=== PATIENT | male | born 1965 | race Caucasian/White ===

== ENCOUNTER 2018-03-14 05:28 | Observation (INO) ==
--- NOTE | 2018-03-14 05:47 | Emergency Department Note ---
Disposition Clinical Impression: Pre-syncope Dyspnea Qualifiers: Dyspnea type: unspecified Qualified Code(s): R06.00 - Dyspnea, unspecified Disposition: Admitted As Inpatient Referrals: NONE,PCP [Primary Care Provider] - Forms: ED Satisfaction Letter Time of Disposition: 06:08 SOB HPI - General Chief Complaint: ED Shortness of Breath/Dyspnea Stated Complaint: Breathing problem Time Seen by Provider: 03/14/18 05:42 Source: patient, EMS Limitations: no limitations Nursing Notes Reviewed: Yes Vital Signs Reviewed: Yes - History of Present Illness Pt Subjective Complaint: shortness of breath Onset (ago): week(s) Context: occurred during exertion Consistency/Duration: gradually worsening Improves with: rest Worsens with: movement Known history of: IVDU Associated symptoms: Reports: palpitations, syncope, other (weight loss). Denies: fever, cough, wheezing, sputum production, hemoptysis, diaphoresis, nausea/vomiting Treatment prior to arrival: other (IV fluids via squad) Cough present: No - Related Data Previous Rx's Medication Instructions Recorded HydrOXYzine 50 mg PO TID PRN #30 tablet 09/29/15 Cyclobenzaprine [Flexeril] 10 mg PO BID #20 tablet 01/08/16 Ibuprofen [Caldolor] 800 mg IV TID PRN #30 mls 01/08/16 Cyclobenzaprine [Flexeril] 10 mg PO BID PRN #10 tablet 08/08/16 HYDROcodone/Acet 5/325 mg [[place] 1 tab PO Q6HR PRN #15 tablet 08/08/16 5-325 mg] Ibuprofen [Motrin] 600 mg PO Q6HR PRN #16 tab 01/28/17 Phenytoin ER [Dilantin ER] 100 mg PO TID #24 capsule 01/28/17 HYDROcodone/Acet 5/325 mg [[place] 1 tab PO Q6H PRN #10 tab 04/23/17 5-325 mg] Indomethacin [Indocin] 50 mg RC TID 3 Days supp.rect 04/23/17 Lisinopril [Zestril] 20 mg PO DAILY #10 tablet 07/07/17 Ondansetron ODT [Zofran ODT] 4 mg SL Q6HR PRN #12 tab.rapdis 09/13/17 Dicyclomine [Bentyl] 10 mg PO QID PRN #20 capsule 12/14/17 Omeprazole 20 mg PO DAILY #20 tablet. 12/14/17 Ondansetron ODT [Zofran ODT] 4 mg SL Q6HR PRN #20 tab.rapdis 12/14/17 Allergies Allergy/AdvReac Type Severity Reaction Status Date / Time Penicillins Allergy Anaphylaxis Verified 07/07/17 08:33 codeine AdvReac Hives Verified 07/07/17 08:33 All systems ED: reviewed and negative except as stated. Review of Systems: As Per HPI Constitutional: Reports: weight change (loss). Denies: fever, chills Eyes: Reports: vision change ENT ED: Denies: throat pain Cardiovascular: Reports: as per HPI Respiratory: Reports: as per HPI Gastrointestinal: Denies: abdominal pain, nausea, vomiting Genitourinary: Denies: dysuria Musculoskeletal: Denies: back pain, neck pain Integumentary: Denies: rash Neurological: Denies: headache, weakness Psychiatric: Reports: anxiety Endocrine: Denies: fatigue Hematological/Lymphatic: Denies: easy bleeding Allergic/Immunologic: Denies: facial swelling Past Medical History - Past Medical History Medical history: Reports: hypertension, seizures Surgical history: Reports: no surgical history Psychiatric history: Reports: depression - Social History Smoking Status: Former smoker Smokeless Tobacco Status: Yes (vapor) Alcohol use: Reports: occasionally Drug use: Reports: marijuana Physical Exam - General Limitations: no limitations General appearance: alert, in no apparent distress - Head Head exam: atraumatic, normocephalic - Eye Eye exam: Present: EOMI. Absent: conjunctival injection - ENT ENT exam: normal oropharynx, mucous membranes moist, TM's normal bilaterally, normal external ear exam - Neck Neck exam: Present: full ROM. Absent: lymphadenopathy - Chest Chest inspection: Present: normal inspection, symmetric chest wall rise. Absent : tenderness - Cardiovascular Cardiovascular exam: Present: regular rate, normal rhythm - Abdominal Exam Abdominal exam: Present: soft, Non-Tender Course Course Narrative: Patient is a 53-year-old male smoker that arrives via squad from his home with shortness of breath and palpitations. He states his symptoms started when he was at home at rest this prior to his arrival. He said his symptoms were severe enough that he wanted to call the squad, however to use his phone, he needs to go outside to get a good signal, and he describes having to walk up an area outside his home to get the single. Was walking he noticed that his symptoms had worsened. He felt that he needed to pass out. He has mentioned that he has had some difficulty breathing, and his friends and family have told him that there may be something wrong with his heart. He mentions that he gets difficulty breathing whenever he squats or stands, and its worse at night. He mentions he has not seen a primary care provider in 2 years, but has plans to follow up with the [facility] next week. He does mention some cardiac workup approximately 10 years ago. More lately, he mentions he has had some fever, dark tarry stools, near syncopal symptoms, and weight loss. He describes losing 50 pounds in the past year and a half. He mentions that he passed out 2 days ago while walking. He denies any injury from the fall, nausea, vomiting, chest pain, hemoptysis, fever, chills, abdominal pain, confusion, vertigo. He mentions a past medical history of COPD, hypertension,seizures. He does mention a history of epilepsy, for which she takes Neurontin and Dilantin, he reports that his last primary care provider gave him enough supply of these medications and he still has a supply. He denies any recent seizure and says it 's been years since he had one. He does not require home O2, and has not taken BP medications for 2 years. 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 He is seen at [facility] for Suboxone treatments. He does mention he is a chronic marijuana user. He denies any other current illicit drug use. Patient seen and examined. he is alert and oriented. He is in no acute distress. Blood pressure is 184/124. Otherwise His vitals are within normal limits. Lungs clear to auscultation. Normal distal pulses. No concerning rashes or lesions or signs of skin infection. No abdominal pain. Heart regular rate and rhythm. Workup initiated. - Reevaluation(s) Reevaluation #1: At this time it is at the end of my shift, care of this patient will be transferred over to day shift provider, Adam Bermudez CNP. Please see his further documentation for details and final disposition. Discussed patient with Adam. At this time his lab work, chest x-ray are still pending. Patient's vitals are stable. He is alert. He is walking and his exam room, and using her phone in no acute distress. Due to patient's shortness of breath which is worth on exertion, no recent cardiac eval, his h/o weight loss, syncope, I feel the patient may need to be admitted for further evaluation, however please see Adam' s documentation for final evaluation, and disposition. Time: 06:07 Vital Signs Temperature 98.6 F 03/14/18 05:35 Pulse Rate 71 03/14/18 05:35 Respiratory Rate 20 03/14/18 05:35 Blood Pressure 184/124 03/14/18 05:35 O2 Sat by Pulse Oximetry 95 03/14/18 05:35 Temperature 98.6 F 03/14/18 05:35 Pulse Rate 71 03/14/18 05:35 Respiratory Rate 20 03/14/18 05:35 Blood Pressure 184/124 03/14/18 05:35 O2 Sat by Pulse Oximetry 95 03/14/18 05:35 Oxygen Delivery Oxygen Delivery Room Air Shortness of Breath/Dyspnea - EKG Data EKG attestation: Yes I reviewed and interpreted this EKG. EKG shows normal: Reports: sinus rhythm Rate: Reports: normal Rhythm: Reports: NSR When compared to previous EKG there are: no significant changes (08/2017) Interpretation: Reports: no acute changes S.B.A.R. - S.B.A.R. Situation: Demographics, MOA Background: Presenting Complaint Assessment: Vital Signs, Outstanding Labs Recommendation: Recommendation based on pending studies, treatments, or consults S.B.A.R. Report Given to: Adam Bermudez CNP S.B.A.RWilson Repor Time: 06:05
[2018-03-14] MEDS ORDERED: Aspirin 81 MG TAB.CHEW PO ONE (05:49)
--- NOTE | 2018-03-14 06:19 | Emergency Department Note ---
Disposition Clinical Impression: Pre-syncope, Chest pain, rule out acute myocardial infarction Dyspnea Qualifiers: Dyspnea type: unspecified Qualified Code(s): R06.00 - Dyspnea, unspecified COPD (chronic obstructive pulmonary disease) Qualifiers: COPD type: unspecified COPD Qualified Code(s): J44.9 - Chronic obstructive pulmonary disease, unspecified Disposition: Admitted As Inpatient Condition: Fair Referrals: NONE,PCP [Primary Care Provider] - Forms: ED Satisfaction Letter Time of Disposition: 09:11 SOB HPI - General Chief Complaint: ED Shortness of Breath/Dyspnea Stated Complaint: Breathing problem Time Seen by Provider: 03/14/18 05:42 Source: patient, EMS Limitations: no limitations - History of Present Illness Improves with: rest Worsens with: movement Associated symptoms: Reports: palpitations, syncope, other (weight loss). Denies: fever, cough, wheezing, sputum production, hemoptysis, diaphoresis, nausea/vomiting Treatment prior to arrival: other (IV fluids via squad) - Related Data Allergies Allergy/AdvReac Type Severity Reaction Status Date / Time Penicillins Allergy Anaphylaxis Verified 07/07/17 08:33 codeine AdvReac Hives Verified 07/07/17 08:33 Constitutional: Reports: weight change (loss). Denies: fever, chills Eyes: Reports: vision change ENT ED: Denies: throat pain Cardiovascular: Reports: as per HPI Respiratory: Reports: as per HPI Gastrointestinal: Denies: abdominal pain, nausea, vomiting Genitourinary: Denies: dysuria Musculoskeletal: Denies: back pain, neck pain Integumentary: Denies: rash Neurological: Denies: headache, weakness Psychiatric: Reports: anxiety Endocrine: Denies: fatigue Hematological/Lymphatic: Denies: easy bleeding Allergic/Immunologic: Denies: facial swelling Past Medical History - Past Medical History Medical history: Reports: hypertension, seizures Surgical history: Reports: no surgical history Psychiatric history: Reports: depression - Social History Smoking Status: Former smoker Smokeless Tobacco Status: Yes (vapor) Alcohol use: Reports: occasionally Drug use: Reports: marijuana Physical Exam - General Limitations: no limitations General appearance: alert, in no apparent distress Course Course Narrative: 0600: I have assumed care of this patient from MEHNAZ Thurman due to mid-level shift change. Please see Olman's documentation for care performed prior to my arrival. Briefly, this is an alert and oriented nontoxic-appearing 53-year- old male that arrived by EMS for complaints of shortness of breath, palpitations , left-sided chest heaviness, near syncope, and weight loss. His shortness of breath and sensation of palpitations appear to be worse with exertion. He does state the symptoms have been present for "quite some time" however have worsened over the past several days. He is a smoker and does have a history of COPD. He states that his shortness of breath is made worsened at night. He has not seen his primary care provider over 2 years but does have an appointment scheduled with the residency clinic for early next. He states a 50 pound weight loss over the past year and a half. Aside from an elevated blood pressure of 184/124, vitals are stable and within normal limits. Laboratory and chest x-ray workup are pending. EKG is reviewed and shows a sinus rhythm at a rate of 71 bpm without ectopy or ST elevation/depression. 0909: I spoke with Dr. Shaikh of the hospitalist service who has accepted the patient for admission for further evaluation and treatment. I have discussed this plan with Dr. Velasco, ED attending. He is in agreement with this plan. Vital Signs Temperature 98.6 F 03/14/18 05:35 Pulse Rate 71 03/14/18 05:35 Respiratory Rate 20 03/14/18 05:35 Blood Pressure 184/124 03/14/18 05:35 O2 Sat by Pulse Oximetry 95 03/14/18 05:35 Temperature 98.6 F 03/14/18 05:35 Pulse Rate 72 03/14/18 07:16 Respiratory Rate 18 03/14/18 07:16 Blood Pressure 187/118 03/14/18 07:16 O2 Sat by Pulse Oximetry 94 03/14/18 07:16 Oxygen Delivery Oxygen Delivery Room Air Shortness of Breath/Dyspnea - Medical Records Medical records reviewed: Yes I reviewed the patient's medical records. - Lab Data Lab results reviewed: Yes I reviewed the patient's lab results. Result diagrams: 03/14/18 06:40 03/14/18 06:40 Lab Results 03/14/18 03/14/18 03/14/18 Range/Units 06:40 06:40 06:40 WBC 4.5 (4.3-11.1) K/mcL RBC 4.66 (4.19-5.50) M/mcL Hgb 14.4 (12.9-16.9) g/dL Hct 43.6 (37.5-50.1) % MCV 93.6 (83.0-100.0) fL MCH 30.9 (28.0-33.3) pg MCHC 33.0 (31.6-35.5) g/dL RDW 13.7 (11.5-14.5) % Plt Count 281 (140-400) K/mcL MPV 9.4 (9.4-12.4) fL Immature Gran % 0.0 (0-4) % Seg Neutrophils % 47.2 % Lymphocytes % 31.8 % Monocytes % 15.9 % Eosinophils % 3.1 % Basophils % 2.0 % Neutrophils # 2.1 (1.6-8.9) K/mcL Lymphocytes # 1.4 (0.6-4.6) K/mcL Monocytes # 0.7 (0.0-1.3) K/mcL Eosinophils # 0.1 (0.0-0.6) K/mcL Basophils # 0.1 (0.0-0.2) K/mcL D-Dimer 316 (0-500) ng/mLFEU Sodium 140 (136-145) mEq/L Potassium 3.9 (3.5-5.1) mEq/L Chloride 103 (98-107) mEq/L Carbon Dioxide 26 (23-29) mEq/L BUN 5 L (6-20) mg/dL Creatinine 0.65 L (0.70-1.30) mg/dL Est GFR ( Amer) > 60 (> 60) Est GFR (Non-Af Amer) > 60 (> 60) BUN/Creatinine Ratio 8 (6-26) Glucose 95 (70-105) mg/dL Calculated Osmolality 287 (280-300) Calcium 8.9 (8.6-10.3) mg/dL Total Bilirubin 0.6 (0.3-1.0) mg/dL Direct Bilirubin 0.1 (0.0-0.2) mg/dL Indirect Bilirubin 0.5 (0.0-1.2) mg/dL AST 42 H (13-39) Units/L ALT 22 (7-52) Units/L Alkaline Phosphatase 44 (34-104) Units/L Troponin I < 0.03 (< 0.04) ng/mL Serum Total Protein 7.3 (6.4-8.9) g/dL Albumin 4.4 (3.5-5.7) g/dL Globulin 2.9 (2.4-3.5) g/dL Albumin/Globulin Ratio 1.5 (1.1-2.2) Phenytoin < 0.5 L (10.0-20.0) mcg/mL - Radiology Data Radiology results reviewed: Yes I reviewed the patient's radiology results. - EKG Data EKG attestation: Yes I reviewed and interpreted this EKG.
--- NOTE | 2018-03-14 06:43 | Emergency Department Note ---
Disposition Clinical Impression: Pre-syncope Dyspnea Qualifiers: Dyspnea type: unspecified Qualified Code(s): R06.00 - Dyspnea, unspecified Disposition: Admitted As Inpatient Referrals: NONE,PCP [Primary Care Provider] - Forms: ED Satisfaction Letter General Adult HPI - General Chief complaint: ED Shortness of Breath/Dyspnea Stated complaint: Breathing problem Time Seen by Provider: 03/14/18 05:42 Source: patient, EMS Limitations: no limitations - History of Present Illness Pain Scale: 0 - Related Data Previous Rx's Medication Instructions Recorded HydrOXYzine 50 mg PO TID PRN #30 tablet 09/29/15 Cyclobenzaprine [Flexeril] 10 mg PO BID #20 tablet 01/08/16 Ibuprofen [Caldolor] 800 mg IV TID PRN #30 mls 01/08/16 Cyclobenzaprine [Flexeril] 10 mg PO BID PRN #10 tablet 08/08/16 HYDROcodone/Acet 5/325 mg [[place] 1 tab PO Q6HR PRN #15 tablet 08/08/16 5-325 mg] Ibuprofen [Motrin] 600 mg PO Q6HR PRN #16 tab 01/28/17 Phenytoin ER [Dilantin ER] 100 mg PO TID #24 capsule 01/28/17 HYDROcodone/Acet 5/325 mg [[place] 1 tab PO Q6H PRN #10 tab 04/23/17 5-325 mg] Indomethacin [Indocin] 50 mg RC TID 3 Days supp.rect 04/23/17 Lisinopril [Zestril] 20 mg PO DAILY #10 tablet 07/07/17 Ondansetron ODT [Zofran ODT] 4 mg SL Q6HR PRN #12 tab.rapdis 09/13/17 Dicyclomine [Bentyl] 10 mg PO QID PRN #20 capsule 12/14/17 Omeprazole 20 mg PO DAILY #20 tablet.dr 12/14/17 Ondansetron ODT [Zofran ODT] 4 mg SL Q6HR PRN #20 tab.rapdis 12/14/17 Allergies Allergy/AdvReac Type Severity Reaction Status Date / Time Penicillins Allergy Anaphylaxis Verified 07/07/17 08:33 codeine AdvReac Hives Verified 07/07/17 08:33 Constitutional: Reports: weight change (loss). Denies: fever, chills Eyes: Reports: vision change ENT ED: Denies: throat pain Cardiovascular: Reports: as per HPI Respiratory: Reports: as per HPI Gastrointestinal: Denies: abdominal pain, nausea, vomiting Genitourinary: Denies: dysuria Musculoskeletal: Denies: back pain, neck pain Integumentary: Denies: rash Neurological: Denies: headache, weakness Psychiatric: Reports: anxiety Endocrine: Denies: fatigue Hematological/Lymphatic: Denies: easy bleeding Allergic/Immunologic: Denies: facial swelling Past Medical History - Past Medical History Medical history: Reports: hypertension, seizures Surgical history: Reports: no surgical history Psychiatric history: Reports: depression - Social History Smoking Status: Former smoker Smokeless Tobacco Status: Yes (vapor) Alcohol use: Reports: occasionally Drug use: Reports: marijuana Physical Exam - General Limitations: no limitations General appearance: alert, in no apparent distress Course - Reevaluation(s) Reevaluation #1: Attestation note I examined this patient and my medical decision-making was reviewed with the emergency medicine resident. I agree with the documented findings, disposition and treatment plan as described except to the extent set forth below. Patient seen with nurse practitioner CHRISTINA Bermudez, Please see a copy of his note for details of the H&P, ED evaluation, management and disposition. I have independently evaluated the patient and confirmed appropriate portions of the history and physical exam. Briefly: 53-year-old male by EMS shortness of breath weight loss dark stools 30- pack-year tobacco history 50 pound weight loss over the past year and that was unwanted. Patient getting labs including d-dimer to exclude the possibility of PE. Patient is hypertensive but not Tachycardic or hypoxic. Disposition pending. Time: 06:42 Vital Signs Temperature 98.6 F 03/14/18 05:35 Pulse Rate 71 03/14/18 05:35 Respiratory Rate 20 03/14/18 05:35 Blood Pressure 184/124 03/14/18 05:35 O2 Sat by Pulse Oximetry 95 03/14/18 05:35 Temperature 98.6 F 03/14/18 05:35 Pulse Rate 71 03/14/18 05:35 Respiratory Rate 20 03/14/18 05:35 Blood Pressure 184/124 03/14/18 05:35 O2 Sat by Pulse Oximetry 95 03/14/18 05:35 Oxygen Delivery Oxygen Delivery Room Air
[2018-03-14 06:57] LABS: Basophils # 0.1 K/mcL (0.0-0.2); Eosinophils # 0.1 K/mcL (0.0-0.6); Eosinophils % 3.1 %; Hematocrit 43.6 % (37.5-50.1); Hemoglobin 14.4 g/dL (12.9-16.9); Lymphocytes # 1.4 K/mcL (0.6-4.6); Lymphocytes % 31.8 %; Mean Corpuscular Hemoglobin 30.9 pg (28.0-33.3); Mean Corpuscular Volume 93.6 fL (83.0-100.0); Mean Platelet Volume 9.4 fL (9.4-12.4); Monocytes # 0.7 K/mcL (0.0-1.3); Monocytes % 15.9 %; Neutrophils # 2.1 K/mcL (1.6-8.9); Platelet Count 281 K/mcL (140-400); Red Blood Count 4.66 M/mcL (4.19-5.50); Red Cell Distribution Width 13.7 % (11.5-14.5); Segmented Neutrophils % 47.2 %
[2018-03-14 07:16] LABS: Alanine Aminotransferase 22 Units/L (7-52); Albumin 4.4 g/dL (3.5-5.7); Albumin/Globulin Ratio 1.5 (1.1-2.2); Alkaline Phosphatase 44 Units/L (34-104); Aspartate Amino Transferase 42 Units/L (13-39); BUN/Creatinine Ratio 8 (6-26); Bilirubin,Direct 0.1 mg/dL (0.0-0.2); Bilirubin,Indirect 0.5 mg/dL (0.0-1.2); Bilirubin,Total 0.6 mg/dL (0.3-1.0); Blood Urea Nitrogen 5 mg/dL (6-20); Calcium 8.9 mg/dL (8.6-10.3); Carbon Dioxide 26 mEq/L (23-29); Chloride 103 mEq/L (98-107); Globulin 2.9 g/dL (2.4-3.5); Glucose 95 mg/dL (70-105); Osmolality,Calculated 287 (280-300); Phenytoin (Dilantin) < 0.5 mcg/mL (10.0-20.0); Potassium 3.9 mEq/L (3.5-5.1); Sodium 140 mEq/L (136-145); Total Protein 7.3 g/dL (6.4-8.9); Troponin I < 0.03 ng/mL (< 0.04); eGFR For African Americans > 60 (> 60); eGFR For Non-African Americans > 60 (> 60)
[2018-03-14] MEDS ORDERED: Isovue-370 500 ML INFUS..BTL IV ONE (08:00)
[2018-03-14] MEDS ORDERED: *HR* Buprenorphine HCl 8 MG TAB.SUBL SL STA (08:00)
[2018-03-14] MEDS ORDERED: *HR* Buprenorphine HCl 2 MG SUBLINGUAL TABLET SL STA (08:11)
[2018-03-14] MEDS ORDERED: Lisinopril 20 MG TABLET PO STA (09:03)
[2018-03-14] MEDS ORDERED: Albuterol 2.5 MG/3 ML NEBULIZER IH PRN (09:56)
[2018-03-14] MEDS ORDERED: Naloxone 0.4 MG/ML INJ IVP PRN (09:56)
[2018-03-14] MEDS ORDERED: Acetaminophen 325 MG TABLET PO PRN (09:56)
--- NOTE | 2018-03-14 10:37 | Internal Med History&Physical ---
Date of Encounter: 03/14/18 Time of Encounter: 09:35 Internal Medicine - H&P: HPI Chief complaint: chest pain , SOB, weight loss Admitted From: Emergency Dept Plans for Post Hospital Care: Home History of present illness: Mr. Galindo is a 53 year old male who presents with a several month long history of exertional chest pain, exertional dyspnea, and unintentional weight loss of over 50 pounds. His chest pain and shortness of breath were profound last night where he almost passed out. He therefore came to ER for evaluation this morning. Initial workup was negative. However, he did have a CT scan of his abdomen and pelvis which revealed dilatation of his common bile duct and pancreatic duct, concerning for obstructive process. He was therefore admitted to the hospitalist service. Upon my assessment of the patient in the ER, he is lying in bed comfortably. He reiterates the above history. He does have a history of COPD and over 30 year history of smoking. He quit smoking recently and is now vaping. He also has a long history of illicit drug abuse, mostly opiates. He has been clean for the last 7 weeks and is currently on Suboxone through a local Suboxone clinic. He has tested positive for hepatitis C in the past but not hepatitis B. According to last testing at the health department, he has been HIV negative. However, given his history of hepatitis C and recent opiate abuse, I recommend repeat HIV testing. Patient is agreeable. Regarding his weight loss and abdominal CT findings, patient states he has been having some epigastric abdominal pain, melena, and unintended weight loss. He states he was diagnosed with H. pylori gastritis a few years ago and treated with appropriate medication. However, since then, he has had abnormal stools, weight loss, and suboptimal appetite. He denies any fevers, but he says some chills and night sweats the last few weeks. He has had a chronic mucus producing cough which has not changed for many years. He denies any hemoptysis. He denies any TB exposure. Past Med Surg Social Fam HX - Past Medical History Attestation: Yes The following information was validated with the patient. Source: patient, old records reviewed Medical history: hepatitis (Hepatitis C), hypertension, seizures Psychiatric history: anxiety, depression - Past Surgical History Surgical History: no surgical history - Social History Smoking Status: Former smoker Smokeless Tobacco Status: Yes (vapor) Alcohol use: occasionally Drug use: opiates, marijuana Current living situation: Home - Independent Activity Level: Independent ambulation Recent Out of Country Travel Within the Last 8 Weeks: No - Family History Father Living Status: Cause of : COPD Hx Family Respiratory Disorders: Yes Mother Living Status: Still Living Internal Medicine - H&P: Meds Buprenorphin-Naloxon 8-2 mg Sl 03/14/18 [History] Gabapentin [Neurontin] 400 mg PO BID 03/14/18 [History] Phenytoin ER [Dilantin ER] 100 mg PO BID 03/14/18 [History] Phenytoin ER [Dilantin ER] 300 mg PO HS 03/14/18 [History] 3 Allergy/AdvReac Type Severity Reaction Status Date / Time Penicillins Allergy Anaphylaxis Verified 07/07/17 08:33 codeine AdvReac Hives Verified 07/07/17 08:33 - Constitutional Constitutional: chills, night sweats, weakness, weight loss, no fever(s) - EENT Eyes: no blurry vision, no change in vision Ears: no ear pain, no tinnitus Nose, mouth and throat: no nasal congestion, no sinus pressure, no sore throat - Cardiovascular Cardiovascular ROS IM: chest pain, dyspnea, dyspnea on exertion, other (+ near syncope), no orthopnea, no palpitations, no syncope - Respiratory Respiratory: cough, dyspnea, dyspnea on exertion, wheezing, excessive phlegm production, no hemoptysis, no pain on inspiration, no change in phlegm color, no pain with cough - Gastrointestinal Gastrointestinal: abdominal pain (epigastric), change in bowel habits, heartburn , melena, nausea, no cramping, no diarrhea, no hematemesis, no hematochezia, no vomiting - Genitourinary Genitourinary ROS male: no dysuria, no flank pain, no hematuria - Musculoskeletal Musculoskeletal ROS IM: muscle weakness, no arthralgias, no back pain, no muscle cramps - Integumentary Integumentary IM: no rash, no jaundice - Neurological Neurological ROS: no dizziness, no focal weakness, no frequent falls, no headache(s), no vertigo - Psychiatric Psychiatric: anxiety, no depression - Endocrine Endocrine IM: no cold intolerance, no heat intolerance, no polydipsia, no polyuria - Hematologic/Lymphatic Hematologic/Lymphatic: no easy bruising, no lymphadenopathy - Allergic/Immunologic Allergic/Immunologic: wheezing, GI upset with certain foods - Constitutional Vitals: Temp Pulse Resp BP Pulse Ox 98.0 F 57 16 156/95 97 03/14/18 10:01 03/14/18 10:01 03/14/18 10:01 03/14/18 10:01 03/14/18 10:01 General appearance: Present: cachectic, cooperative, mild distress, A&O X 3, pleasant, answers questions appropriately - Head Head exam: Present: atraumatic, normal inspection - Eye Eye exam: Present: EOMI, normal appearance, PERRL. Absent: scleral icterus Pupils: Present: normal accommodation - ENT ENT exam: Present: mucous membranes dry, normal exam, normal oropharynx - Neck Neck exam general surgery: Present: full ROM, supple. Absent: lymphadenopathy, tenderness, nuchal rigidity, thyromegaly - Respiratory Respiratory exam: Present: CTAB, prolonged expiratory phase, rhonchi, wheezes ( mild). Absent: chest wall tenderness, rales, respiratory distress - Cardiovascular Cardiovascular exam: Present: RRR, +S1, +S2. Absent: diastolic murmur, JVD, systolic murmur - GI/Abdominal GI/Abdominal exam: Present: normal bowel sounds, soft, tenderness (epigastric), no peritoneal signs. Absent: guarding, hepatomegaly, mass, rebound, splenomegaly - Extremities Exam Extremities exam: Present: full ROM, normal capillary refill, warm, radial pulses palpable and symmetrical. Absent: calf tenderness, joint swelling, pedal edema, tenderness Additional comments: atrophy/muscle wasting - Back Exam Back exam: Present: normal inspection. Absent: CVA tenderness (L), CVA tenderness (R) - Neurological Exam Neurological exam: Present: alert, CN II-XII intact, oriented X3, no focal deficits, strengths equal and symetr throughout - Psychiatric Psychiatric exam: Present: normal affect, normal mood - Skin Skin exam: Present: dry, warm. Absent: rash Internal Med - H&P Results - Labs CBC & Chem 7: 03/14/18 06:40 03/14/18 06:40 - EKG Data -: EKG Interpreted by Myself EKG shows normal: sinus rhythm - EKG Data Prior EKG available for review: yes When compared to previous EKG: there is no significant change EKG comments: 03/14/18 10:51 NSR; no acute ST-T changes - Diagnostic Studies Chest x-ray Status: image reviewed by me (negative; chronic COPD changes) - Assessment and plan (1) Chest pain, rule out acute myocardial infarction Current Visit: Yes Status: Acute Assessment and plan: 1. Will trend troponins, EKG's, and order ECHO. 2. At some point (inpatient or outpatient), he will need stress test and/or LHC. 3. Symptoms may be due to CAD and/or COPD. (2) Unintentional weight loss Current Visit: Yes Status: Acute Assessment and plan: 1. I reviewed his Abdominal CT findings and discussed with Dr. Francois. 2. I worry about CBD and/or pancreatic ductal obstruction from underlying malignancy. 3. Will order MRI abdomen and consult Dr. Francois. 4. Will place on Protonix for his GERD symptoms and reported melena. 5. Will order serial H/H and monitor for GI blood loss. 6. Will order HIV testing given unintentional weight loss and history of illicit drug use. (3) COPD (chronic obstructive pulmonary disease) Current Visit: Yes Status: Chronic Assessment and plan: 1. Will place on scheduled and PRN aerosols. 2. Oxygen as needed. 3. Monitor and adjust treatment accordingly. 4. Do not appreciate a need for antibiotics at this time as I do not suspect pneumonia. Qualifiers: COPD type: emphysema Emphysema type: panlobular Qualified Code(s): J43.1 - Panlobular emphysema (4) DVT prophylaxis Current Visit: Yes Status: Acute Assessment and plan: 1. EPCD's. - Time Spent With Patient Total time spent is greater than 50% in coordination of care (as documented) at patient's floor/unit and/or counseling patient:
[2018-03-14] MEDS: Ipratropium/Albuterol Neb 3 ML IH SCH ×3 (10:44→21:02)
--- NOTE | 2018-03-14 12:59 | Event Note ---
Date of Encounter: 03/14/18 Time of Encounter: 11:20 I received a VOCERA page from pharmacy indicting that his OAR[facility] report did not show any prescriptions of Subutex, Suboxone, and/or Neurontin despite the medication list reconciliation performed in ER stating he was on these medications. Given the discrepancy, I asked pharmacy to cancel my orders for these three medications. Patient did not receive these medications.
[2018-03-14 13:14] LABS: Hematocrit 42.5 % (37.5-50.1); Hemoglobin 14.1 g/dL (12.9-16.9)
[2018-03-14 13:20] LABS: INR 1.1; Prothrombin Time 11.9 Seconds (9.4-12.1)
[2018-03-14 13:22] LABS: Activated Partial Thrombo Time 28.6 Seconds (26.0-36.0)
--- NOTE | 2018-03-14 13:59 | Event Note ---
Date of Encounter: 03/14/18 Time of Encounter: 13:56 I received a phone call from Pharmacy (Harvinder Gu) who called and confirmed with [facility] that patient is on Subutex administered there at the clinic on a daily basis. Therefore, he does not receive a prescription. As such, I asked Harvinder to resume his medications as verified by him and the clinic.
--- NOTE | 2018-03-14 14:04 | Gastroenterology Consult Note ---
<Brinda Krishnan - Last Filed: 03/14/18 15:33> Date of Encounter: 03/14/18 Time of Encounter: 12:15 - Assessment and plan (1) Dilated cbd, acquired Current Visit: Yes Status: Acute Assessment and plan: 53 year old male who presents with chest pain, RUQ pain. CT showed dilated PD and CBD which is concerning for mass. MRI has been ordered for today, depending n results will likely need EUS with FNA tomorrow. - Time Spent With Patient Total time spent is greater than 50% in coordination of care (as documented) at patient's floor/unit and/or counseling patient: GI History of Present Illness - Data of Consult Patient: new to practice Consult date: 03/14/18 Requesting Physician: Madhu Shaikh MD - Consult Narrative Reason for consult: dilated CBD History of present illness: Mr. Galindo is a 53 year old male with a past medical history of Hep C, and IVDU. He presented with chest pain, RUQ pain and nausea. He denies any IVDU for the past 7 weeks, states he has been on suboxone. He reports he has had abdominal pain for 7-9 months on and off but has been worse the past week. He also reports black stools last approximately 3 weeks ago. He also reports losing 15 pounds in the past 1-2 weeks. he denies nsaids or blood thinners. He denies diarrhea or constipation. He denies fever or chils. He reports a history of H pylori. He had a CT abdomen that showed interval development of left and right hepatic biliary distention. The extrahepatic bile duct is distended to the level of the ampulla. The pancreatic duct is dilated diffusely. LFTs are noted to be normal. EGD Colon NSAIDS: took aleve in the past but stoped taking 7 weeks ago anticoagulants: denies Past Med Surg Social Fam HX - Past Medical History Medical history: hepatitis (Hepatitis C), hypertension, seizures Psychiatric history: anxiety, depression - Past Surgical History Surgical History: no surgical history - Social History Smoking Status: Former smoker Smokeless Tobacco Status: Yes (vapor) Alcohol use: occasionally Drug use: opiates, marijuana - Family History Mother Age: 76 Family Member Ethnicity: Non- Living Status: Still Living Hx Family Endocrine Disorder: Yes (DM) Father Living Status: Cause of : 69 Hx Family Respiratory Disorders: Yes (COPD) Review of Systems: GI: as per [facility] GENERAL: denies fever, has some chills EYES: denies yellow discoloration ENT: denies pain with swallowing or difficulty swallowing CARDIO: see hpi RESP: Shortness of breath with exertion : denies change in color of urine NEURO: weakness HEME: Denies any bruising MS: denies joint pain, joint swelling or back pain. DERM: denies rash or itching PSYCH: history of anxiety and depression - Constitutional Vitals: Temp Pulse Resp BP Pulse Ox 98.0 F 57 18 156/95 98 03/14/18 10:01 03/14/18 10:01 03/14/18 10:44 03/14/18 10:01 03/14/18 10:44 Exam: CONSTITUTIONAL:~alert, no acute distress.~HEAD:~normocephalic.~EYES:~no jaundice.~NECK:~no obvious swelling.~HEART:~regular rate and rhythm, no murmurs. ~LUNGS:~bilateral fair air entry.~ABDOMEN:~non distended, soft, tender epigastric and RUQ, concave, no masses palpable, no organomegaly.~RECTAL EXAM:~ Deferred.~EXTREMITIES:~no clubbing, cyanosis or edema.~SKIN:~no stigmata of chronic liver disease.~NEUROLOGIC:~no obvious focal defect.~~~~ Results - Labs CBC & Chem 7: 03/14/18 12:39 03/14/18 06:40 Labs: Last Result Calcium 8.9 mg/dL (8.6-10.3) 03/14/18 06:40 Troponin I < 0.03 ng/mL (< 0.04) 03/14/18 12:39 Entire Visit Hgb 14.1 g/dL (12.9-16.9) 03/14/18 12:39 Hct 42.5 % (37.5-50.1) 03/14/18 12:39 PT 11.9 Seconds (9.4-12.1) 03/14/18 12:39 Total Bilirubin 0.6 mg/dL (0.3-1.0) 03/14/18 06:40 AST 42 Units/L (13-39) H 03/14/18 06:40 ALT 22 Units/L (7-52) 03/14/18 06:40 - ABG ABG results: PT/INR, D-dimer PT 11.9 Seconds (9.4-12.1) 03/14/18 12:39 D-Dimer 316 ng/mLFEU (0-500) 03/14/18 06:40 Consult Discharge Plan - Plan Referrals: NONE,PCP [Primary Care Provider] - <Jane Francois - Last Filed: 03/14/18 17:08> Date of Encounter: 03/14/18 Time of Encounter: 13:00 - Time Spent With Patient Total time spent is greater than 50% in coordination of care (as documented) at patient's floor/unit and/or counseling patient: GI History of Present Illness - Data of Consult Requesting Physician: Madhu Shaikh MD - Consult Narrative History of present illness: Mr. Galindo is a 53 year old male - Constitutional Vitals: Temp Pulse Resp BP Pulse Ox 98.5 F 62 18 154/90 95 03/14/18 14:58 03/14/18 14:58 03/14/18 16:07 03/14/18 14:58 03/14/18 16:07 Results - Labs CBC & Chem 7: 03/14/18 12:39 03/14/18 06:40 Labs: Last Result Calcium 8.9 mg/dL (8.6-10.3) 03/14/18 06:40 Troponin I < 0.03 ng/mL (< 0.04) 03/14/18 12:39 Entire Visit Hgb 14.1 g/dL (12.9-16.9) 03/14/18 12:39 Hct 42.5 % (37.5-50.1) 03/14/18 12:39 PT 11.9 Seconds (9.4-12.1) 03/14/18 12:39 Total Bilirubin 0.6 mg/dL (0.3-1.0) 03/14/18 06:40 AST 42 Units/L (13-39) H 03/14/18 06:40 ALT 22 Units/L (7-52) 03/14/18 06:40 - ABG ABG results: PT/INR, D-dimer PT 11.9 Seconds (9.4-12.1) 03/14/18 12:39 D-Dimer 316 ng/mLFEU (0-500) 03/14/18 06:40 - Attending Attestation I have personally performed a face to face evaluation on this patient. I have reviewed and agree with the care plan. History and Exam by me shows: Pt seen,. Pt with epigastric poain, weight loss and double duct sign r/o panc/ ampullary mass. Rec: MRI of panc
[2018-03-14] MEDS: *HR* Buprenorphine HCl 2 MG SUBLINGUAL TABLET SL SCH (17:27)
[2018-03-14] MEDS: Pantoprazole 40 MG VIAL IVP SCH (17:27)
[2018-03-14] MEDS ORDERED: NON-FORMULARY MEDICATION 1 EACH EACH (Buprenorphine Hcl/Naloxone Hcl [Buprenorphin-Naloxon SL SCH (18:00)
[2018-03-14] MEDS ORDERED: Gabapentin 400 MG CAPSULE PO SCH (21:00)
[2018-03-15 01:39] LABS: Basophils # 0.1 K/mcL (0.0-0.2); Eosinophils # 0.1 K/mcL (0.0-0.6); Hematocrit 42.1 % (37.5-50.1); Hemoglobin 14.5 g/dL (12.9-16.9); Immature Granulocytes % 0.2 % (0-4); Lymphocytes # 1.3 K/mcL (0.6-4.6); Lymphocytes % 24.8 %; Mean Corpuscular HGB Conc 34.4 g/dL (31.6-35.5); Mean Corpuscular Volume 92.9 fL (83.0-100.0); Mean Platelet Volume 9.6 fL (9.4-12.4); Monocytes # 0.7 K/mcL (0.0-1.3); Monocytes % 13.8 %; Platelet Count 272 K/mcL (140-400); Red Blood Count 4.53 M/mcL (4.19-5.50); Red Cell Distribution Width 13.5 % (11.5-14.5); Segmented Neutrophils % 59.2 %
[2018-03-15 01:58] LABS: Alanine Aminotransferase 19 Units/L (7-52); Albumin/Globulin Ratio 1.6 (1.1-2.2); Alkaline Phosphatase 40 Units/L (34-104); Aspartate Amino Transferase 29 Units/L (13-39); BUN/Creatinine Ratio 10 (6-26); Bilirubin,Total 1.1 mg/dL (0.3-1.0); Blood Urea Nitrogen 6 mg/dL (6-20); Calcium 9.3 mg/dL (8.6-10.3); Carbon Dioxide 30 mEq/L (23-29); Chloride 100 mEq/L (98-107); Cholesterol 147 mg/dL (< 200); Globulin 2.5 g/dL (2.4-3.5); Glucose 104 mg/dL (70-105); HDL Cholesterol 72 mg/dL (40-59); LDL Cholesterol,Calculated 65 mg/dL (0-99); Magnesium 1.7 mg/dL (1.6-2.6); Osmolality,Calculated 284 (280-300); Potassium 3.3 mEq/L (3.5-5.1); Sodium 138 mEq/L (136-145); Total Protein 6.5 g/dL (6.4-8.9); Triglycerides 49 mg/dL (< 150); eGFR For African Americans > 60 (> 60); eGFR For Non-African Americans > 60 (> 60)
[2018-03-15] MEDS: Ipratropium/Albuterol Neb 3 ML IH SCH ×4 (03:56→22:07)
[2018-03-15] MEDS: Pantoprazole 40 MG VIAL IVP SCH ×2 (05:25→17:04)
[2018-03-15] MEDS ORDERED: *HR* Buprenorphine HCl 8 MG TAB.SUBL SL SCH ×2 (05:45→08:00)
[2018-03-15] MEDS: *HR* Buprenorphine HCl 8 MG TAB.SUBL SL SCH (05:47)
[2018-03-15] MEDS ORDERED: *HR* Buprenorphine HCl 2 MG SUBLINGUAL TABLET SL SCH (09:00)
[2018-03-15] MEDS ORDERED: *HR* LORazepam 2 MG/ML VIAL IVP ONE (09:59)
--- NOTE | 2018-03-15 10:55 | Gastroenterology Progress Note ---
<Brinda Krishnan - Last Filed: 03/15/18 10:52> Date of Encounter: 03/15/18 Time of Encounter: 09:50 - Assessment and plan (1) Dilated cbd, acquired Current Visit: Yes Status: Acute Assessment and plan: Pt was unable to complete MRCP today. Will proceed with EUS and possible biopsy today. Pt informed of risks and benefits and is in agreement. (2) Abdominal pain Current Visit: Yes Status: Acute Assessment and plan: Continue PPI, will proceed with EGD today to rule out PUD, pt has a history of H pylori. Qualifiers: Abdominal location: epigastric Qualified Code(s): R10.13 - Epigastric pain - Time Spent With Patient Total time spent is greater than 50% in coordination of care (as documented) at patient's floor/unit and/or counseling patient: - Subjective Interval history: Pt is awake and sitting on the side of the bed. He was unable to have the MRI this morning due to anxiety attack. He still complains of abdominal pain, and ruq pain. Labs reviewed and total bili 1.1. - Constitutional Vitals: Temp Pulse Resp BP Pulse Ox 98.0 F 74 16 130/86 93 03/15/18 08:26 03/15/18 08:26 03/15/18 10:39 03/15/18 08:26 03/15/18 10:39 Exam: CONSTITUTIONAL:~alert, no acute distress.~HEAD:~normocephalic.~EYES:~no jaundice.~NECK:~no obvious swelling.~HEART:~regular rate and rhythm, no murmurs. ~LUNGS:~bilateral fair air entry.~ABDOMEN:~non distended, soft, diffusely tender , no masses palpable, no organomegaly.~RECTAL EXAM:~Deferred.~EXTREMITIES:~no clubbing, cyanosis or edema, cachexia noted.~SKIN:~no stigmata of chronic liver disease.~NEUROLOGIC:~no obvious focal defect.~~~~ Results - Labs CBC & Chem 7: 03/15/18 01:15 03/15/18 01:15 Labs: Last Result Calcium 9.3 mg/dL (8.6-10.3) 03/15/18 01:15 Troponin I < 0.03 ng/mL (< 0.04) 03/14/18 18:40 Triglycerides 49 mg/dL (< 150) 03/15/18 01:15 Entire Visit Hgb 14.5 g/dL (12.9-16.9) 03/15/18 01:15 Hct 42.1 % (37.5-50.1) 03/15/18 01:15 PT 11.9 Seconds (9.4-12.1) 03/14/18 12:39 Total Bilirubin 1.1 mg/dL (0.3-1.0) H 03/15/18 01:15 AST 29 Units/L (13-39) 03/15/18 01:15 ALT 19 Units/L (7-52) 03/15/18 01:15 - ABG ABG results: PT/INR, D-dimer PT 11.9 Seconds (9.4-12.1) 03/14/18 12:39 D-Dimer 316 ng/mLFEU (0-500) 03/14/18 06:40 - Impressions Impressions Echocardiogram 03/14/18 09:56 Impressions: LVEF 60-65%. Normal LV chamber size, wall thickness and function. Normal left ventricular diastolic function. Normal right ventricular structure and function. Mild pulmonary hypertension. No significant valvular dysfunction. Left Ventricular Wall Motion: Rest Echo Findings All wall segments showed normal motion. Findings: Study Quality * Technically adequate exam. ECG Findings * Sinus bradycardia. Left Ventricle * LVEF 60-65%. * Normal LV chamber size, wall thickness and function. * Normal left ventricular diastolic function. Right Ventricle * Normal right ventricular structure and function. Left Atrium * Mildly dilated left atrium. Right Atrium * Mildly dilated right atrium. Aortic Valve * Aortic valve not well visualized. * No aortic regurgitation. * No aortic stenosis. Mitral Valve * Normal mitral valve structure and function. * No mitral regurgitation. * No mitral stenosis. Tricuspid Valve * Normal tricuspid valve structure and function. * Trace tricuspid regurgitation. * Mild pulmonary hypertension. Pulmonic Valve * Pulmonic valve not well visualized. * No pulmonic regurgitation. Aorta * Normally sized aortic root. Pericardium * The pericardium appears normal. IVC * Normal IVC dimensions and inspiratory collapse. Pulmonary Artery * Normal visualized portions of the main pulmonary artery. Abdomen MRI 03/15/18 10:10 IMPRESSION: 1. Partially limited examination due to early termination of the study at patient request because of claustrophobia. 2. Moderate intrahepatic and extrahepatic biliary dilation and mild pancreatic duct dilation, neither present prior to 03/14/2018. An obstructing pancreatic or ampullary lesion cannot be excluded, although no definite abnormality seen in this area. Consider ERCP or pancreas protocol CT. 3. Mild hepatomegaly and mild hepatic steatosis. D/ / Kamaljit Singh MD / Kamaljit Singh MD Interpreting Provider: Kamaljit Singh MD Consult Discharge Plan - Plan Referrals: NONE,PCP [Primary Care Provider] - <Jane Francois - Last Filed: 03/15/18 21:17> Date of Encounter: 03/15/18 Time of Encounter: 17:00 - Time Spent With Patient Total time spent is greater than 50% in coordination of care (as documented) at patient's floor/unit and/or counseling patient: - Constitutional Vitals: Temp Pulse Resp BP Pulse Ox 98.2 F 72 14 122/78 93 03/15/18 19:30 03/15/18 19:30 03/15/18 19:30 03/15/18 19:30 03/15/18 19:30 Results - Labs CBC & Chem 7: 03/15/18 12:18 03/15/18 01:15 Labs: Last Result Calcium 9.3 mg/dL (8.6-10.3) 03/15/18 01:15 Troponin I < 0.03 ng/mL (< 0.04) 03/14/18 18:40 Triglycerides 49 mg/dL (< 150) 03/15/18 01:15 Entire Visit Hgb 13.6 g/dL (12.9-16.9) 03/15/18 12:18 Hct 41.0 % (37.5-50.1) 03/15/18 12:18 PT 11.9 Seconds (9.4-12.1) 03/14/18 12:39 Total Bilirubin 1.1 mg/dL (0.3-1.0) H 03/15/18 01:15 AST 29 Units/L (13-39) 03/15/18 01:15 ALT 19 Units/L (7-52) 03/15/18 01:15 - ABG ABG results: PT/INR, D-dimer PT 11.9 Seconds (9.4-12.1) 03/14/18 12:39 D-Dimer 316 ng/mLFEU (0-500) 03/14/18 06:40 - Impressions Impressions Echocardiogram 03/14/18 09:56 Impressions: LVEF 60-65%. Normal LV chamber size, wall thickness and function. Normal left ventricular diastolic function. Normal right ventricular structure and function. Mild pulmonary hypertension. No significant valvular dysfunction. Left Ventricular Wall Motion: Rest Echo Findings All wall segments showed normal motion. Findings: Study Quality * Technically adequate exam. ECG Findings * Sinus bradycardia. Left Ventricle * LVEF 60-65%. * Normal LV chamber size, wall thickness and function. * Normal left ventricular diastolic function. Right Ventricle * Normal right ventricular structure and function. Left Atrium * Mildly dilated left atrium. Right Atrium * Mildly dilated right atrium. Aortic Valve * Aortic valve not well visualized. * No aortic regurgitation. * No aortic stenosis. Mitral Valve * Normal mitral valve structure and function. * No mitral regurgitation. * No mitral stenosis. Tricuspid Valve * Normal tricuspid valve structure and function. * Trace tricuspid regurgitation. * Mild pulmonary hypertension. Pulmonic Valve * Pulmonic valve not well visualized. * No pulmonic regurgitation. Aorta * Normally sized aortic root. Pericardium * The pericardium appears normal. IVC * Normal IVC dimensions and inspiratory collapse. Pulmonary Artery * Normal visualized portions of the main pulmonary artery. Abdomen MRI 03/15/18 10:10 IMPRESSION: 1. Partially limited examination due to early termination of the study at patient request because of claustrophobia. 2. Moderate intrahepatic and extrahepatic biliary dilation and mild pancreatic duct dilation, neither present prior to 03/14/2018. An obstructing pancreatic or ampullary lesion cannot be excluded, although no definite abnormality seen in this area. Consider ERCP or pancreas protocol CT. 3. Mild hepatomegaly and mild hepatic steatosis. D/ / Kamaljit Singh MD / Kamaljit Singh MD Interpreting Provider: Kamaljit Singh MD - Attending Attestation I have personally performed a face to face evaluation on this patient. I have reviewed and agree with the care plan. History and Exam by me shows: Pt seen. MRI incomplete but no obvious mass. Rec: EGD/EUS/ERCP tomorrow
[2018-03-15 12:35] LABS: Hemoglobin 13.6 g/dL (12.9-16.9)
[2018-03-15] MEDS: 0.9 % Sodium Chloride 1,000 ML IVC SCH (14:12)
--- NOTE | 2018-03-15 16:51 | Internal Med Progress Note ---
Date of Encounter: 03/15/18 Time of Encounter: 09:45 - Assessment and plan (1) Chest pain, rule out acute myocardial infarction Current Visit: Yes Status: Acute Assessment and plan: patient denies chest pain. Echocardiogram completed shows LVEF of 6065% with normal LV DD, no significant valvular dysfunction. Troponins negative. Lipid panel within normal limits. Pain is not reproducible with palpation, deep inspiration, or movement. Continue telemetry Pain control AFter abdominal pain is evaluated, consider stress test. (2) COPD (chronic obstructive pulmonary disease) Current Visit: Yes Status: Chronic Assessment and plan: Mild acute exacerbation. LUngs are clear and diminished. Continue telemetry 02 prn to maintain sats > 92% Bronchodilators Pt without fever, tachycardia, will hold abx at this time, do not suspect infectious process. Continue to monitor. Qualifiers: COPD type: emphysema Emphysema type: panlobular Qualified Code(s): J43.1 - Panlobular emphysema (3) Unintentional weight loss Current Visit: Yes Status: Acute Assessment and plan: Pt reports approximately 50lb weight loss over 4 years. Pt appears cachectic. Pt was unable to complete MRI due to anxiety, results incomplete and exam limites, however, there is moderate intrahepatic and extrahepatic biliary dilation and mild pancreatic duct dilation, obstructing pancreatic or ampullary lesion cannot be excluded. Pt is being followed by GI, will have EUS and possible biopsy today. (4) DVT prophylaxis Current Visit: Yes Status: Acute Assessment and plan: SCDs, pt has been ambulatory. - Time Spent With Patient Total time spent is greater than 50% in coordination of care (as documented) at patient's floor/unit and/or counseling patient: less than 15 minutes - Subjective Interval history: Pt was seen and assessed at bedside at 0940 a.m. Pt had just returned from MRI and was pacing in the room. He states that he was too anxious to consider finishing the MRI. He was seen by GI INDEPENDENT DISTRIBUTOR at the same time and he was to have MRCP today. Pt denies chest pain, SOB, n/v/d, does report abdominal pain and 50 lb weight loss over about 4 years. Pt in no distress. - Constitutional Vitals: Temp Pulse Resp BP Pulse Ox 98.5 F 75 16 153/91 92 03/15/18 11:48 03/15/18 11:48 03/15/18 16:09 03/15/18 11:48 03/15/18 16:09 General appearance: Present: cachectic, cooperative, mild distress, A&O X 3, pleasant, no acute distress, answers questions appropriately - Head Head exam: Present: atraumatic, normal inspection, normocephalic - Eye Eye exam: Present: normal appearance, conjuntiva pink, sclera anicteric - Neck Neck exam general surgery: Present: supple, trachea midline. Absent: lymphadenopathy - Respiratory Respiratory exam: Present: CTAB. Absent: accessory muscle use, rales, rhonchi, wheezes - Cardiovascular Cardiovascular exam: Present: RRR, +S1, +S2. Absent: diastolic murmur, gallop, rubs, systolic murmur - GI/Abdominal GI/Abdominal exam: Present: normal bowel sounds, soft. Absent: distended, tenderness - Extremities Exam Extremities exam: Present: normal capillary refill, normal inspection, warm, radial pulses palpable and symmetrical. Absent: calf tenderness, cyanotic, pedal edema, tenderness - Neurological Exam Neurological exam: Present: alert, oriented X3, no focal deficits, pronater drift. Absent: altered, facial droop, speech deficit - Skin Skin exam: Present: dry, intact, warm. Absent: rash Internal Medicine: Result - Labs CBC & Chem 7: 03/15/18 12:18 03/15/18 01:15 Labs: Short CBC 03/15/18 03/15/18 Range/Units 01:15 12:18 WBC 5.1 (4.3-11.1) K/mcL Hgb 14.5 13.6 (12.9-16.9) g/dL Hct 42.1 41.0 (37.5-50.1) % Plt Count 272 (140-400) K/mcL Neutrophils # 3.0 (1.6-8.9) K/mcL BMP 03/15/18 01:15 Sodium 138 Potassium 3.3 L Chloride 100 Carbon Dioxide 30 H BUN 6 Creatinine 0.63 L Glucose 104 Calcium 9.3 Cardiac Enzymes 03/14/18 Range/Units 18:40 Troponin I < 0.03 (< 0.04) ng/mL Liver Function 03/15/18 Range/Units 01:15 Total Bilirubin 1.1 H (0.3-1.0) mg/dL AST 29 (13-39) Units/L ALT 19 (7-52) Units/L Alkaline Phosphatase 40 (34-104) Units/L Albumin 4.0 (3.5-5.7) g/dL - ABG Interpretation ABG results: PT/INR, D-dimer PT 11.9 Seconds (9.4-12.1) 03/14/18 12:39 D-Dimer 316 ng/mLFEU (0-500) 03/14/18 06:40 - Impressions Impressions Echocardiogram 03/14/18 09:56 Impressions: LVEF 60-65%. Normal LV chamber size, wall thickness and function. Normal left ventricular diastolic function. Normal right ventricular structure and function. Mild pulmonary hypertension. No significant valvular dysfunction. Left Ventricular Wall Motion: Rest Echo Findings All wall segments showed normal motion. Findings: Study Quality * Technically adequate exam. ECG Findings * Sinus bradycardia. Left Ventricle * LVEF 60-65%. * Normal LV chamber size, wall thickness and function. * Normal left ventricular diastolic function. Right Ventricle * Normal right ventricular structure and function. Left Atrium * Mildly dilated left atrium. Right Atrium * Mildly dilated right atrium. Aortic Valve * Aortic valve not well visualized. * No aortic regurgitation. * No aortic stenosis. Mitral Valve * Normal mitral valve structure and function. * No mitral regurgitation. * No mitral stenosis. Tricuspid Valve * Normal tricuspid valve structure and function. * Trace tricuspid regurgitation. * Mild pulmonary hypertension. Pulmonic Valve * Pulmonic valve not well visualized. * No pulmonic regurgitation. Aorta * Normally sized aortic root. Pericardium * The pericardium appears normal. IVC * Normal IVC dimensions and inspiratory collapse. Pulmonary Artery * Normal visualized portions of the main pulmonary artery. Abdomen MRI 03/15/18 10:10 IMPRESSION: 1. Partially limited examination due to early termination of the study at patient request because of claustrophobia. 2. Moderate intrahepatic and extrahepatic biliary dilation and mild pancreatic duct dilation, neither present prior to 03/14/2018. An obstructing pancreatic or ampullary lesion cannot be excluded, although no definite abnormality seen in this area. Consider ERCP or pancreas protocol CT. 3. Mild hepatomegaly and mild hepatic steatosis. D/ / Kamaljit Singh MD / Kamaljit Singh MD Interpreting Provider: Kamaljit Singh MD Consult Discharge Plan - Plan Referrals: NONE,PCP [Primary Care Provider] -
[2018-03-15] MEDS: *HR* Buprenorphine HCl 2 MG SUBLINGUAL TABLET SL SCH (17:40)
[2018-03-16 01:08] LABS: Basophils % 0.7 %; Eosinophils # 0.1 K/mcL (0.0-0.6); Eosinophils % 1.2 %; Hematocrit 38.9 % (37.5-50.1); Hematocrit 40.3 % (37.5-50.1); Hemoglobin 12.9 g/dL (12.9-16.9); Hemoglobin 13.3 g/dL (12.9-16.9); Immature Granulocytes % 0.2 % (0-4); Lymphocytes # 1.4 K/mcL (0.6-4.6); Lymphocytes % 24.7 %; Mean Corpuscular HGB Conc 33.2 g/dL (31.6-35.5); Mean Corpuscular Hemoglobin 30.7 pg (28.0-33.3); Mean Corpuscular Volume 92.6 fL (83.0-100.0); Mean Platelet Volume 9.6 fL (9.4-12.4); Monocytes # 0.8 K/mcL (0.0-1.3); Neutrophils # 3.4 K/mcL (1.6-8.9); Platelet Count 234 K/mcL (140-400); Red Cell Distribution Width 13.7 % (11.5-14.5); Segmented Neutrophils % 59.2 %
[2018-03-16 01:26] LABS: BUN/Creatinine Ratio 9 (6-26); Blood Urea Nitrogen 7 mg/dL (6-20); Carbon Dioxide 31 mEq/L (23-29); Chloride 102 mEq/L (98-107); Glucose 105 mg/dL (70-105); Osmolality,Calculated 282 (280-300); Potassium 3.5 mEq/L (3.5-5.1); Sodium 137 mEq/L (136-145); eGFR For African Americans > 60 (> 60); eGFR For Non-African Americans > 60 (> 60)
[2018-03-16] MEDS: 0.9 % Sodium Chloride 1,000 ML IVC SCH (03:44)
[2018-03-16] MEDS: Ipratropium/Albuterol Neb 3 ML IH SCH ×3 (04:02→16:03)
[2018-03-16] MEDS: Pantoprazole 40 MG VIAL IVP SCH (05:08)
[2018-03-16] MEDS: *HR* Buprenorphine HCl 8 MG TAB.SUBL SL SCH (05:17)
[2018-03-16] MEDS ORDERED: *HR* LORazepam 2 MG/ML VIAL IVP ONE ×2 (09:03→11:12)
[2018-03-16] MEDS ORDERED: *HR* Propofol 200 MG/20 ML VIAL IVP ONE (13:24)
[2018-03-16] MEDS ORDERED: Dexamethasone 4 MG/ML VIAL ONE (13:24)
[2018-03-16] MEDS ORDERED: Ondansetron 4 MG/2 ML VIAL ONE (13:24)
[2018-03-16] MEDS ORDERED: *HR* Succinylcholine 200 MG/10 ML VIAL IVP ONE (13:24)
[2018-03-16] MEDS ORDERED: Lidocaine -MPF 2% 2 ML VIAL ONE (13:24)
[2018-03-16] MEDS ORDERED: Lidocaine -MPF 4% 5 ML AMPUL ONE (13:26)
[2018-03-16] MEDS ORDERED: *HR* Midazolam HCl 2 MG/2 ML VIAL ONE (13:27)
--- NOTE | 2018-03-16 13:30 | Anesthesia Evaluation PreOp ---
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: Seizures (maintained on Dilantin) Other Medical History: Hepatic (Hep C+), GERD (Hx of Bleeding ulcers) Anesthesia History: Past Anesthesia (NO prior GA) Alcohol Use: occasionally Drug use: opiates, marijuana, other ("Clean x 7 weeks" & Suboxone clinic - per Pt) Medications and Allergies Phenytoin ER [Dilantin ER] 100 mg PO BID 03/14/18 [History] Phenytoin ER [Dilantin ER] 300 mg PO HS 03/14/18 [History] 3 Allergy/AdvReac Type Severity Reaction Status Date / Time Penicillins Allergy Anaphylaxis Verified 07/07/17 08:33 codeine AdvReac Hives Verified 07/07/17 08:33 - Meds/Allergy Pre-op Review Medications Reviewed: Yes Allergies Reviewed: Yes Beta Blockers on Current Med List: No Anesthesia Results - Labs 03/16/18 00:28 03/16/18 00:28 Laboratory Results Laboratory Tests 03/14/18 03/14/18 03/14/18 06:40 06:40 12:39 PT INR APTT D-Dimer 316 Est GFR (Non-Af Amer) Phenytoin < 0.5 L HIV Ag/Ab Combo Qual Nonreactive 03/14/18 03/16/18 12:39 00:28 PT 11.9 INR 1.1 APTT 28.6 D-Dimer Est GFR (Non-Af Amer) > 60 Phenytoin HIV Ag/Ab Combo Qual Impressions Chest X-Ray 03/14/18 05:49 IMPRESSION: No acute findings. Emphysema with COPD. D/ / Rui Kat / Rui Kat Interpreting Provider: Rui Kat Abdomen/Pelvis CT 03/14/18 08:00 IMPRESSION: 1. Intrahepatic, extrahepatic and pancreatic ductal dilatation. Cannot exclude ampullary mass or distal common bile duct stricture. Recommend MRCP or ERCP. D/ /14/2018 09:37:52 Avel Hammond MD / marnie Interpreting Provider: Avel Hammond MD Chest CTA 03/14/18 08:00 IMPRESSION: No evidence of pulmonary embolism or acute pulmonary abnormality. Emphysema. D/ / 03/14/2018 08:52:55 Thang Cohen MD / marnie Interpreting Provider: Thang Cohen MD Echocardiogram 03/14/18 09:56 Impressions: LVEF 60-65%. Normal LV chamber size, wall thickness and function. Normal left ventricular diastolic function. Normal right ventricular structure and function. Mild pulmonary hypertension. No significant valvular dysfunction. Left Ventricular Wall Motion: Rest Echo Findings All wall segments showed normal motion. Findings: Study Quality * Technically adequate exam. ECG Findings * Sinus bradycardia. Left Ventricle * LVEF 60-65%. * Normal LV chamber size, wall thickness and function. * Normal left ventricular diastolic function. Right Ventricle * Normal right ventricular structure and function. Left Atrium * Mildly dilated left atrium. Right Atrium * Mildly dilated right atrium. Aortic Valve * Aortic valve not well visualized. * No aortic regurgitation. * No aortic stenosis. Mitral Valve * Normal mitral valve structure and function. * No mitral regurgitation. * No mitral stenosis. Tricuspid Valve * Normal tricuspid valve structure and function. * Trace tricuspid regurgitation. * Mild pulmonary hypertension. Pulmonic Valve * Pulmonic valve not well visualized. * No pulmonic regurgitation. Aorta * Normally sized aortic root. Pericardium * The pericardium appears normal. IVC * Normal IVC dimensions and inspiratory collapse. Pulmonary Artery * Normal visualized portions of the main pulmonary artery. Abdomen MRI 03/15/18 10:10 IMPRESSION: 1. Partially limited examination due to early termination of the study at patient request because of claustrophobia. 2. Moderate intrahepatic and extrahepatic biliary dilation and mild pancreatic duct dilation, neither present prior to 03/14/2018. An obstructing pancreatic or ampullary lesion cannot be excluded, although no definite abnormality seen in this area. Consider ERCP or pancreas protocol CT. 3. Mild hepatomegaly and mild hepatic steatosis. D/ / Kamaljit Singh MD / Kamaljit Singh MD Interpreting Provider: Kamaljit Singh MD - Imaging EKG: image reviewed (65bpm - SINUS RHYTHM POSSIBLE LEFT ATRIAL ENLARGEMENT [- 0.1mV P WAVE IN V1/V2] MINIMAL ST DEPRESSION [0.025+ mV ST DEPRESSION] Electronically Signed On 09-14-2017 17:31:33 EDT by Ever Bhandari DO) Anesthesia Exam Vital Signs Temp Pulse Resp BP Pulse Ox 03/16/18 13:17 98.5 F 71 16 178/104 95 03/16/18 07:16 98.5 F 66 15 151/83 91 03/16/18 04:02 16 93 03/16/18 03:49 98.5 F 69 16 151/88 96 03/15/18 22:44 98.2 F 73 14 138/49 93 03/15/18 22:07 16 96 03/15/18 19:30 98.2 F 72 14 122/78 93 03/15/18 16:09 16 92 Intake and Output 03/15/18 03/16/18 03/16/18 23:59 07:59 15:59 Intake Total 1000 / 1000 Balance 1000 / 1000 Intake: IV Fluids 1000 / 1000 0.9 % Sodium Chloride 1,000 ML 1000 / 1000 @ 75 mls/hr IVC .[id number] Rx #:[id number] Other: Meal NPO Weight 63.5 kg Patient Weight 03/16/18 23:59 Weight 63.5 kg Height: 6' Weight: 139# BMI = 19 NPO (# of Hours): MNOc Pain Scale Used: Numeric (1 - 10) - HEENT Pupil (Motor): Pupils equal, EOMI Mallampati: II Teeth: Missing, Poor dentition (Multiple long, teeth in very poor condition) Oral Opening: Greater than 3 - [employer]PER[employer]OR LOC: Oriented [employer] Motor: Normal RUE, Normal LUE, Normal RLE, Normal LLE, Normal Face [employer] Sensory: Normal: RUE, LUE, RLE, LLE, Face - Cardiac Rhythm: Regular Murmur: None - Pulmonary Breath Sounds: bilateral Rhonchi Respiratory Effort: Symmetrical Anesthesia Assess/Plan ASA Score: 3 (Smoker, COPD, Smoker, Opiate abuser currently on Suboxone, HTN, Hep C +) Modified Vilma Scale for Level of Consciousness: Cooperative, oriented, and tranquil Anesthetic Plan: General Monitoring Plan: Standard Monitors Recovery Plan: PACU Anes Supervising Prov Stmt: Pt seen/evaluated, R&B Discussed, questions answered and consent obtained. Sandra Leung MD
[2018-03-16] MEDS ORDERED: Albuterol 2.5 MG/3 ML NEBULIZER ONE (13:40)
[2018-03-16] MEDS ORDERED: cloNIDine HCl 0.1 MG TABLET ONE (15:51)
[2018-03-16] MEDS ORDERED: *HR* Labetalol 100 MG/20 ML MDV ONE (16:18)
--- NOTE | 2018-03-16 16:31 | Anesthesia Evaluation Post Op ---
Date of Encounter: 03/16/18 Time of Encounter: 16:22 - Vital Signs Vital Signs: vss, patient stating he going to have anxiety attack if he does not leave the pacu, offered meds and RN offering verbal therapy, - Lungs Lungs: Clear Ascult./Percussion - Airway Airway: Non-obstructed - Cardiovascular Baseline Rhythm - Mental Status Mental Status: Alert & Oriented, Answers Appropriately - Pain Pain Scale used: Yanez-Leblanc (Faces) - Nausea Vomiting Nausea Vomiting: Not Present - Hydration Hydration: Ice chips - Discharge PostOp Status: Transfer Patient to floor
[2018-03-16 16:59] VITALS: BP 166/101
--- NOTE | 2018-03-16 18:28 | Discharge Summary ---
- NOTES TO OUTPATIENT PROVIDER Notes to Outpatient Provider: Pt left AMA almost immediately after returning from EGD. I did not get to review results, he did not get rx that was recommended by GI. Orders not resulted at time of discharge: Pending orders 03/15/18 06:00 ECG 12 lead ECG [ECG] AM 0600 03/16/18 12:40 Hemoglobin and Hematocrit [HEME] Q12H 03/16/18 15:16 Surgical Pathology [PTH] Routine Date of Encounter: 03/16/18 Time of Encounter: 10:00 - Discharge Diagnosis (1) Chest pain, rule out acute myocardial infarction Priority: Secondary Status: Acute Assessment and Plan: Patient denies chest pain again today. Echocardiogram completed shows LVEF of 60-65% with normal LV DD, no significant valvular dysfunction. Troponins negative. Lipid panel within normal limits. Pain is not reproducible with palpation, deep inspiration, or movement. Pt left AMA, did not get to discuss stress test. (2) COPD (chronic obstructive pulmonary disease) Priority: Secondary Status: Chronic Assessment and Plan: Mild acute exacerbation. LUngs are clear and diminished. Pt will continue home medications Qualifiers: COPD type: emphysema Emphysema type: panlobular Qualified Code(s): J43.1 - Panlobular emphysema (3) Unintentional weight loss Priority: Secondary Status: Acute Assessment and Plan: Pt reports approximately 50lb weight loss over 4 years. Pt appears cachectic. EGD today, pt with possible rafael in esophagus, rx not given, pt left AmA before I could review results and give rx. (4) DVT prophylaxis Priority: Secondary Status: Acute Assessment and Plan: SCDs, pt has been ambulatory. (5) Left against medical advice Priority: Secondary Status: Acute Assessment and Plan: I was called to the unit by primary RN because pt was being verbally aggressive with her, as he had been with her the entire day. Pt had been calm and pleasant with me during my time with him, however, RN reported that he had been cursing at her and being demanding all day. When I entered the room, pt was standing and trying to remove his IV. He demanded that the IV be removed and that he was leaving. He stated, " You can't make me stay another night, I don't care what you say." I tried to explain to him that there was no guarantee that he would have to stay another night and that I had not reviewed his results since he had literally just gotten back. He again demanded to go home and told me "you wait until my doctor gets a hold of you." He was not willing to listen calmly or discuss the situation at all. Pt left the unit with his belongings after making several trips back and forth to his room from the hallway. Hospital course: Mr. Galindo is a 53 year old male with PMH of COPD, Dilated CBD. Pt presented to the ED with c/o unintentional weight loss, chest pain, and mild COPD exacerbation. Pt also takes Subutex for admitted prior addiction to "pain pills ". Pt was anxious and agitated this a.m., stating that he was tired of being hungry and waiting on GI every day and nothing getting done. He was given ativan for anxiety and was calm and polite when I was in the room this a.m. Pt did have EGD today, prior to me being able to reivew the results, I was called to the unit and pt left AMA. He did not get any rx on discharge despite one being recommended by GI. I did e-prescribe it to [facility], notified pt by phone. Pt will need to follow up with his PCP and with GI for continued treatment. He also reported chest pain on admission, he continued to deny it throughout the visit, but he could benefit from ischemic workup. Pt had a fever prior to discharge, 100.5, as well as hypertension that had been treated by PACU after his EGD. Pt left AMA, ambulated from the department on his own. Discharge discussed with: patient - Time Spent with Patient Total time spent providing and/or coordinating discharge services: Less than 30 minutes - Discharge Medications Home Medications: Phenytoin ER [Dilantin ER] 100 mg PO BID 03/14/18 [History] Phenytoin ER [Dilantin ER] 300 mg PO HS 03/14/18 [History] Fluconazole [Diflucan] 100 mg PO DAILY #7 tablet 03/16/18 [Rx] Allergies/Adverse Reactions: 3 Allergy/AdvReac Type Severity Reaction Status Date / Time Penicillins Allergy Anaphylaxis Verified 07/07/17 08:33 codeine AdvReac Hives Verified 07/07/17 08:33 Date of admission: 03/14/18 09:17 Primary care physician: PCP NONE Consults: 03/14/18 09:59 Consult to Physician [CONS] Routine Consulting Provider: Jane Francois Reason for Consult: weight loss; CBD and pancreatic duct dilatation Time Notified: 09:59 Call Completed: Yes Discharging clinician: Angie Bloom Anticipated date of discharge: 03/16/18 - Constitutional Vitals: Temp Pulse Resp BP Pulse Ox 98.6 F 93 16 166/101 93 03/16/18 16:57 03/16/18 16:57 03/16/18 16:57 03/16/18 16:57 03/16/18 16:57 General appearance: Present: cachectic, cooperative, mild distress, A&O X 3, pleasant, no acute distress, answers questions appropriately - Head Head exam: Present: atraumatic, normal inspection, normocephalic - Eye Eye exam: Present: normal appearance, conjuntiva pink, sclera anicteric - Neck Neck exam general surgery: Present: supple, trachea midline. Absent: lymphadenopathy - Respiratory Respiratory exam: Present: CTAB. Absent: accessory muscle use, rales, rhonchi, wheezes - Cardiovascular Cardiovascular exam: Present: RRR, +S1, +S2. Absent: diastolic murmur, gallop, rubs, systolic murmur - GI/Abdominal GI/Abdominal exam: Present: normal bowel sounds, soft, no peritoneal signs. Absent: distended, hepatomegaly, tenderness - Extremities Exam Extremities exam: Present: warm, radial pulses palpable and symmetrical. Absent : calf tenderness, cyanotic, pedal edema, tenderness - Neurological Exam Neurological exam: Present: alert, oriented X3, no focal deficits. Absent: facial droop, speech deficit - Psychiatric Psychiatric exam: Present: agitated, anxious - Skin Skin exam: Present: dry, intact, normal color, warm. Absent: rash - Patient Status Disposition: Left Against Medical Advice Condition: Fair - Discharge Instructions Follow Up With: NONE,PCP [Primary Care Provider] - - VTE Documentation of Mechanical Device: Intermittent pneumatic compression device
--- NOTE | 2018-03-17 16:43 | Electrocardiograph Report ---
[place] [id number] Test Date: 2018-03-14 Pat Name: Kiran Galindo Department: 102 Room: 3B Gender: M Psychiatric Np: [place] : 1965 Requested By: Madhu Shaikh MD Order Number: [id number] Reading MD: Jono Beckman Measurements Intervals [place] Rate: 71 P: 78 [place]: 161 QRS: 49 QRSD: 96 T: 66 QT: 393 QTc: 415 Interpretive Statements SINUS RHYTHM INDETERMINATE AXIS Electronically Signed On 03-17-2018 16:41:34 EDT by Jono Beckman
== END 2018-03-16 17:16 | disposition left against medical advice (07) ==
LOC: EMEROO 05:28 → 3BNU 05:28
PROVIDERS: ADMIT Pediatrics; ATTEND Pediatrics
PROC: ENDOEUS (2018-03-16 13:00)
PROC: ENDOEBX (2018-03-16 13:00)

== ENCOUNTER 2018-07-09 00:21 | Inpatient (IN) ==
[2018-07-09] MEDS ORDERED: Ipratropium/Albuterol Neb 3 ML IH ONE (01:29)
[2018-07-09] MEDS ORDERED: methylPREDNISolone 125 MG/2 ML VIAL IVP ONE (01:29)
--- NOTE | 2018-07-09 02:01 | Emergency Department Note ---
Disposition Clinical Impression: Acute bronchitis with COPD Disposition: Admitted As Inpatient Condition: Fair Referrals: Rick Hatch DO [Primary Care Provider] - Forms: ED Satisfaction Letter Time of Disposition: 03:46 SOB HPI - General Chief Complaint: ED Chest Pain Stated Complaint: CP/SOB Time Seen by Provider: 07/09/18 00:25 Source: patient Limitations: no limitations Nursing Notes Reviewed: Yes Vital Signs Reviewed: Yes - History of Present Illness 53 old male presents from home for evaluation of shortness of breath. Onset 3 months ago and gradually progressive. It is now to the point where he has profound dyspnea with exertion, mild dyspnea at rest. Productive cough. Subjective fever. Has associated generalized weakness. He does have a remote history pneumonia and notes the symptoms are similar. Habits: Currently vapes. Quit smoking 3 years ago; [id number] history of smoking. Patient of the methadone clinic. 75mg liquid daily. ROS: Positive: As above next line negative: Chest pain, palpitations, diaphoresis, unusual back pain, trauma, abdominal pain - Related Data Home Medications Medication Instructions Recorded Confirmed Phenytoin ER [Dilantin ER] 100 mg PO BID 03/14/18 03/14/18 Phenytoin ER [Dilantin ER] 300 mg PO HS 03/14/18 03/14/18 Previous Rx's Medication Instructions Recorded Fluconazole [Diflucan] 100 mg PO DAILY #7 tablet 03/16/18 hydrOXYzine pamoate [HydrOXYzine 25 mg PO TID #15 capsule 05/17/18 Pamoate] HydrOXYzine Pamoate [Vistaril] 50 mg PO BID PRN #14 capsule 06/30/18 Omeprazole 20 mg PO DAILY #30 tablet. 06/30/18 Ondansetron ODT [Zofran ODT] 4 mg SL Q6HR PRN #12 tab.rapdis 06/30/18 Allergies Allergy/AdvReac Type Severity Reaction Status Date / Time Penicillins Allergy Anaphylaxis Verified 06/30/18 02:45 codeine AdvReac Hives Verified 06/30/18 02:45 All systems ED: reviewed and negative except as stated. Review of Systems: As Per HPI Past Medical History - Past Medical History Medical history: Reports: COPD, hepatitis, hypertension, seizures Surgical history: Reports: no surgical history Psychiatric history: Reports: anxiety, depression - Social History Smoking Status: Former smoker Smokeless Tobacco Status: Yes Alcohol use: Reports: none, rarely Drug use: Reports: marijuana Physical Exam Vital Signs Reviewed General: Patient is alert, oriented, and in mild respiratory distress Head: atraumatic, normocephalic Eye: normal appearance, no scleral icterus, no conjunctival injection ENT: mucous membranes moist, normal external ear exam Neck: normal inspection, trachea midline, full ROM Chest: normal inspection, symmetric chest rise Respiratory: Good respiratory effort. Prolonged expiratory phase. Bilateral breath sounds are diminished with diffuse wheeze. No crackles or rhonchi. Cardiovascular: Regular rate and rhythm. No clicks, rubs, gallops, or murmors. Normal heart sounds. Abdomen: Scaphoid. Bowel sounds present normoactive x-4 quadrants. Abdomen is soft, nondistended, and nontender. No guarding or rebound. No organomegaly noted. Musculoskeletal: Spontaneously moving all extremities. Skin: warm, dry, intact. Neuro: Alert and oriented x4. Sensation light touch intact. Psych: Patient's affect is appropriate for situation. - General Limitations: no limitations General appearance: alert, in no apparent distress Course Course Narrative: Clinical concern is for acute exacerbation of COPD. Patient is quite submental oxygen; no oxygen required at home. We will provide DuoNeb's, chest x-ray, steroids, basic lab workup. Chest x-ray not concerning for pneumonia. This correlates with my pulmonary auscultation deny crackles. Clinically, patient does appear congested with upper airway sounds. Suspect acute exacerbation of COPD potentially worsened by a viral upper respiratory infection. I provided DuoNeb 3, Cymetra 125 mg. Patient is requiring 3 L nasal cannula to maintain saturations at 92-93%. Patient is agreeable to admission for continued evaluation of his acute exacerbation of COPD. Discussed the patient with the admitting hospitalist, Dr. Siddiqui, who agrees to accept the patient for continued evaluation and management for acute exacerbation of COPD. Vital Signs Temperature 98.4 F 07/09/18 00:24 Pulse Rate 73 07/09/18 00:24 Respiratory Rate 16 07/09/18 00:24 Blood Pressure 156/95 07/09/18 00:24 O2 Sat by Pulse Oximetry 87 07/09/18 00:24 Temperature 98.4 F 07/09/18 00:24 Pulse Rate 70 07/09/18 03:35 Respiratory Rate 16 07/09/18 03:00 Blood Pressure 118/86 07/09/18 03:35 O2 Sat by Pulse Oximetry 98 07/09/18 03:35 Oxygen Delivery Oxygen Delivery Nasal Cannula Shortness of Breath/Dyspnea - Lab Data Result diagrams: 07/09/18 01:58 07/09/18 01:58 Lab Results 07/09/18 07/09/18 Range/Units 01:58 01:58 WBC 8.5 (4.3-11.1) K/mcL RBC 3.85 L (4.19-5.50) M/mcL Hgb 11.8 L (12.9-16.9) g/dL Hct 35.1 L (37.5-50.1) % MCV 91.2 (83.0-100.0) fL MCH 30.6 (28.0-33.3) pg MCHC 33.6 (31.6-35.5) g/dL RDW 13.6 (11.5-14.5) % Plt Count 314 (140-400) K/mcL MPV 8.7 L (9.4-12.4) fL Immature Gran % 0.4 (0-4) % Seg Neutrophils % 65.9 % Lymphocytes % 20.3 % Monocytes % 11.0 % Eosinophils % 1.7 % Basophils % 0.7 % Neutrophils # 5.6 (1.6-8.9) K/mcL Lymphocytes # 1.7 (0.6-4.6) K/mcL Monocytes # 0.9 (0.0-1.3) K/mcL Eosinophils # 0.1 (0.0-0.6) K/mcL Basophils # 0.1 (0.0-0.2) K/mcL Sodium 136 (136-145) mEq/L Potassium 3.9 (3.5-5.1) mEq/L Chloride 100 (98-107) mEq/L Carbon Dioxide 30 H (23-29) mEq/L BUN 8 (6-20) mg/dL Creatinine 0.69 L (0.70-1.30) mg/dL Est GFR ( Amer) > 60 (> 60) Est GFR (Non-Af Amer) > 60 (> 60) BUN/Creatinine Ratio 12 (6-26) Glucose 93 (70-105) mg/dL Calculated Osmolality 280 (280-300) Calcium 9.1 (8.6-10.3) mg/dL Troponin I < 0.03 (< 0.04) ng/mL
[2018-07-09 02:10] LABS: Basophils # 0.1 K/mcL (0.0-0.2); Basophils % 0.7 %; Eosinophils # 0.1 K/mcL (0.0-0.6); Eosinophils % 1.7 %; Hematocrit 35.1 % (37.5-50.1); Hemoglobin 11.8 g/dL (12.9-16.9); Immature Granulocytes % 0.4 % (0-4); Lymphocytes # 1.7 K/mcL (0.6-4.6); Lymphocytes % 20.3 %; Mean Corpuscular HGB Conc 33.6 g/dL (31.6-35.5); Mean Corpuscular Hemoglobin 30.6 pg (28.0-33.3); Mean Corpuscular Volume 91.2 fL (83.0-100.0); Mean Platelet Volume 8.7 fL (9.4-12.4); Monocytes # 0.9 K/mcL (0.0-1.3); Neutrophils # 5.6 K/mcL (1.6-8.9); Platelet Count 314 K/mcL (140-400); Red Blood Count 3.85 M/mcL (4.19-5.50); Red Cell Distribution Width 13.6 % (11.5-14.5); Segmented Neutrophils % 65.9 %
[2018-07-09 02:32] LABS: BUN/Creatinine Ratio 12 (6-26); Blood Urea Nitrogen 8 mg/dL (6-20); Calcium 9.1 mg/dL (8.6-10.3); Carbon Dioxide 30 mEq/L (23-29); Chloride 100 mEq/L (98-107); Glucose 93 mg/dL (70-105); Osmolality,Calculated 280 (280-300); Potassium 3.9 mEq/L (3.5-5.1); Sodium 136 mEq/L (136-145); Troponin I < 0.03 ng/mL (< 0.04); eGFR For Non-African Americans > 60 (> 60)
--- NOTE | 2018-07-09 03:06 | Emergency Department Note ---
Disposition Clinical Impression: Acute bronchitis with COPD Disposition: Admitted As Inpatient Condition: Fair General Adult HPI - General Chief complaint: ED Chest Pain Stated complaint: CP/SOB Time Seen by Provider: 07/09/18 00:25 Source: patient Limitations: no limitations Nursing Notes Reviewed: Yes Vital Signs Reviewed: Yes - History of Present Illness Pain Scale: 7 - Related Data Home Medications Medication Instructions Recorded Confirmed Phenytoin ER [Dilantin ER] 100 mg PO BID 03/14/18 03/14/18 Phenytoin ER [Dilantin ER] 300 mg PO HS 03/14/18 03/14/18 Previous Rx's Medication Instructions Recorded Fluconazole [Diflucan] 100 mg PO DAILY #7 tablet 03/16/18 hydrOXYzine pamoate [HydrOXYzine 25 mg PO TID #15 capsule 05/17/18 Pamoate] HydrOXYzine Pamoate [Vistaril] 50 mg PO BID PRN #14 capsule 06/30/18 Omeprazole 20 mg PO DAILY #30 tablet. 06/30/18 Ondansetron ODT [Zofran ODT] 4 mg SL Q6HR PRN #12 tab.rapdis 06/30/18 Allergies Allergy/AdvReac Type Severity Reaction Status Date / Time Penicillins Allergy Anaphylaxis Verified 06/30/18 02:45 codeine AdvReac Hives Verified 06/30/18 02:45 Past Medical History - Past Medical History Medical history: Reports: COPD, hepatitis, hypertension, seizures Surgical history: Reports: no surgical history Psychiatric history: Reports: anxiety, depression - Social History Smoking Status: Former smoker Smokeless Tobacco Status: Yes Alcohol use: Reports: none, rarely Drug use: Reports: marijuana Physical Exam - General Limitations: no limitations General appearance: alert, in no apparent distress Course Vital Signs Temperature 98.4 F 07/09/18 00:24 Pulse Rate 73 07/09/18 00:24 Respiratory Rate 16 07/09/18 00:24 Blood Pressure 156/95 07/09/18 00:24 O2 Sat by Pulse Oximetry 87 07/09/18 00:24 Temperature 98.4 F 07/09/18 00:24 Pulse Rate 70 07/09/18 03:35 Respiratory Rate 16 07/09/18 03:00 Blood Pressure 118/86 07/09/18 03:35 O2 Sat by Pulse Oximetry 98 07/09/18 03:35 Oxygen Delivery Oxygen Delivery Nasal Cannula Medical Decision Making - Medical Records Medical records reviewed: Yes I reviewed the patient's medical records. - Lab Data Lab results reviewed: Yes I reviewed the patient's lab results. Result diagrams: 07/09/18 01:58 07/09/18 01:58 Lab Results 07/09/18 07/09/18 Range/Units 01:58 01:58 WBC 8.5 (4.3-11.1) K/mcL RBC 3.85 L (4.19-5.50) M/mcL Hgb 11.8 L (12.9-16.9) g/dL Hct 35.1 L (37.5-50.1) % MCV 91.2 (83.0-100.0) fL MCH 30.6 (28.0-33.3) pg MCHC 33.6 (31.6-35.5) g/dL RDW 13.6 (11.5-14.5) % Plt Count 314 (140-400) K/mcL MPV 8.7 L (9.4-12.4) fL Immature Gran % 0.4 (0-4) % Seg Neutrophils % 65.9 % Lymphocytes % 20.3 % Monocytes % 11.0 % Eosinophils % 1.7 % Basophils % 0.7 % Neutrophils # 5.6 (1.6-8.9) K/mcL Lymphocytes # 1.7 (0.6-4.6) K/mcL Monocytes # 0.9 (0.0-1.3) K/mcL Eosinophils # 0.1 (0.0-0.6) K/mcL Basophils # 0.1 (0.0-0.2) K/mcL Sodium 136 (136-145) mEq/L Potassium 3.9 (3.5-5.1) mEq/L Chloride 100 (98-107) mEq/L Carbon Dioxide 30 H (23-29) mEq/L BUN 8 (6-20) mg/dL Creatinine 0.69 L (0.70-1.30) mg/dL Est GFR ( Amer) > 60 (> 60) Est GFR (Non-Af Amer) > 60 (> 60) BUN/Creatinine Ratio 12 (6-26) Glucose 93 (70-105) mg/dL Calculated Osmolality 280 (280-300) Calcium 9.1 (8.6-10.3) mg/dL Troponin I < 0.03 (< 0.04) ng/mL - Radiology Data Radiology results reviewed: Yes I reviewed the patient's radiology results. Chest X-Ray 07/09/18 01:29 IMPRESSION: No acute disease. D/ / Senthil Ireland MD / Senthil Ireland MD Interpreting Provider: Senthil Ireland MD - EKG Data EKG #1 EKG attestation: Yes I reviewed and interpreted this EKG. EKG results narrative: EKG shows a normal sinus rhythm with ventricular rate of 83. Prolonged QT interval with QTC 427 and QTc 502. No acute ST segment elevation or depression. No ectopy. Attestation Statement - Attestation Attestation: I, Edd Flores MD, personally evaluated this patient and discussed their management with the resident physician. I reviewed the resident's note and agree with the documented findings, medical decision making, and plan of care. 53-year-old male with history of COPD presents to the emergency department with a complaint of increasing shortness of breath over the past 2 months. Symptoms much worse this evening. He does not have home oxygen or nebulizers at home. He does use inhalers. He complains of increased cough over the past several days with some brownish to greenish colored sputum. Subjective intermittent low -grade fever. On examination patient is a well-developed well-nourished male in no acute distress. He is alert and oriented 3. There is no cyanosis or diaphoresis. Chest is nontender to palpation. Breath sounds are decreased bilaterally with a few scattered inspiratory and expiratory wheezes bilaterally, worse on the right. No rales. Heart regular rate and rhythm. Abdomen soft and nontender with normal bowel sounds. Chest x-ray negative. Labs reviewed. No acute changes on EKG. Patient received triple DuoNeb treatment and IV Solu-Medrol. He was also placed on oxygen by nasal cannula. He did have some improvement in his symptoms with this treatment but continues to have a few scattered wheezes. The hospitalist, Dr. Siddqiui, was consulted and accepted admission of the patient for acute exacerbation of COPD.
--- NOTE | 2018-07-09 04:58 | Internal Med History&Physical ---
Date of Encounter: 07/09/18 Time of Encounter: 04:52 Internal Medicine - H&P: HPI Chief complaint: SOB Admitted From: Home Plans for Post Hospital Care: Home History of present illness: Mr. Galindo is a 53 year old man with a 30 pack year smoking history who reportedly quit 3 years ago and has been vaping since then, substance use disorder now on methadone program, seizure disorder on phenytoin and COPD who only uses albuterol prn as he has not been plugged in with healthcare services. He presents complaining of shortness of breath that has been progressive over the past months with intermittent exacerbations but now feels it is overly debilitating. He feels accompanying diffuse thoracic restriction when he takes his breaths now but denies chest pain per se. In the ER he was notably hypoxic and promptly required supplemental oxygen. He was given intravenous steroids and nebulizer therapy. His chest x-ray was not depicted of any focal consolidations and he is admitted for ongoing management. On my assessment he was standing up without his nasal cannula and he was desaturated into the 80s. Although he was not in acute distress, he had notable difficulty breathing. He states that he has had long-standing cough that is productive of yellowish to greenish sputum however he denies fever and chills. Past Med Surg Social Fam HX - Past Medical History Medical history: COPD, hepatitis, hypertension, seizures Additional medical history: hep C Psychiatric history: anxiety, depression - Past Surgical History Surgical History: no surgical history - Social History Smoking Status: Former smoker Smokeless Tobacco Status: Yes Alcohol use: none, rarely Drug use: marijuana - Family History Mother Family Member Ethnicity: Non- Living Status: Still Living Hx Family Endocrine Disorder: Yes (DM) Father Living Status: Hx Family Respiratory Disorders: Yes (COPD) Internal Medicine - H&P: Meds Phenytoin ER [Dilantin ER] 100 mg PO TID 03/14/18 [History] Gabapentin [Neurontin] 400 mg PO TID 07/09/18 [History] HydrOXYzine Pamoate [Vistaril] 50 mg PO TID 07/09/18 [History] Omeprazole 20 mg PO BID 07/09/18 [History] 3 Allergy/AdvReac Type Severity Reaction Status Date / Time Penicillins Allergy Anaphylaxis Verified 06/30/18 02:45 codeine AdvReac Hives Verified 06/30/18 02:45 All Systems PM: A 10-system review of systems was performed and is negative for pertinent findings except as documented above in the HPI. - Constitutional Vitals: Temp Pulse Resp BP Pulse Ox 98.4 F 70 18 126/84 98 07/09/18 00:24 07/09/18 03:35 07/09/18 04:15 07/09/18 04:15 07/09/18 03:35 Exam: Vitals: Reviewed General: Thin male sitting in bed in no acute distress Skin: No lesions or ulcers HEENT: Moist mucous membranes. No conjunctivae pallor. Neck: No lymphadenopathy. No JVD. Chest: Pectus carinatum. Diminished thoracic expansion with reduced air entry bilaterally; scattered wheezes. Heart: Normal S1 & S2; rhythmic. No rubs or murmurs. Abdomen: Non-distended, soft and non-tender to palpation. No peritoneal reaction. Extremities: (+) Fingernail clubbing but no cyanosis or edema. Normal distal pulses. Neurological: Awake, alert and oriented to person, place and time. No focal deficits. Psych: Affect appropriate. Internal Med - H&P Results - Labs CBC & Chem 7: 07/09/18 01:58 07/09/18 01:58 - Assessment and plan (1) Acute respiratory failure with hypoxia Current Visit: Yes Status: Acute Assessment and plan: Secondary to a moderate to severe COPD exacerbation. We will place on supplemental oxygen and treat his underlying condition. He should be evaluated for home oxygen if necessary before his discharge. Outpatient follow-up with pulmonology will be in his best interest. Advised stop smoking of any sorts even though it is not nicotine. (2) COPD (chronic obstructive pulmonary disease) Current Visit: Yes Status: Acute Assessment and plan: Significantly reduced air entry is noted on his physical exam with structural thoracic changes noted already and finger no clubbing. He will benefit from spirometry as an outpatient. We will place him on standing albuterol and ipratropium nebulizer therapy every 4 hours and prednisone 60 mg daily. Azithromycin 500 mg daily 3 days as ordered given his productive cough and also to obtain anti-inflammatory benefits. Qualifiers: COPD type: emphysema Emphysema type: panlobular Qualified Code(s): J43.1 - Panlobular emphysema (3) Hypertension Current Visit: Yes Status: Chronic Assessment and plan: Appears well-controlled for now. We will monitor his vitals and add an antihypertensive if needed. Qualifiers: Hypertension type: essential hypertension Qualified Code(s): I10 - Essential (primary) hypertension (4) Seizure disorder Current Visit: Yes Status: Chronic Assessment and plan: We will obtain a phenytoin level and resume his home dose. Seizure precautions ordered. (5) Substance use disorder Current Visit: Yes Status: Chronic Assessment and plan: Methadone 75 mg daily ordered however this will be pending verification by his program. (6) DVT prophylaxis Current Visit: Yes Status: Acute Assessment and plan: Subcutaneous heparin ordered. - Time Spent With Patient Total time spent is greater than 50% in coordination of care (as documented) at patient's floor/unit and/or counseling patient: Greater than 35 minutes
[2018-07-09] MEDS: Ringers Solution, Lactated 1,000 ML IVC SCH ×2 (05:38→17:22)
[2018-07-09] MEDS: *HR* Heparin 5,000 UNIT/ML VIAL SQ SCH ×3 (05:39→20:48)
[2018-07-09 05:42] LABS: Phenytoin (Dilantin) < 0.5 mcg/mL (10.0-20.0)
[2018-07-09] MEDS: Ipratropium/Albuterol Neb 3 ML IH SCH ×5 (07:39→23:38)
[2018-07-09] MEDS ORDERED: *HR* Methadone 10 MG TABLET PO SCH (09:00)
[2018-07-09] MEDS: predniSONE 20 MG TABLET PO SCH (09:03)
[2018-07-09] MEDS: Gabapentin 400 MG CAPSULE PO SCH ×3 (09:04→20:47)
[2018-07-09] MEDS: Azithromycin 500 MG in D5% in Water 250 ML IVPB SCH (09:19)
[2018-07-09 10:24] LABS: Amphetamine Screen,Urine Negative ng/mL (Cutoff=1000); Barbiturate Screen,Urine Negative ng/mL (Cutoff=200); Benzodiazepines Screen,Urine Negative ng/mL (Cutoff=200); Cannabinoid Screen,Urine Positive ng/mL (Cutoff = 50); Cocaine Screen,Urine Negative ng/mL (Cutoff= 300); Opiate Screen,Urine Negative ng/mL (Cutoff=300); Phencyclidine Screen,Urine Negative ng/mL (Cutoff=25)
[2018-07-09] MEDS: hydrOXYzine pamoate 25 MG CAPSULE PO SCH ×3 (11:22→17:25)
[2018-07-09] MEDS ORDERED: hydrOXYzine pamoate 25 MG CAPSULE PO PRN (15:00)
--- NOTE | 2018-07-09 15:58 | Internal Med Progress Note ---
Hospitalist Progress Note - Encounter Date of Encounter: 07/09/18 Time of Encounter: 12:36 - Subjective Interval History: No acute events. Patient feels better. - Exam Vitals: Temp Pulse Resp BP Pulse Ox 98.1 F 81 16 135/87 94 07/09/18 15:03 07/09/18 15:03 07/09/18 15:48 07/09/18 15:03 07/09/18 15:48 Exam: Vitals: Reviewed General: Thin male sitting in bed in no acute distress Skin: No lesions or ulcers HEENT: Moist mucous membranes. No conjunctivae pallor. Neck: No lymphadenopathy. No JVD. Chest: Pectus carinatum. Diminished thoracic expansion with reduced air entry bilaterally; scattered wheezes. Heart: RRR, no mrg Abdomen: Non-distended, soft and non-tender to palpation. No peritoneal reaction. Extremities: + clubbing, no cyanosis, no edema Neurological: Awake, alert and oriented to person, place and time. No focal deficits. - Assessment and Plan (1) Acute respiratory failure with hypoxia Current Visit: Yes Status: Acute Assessment and Plan: Secondary to a moderate to severe COPD exacerbation. We will place on supplemental oxygen and treat his underlying condition. He should be evaluated for home oxygen if necessary before his discharge. Advised stop smoking of any sorts even though it is not nicotine. Prednisone, Duo Nebs, wean O2 as tolerated. (2) COPD (chronic obstructive pulmonary disease) Current Visit: Yes Status: Acute Assessment and Plan: Continue Duo Nebs scheduled and prn. Prednisone 60 mg daily for 5 days burst Wean supplemental O2 as tolerated. Azithromycin 500 mg daily 3 days (3) Hypertension Current Visit: Yes Status: Chronic Assessment and Plan: Appears well-controlled for now. We will monitor his vitals and add an antihypertensive if needed. (4) Seizure disorder Current Visit: Yes Status: Chronic Assessment and Plan: Negative phenytoin level though this is listed at home. Resume Phenytoin (5) Substance use disorder Current Visit: Yes Status: Chronic Assessment and Plan: Methadone 75 mg daily, pending verification (6) DVT prophylaxis Current Visit: Yes Status: Acute Assessment and Plan: Subcutaneous heparin - Time Spent with Patient Total time spent is greater than 50% in coordination of care (as documented) at patient's floor/unit and/or counseling patient: Internal Medicine: Result - Labs CBC & Chem 7: 07/09/18 01:58 07/09/18 01:58 Consult Discharge Plan - Plan Referrals: Rick Hatch DO [Primary Care Provider] - (2) COPD (chronic obstructive pulmonary disease) Qualifiers: COPD type: emphysema Emphysema type: panlobular Qualified Code(s): J43.1 - Panlobular emphysema (3) Hypertension Qualifiers: Hypertension type: essential hypertension Qualified Code(s): I10 - Essential (primary) hypertension
[2018-07-09] MEDS ORDERED: *HR* LORazepam 2 MG/ML VIAL IVP ONE (19:55)
[2018-07-09] MEDS: Ondansetron 4 MG/2 ML VIAL IVP PRN (20:07)
[2018-07-09] MEDS: Mirtazapine 15 MG TABLET PO SCH (20:47)
[2018-07-09] MEDS ORDERED: Gabapentin 400 MG CAPSULE PO ONE (22:00)
[2018-07-10] MEDS: Ipratropium/Albuterol Neb 3 ML IH SCH ×6 (04:11→23:27)
[2018-07-10] MEDS: *HR* Heparin 5,000 UNIT/ML VIAL SQ SCH ×3 (05:12→20:51)
[2018-07-10 07:14] LABS: BUN/Creatinine Ratio 13 (6-26); Blood Urea Nitrogen 9 mg/dL (6-20); Calcium 9.1 mg/dL (8.6-10.3); Carbon Dioxide 31 mEq/L (23-29); Chloride 97 mEq/L (98-107); Glucose 129 mg/dL (70-105); Osmolality,Calculated 276 (280-300); Potassium 4.2 mEq/L (3.5-5.1); Sodium 133 mEq/L (136-145); eGFR For Non-African Americans > 60 (> 60)
[2018-07-10] MEDS ORDERED: Methadone Oral Concentrate 50 MG/5 ML UDC PO SCH (09:00)
[2018-07-10] MEDS: Gabapentin 400 MG CAPSULE PO SCH ×3 (10:26→20:50)
[2018-07-10] MEDS: hydrOXYzine pamoate 25 MG CAPSULE PO SCH (10:26)
[2018-07-10] MEDS: predniSONE 20 MG TABLET PO SCH (10:27)
[2018-07-10] MEDS: Ondansetron 4 MG/2 ML VIAL IVP PRN (10:27)
[2018-07-10] MEDS: Azithromycin 500 MG in D5% in Water 250 ML IVPB SCH (10:27)
--- NOTE | 2018-07-10 11:17 | Internal Med Progress Note ---
Hospitalist Progress Note - Encounter Date of Encounter: 07/10/18 Time of Encounter: 11:14 - Subjective Interval History: No acute events. Patient feels anxiety and agitation. He has been rude to nurse today and requests Ativan that he does not take at home. He does take hydroxyzine at home. He states breathing is about the same. Nursing reports he rips off his oxygen and then he desaturates. - Exam Vitals: Temp Pulse Resp BP Pulse Ox 97.6 F 97 21 132/90 92 07/10/18 10:23 07/10/18 10:23 07/10/18 10:23 07/10/18 10:23 07/10/18 10:23 Exam: General: Thin male sitting in bed in no acute distress, sitting up in bed Skin: No lesions or ulcers HEENT: Moist mucous membranes. No conjunctivae pallor. Neck: No lymphadenopathy. No JVD. Lungs: CTAB - yesterday had wheezing and no longer present today Heart: RRR, no mrg Extremities: + clubbing, no cyanosis, no edema Neurological: Awake, alert and oriented to person, place and time. No focal deficits. - Assessment and Plan (1) Acute respiratory failure with hypoxia Current Visit: Yes Status: Acute Assessment and Plan: Secondary to a moderate to severe COPD exacerbation. We will place on supplemental oxygen and treat his underlying condition. He should be evaluated for home oxygen if necessary before his discharge. Advised stop smoking of any sorts even though it is not nicotine. Prednison 5 day burst, Duo Nebs, wean O2 as tolerated. Patient threatened to leave AMA today because he wants IV Ativan. This is not appropriate treatment at this point. On an outpatient basis he takes hydroxyzine and we will resume that at an increased dose if needed. Continue to wean O2 as tolerated. (2) COPD (chronic obstructive pulmonary disease) Current Visit: Yes Status: Acute Assessment and Plan: Continue Duo Nebs scheduled and prn. Prednisone 60 mg daily for 5 days burst Wean supplemental O2 as tolerated. Azithromycin 500 mg daily 3 days (3) Hypertension Current Visit: Yes Status: Chronic Assessment and Plan: Appears well-controlled for now. We will monitor his vitals and add an antihypertensive if needed. (4) Seizure disorder Current Visit: Yes Status: Chronic Assessment and Plan: Negative phenytoin level though this is listed at home. Resume Phenytoin (5) Substance use disorder Current Visit: Yes Status: Chronic Assessment and Plan: Methadone 75 mg daily, pending verification (6) DVT prophylaxis Current Visit: Yes Status: Acute Assessment and Plan: Subcutaneous heparin - Time Spent with Patient Total time spent is greater than 50% in coordination of care (as documented) at patient's floor/unit and/or counseling patient: Internal Medicine: Result - Labs CBC & Chem 7: 07/09/18 01:58 07/10/18 06:19 Labs: BMP 07/10/18 06:19 Sodium 133 L Potassium 4.2 Chloride 97 L Carbon Dioxide 31 H BUN 9 Creatinine 0.69 L Glucose 129 H Calcium 9.1 Cardiac Enzymes 07/09/18 Range/Units 20:03 Troponin I < 0.03 (< 0.04) ng/mL Consult Discharge Plan - Plan Referrals: Rick Hatch DO [Primary Care Provider] - (2) COPD (chronic obstructive pulmonary disease) Qualifiers: COPD type: emphysema Emphysema type: panlobular Qualified Code(s): J43.1 - Panlobular emphysema (3) Hypertension Qualifiers: Hypertension type: essential hypertension Qualified Code(s): I10 - Essential (primary) hypertension
[2018-07-10] MEDS: hydrOXYzine pamoate 25 MG CAPSULE PO PRN ×2 (11:28→14:08)
[2018-07-10] MEDS: Azithromycin 250 MG TABLET PO SCH (11:29)
[2018-07-10] MEDS: Acetaminophen 325 MG TABLET PO PRN (11:29)
[2018-07-10] MEDS: Mirtazapine 15 MG TABLET PO SCH (20:51)
--- NOTE | 2018-07-10 21:39 | Event Note ---
Date of Encounter: 07/10/18 Time of Encounter: 21:13 Alerted by patient's nurse NEFTALY Velasquez that patient was belligerent and continue to turn off his bed alarm and refused to wear his oxymask. Nurse stated that she educated patient regarding safety issues including bed alarm on as well as importance for continuous oxygen given his shortness of breath and dyspnea. Nurse reported this discussion included charge nurse and the patient began cussing them out. Went to see pt. who was laying in bed and began yelling at me that he was not going to keep bed alarm on or wear his oxymask. I explained that the pt. was tearful last night regarding his Gabapentin and his seizure threshold and how he needed 800 mg of Gabapentin nightly to avoid seizures. I explained that his seizure hx and discussion last night is why he is falls precautions. Reminded pt. that he was complaining of SOB/dyspnea last night which was why nasal cannula was changed to oxymask. Pt. stated that he hasn't actually had seizures in years. Pt. continued to cuss at me and state that no one was going to hold his privates while he peed. I explained that no one was instructed to do this and the nurses' job was to assist him to and from the bed. Pt. continued to be belligerent. Instructed pts. nurse to keep bed alarm on, falls precautions remain d/t seizure hx, and to call security if pt. became aggressive or disruptive.
[2018-07-11] MEDS: Ipratropium/Albuterol Neb 3 ML IH SCH ×4 (04:00→16:04)
[2018-07-11 04:35] LABS: BUN/Creatinine Ratio 21 (6-26); Blood Urea Nitrogen 13 mg/dL (6-20); Calcium 9.1 mg/dL (8.6-10.3); Carbon Dioxide 33 mEq/L (23-29); Chloride 97 mEq/L (98-107); Glucose 117 mg/dL (70-105); Osmolality,Calculated 279 (280-300); Sodium 134 mEq/L (136-145); eGFR For Non-African Americans > 60 (> 60)
[2018-07-11] MEDS: *HR* Heparin 5,000 UNIT/ML VIAL SQ SCH ×3 (06:18→21:12)
[2018-07-11] MEDS: Methadone Oral Concentrate 50 MG/5 ML UDC PO SCH ×2 (07:09→07:53)
[2018-07-11] MEDS: Gabapentin 400 MG CAPSULE PO SCH ×3 (07:52→21:11)
[2018-07-11] MEDS: Azithromycin 250 MG TABLET PO SCH (07:52)
[2018-07-11] MEDS: hydrOXYzine pamoate 25 MG CAPSULE PO PRN ×3 (07:52→21:18)
[2018-07-11] MEDS: predniSONE 20 MG TABLET PO SCH (07:53)
[2018-07-11] MEDS: Acetaminophen 325 MG TABLET PO PRN (08:18)
[2018-07-11] MEDS ORDERED: hydrOXYzine pamoate 25 MG CAPSULE PO PRN (08:45)
--- NOTE | 2018-07-11 09:25 | Internal Med Progress Note ---
<Roxy Traylor - Last Filed: 07/11/18 13:00> Hospitalist Progress Note - Encounter Date of Encounter: 07/11/18 Time of Encounter: 09:19 - Subjective Interval History: 53 y/o male with history of COPD, seizure disorder anxiety and substance abuse currently treated at methadone clinic - presented with shortness of breath and hypoxia. He continues to threaten to leave AMA because his hydroxyzine is not being prescribed as he takes it at home - he is now on maximum dose. He is requesting ativan again. He continues to have anxiety attacks with shortness of breath, impending doom, palpations and chest pain. He agreed to wear oxygen was he continues to destat when off - he is open to having oxygen at home. He reports increased mucus production but is better able to clear it with cough. He is noncompliant with controller inhalers at home due to side affect of increased anxiety. He denies fever, chills, diarrhea or constipation. - Exam Vitals: Temp Pulse Resp BP Pulse Ox 98.7 F 84 17 122/87 88 07/11/18 07:19 07/11/18 07:19 07/11/18 07:28 07/11/18 07:19 07/11/18 07:28 Exam: General : agitated, in mild acute distress, A&Ox3 Cardiac: RRR no murmurs or gallop Respiratory: diffuse wheezes Abdomen: Soft, not distended, no masses or organomegaly - diffuse abdominal tenderness described as chronic Extremities: pulses intact, no pedal edema Psych: anxious mood, circular thought pattern revolve around medications, fast speech of normal volume, normal affect, good eye contact - states that he would rather than deal with shortness of breath but clarified that he does not currently have suicidal thoughts or plans - Assessment and Plan (1) Acute respiratory failure with hypoxia Current Visit: Yes Status: Acute Assessment and Plan: likely due to COPD exacerbation: becomes hypoxic when removes oxygen mask - 6 minutes walk to evaluate for home oxygen - Spoke with PCP and he believes patient may be compliant with home oxygen due to his fear of dying from COPD As patient is threatening to leave AMA he may leave before home oxygen can be arranged (2) COPD (chronic obstructive pulmonary disease) Current Visit: Yes Status: Acute Assessment and Plan: Currentlly COPD exacerbations - patient was educated on need for controller medications and refused - wean NC O2 as tolerated - Prednisone burst 60 mg day 3 of 5 - Azithromycin 500mg day 2 of 3 -continue due-nebs scheduled and PRN (3) Hypertension Current Visit: Yes Status: Chronic Assessment and Plan: continue to monitor vitals (4) Seizure disorder Current Visit: Yes Status: Chronic Assessment and Plan: continue home dose phenytoin (5) Anxiety Current Visit: Yes Status: Acute Assessment and Plan: Chronic but triggered by shortness of breath - increase Vistaril to 100mg q6 hrs, max dose DVT Prophylaxis: Heparin - Summary of Assessment and Plan Summary of Assessment and Plan: Possible discharge tomorrow after evaluated for home oxygen - Time Spent with Patient Total time spent is greater than 50% in coordination of care (as documented) at patient's floor/unit and/or counseling patient: Greater than 35 minutes Plan of Care Discussed with: patient Internal Medicine: Result - Labs CBC & Chem 7: 07/09/18 01:58 07/11/18 03:29 Labs: BMP 07/11/18 03:29 Sodium 134 L Potassium 4.0 Chloride 97 L Carbon Dioxide 33 H BUN 13 Creatinine 0.62 L Glucose 117 H Calcium 9.1 Consult Discharge Plan - Plan Referrals: Rick Hatch DO [Primary Care Provider] - <Jamie Navarro - Last Filed: 07/11/18 15:29> Hospitalist Progress Note - Encounter Date of Encounter: 07/11/18 - Exam Vitals: Temp Pulse Resp BP Pulse Ox 98.2 F 85 18 137/88 89 07/11/18 15:24 07/11/18 15:24 07/11/18 15:24 07/11/18 15:24 07/11/18 15:24 - Assessment and Plan (1) Acute respiratory failure with hypoxia Current Visit: Yes Status: Acute (2) COPD (chronic obstructive pulmonary disease) Current Visit: Yes Status: Acute (3) Hypertension Current Visit: Yes Status: Chronic (4) Seizure disorder Current Visit: Yes Status: Chronic (5) Substance use disorder Current Visit: Yes Status: Chronic (6) DVT prophylaxis Current Visit: Yes Status: Acute - Time Spent with Patient Total time spent is greater than 50% in coordination of care (as documented) at patient's floor/unit and/or counseling patient: Internal Medicine: Result - Labs CBC & Chem 7: 07/09/18 01:58 07/11/18 03:29 Labs: BMP 07/11/18 03:29 Sodium 134 L Potassium 4.0 Chloride 97 L Carbon Dioxide 33 H BUN 13 Creatinine 0.62 L Glucose 117 H Calcium 9.1 - Attending Attestation I examined this patient and my medical decision-making was reviewed with the Resident Physician Dr. Traylor. I agree with the documented findings, disposition and treatment plan as described except to the extent set forth below. <Roxy Traylor - Last Filed: 07/11/18 13:00> (2) COPD (chronic obstructive pulmonary disease) Qualifiers: COPD type: emphysema Emphysema type: panlobular Qualified Code(s): J43.1 - Panlobular emphysema (3) Hypertension Qualifiers: Hypertension type: essential hypertension Qualified Code(s): I10 - Essential (primary) hypertension <Jamie Navarro - Last Filed: 07/11/18 15:29> (2) COPD (chronic obstructive pulmonary disease) Qualifiers: COPD type: emphysema Emphysema type: panlobular Qualified Code(s): J43.1 - Panlobular emphysema (3) Hypertension Qualifiers: Hypertension type: essential hypertension Qualified Code(s): I10 - Essential (primary) hypertension
--- NOTE | 2018-07-11 13:36 | Electrocardiograph Report ---
[place] [address] Test Date: 2018-07-09 Pat Name: Kiran Galindo Department: Room: 2NE25 Gender: M Dental Chairside Assistant: : 1965 Requested By: Arash Berkowitz Order Number: [id number] Reading MD: Caleb Menchaca Measurements Intervals [place] Rate: 83 P: 4 ID: [id number] QRS: 94 QRSD: 98 T: 74 QT: 427 QTc: 502 Interpretive Statements Sinus rhythm Borderline right axis deviation Anteroseptal infarct, age indeterminate Electronically Signed On 07-11-2018 13:34:48 EDT by Caleb Menchaca
--- NOTE | 2018-07-11 15:24 | Electrocardiograph Report ---
[address] [address] Test Date: 2018-07-10 Pat Name: Kiran Galindo Department: 111 Room: [facility] Gender: M [employer] Professor: [id number] : 1965 Requested By: [id number] Order Number: [id number] Reading MD: Caleb Menchaca Measurements Intervals [place] Rate: 103 P: 37 VT: 143 QRS: 52 QRSD: 95 T: 45 QT: 341 QTc: 401 Interpretive Statements SINUS TACHYCARDIA ABNORMAL RHYTHM ECG Electronically Signed On 07-11-2018 15:22:57 EDT by Caleb Menchaca
[2018-07-11] MEDS ORDERED: Ipratropium/Albuterol Neb 3 ML IH PRN (16:37)
[2018-07-11] MEDS: Mirtazapine 15 MG TABLET PO SCH (21:12)
[2018-07-12] MEDS ORDERED: Acetaminophen 325 MG TABLET PO ONE (00:31)
[2018-07-12 04:26] LABS: Basophils % 0.1 %; Hematocrit 36.9 % (37.5-50.1); Hemoglobin 12.7 g/dL (12.9-16.9); Immature Granulocytes % 0.6 % (0-4); Lymphocytes # 1.8 K/mcL (0.6-4.6); Lymphocytes % 8.5 %; Mean Corpuscular HGB Conc 34.4 g/dL (31.6-35.5); Mean Corpuscular Hemoglobin 31.1 pg (28.0-33.3); Mean Corpuscular Volume 90.2 fL (83.0-100.0); Mean Platelet Volume 9.1 fL (9.4-12.4); Monocytes # 1.6 K/mcL (0.0-1.3); Monocytes % 7.7 %; Neutrophils # 17.2 K/mcL (1.6-8.9); Platelet Count 402 K/mcL (140-400); Red Blood Count 4.09 M/mcL (4.19-5.50); Red Cell Distribution Width 13.9 % (11.5-14.5); Segmented Neutrophils % 83.1 %
[2018-07-12] MEDS ORDERED: *HR* LORazepam 2 MG/ML VIAL IVP ONE (04:28)
[2018-07-12 04:43] LABS: BUN/Creatinine Ratio 17 (6-26); Blood Urea Nitrogen 11 mg/dL (6-20); Calcium 9.3 mg/dL (8.6-10.3); Carbon Dioxide 28 mEq/L (23-29); Chloride 99 mEq/L (98-107); Glucose 99 mg/dL (70-105); Osmolality,Calculated 277 (280-300); Potassium 3.8 mEq/L (3.5-5.1); Sodium 134 mEq/L (136-145); eGFR For Non-African Americans > 60 (> 60)
[2018-07-12] MEDS: *HR* Heparin 5,000 UNIT/ML VIAL SQ SCH ×2 (04:55→13:16)
[2018-07-12] MEDS: Methadone Oral Concentrate 50 MG/5 ML UDC PO SCH (08:00)
[2018-07-12] MEDS: Gabapentin 400 MG CAPSULE PO SCH (08:01)
[2018-07-12] MEDS: Azithromycin 250 MG TABLET PO SCH (08:01)
[2018-07-12] MEDS: predniSONE 20 MG TABLET PO SCH (08:02)
[2018-07-12] MEDS: Acetaminophen 325 MG TABLET PO PRN (08:08)
--- NOTE | 2018-07-12 09:39 | Internal Med Progress Note ---
Hospitalist Progress Note - Encounter Date of Encounter: 07/12/18 Time of Encounter: 09:00 - Subjective Interval History: 53 y/o male with history of COPD, seizure disorder anxiety and substance abuse currently treated at methadone clinic - presented with shortness of breath and hypoxia. He was drowsy and not answering questions when I first saw him today - he reported that he had just gotton his methadone. He admits to headache, feverish feeling, and worsening chest tightness. His cough and mucus production are same as yesterday. Overnight elevated temperature to 100F. Oxygen was changed from mask 6 L to nasal canula- when I returned 1 hour later he was alert, reported headache resolved and request higher dose of methadone. He is requesting increase in methadone dose citing that doctor from previous psych in patient admit at [facility] suggested it. - Exam Vitals: Temp Pulse Resp BP Pulse Ox 100 F H 110 18 155/103 95 07/12/18 04:08 07/12/18 08:05 07/12/18 08:05 07/12/18 08:05 07/12/18 08:05 Exam: General : agitated, in no acute distress, A&Ox3 Cardiac: RRR no murmurs or gallop Respiratory: cough, wheezes in lower right lobe Abdomen: Soft, not distended, no masses or organomegaly - abdominal tenderness in ULQ Extremities: pulses intact, no pedal edema Psych: on early visit her was drowsy and appeared to refuse to answer questions , second visit her was irritated like yesterday Skin: warm and diaphoresis - Assessment and Plan (1) Acute respiratory failure with hypoxia Status: Acute Assessment and Plan: likely due to COPD exacerbation: becomes hypoxic when removes oxygen mask - Spoke with PCP yesterday; he believes patient may be compliant with home oxygen due to his fear of dying from COPD - order chest X-ray - considered blood cultures (2) COPD (chronic obstructive pulmonary disease) Status: Acute Assessment and Plan: Currentlly COPD exacerbations - patient was educated on need for controller medications and refused - wean NC O2 as tolerated - Prednisone burst 60 mg day 4 of 5 - Azithromycin 500mg day 3 of 3 -continue due-nebs scheduled and PRN (3) Hypertension Status: Chronic Assessment and Plan: continue to monitor (4) Seizure disorder Status: Chronic Assessment and Plan: continue home dose phenytoin (5) Anxiety Status: Acute Assessment and Plan: - continue Vistaril 100mg q6 hr DVT Prophylaxis: Heparin - Time Spent with Patient Total time spent is greater than 50% in coordination of care (as documented) at patient's floor/unit and/or counseling patient: Greater than 35 minutes Plan of Care Discussed with: patient Internal Medicine: Result - Labs CBC & Chem 7: 07/12/18 03:49 07/12/18 03:49 Labs: Short CBC 07/12/18 Range/Units 03:49 WBC 20.7 H D (4.3-11.1) K/mcL Hgb 12.7 L (12.9-16.9) g/dL Hct 36.9 L (37.5-50.1) % Plt Count 402 H (140-400) K/mcL Neutrophils # 17.2 H (1.6-8.9) K/mcL BMP 07/12/18 03:49 Sodium 134 L Potassium 3.8 Chloride 99 Carbon Dioxide 28 BUN 11 Creatinine 0.64 L Glucose 99 Calcium 9.3 Consult Discharge Plan - Plan Instructions: Chest Pain (DC), Chronic Obstructive Pulmonary Disease (DC) Referrals: Rick Hatch DO [Primary Care Provider] - Prescriptions: Doxycycline Hyclate 100 mg PO BID #8 tablet. predniSONE [PredniSONE] 40 mg PO DAILY 2 Days tablet (2) COPD (chronic obstructive pulmonary disease) Qualifiers: COPD type: emphysema Emphysema type: panlobular Qualified Code(s): J43.1 - Panlobular emphysema (3) Hypertension Qualifiers: Hypertension type: essential hypertension Qualified Code(s): I10 - Essential (primary) hypertension
[2018-07-12 10:47] VITALS: BP 115/89
--- NOTE | 2018-07-12 13:37 | Discharge Summary ---
<Roxy Traylor - Last Filed: 07/12/18 14:10> - NOTES TO OUTPATIENT PROVIDER Notes to Outpatient Provider: He should complete treatment for PNA with doxycycline and follow up CBC. He was discharged after threatening to leave AMA. Orders not resulted at time of discharge: Pending orders 07/12/18 13:08 Culture,Blood [BC] Routine 07/13/18 04:00 Basic Metabolic Panel AM 0400 07/14/18 04:00 Basic Metabolic Panel AM 0400 Date of Encounter: 07/12/18 Time of Encounter: 13:37 - Discharge Diagnosis (1) Acute respiratory failure with hypoxia Priority: Primary Status: Acute (2) COPD (chronic obstructive pulmonary disease) Priority: Secondary Status: Acute Qualifiers: COPD type: emphysema Emphysema type: panlobular Qualified Code(s): J43.1 - Panlobular emphysema (3) Hypertension Priority: Secondary Status: Chronic Qualifiers: Hypertension type: essential hypertension Qualified Code(s): I10 - Essential (primary) hypertension (4) Seizure disorder Priority: Secondary Status: Chronic (5) Anxiety Priority: Secondary Status: Acute (6) CAP (community acquired pneumonia) Priority: Secondary Status: Acute Qualifiers: Laterality: right Lung location: lower lobe of lung Qualified Code(s): J18.1 - Lobar pneumonia, unspecified organism Hospital course: Mr. Galindo is a 53 year old male with history of COPD, anxiety, seizure disorder, former smoker, and substance abuse being treated with methadone. He presented with shortness of breath and chest tightness - he was hypoxic in ER requiring oxygen up to 6 L. He only uses albuterol and noted increased sputum production and cough. His X-ray showed signs of COPD but no consolidations - also normal his WBC 8.5 and troponin negative x2 . He was diagnosed with COPD exacerbation and treated with IV steroids and duo-nebs. After admission, his periodic anxiety triggered more episode of hypoxia down to 89% saturation. His Visteral was increased to maximum dose but he was agitated that it was not being given as he took it at and he requested ativan- when refused he started to threaten to leave AMA. The continues to be non-complaint with oxygen and to threaten to leave AMA on every day of his day. On the final night of his admit he has given 2 mg ativan for his anxiety. He had elevated temperature of 100 F, increased WBC to 20.7 and x-ray with right lower lobe pneumonia. Patient was made aware of diagnosis of pneumonia. He threatened to leave AMA after we declined to increase his methadone dose. On day of discharge he was evaluated for home oxygen use and was not eligible. He was discharged after repeated threats to leave AMA with doxycycline 4 days and short prednisone taper. Discharge discussed with: patient - Time Spent with Patient Total time spent providing and/or coordinating discharge services: Greater than 30 minutes - Discharge Medications Prescriptions: Doxycycline Hyclate 100 mg PO BID #8 tablet. predniSONE [PredniSONE] 40 mg PO DAILY 2 Days tablet Home Medications: Albuterol Sulfate [Ventolin Hfa] 2 puff IH Q4H PRN 07/09/18 [History] Gabapentin [Neurontin] 400 mg PO QID 07/09/18 [History] Methadone 75 mg PO DAILY 07/09/18 [History] Mirtazapine [Remeron] 30 mg PO HS 07/09/18 [History] Omeprazole [PriLOSEC] 40 mg PO BID 07/09/18 [History] Phenytoin ER [Dilantin ER] 100 mg PO TID 07/09/18 [History] Thiamine HCl [Vitamin B-1] 100 mg PO DAILY 07/09/18 [History] hydrOXYzine HCl [Hydroxyzine HCl] 50 mg PO TID PRN 07/09/18 [History] Doxycycline Hyclate 100 mg PO BID #8 tablet. 07/12/18 [Rx] predniSONE [PredniSONE] 40 mg PO DAILY 2 Days tablet 07/12/18 [Rx] Allergies/Adverse Reactions: 3 Allergy/AdvReac Type Severity Reaction Status Date / Time Penicillins Allergy Anaphylaxis Verified 07/09/18 10:03 codeine AdvReac Hives Verified 07/09/18 10:03 Date of admission: 07/09/18 05:27 Primary care physician: Rick Hatch DO Consults: 07/11/18 10:04 Consult to Publication Manager [CONS] Routine Reason for SW Consult: may need oxygen at home Discharging clinician: Roxy Traylor Anticipated date of discharge: 07/12/18 - Constitutional Vitals: Temp Pulse Resp BP Pulse Ox 99.3 F 95 18 115/89 90 07/12/18 10:46 07/12/18 10:46 07/12/18 08:05 07/12/18 10:46 07/12/18 10:46 General appearance: Present: mild distress, A&O X 3, answers questions appropriately Exam: He remains agitated - Head Head exam: Present: atraumatic, normocephalic - Respiratory Respiratory exam: Present: wheezes. Absent: accessory muscle use, respiratory distress, stridor Additional comments: wheeze in lower right lobe - Cardiovascular Cardiovascular exam: Present: RRR. Absent: gallop, rubs - GI/Abdominal GI/Abdominal exam: Present: normal bowel sounds, tenderness. Absent: mass Additional comments: tenderness with light touch in upper left quadrant - Extremities Exam Extremities exam: Present: normal inspection, pedal edema, warm, radial pulses palpable and symmetrical - Patient Status Disposition: Home, Self-Care Condition: Fair Functional capacity at discharge: independent ambulation Overall status at discharge: patient is not back to baseline - Discharge Instructions Instructions: Chest Pain (DC), Chronic Obstructive Pulmonary Disease (DC) Follow Up With: Rick Hatch DO [Primary Care Provider] - - Diet and Activity Activity: increase activity as tolerated Diet: advance to your usual diet, regular diet <Mey Colmenares - Last Filed: 07/12/18 17:05> Date of Encounter: 07/12/18 - Discharge Diagnosis (1) COPD (chronic obstructive pulmonary disease) Status: Acute Qualifiers: COPD type: emphysema Emphysema type: panlobular Qualified Code(s): J43.1 - Panlobular emphysema (2) DVT prophylaxis Status: Acute (3) Acute respiratory failure with hypoxia Status: Acute (4) Hypertension Status: Chronic Qualifiers: Hypertension type: essential hypertension Qualified Code(s): I10 - Essential (primary) hypertension (5) Seizure disorder Status: Chronic (6) Substance use disorder Status: Chronic Hospital course: Mr. Galindo is a 53 year old male - Time Spent with Patient Total time spent providing and/or coordinating discharge services: Date of admission: 07/09/18 05:27 Primary care physician: Rick Hatch DO Consults: 07/11/18 10:04 Consult to Publication Manager [CONS] Routine Reason for SW Consult: may need oxygen at home - Constitutional Vitals: Temp Pulse Resp BP Pulse Ox 99.3 F 95 18 115/89 90 07/12/18 10:46 07/12/18 10:46 07/12/18 08:05 07/12/18 10:46 07/12/18 10:46 - Attending Attestation I examined this patient and my medical decision-making was reviewed with the Resident Physician Dr. Traylor. I agree with the documented findings, disposition and treatment plan as described except to the extent set forth below. Mr. Galindo is a 53 year old male with history of COPD, anxiety, seizure disorder, former smoker, and substance abuse being treated with methadone. He presented with shortness of breath and chest tightness - he was hypoxic in ER requiring oxygen up to 6 L. Pt was admitted here and started on empirical abx and IV steroids. His symptoms started improving, he is off the O2 today, breathing comfortably on RA. however his WBC went up today, mostly due to high dose steroids. I recommended the pt to stay in the hospital one more day for close monitoring, however he decided to leave AMA even after I explained to him the importance of the care he needs. Since he decided to leave AMA, will d/c him home with PO abx, PO steroids and f/u CBC in 2 days. Chest: Diminished BS, mild wheezing no crackles Heart: S1S2+
[2018-07-13] MEDS ORDERED: predniSONE 20 MG TABLET PO SCH (09:00)
== END 2018-07-12 13:38 | disposition home or self-care (01) | DRG 140 ==
LOC: 2NENU 00:21 → EMEROOARM 00:21 → 2NENU 04:32
PROVIDERS: ADMIT Internal Medicine; ATTEND Internal Medicine

== ENCOUNTER 2018-07-13 07:35 | Inpatient (IN) ==
[2018-07-13] MEDS ORDERED: Ipratropium/Albuterol Neb 3 ML IH ONE (07:42)
[2018-07-13] MEDS ORDERED: methylPREDNISolone 125 MG/2 ML VIAL IVP ONE (07:42)
--- NOTE | 2018-07-13 07:42 | Emergency Department Note ---
Disposition Clinical Impression: Hypoxia, COPD exacerbation, Methadone dependence Leukocytosis Qualifiers: Leukocytosis type: unspecified Qualified Code(s): D72.829 - Elevated white blood cell count, unspecified Pneumonia Qualifiers: Pneumonia type: due to unspecified organism Disposition: Admitted As Inpatient Condition: Fair Referrals: Rick Hatch DO [Primary Care Provider] - Forms: ED Satisfaction Letter General Adult HPI - General Chief complaint: ED Shortness of Breath/Dyspnea Stated complaint: COPD Time Seen by Provider: 07/13/18 07:41 Source: patient Limitations: no limitations - History of Present Illness Pain Scale: 4 - Related Data Home Medications Medication Instructions Recorded Confirmed Albuterol Sulfate [Ventolin Hfa] 2 puff IH Q4H PRN 07/09/18 07/13/18 Gabapentin [Neurontin] 400 mg PO QID 07/09/18 07/13/18 Methadone 75 mg PO DAILY 07/09/18 07/13/18 Mirtazapine [Remeron] 30 mg PO HS 07/09/18 07/13/18 Omeprazole [PriLOSEC] 40 mg PO BID 07/09/18 07/13/18 Phenytoin ER [Dilantin ER] 100 mg PO TID 07/09/18 07/13/18 Thiamine HCl [Vitamin B-1] 100 mg PO DAILY 07/09/18 07/13/18 hydrOXYzine HCl [Hydroxyzine HCl] 50 mg PO TID PRN 07/09/18 07/13/18 Previous Rx's Medication Instructions Recorded Doxycycline Hyclate 100 mg PO BID #8 tablet. 07/12/18 predniSONE [PredniSONE] 40 mg PO DAILY 2 Days tablet 07/12/18 Allergies Allergy/AdvReac Type Severity Reaction Status Date / Time Penicillins Allergy Anaphylaxis Verified 07/09/18 10:03 codeine AdvReac Hives Verified 07/09/18 10:03 Past Medical History - Past Medical History Medical history: Reports: COPD, hepatitis, hypertension, seizures Surgical history: Reports: no surgical history Psychiatric history: Reports: anxiety, depression - Social History Smoking Status: Former smoker Smokeless Tobacco Status: Yes Alcohol use: Reports: none, rarely Drug use: Reports: marijuana Physical Exam - General Limitations: no limitations General appearance: alert, in no apparent distress Course Vital Signs Temperature 98.2 F 07/13/18 07:37 Pulse Rate 71 07/13/18 07:37 Respiratory Rate 20 07/13/18 07:37 Blood Pressure 174/100 07/13/18 07:37 O2 Sat by Pulse Oximetry 89 07/13/18 07:37 Temperature 98.2 F 07/13/18 07:37 Pulse Rate 71 07/13/18 07:37 Respiratory Rate 22 07/13/18 07:57 Blood Pressure 174/100 07/13/18 07:37 O2 Sat by Pulse Oximetry 90 07/13/18 07:57 Oxygen Delivery Oxygen Delivery Nasal Cannula Medical Decision Making - Lab Data Result diagrams: 07/13/18 07:54 07/13/18 07:54 Lab Results 07/13/18 07/13/18 07/13/18 Range/Units 07:54 07:54 07:54 WBC 20.3 H (4.3-11.1) K/mcL RBC 4.33 (4.19-5.50) M/mcL Hgb 13.4 (12.9-16.9) g/dL Hct 39.2 (37.5-50.1) % MCV 90.5 (83.0-100.0) fL MCH 30.9 (28.0-33.3) pg MCHC 34.2 (31.6-35.5) g/dL RDW 13.7 (11.5-14.5) % Plt Count 453 H (140-400) K/mcL MPV 8.7 L (9.4-12.4) fL Immature Gran % 0.5 (0-4) % Seg Neutrophils % 85.2 % Lymphocytes % 5.1 % Monocytes % 9.1 % Eosinophils % 0.0 % Basophils % 0.1 % Neutrophils # 17.3 H (1.6-8.9) K/mcL Lymphocytes # 1.0 (0.6-4.6) K/mcL Monocytes # 1.8 H (0.0-1.3) K/mcL Eosinophils # 0.0 (0.0-0.6) K/mcL Basophils # 0.0 (0.0-0.2) K/mcL Sodium 135 L (136-145) mEq/L Potassium 3.6 (3.5-5.1) mEq/L Chloride 95 L (98-107) mEq/L Carbon Dioxide 23 (23-29) mEq/L BUN 17 (6-20) mg/dL Creatinine 0.68 L (0.70-1.30) mg/dL Est GFR ( Amer) > 60 (> 60) Est GFR (Non-Af Amer) > 60 (> 60) BUN/Creatinine Ratio 25 (6-26) Glucose 120 H (70-105) mg/dL Calculated Osmolality 283 (280-300) Lactic Acid 1.0 (0.5-2.2) mmol/L Calcium 9.4 (8.6-10.3) mg/dL Magnesium 2.0 (1.6-2.6) mg/dL Total Bilirubin 0.8 (0.3-1.0) mg/dL Direct Bilirubin 0.1 (0.0-0.2) mg/dL Indirect Bilirubin 0.7 (0.0-1.2) mg/dL AST 11 L (13-39) Units/L ALT 14 (7-52) Units/L Alkaline Phosphatase 53 (34-104) Units/L Troponin I < 0.03 (< 0.04) ng/mL B-Natriuretic Peptide (Less than 100) pg/mL Serum Total Protein 7.8 (6.4-8.9) g/dL Albumin 3.9 (3.5-5.7) g/dL Globulin 3.9 H (2.4-3.5) g/dL Albumin/Globulin Ratio 1.0 L (1.1-2.2) 07/13/18 Range/Units 07:54 WBC (4.3-11.1) K/mcL RBC (4.19-5.50) M/mcL Hgb (12.9-16.9) g/dL Hct (37.5-50.1) % MCV (83.0-100.0) fL MCH (28.0-33.3) pg MCHC (31.6-35.5) g/dL RDW (11.5-14.5) % Plt Count (140-400) K/mcL MPV (9.4-12.4) fL Immature Gran % (0-4) % Seg Neutrophils % % Lymphocytes % % Monocytes % % Eosinophils % % Basophils % % Neutrophils # (1.6-8.9) K/mcL Lymphocytes # (0.6-4.6) K/mcL Monocytes # (0.0-1.3) K/mcL Eosinophils # (0.0-0.6) K/mcL Basophils # (0.0-0.2) K/mcL Sodium (136-145) mEq/L Potassium (3.5-5.1) mEq/L Chloride (98-107) mEq/L Carbon Dioxide (23-29) mEq/L BUN (6-20) mg/dL Creatinine (0.70-1.30) mg/dL Est GFR ( Amer) (> 60) Est GFR (Non-Af Amer) (> 60) BUN/Creatinine Ratio (6-26) Glucose (70-105) mg/dL Calculated Osmolality (280-300) Lactic Acid (0.5-2.2) mmol/L Calcium (8.6-10.3) mg/dL Magnesium (1.6-2.6) mg/dL Total Bilirubin (0.3-1.0) mg/dL Direct Bilirubin (0.0-0.2) mg/dL Indirect Bilirubin (0.0-1.2) mg/dL AST (13-39) Units/L ALT (7-52) Units/L Alkaline Phosphatase (34-104) Units/L Troponin I (< 0.04) ng/mL B-Natriuretic Peptide 78 (Less than 100) pg/mL Serum Total Protein (6.4-8.9) g/dL Albumin (3.5-5.7) g/dL Globulin (2.4-3.5) g/dL Albumin/Globulin Ratio (1.1-2.2) Attestation Statement - Attestation Attestation: I examined this patient and my medical decision-making was reviewed with the Resident Physician. I agree with the documented findings, disposition and treatment plan as described except to the extent set forth below. Patient presents to the ED with shortness of breath, hypoxia, cough and fever. Patient was sent from the methadone clinic. He was found to be hypoxic in the low 80s there today. Patient resuscitated and admitted here for a COPD exacerbation. He is in no acute distress on our evaluation. He satting 89% on 2 L. Lung sounds diminished. Plan. Nebs steroids chest x-ray cardiac workup and reevaluate. Likely readmission. Patient with a white blood cell count of 20. Suspect sepsis at 816. Blood cultures ordered. Lactate pending. Will start IV antibiotic. Patient admitted to medicine.
--- NOTE | 2018-07-13 07:46 | Emergency Department Note ---
Disposition Clinical Impression: Hypoxia, COPD exacerbation, Methadone dependence Leukocytosis Qualifiers: Leukocytosis type: unspecified Qualified Code(s): D72.829 - Elevated white blood cell count, unspecified Pneumonia Qualifiers: Pneumonia type: due to unspecified organism Disposition: Admitted As Inpatient Condition: Fair Referrals: Rick Hatch DO [Primary Care Provider] - Forms: ED Satisfaction Letter Time of Disposition: 08:56 SOB HPI - General Chief Complaint: ED Shortness of Breath/Dyspnea Stated Complaint: COPD Time Seen by Provider: 07/13/18 07:41 Source: patient, EMS Mode of arrival: EMS Limitations: no limitations Nursing Notes Reviewed: Yes Vital Signs Reviewed: Yes - History of Present Illness Patient is a 53-year-old male with past medical history of COPD, methadone treatment for prior drug abuse. He presents today via EMS due to shortness of breath, hypoxia. Patient states that he was discharged yesterday from the hospital due to COPD exacerbation. He has been having shortness of breath for the past month, was admitted and had a hospital stay for approximately 4 days. He states that he received antibiotics and steroids and was sent home, unsure of names or doses of these medications. He does not use any oxygen at home; does use daily steroid inhaler but unsure of name of medication. EMS states that they picked him up at methadone clinic and he was in the low 80s on room air. They placed on 4 L nasal cannula and were able to get him up to 92%. The patient complains of shortness of breath, productive cough, mild chest tightness that he describes as anxiety and shortness of breath related. Denies any fevers. He does admit to posttussive emesis. Otherwise denies any abdominal discomfort. Admits to a few loose stools. Denies any dysuria or hematuria. - Related Data Home Medications Medication Instructions Recorded Confirmed Albuterol Sulfate [Ventolin Hfa] 2 puff IH Q4H PRN 07/09/18 07/13/18 Gabapentin [Neurontin] 400 mg PO QID 07/09/18 07/13/18 Methadone 75 mg PO DAILY 07/09/18 07/13/18 Mirtazapine [Remeron] 30 mg PO HS 07/09/18 07/13/18 Omeprazole [PriLOSEC] 40 mg PO BID 07/09/18 07/13/18 Phenytoin ER [Dilantin ER] 100 mg PO TID 07/09/18 07/13/18 Thiamine HCl [Vitamin B-1] 100 mg PO DAILY 07/09/18 07/13/18 hydrOXYzine HCl [Hydroxyzine HCl] 50 mg PO TID PRN 07/09/18 07/13/18 Previous Rx's Medication Instructions Recorded Doxycycline Hyclate 100 mg PO BID #8 tablet. 07/12/18 predniSONE [PredniSONE] 40 mg PO DAILY 2 Days tablet 07/12/18 Allergies Allergy/AdvReac Type Severity Reaction Status Date / Time Penicillins Allergy Anaphylaxis Verified 07/09/18 10:03 codeine AdvReac Hives Verified 07/09/18 10:03 All systems ED: reviewed and negative except as stated. Constitutional: Denies: fever Cardiovascular: Reports: chest pain Respiratory: Reports: cough, dyspnea, sputum production. Denies: wheezes Gastrointestinal: Reports: nausea, vomiting (Posttussive), diarrhea. Denies: abdominal pain, constipation, hematemesis, melena Genitourinary: Denies: urgency, dysuria Integumentary: Denies: rash Neurological: Denies: headache, weakness, numbness, paresthesias Past Medical History - Past Medical History Attestation: Yes The following information was validated with the patient. Source: patient Medical history: Reports: COPD, hepatitis, hypertension, seizures Surgical history: Reports: no surgical history Psychiatric history: Reports: anxiety, depression - Social History Smoking Status: Former smoker Smokeless Tobacco Status: Yes Alcohol use: Reports: none, rarely Drug use: Reports: marijuana Physical Exam - General Limitations: no limitations General appearance: alert, in no apparent distress - Head Head exam: atraumatic, normocephalic, normal inspection - Eye Eye exam: Present: normal appearance, PERRL, EOMI - ENT ENT exam: normal exam, normal oropharynx, mucous membranes moist - Neck Neck exam: Present: normal inspection, full ROM, trachea midline - Chest Chest inspection: Present: normal inspection, symmetric chest wall rise - Respiratory Respiratory exam: Present: respiratory distress (Mild increased work of breathing), other (Decreased aeration throughout). Absent: wheezes, stridor, accessory muscle use - Cardiovascular Cardiovascular exam: Present: regular rate, normal rhythm, normal heart sounds - Abdominal Exam Abdominal exam: Present: soft, Non-Tender. Absent: tenderness, distention, guarding, rebound, rigidity - Extremities Exam Extremities exam: Present: normal inspection, full ROM. Absent: tenderness, pedal edema - Neurological Exam Neurological exam: Present: alert, oriented X3 - Psychiatric Psychiatric exam: Present: normal affect, normal mood - Skin Skin exam: Present: warm, dry, intact, normal color Course Course Narrative: Patient was 89% on 2 L nasal cannula oxygen. Increased to 4 L nasal cannula and satting 92%. Decreased aeration throughout. No overt wheezes or rhonchi. We will give the patient DuoNeb 3, Solu-Medrol, perform EKG, chest x-ray, basic blood work, troponin. We will admit to hypoxia, no home oxygen, COPD exacerbation. Of note, hospital charting reviewed. Patient was sent home with 2 days of prednisone, 4 days of doxycycline to complete course for right lower lobe pneumonia, COPD exacerbation. I talked with pharmacy and confirmed dosing of 75 mg of methadone, methadone clinic called and reported the patient did not receive his methadone today. This was given to the patient here in the ED. 20:34 elevated white blood cell count of 20 which may be elevated due to steroids. Chest x-ray shows worsening bilateral lower lobe disease. Patient given think lisinopril, Levaquin, cefepime. Still requiring 4 L nasal cannula to maintain saturation of 92%. We will admit for pneumonia, COPD exacerbation, hypoxia. Sepsis labs ordered. 20:54 lactic acid within normal limits. I talked with hospitalist for admission, accepted by Dr. Alarcon. Vital Signs Temperature 98.2 F 07/13/18 07:37 Pulse Rate 71 07/13/18 07:37 Respiratory Rate 20 07/13/18 07:37 Blood Pressure 174/100 07/13/18 07:37 O2 Sat by Pulse Oximetry 89 07/13/18 07:37 Temperature 98.2 F 07/13/18 07:37 Pulse Rate 71 07/13/18 07:37 Respiratory Rate 22 07/13/18 07:57 Blood Pressure 174/100 07/13/18 07:37 O2 Sat by Pulse Oximetry 90 07/13/18 07:57 Oxygen Delivery Oxygen Delivery Nasal Cannula Shortness of Breath/Dyspnea - [facility] Narrative Medical decision making narrative: Patient was 89% on 2 L nasal cannula oxygen. Increased to 4 L nasal cannula and satting 92%. Decreased aeration throughout. No overt wheezes or rhonchi. We will give the patient DuoNeb 3, Solu-Medrol, perform EKG, chest x-ray, basic blood work, troponin. We will admit to hypoxia, no home oxygen, COPD exacerbation. Of note, hospital charting reviewed. Patient was sent home with 2 days of prednisone, 4 days of doxycycline to complete course for right lower lobe pneumonia, COPD exacerbation. I talked with pharmacy and confirmed dosing of 75 mg of methadone, methadone clinic called and reported the patient did not receive his methadone today. This was given to the patient here in the ED. 20:34 elevated white blood cell count of 20 which may be elevated due to steroids. Chest x-ray shows worsening bilateral lower lobe disease. Patient given think lisinopril, Levaquin, cefepime. Still requiring 4 L nasal cannula to maintain saturation of 92%. We will admit for pneumonia, COPD exacerbation, hypoxia. Sepsis labs ordered. 20:54 lactic acid within normal limits. I talked with hospitalist for admission, accepted by Dr. Alarcon. - Medical Records Medical records reviewed: Yes I reviewed the patient's medical records. - Lab Data Lab results reviewed: Yes I reviewed the patient's lab results. Result diagrams: 07/13/18 07:54 07/13/18 07:54 Lab Results 07/13/18 07/13/18 07/13/18 Range/Units 07:54 07:54 07:54 WBC 20.3 H (4.3-11.1) K/mcL RBC 4.33 (4.19-5.50) M/mcL Hgb 13.4 (12.9-16.9) g/dL Hct 39.2 (37.5-50.1) % MCV 90.5 (83.0-100.0) fL MCH 30.9 (28.0-33.3) pg MCHC 34.2 (31.6-35.5) g/dL RDW 13.7 (11.5-14.5) % Plt Count 453 H (140-400) K/mcL MPV 8.7 L (9.4-12.4) fL Immature Gran % 0.5 (0-4) % Seg Neutrophils % 85.2 % Lymphocytes % 5.1 % Monocytes % 9.1 % Eosinophils % 0.0 % Basophils % 0.1 % Neutrophils # 17.3 H (1.6-8.9) K/mcL Lymphocytes # 1.0 (0.6-4.6) K/mcL Monocytes # 1.8 H (0.0-1.3) K/mcL Eosinophils # 0.0 (0.0-0.6) K/mcL Basophils # 0.0 (0.0-0.2) K/mcL Sodium 135 L (136-145) mEq/L Potassium 3.6 (3.5-5.1) mEq/L Chloride 95 L (98-107) mEq/L Carbon Dioxide 23 (23-29) mEq/L BUN 17 (6-20) mg/dL Creatinine 0.68 L (0.70-1.30) mg/dL Est GFR ( Amer) > 60 (> 60) Est GFR (Non-Af Amer) > 60 (> 60) BUN/Creatinine Ratio 25 (6-26) Glucose 120 H (70-105) mg/dL Calculated Osmolality 283 (280-300) Lactic Acid 1.0 (0.5-2.2) mmol/L Calcium 9.4 (8.6-10.3) mg/dL Magnesium 2.0 (1.6-2.6) mg/dL Total Bilirubin 0.8 (0.3-1.0) mg/dL Direct Bilirubin 0.1 (0.0-0.2) mg/dL Indirect Bilirubin 0.7 (0.0-1.2) mg/dL AST 11 L (13-39) Units/L ALT 14 (7-52) Units/L Alkaline Phosphatase 53 (34-104) Units/L Troponin I < 0.03 (< 0.04) ng/mL B-Natriuretic Peptide (Less than 100) pg/mL Serum Total Protein 7.8 (6.4-8.9) g/dL Albumin 3.9 (3.5-5.7) g/dL Globulin 3.9 H (2.4-3.5) g/dL Albumin/Globulin Ratio 1.0 L (1.1-2.2) 07/13/18 Range/Units 07:54 WBC (4.3-11.1) K/mcL RBC (4.19-5.50) M/mcL Hgb (12.9-16.9) g/dL Hct (37.5-50.1) % MCV (83.0-100.0) fL MCH (28.0-33.3) pg MCHC (31.6-35.5) g/dL RDW (11.5-14.5) % Plt Count (140-400) K/mcL MPV (9.4-12.4) fL Immature Gran % (0-4) % Seg Neutrophils % % Lymphocytes % % Monocytes % % Eosinophils % % Basophils % % Neutrophils # (1.6-8.9) K/mcL Lymphocytes # (0.6-4.6) K/mcL Monocytes # (0.0-1.3) K/mcL Eosinophils # (0.0-0.6) K/mcL Basophils # (0.0-0.2) K/mcL Sodium (136-145) mEq/L Potassium (3.5-5.1) mEq/L Chloride (98-107) mEq/L Carbon Dioxide (23-29) mEq/L BUN (6-20) mg/dL Creatinine (0.70-1.30) mg/dL Est GFR ( Amer) (> 60) Est GFR (Non-Af Amer) (> 60) BUN/Creatinine Ratio (6-26) Glucose (70-105) mg/dL Calculated Osmolality (280-300) Lactic Acid (0.5-2.2) mmol/L Calcium (8.6-10.3) mg/dL Magnesium (1.6-2.6) mg/dL Total Bilirubin (0.3-1.0) mg/dL Direct Bilirubin (0.0-0.2) mg/dL Indirect Bilirubin (0.0-1.2) mg/dL AST (13-39) Units/L ALT (7-52) Units/L Alkaline Phosphatase (34-104) Units/L Troponin I (< 0.04) ng/mL B-Natriuretic Peptide 78 (Less than 100) pg/mL Serum Total Protein (6.4-8.9) g/dL Albumin (3.5-5.7) g/dL Globulin (2.4-3.5) g/dL Albumin/Globulin Ratio (1.1-2.2) - Radiology Data Radiology results reviewed: Yes I reviewed the patient's radiology results. - EKG Data EKG attestation: Yes I reviewed and interpreted this EKG. EKG results narrative: 07/13/18 at 07:44. Normal sinus rhythm. Rate 76. [place] 142. QTC 467. QRS 94. Normal axis. No acute ST elevation or depression. No changes from previous S.B.A.R. - [email or web address] Situation: Demographics, MOA Background: Presenting Complaint, Relevant PMH, Meds, & Allergies Assessment: Vital Signs, Course and respsone to treatment, Exam Concerns, Patient/Family Expectation, Pertinant Lab Results Recommendation: Barrier(s) to disposition, Recommendation based on pending studies, treatments, or consults S.B.A.RWilson Report Given to: Dr. Dorian Urena Repor Time: 08:56
[2018-07-13] MEDS ORDERED: Methadone Oral Concentrate 10 MG/ML PO ONE (07:56)
[2018-07-13 08:04] LABS: Basophils % 0.1 %; Hematocrit 39.2 % (37.5-50.1); Hemoglobin 13.4 g/dL (12.9-16.9); Immature Granulocytes % 0.5 % (0-4); Lymphocytes % 5.1 %; Mean Corpuscular HGB Conc 34.2 g/dL (31.6-35.5); Mean Corpuscular Hemoglobin 30.9 pg (28.0-33.3); Mean Corpuscular Volume 90.5 fL (83.0-100.0); Mean Platelet Volume 8.7 fL (9.4-12.4); Monocytes # 1.8 K/mcL (0.0-1.3); Monocytes % 9.1 %; Neutrophils # 17.3 K/mcL (1.6-8.9); Platelet Count 453 K/mcL (140-400); Red Blood Count 4.33 M/mcL (4.19-5.50); Red Cell Distribution Width 13.7 % (11.5-14.5); Segmented Neutrophils % 85.2 %
[2018-07-13] MEDS ORDERED: Ondansetron 4 MG/2 ML VIAL IVP ONE (08:06)
[2018-07-13] MEDS ORDERED: 0.9 % Sodium Chloride 1,000 ML IVC ONE (08:14)
[2018-07-13] MEDS ORDERED: Cefepime HCl 2,000 MG in Water for inj. (sterile) 20 ML 20 ML IVP ONE (08:17)
[2018-07-13] MEDS ORDERED: Levofloxacin 750 MG/150 ML 750 MG/150 ML BAG IVPB ONE (08:17)
[2018-07-13 08:23] LABS: Troponin I < 0.03 ng/mL (< 0.04)
[2018-07-13 08:24] LABS: BUN/Creatinine Ratio 25 (6-26); Blood Urea Nitrogen 17 mg/dL (6-20); Calcium 9.4 mg/dL (8.6-10.3); Carbon Dioxide 23 mEq/L (23-29); Chloride 95 mEq/L (98-107); Glucose 120 mg/dL (70-105); Osmolality,Calculated 283 (280-300); Potassium 3.6 mEq/L (3.5-5.1); Sodium 135 mEq/L (136-145); eGFR For Non-African Americans > 60 (> 60)
[2018-07-13 08:51] LABS: Alanine Aminotransferase 14 Units/L (7-52); Albumin 3.9 g/dL (3.5-5.7); Alkaline Phosphatase 53 Units/L (34-104); Aspartate Amino Transferase 11 Units/L (13-39); Bilirubin,Direct 0.1 mg/dL (0.0-0.2); Bilirubin,Indirect 0.7 mg/dL (0.0-1.2); Bilirubin,Total 0.8 mg/dL (0.3-1.0); Globulin 3.9 g/dL (2.4-3.5); Total Protein 7.8 g/dL (6.4-8.9)
[2018-07-13 09:38] LABS: Bilirubin,Urine Small (Negative); Blood,Urine Negative (Negative); Clarity,Urine Clear (Clear); Color,Urine Yellow (Yellow); Glucose,Urine (UA) Normal (Normal); Ketones,Urine 40 mg/dL (Negative); Leukocyte Esterase,Urine Negative (Negative); Nitrite,Urine Negative (Negative); Protein,Urine Trace mg/dL (Neg-Trace); Specific Gravity,Urine > 1.030 (1.010-1.025); Urobilinogen,Urine Normal (Normal)
[2018-07-13 09:39] LABS: Bacteria,Urine None Seen per hpf (None-Few); Hyaline Casts,Urine None Seen per lpf (None-Few); Squamous Epithelial Cell,Urine Moderate per lpf (None-Few); WBC,Urine 0-3 per hpf (0-3)
--- NOTE | 2018-07-13 11:03 | Internal Med History&Physical ---
Date of Encounter: 07/13/18 Time of Encounter: 10:45 Internal Medicine - H&P: HPI Chief complaint: Shortness of breath, hypoxia, abdominal pain Admitted From: Emergency Dept Plans for Post Hospital Care: Home History of present illness: Mr. Galindo is a 53 year old male patient with history of COPD, hepatitis, hypertension and seizure disorder who was discharged from the hospital yesterday after threatening to leave AGAINST MEDICAL ADVICE multiple times for not increasing his methadone dose. He had been admitted here for COPD exacerbation. He was treated with steroids and bronchodilators. His x-ray done here then showed right lower lobe pneumonia. He was discharged on doxycycline and prednisone taper. He went to his regular methadone clinic today to mushroom picker his prescription for methadone and at that time was found to be hypoxic. As such she was refused methadone and transferred to the ER here. Presently he is complaining of abdominal pain and inability to sleep. He reports nausea and vomiting. Pain is in his epigastric region. He has had this pain intermittently for several days. He was hospitalized here in February and at that time he underwent upper GI endoscopy which showed esophagitis and gastritis with possible rafael infection. Pathology results showed chronic superficial gastritis. Patient had left the hospital AGAINST MEDICAL ADVICE at that time. He was prescribed fluconazole. Unclear if he completed the medication regimen. He denies any hematemesis or melena at this time. He has continued to have shortness of breath that improves when he gets breathing treatments but recurs soon after. Past Med Surg Social Fam HX - Past Medical History Attestation: Yes The following information was validated with the patient. Source: patient Medical history: COPD, hepatitis, hypertension, seizures, other (Gastritis, esophagitis) Additional medical history: hep C Psychiatric history: anxiety, depression - Past Surgical History Surgical History: no surgical history - Social History Smoking Status: Former smoker Smokeless Tobacco Status: Yes Alcohol use: none, rarely Drug use: marijuana - Family History Mother Family Member Ethnicity: Non- Living Status: Still Living Hx Family Endocrine Disorder: Yes (DM) Father Living Status: Hx Family Respiratory Disorders: Yes (COPD) Internal Medicine - H&P: Meds Albuterol Sulfate [Ventolin Hfa] 2 puff IH Q4H PRN 07/09/18 [History] Gabapentin [Neurontin] 400 mg PO QID 07/09/18 [History] Methadone 75 mg PO DAILY 07/09/18 [History] Mirtazapine [Remeron] 30 mg PO HS 07/09/18 [History] Omeprazole [PriLOSEC] 40 mg PO BID 07/09/18 [History] Phenytoin ER [Dilantin ER] 100 mg PO TID 07/09/18 [History] Thiamine HCl [Vitamin B-1] 100 mg PO DAILY 07/09/18 [History] hydrOXYzine HCl [Hydroxyzine HCl] 50 mg PO TID PRN 07/09/18 [History] Doxycycline Hyclate 100 mg PO BID #8 tablet. 07/12/18 [Rx] predniSONE [PredniSONE] 40 mg PO DAILY 2 Days tablet 07/12/18 [Rx] 3 Allergy/AdvReac Type Severity Reaction Status Date / Time Penicillins Allergy Anaphylaxis Verified 07/09/18 10:03 codeine AdvReac Hives Verified 07/09/18 10:03 All Systems PM: A 10-system review of systems was performed and is negative for pertinent findings except as documented above in the HPI. - Constitutional Constitutional: no chills, no fever(s), no night sweats - EENT Eyes: no change in vision, no discharge, no pain, no photophobia Ears: no ear discharge, no ear pain, no tinnitus Nose, mouth and throat: no dysphagia, no nasal discharge, no neck pain, no sore throat - Cardiovascular Cardiovascular ROS IM: no chest pain, no diaphoresis, no dyspnea, no lightheadedness, no palpitations, no syncope - Respiratory Respiratory: cough, dyspnea, wheezing, no excessive phlegm production - Gastrointestinal Gastrointestinal: abdominal pain, nausea, vomiting, no diarrhea, no hematemesis , no hematochezia, no melena - Musculoskeletal Musculoskeletal ROS IM: no numbness, no tingling - Integumentary Integumentary IM: no rash, no unusual bruising - Neurological Neurological ROS: no confusion, no convulsions, no focal weakness, no numbness, no tingling, no tremor(s) - Hematologic/Lymphatic Hematologic/Lymphatic: no easy bruising - Constitutional Vitals: Temp Pulse Resp BP Pulse Ox 98.2 F 87 20 189/90 93 07/13/18 07:37 07/13/18 09:56 07/13/18 09:56 07/13/18 09:56 07/13/18 09:56 General appearance: Present: cooperative, A&O X 3, underweight, answers questions appropriately Exam: Moderate distress - Neck Neck exam general surgery: Present: supple, trachea midline. Absent: lymphadenopathy - Respiratory Respiratory exam: Present: prolonged expiratory phase, wheezes. Absent: accessory muscle use, rales, rhonchi - Cardiovascular Cardiovascular exam: Present: RRR, +S1, +S2. Absent: diastolic murmur, gallop, rubs, systolic murmur - GI/Abdominal GI/Abdominal exam: Present: normal bowel sounds, soft, tenderness (Epigastric), no peritoneal signs. Absent: distended - Extremities Exam Extremities exam: Present: warm, radial pulses palpable and symmetrical. Absent : calf tenderness, cyanotic, pedal edema - Neurological Exam Neurological exam: Present: alert, CN II-XII intact, oriented X3, no focal deficits. Absent: facial droop, speech deficit Internal Med - H&P Results - Labs CBC & Chem 7: 07/13/18 07:54 07/13/18 07:54 - Assessment and plan (1) Acute respiratory failure with hypoxia Current Visit: Yes Status: Acute Assessment and plan: Patient has been hypoxic on room air in the ER. Has been placed on O2 supplementation. Will continue. Treat underlying COPD exacerbation and pneumonia. (2) COPD exacerbation Current Visit: Yes Status: Acute Assessment and plan: Place patient on IV steroids, bronchodilators and antibiotics. O2 supplementation (3) Methadone dependence Current Visit: Yes Status: Acute Assessment and plan: Continue methadone per regimen. Dosage confirmed by pharmacy. (4) Pneumonia Current Visit: Yes Status: Suspected Assessment and plan: Patient has bibasal infiltrates per x-ray done here today. We will continue to treat for possible community-acquired pneumonia. Continue doxycycline. Add ceftriaxone. Qualifiers: Pneumonia type: due to Pneumococcus Laterality: bilateral Lung location: lower lobe of lung Qualified Code(s): J13 - Pneumonia due to Streptococcus pneumoniae (5) Abdominal pain Current Visit: Yes Status: Acute Assessment and plan: History of gastritis and esophagitis. Consult to GI for possible reevaluation and EGD. IV PPI. Symptomatic treatment with Phenergan for nausea and vomiting. Pain control with sublingual morphine. Qualifiers: Abdominal location: epigastric Qualified Code(s): R10.13 - Epigastric pain (6) Anxiety Current Visit: Yes Status: Acute Assessment and plan: Continue hydroxyzine and Remeron. (7) Hypertension Current Visit: Yes Status: Chronic Assessment and plan: Blood pressure is elevated. Likely due to pain. Patient does not appear to be on any medications at home. We will start amlodipine. Qualifiers: Hypertension type: essential hypertension Qualified Code(s): I10 - Essential (primary) hypertension (8) DVT prophylaxis Current Visit: Yes Status: Acute Assessment and plan: With subcutaneous heparin - Time Spent With Patient Total time spent is greater than 50% in coordination of care (as documented) at patient's floor/unit and/or counseling patient:
[2018-07-13] MEDS ORDERED: Naloxone 0.4 MG/ML INJ IVP PRN (11:17)
[2018-07-13] MEDS ORDERED: Ringers Solution, Lactated 1,000 ML ONE (12:47)
[2018-07-13] MEDS: *HR* Promethazine 25 MG/ML VIAL IVP PRN (12:57)
[2018-07-13] MEDS: Gabapentin 400 MG CAPSULE PO SCH ×3 (12:58→21:48)
[2018-07-13] MEDS: hydrOXYzine pamoate 25 MG CAPSULE PO PRN (12:58)
[2018-07-13] MEDS: Ipratropium/Albuterol Neb 3 ML IH SCH ×3 (13:07→19:43)
[2018-07-13] MEDS: cloNIDine HCl 0.1 MG TABLET PO PRN (15:33)
[2018-07-13] MEDS: methylPREDNISolone 125 MG/2 ML VIAL IVP SCH (15:34)
[2018-07-13] MEDS: Ringers Solution, Lactated 1,000 ML IVC SCH (15:34)
[2018-07-13] MEDS: amLODIPine 5 MG TABLET PO SCH (15:48)
--- NOTE | 2018-07-13 17:27 | Electrocardiograph Report ---
[place] [employer] Test Date: 2018-07-13 Pat Name: Kiran Galindo Department: Room: 2NE19 Gender: M Cold Patcher: : 1965 Requested By: Nathan Zelaya Order Number: [id number] Reading MD: Romeo Subramanian Measurements Intervals [place] Rate: 76 P: 83 [place]: 142 QRS: 95 QRSD: 94 T: 71 QT: 415 QTc: 467 Interpretive Statements Sinus rhythm Right atrial enlargement Borderline right axis deviation Nonspecific T abnormalities, lateral leads Electronically Signed On 07-13-2018 17:25:34 EDT by Romeo Subramanian
[2018-07-13] MEDS: Doxycycline 100 MG in 0.9 % Sodium Chloride Mini Bag 100 ML IVPB SCH (17:49)
[2018-07-13] MEDS: Pantoprazole 40 MG VIAL IVP SCH (17:51)
[2018-07-13] MEDS: *HR* Heparin 5,000 UNIT/ML VIAL SQ SCH (17:52)
[2018-07-13] MEDS ORDERED: 0.9 % Sodium Chloride 500 ML IVC PRN (18:01)
[2018-07-13] MEDS ORDERED: 0.9 % Sodium Chloride 500 ML ONE (18:03)
[2018-07-13] MEDS: Mirtazapine 15 MG TABLET PO SCH (21:48)
--- NOTE | 2018-07-13 23:04 | Anesthesia Evaluation PreOp ---
Date of Encounter: 07/13/18 Time of Encounter: 23:03 - Past History Planned Operation: EGD Cardiac History: Denies any Significant Hx (PT HAS HISTORY OF LEAVING HOSPITAL AGAINST MEDICAL ADVICE & non-compliance with medical treatments), HTN Pulmonary History: Former smoker, Smoker (1ppd x 40yrs. 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 Pt was refused his supply of Methadone and transferred to [facility] on 07/13/2018.) CRAFT ARTIST History: Seizures (maintained on Dilantin), Other (Anxiety/Depression. Methadone Dependency) Other Medical History: Hepatic (+Hep C), GERD (Hx Gastritis/Esophagitis/ Bleeding Ulcers), Other (Unexplained weight loss & epigastric discomfort) Anesthesia History: No Prior Anesthetic Complications, Past Anesthesia (EGD/EUS 02/2018) Alcohol Use: none, rarely Drug use: opiates, marijuana, other (Pt reportedly "clean x 7 weeks" & Suboxone use when questioned 02/2018) Medications and Allergies Albuterol Sulfate [Ventolin Hfa] 2 puff IH Q4H PRN 07/09/18 [History] Gabapentin [Neurontin] 400 mg PO QID 07/09/18 [History] Methadone 75 mg PO DAILY 07/09/18 [History] Mirtazapine [Remeron] 30 mg PO HS 07/09/18 [History] Omeprazole [PriLOSEC] 40 mg PO BID 07/09/18 [History] Phenytoin ER [Dilantin ER] 100 mg PO TID 07/09/18 [History] Thiamine HCl [Vitamin B-1] 100 mg PO DAILY 07/09/18 [History] hydrOXYzine HCl [Hydroxyzine HCl] 50 mg PO TID PRN 07/09/18 [History] Doxycycline Hyclate 100 mg PO BID #8 tablet. 07/12/18 [Rx] predniSONE [PredniSONE] 40 mg PO DAILY 2 Days tablet 07/12/18 [Rx] 3 Allergy/AdvReac Type Severity Reaction Status Date / Time Penicillins Allergy Anaphylaxis Verified 07/09/18 10:03 codeine AdvReac Hives Verified 07/09/18 10:03 - Meds/Allergy Pre-op Review Medications Reviewed: Yes Allergies Reviewed: Yes Beta Blockers on Current Med List: No Anesthesia Results - Labs 07/13/18 07:54 07/13/18 07:54 Laboratory Results WBC 20.3 K/mcL (4.3-11.1) H 07/13/18 07:54 RBC 4.33 M/mcL (4.19-5.50) 07/13/18 07:54 Hgb 13.4 g/dL (12.9-16.9) 07/13/18 07:54 Hct 39.2 % (37.5-50.1) 07/13/18 07:54 MCV 90.5 fL (83.0-100.0) 07/13/18 07:54 MCH 30.9 pg (28.0-33.3) 07/13/18 07:54 MCHC 34.2 g/dL (31.6-35.5) 07/13/18 07:54 RDW 13.7 % (11.5-14.5) 07/13/18 07:54 Plt Count 453 K/mcL (140-400) H 07/13/18 07:54 MPV 8.7 fL (9.4-12.4) L 07/13/18 07:54 Immature Gran % 0.5 % (0-4) 07/13/18 07:54 Seg Neutrophils % 85.2 % 07/13/18 07:54 Lymphocytes % 5.1 % 07/13/18 07:54 Monocytes % 9.1 % 07/13/18 07:54 Eosinophils % 0.0 % 07/13/18 07:54 Basophils % 0.1 % 07/13/18 07:54 Neutrophils # 17.3 K/mcL (1.6-8.9) H 07/13/18 07:54 Lymphocytes # 1.0 K/mcL (0.6-4.6) 07/13/18 07:54 Monocytes # 1.8 K/mcL (0.0-1.3) H 07/13/18 07:54 Eosinophils # 0.0 K/mcL (0.0-0.6) 07/13/18 07:54 Basophils # 0.0 K/mcL (0.0-0.2) 07/13/18 07:54 Sodium 135 mEq/L (136-145) L 07/13/18 07:54 Potassium 3.6 mEq/L (3.5-5.1) 07/13/18 07:54 Chloride 95 mEq/L (98-107) L 07/13/18 07:54 Carbon Dioxide 23 mEq/L (23-29) 07/13/18 07:54 BUN 17 mg/dL (6-20) 07/13/18 07:54 Creatinine 0.68 mg/dL (0.70-1.30) L 07/13/18 07:54 Est GFR ( Amer) > 60 (> 60) 07/13/18 07:54 Est GFR (Non-Af Amer) > 60 (> 60) 07/13/18 07:54 BUN/Creatinine Ratio 25 (6-26) 07/13/18 07:54 Glucose 120 mg/dL (70-105) H 07/13/18 07:54 POC Glucose 122 mg/dL (70-99) H 07/13/18 12:53 Calculated Osmolality 283 (280-300) 07/13/18 07:54 Lactic Acid 1.0 mmol/L (0.5-2.2) 07/13/18 07:54 Calcium 9.4 mg/dL (8.6-10.3) 07/13/18 07:54 Magnesium 2.0 mg/dL (1.6-2.6) 07/13/18 07:54 Total Bilirubin 0.8 mg/dL (0.3-1.0) 07/13/18 07:54 Direct Bilirubin 0.1 mg/dL (0.0-0.2) 07/13/18 07:54 Indirect Bilirubin 0.7 mg/dL (0.0-1.2) 07/13/18 07:54 AST 11 Units/L (13-39) L 07/13/18 07:54 ALT 14 Units/L (7-52) 07/13/18 07:54 Alkaline Phosphatase 53 Units/L (34-104) 07/13/18 07:54 Troponin I < 0.03 ng/mL (< 0.04) 07/13/18 07:54 B-Natriuretic Peptide 78 pg/mL (Less than 100) 07/13/18 07:54 Serum Total Protein 7.8 g/dL (6.4-8.9) 07/13/18 07:54 Albumin 3.9 g/dL (3.5-5.7) 07/13/18 07:54 Globulin 3.9 g/dL (2.4-3.5) H 07/13/18 07:54 Albumin/Globulin Ratio 1.0 (1.1-2.2) L 07/13/18 07:54 Urine Color Yellow (Yellow) 07/13/18 09:32 Urine Clarity Clear (Clear) 07/13/18 09:32 Urine pH 6.0 pH Units (5.0-8.0) 07/13/18 09:32 Ur Specific [place] > 1.030 (1.010-1.025) H 07/13/18 09:32 Urine Protein Trace mg/dL (Neg-Trace) 07/13/18 09:32 Urine Glucose (UA) Normal mg/dL (Normal) 07/13/18 09:32 Urine Ketones 40 mg/dL (Negative) H 07/13/18 09:32 Urine Blood Negative (Negative) 07/13/18 09:32 Urine Nitrite Negative (Negative) 07/13/18 09:32 Urine Bilirubin Small (Negative) H 07/13/18 09:32 Urine Urobilinogen Normal mg/dL (Normal) 07/13/18 09:32 Ur Leukocyte Esterase Negative (Negative) 07/13/18 09:32 Urine Microscopic RBC 5-15 per hpf (0-3) H 07/13/18 09:32 Urine Microscopic WBC 0-3 per hpf (0-3) 07/13/18 09:32 Ur Squamous Epith Cells Moderate per lpf (None-Few) H 07/13/18 09:32 Urine Bacteria None Seen per hpf (None-Few) 07/13/18 09:32 Hyaline Casts None Seen per lpf (None-Few) 07/13/18 09:32 Ur Culture Indicated? NO (NO) 07/13/18 09:32 Impressions Chest X-Ray 07/13/18 07:41 IMPRESSION: Mild bibasilar airspace disease, likely due to pneumonia, slightly worse from yesterday's exam. COPD. D/ / Vamsi Polanco MD / Vamsi Polanco MD Interpreting Provider: Vamsi Polanco MD Abdomen Ultrasound 07/13/18 18:30 IMPRESSION: Dilated common bile duct measuring up to 1.1 cm. This is unchanged since 2014. D/ / Graciela Leonard MD / Graciela Leonard MD Interpreting Provider: Graciela Leonard MD - Imaging Additional studies: ECHO 03/14/2018 EV/EV echocardiogram Impressions: LVEF 60-65%. Normal LV chamber size, wall thickness and function. Normal left ventricular diastolic function. Normal right ventricular structure and function. Mild pulmonary hypertension. No significant valvular dysfunction. Left Ventricular Wall Motion: Rest Echo Findings All wall segments showed normal motion. Anesthesia Exam Vital Signs Temp Pulse Resp BP Pulse Ox 07/13/18 19:46 17 90 07/13/18 19:30 99.3 F 84 18 104/56 92 07/13/18 17:39 88 20 82/63 90 07/13/18 16:25 98.7 F 99 16 97/65 89 07/13/18 16:07 83 20 164/127 90 07/13/18 13:21 94 07/13/18 13:20 94 07/13/18 12:55 97.7 F 72 16 185/105 93 07/13/18 09:56 87 20 189/90 93 07/13/18 07:57 22 90 07/13/18 07:46 92 07/13/18 07:37 98.2 F 71 20 174/100 89 Intake and Output 07/13/18 07/13/18 07/13/18 07:59 15:59 23:59 Output Total 350 / 350 Balance -350 / -350 Output: Urine 350 / 350 Other: Weight 54.431 kg 54.5 kg Blood Glucose* 122 Patient Weight 07/13/18 23:59 Weight 54.5 kg Height: 6' Weight: 120# BMI = 16 - HEENT Pupil (Motor): Pupils equal, EOMI Mallampati: II Teeth: Poor dentition (Multiple long teeth in very poor condition) Oral Opening: Greater than 3 - CRAFT ARTIST LOC: Oriented CRAFT ARTIST Motor: Normal RUE, Normal LUE, Normal RLE, Normal LLE, Normal Face CRAFT ARTIST Sensory: Normal: RUE, LUE, RLE, LLE, Face - Cardiac Rhythm: Regular Murmur: None - Pulmonary Breath Sounds: bilateral Rhonchi Respiratory Effort: Symmetrical Anesthesia Assess/Plan ASA Score: 3 (Methadone dependence, COPD/Pneumonia, Seizure disorder, Anxiety/ Depression, HTN, Hep C+) Modified Vilma Scale for Level of Consciousness: Cooperative, oriented, and tranquil Anesthetic Plan: MAC Monitoring Plan: Standard Monitors Recovery Plan: Other
[2018-07-14] MEDS: methylPREDNISolone 125 MG/2 ML VIAL IVP SCH ×3 (00:39→16:10)
[2018-07-14] MEDS: Ipratropium/Albuterol Neb 3 ML IH SCH ×6 (03:42→23:10)
[2018-07-14] MEDS: cloNIDine HCl 0.1 MG TABLET PO PRN ×2 (04:45→18:04)
[2018-07-14] MEDS: Pantoprazole 40 MG VIAL IVP SCH ×2 (04:53→16:09)
[2018-07-14] MEDS: *HR* Promethazine 25 MG/ML VIAL IVP PRN ×2 (04:53→16:09)
[2018-07-14 05:30] LABS: Basophils % 0.2 %; Hematocrit 36.2 % (37.5-50.1); Hemoglobin 12.3 g/dL (12.9-16.9); Immature Granulocytes % 0.6 % (0-4); Lymphocytes # 0.7 K/mcL (0.6-4.6); Lymphocytes % 5.2 %; Mean Corpuscular Hemoglobin 30.1 pg (28.0-33.3); Mean Corpuscular Volume 88.7 fL (83.0-100.0); Mean Platelet Volume 8.8 fL (9.4-12.4); Monocytes # 0.7 K/mcL (0.0-1.3); Monocytes % 5.2 %; Neutrophils # 11.7 K/mcL (1.6-8.9); Platelet Count 472 K/mcL (140-400); Red Blood Count 4.08 M/mcL (4.19-5.50); Red Cell Distribution Width 13.8 % (11.5-14.5); Segmented Neutrophils % 88.8 %
[2018-07-14 05:44] LABS: BUN/Creatinine Ratio 30 (6-26); Blood Urea Nitrogen 16 mg/dL (6-20); Calcium 9.1 mg/dL (8.6-10.3); Carbon Dioxide 21 mEq/L (23-29); Chloride 102 mEq/L (98-107); Glucose 129 mg/dL (70-105); Osmolality,Calculated 281 (280-300); Potassium 3.7 mEq/L (3.5-5.1); Sodium 134 mEq/L (136-145); eGFR For Non-African Americans > 60 (> 60)
[2018-07-14] MEDS: Methadone Oral Concentrate 50 MG/5 ML UDC PO SCH (06:48)
[2018-07-14] MEDS: *HR* Heparin 5,000 UNIT/ML VIAL SQ SCH ×2 (06:50→20:04)
[2018-07-14] MEDS: Doxycycline 100 MG in 0.9 % Sodium Chloride Mini Bag 100 ML IVPB SCH ×2 (06:50→16:09)
[2018-07-14] MEDS: Thiamine (B-1) 100 MG TABLET PO SCH (08:28)
[2018-07-14] MEDS: amLODIPine 5 MG TABLET PO SCH (08:29)
[2018-07-14] MEDS: hydrOXYzine pamoate 25 MG CAPSULE PO PRN ×2 (08:29→16:04)
[2018-07-14] MEDS: Gabapentin 400 MG CAPSULE PO SCH ×4 (08:29→21:26)
[2018-07-14] MEDS ORDERED: cefTRIAXone 2,000 MG in Water for inj. (sterile) 20 ML 20 ML IVPB SCH (09:00)
--- NOTE | 2018-07-14 10:00 | Gastroenterology Consult Note ---
<Brinda Krishnan - Last Filed: 07/14/18 09:58> Date of Encounter: 07/14/18 Time of Encounter: 09:00 - Assessment and plan (1) Dilated cbd, acquired Status: Acute Assessment and plan: Unchanged since 2014, EUS 03/09 did not show mass or obstruction. If EGD normal and pain is persistent will need ERCP with spincterotomy. (2) Abdominal pain Status: Acute Assessment and plan: Will proceed with EGD today to rule out esophagitis, gastritis, or duodenitis, PUD. Has a history of candidiasis esophagitis. Qualifiers: Abdominal location: epigastric Qualified Code(s): R10.13 - Epigastric pain - Time Spent With Patient Total time spent is greater than 50% in coordination of care (as documented) at patient's floor/unit and/or counseling patient: GI History of Present Illness - Data of Consult Patient: known to practice within the last 3 years Consult date: 07/14/18 Requesting Physician: Spenser Parikh MD - Consult Narrative Reason for consult: epigastric pain History of present illness: Mr. Galindo is a 53 year old male patient with history of COPD, hepatitis, hypertension and seizure disorder. He was recently hospitalized for COPD and pneumonia and was discharged from the hospital after threatening to leave AGAINST MEDICAL ADVICE multiple times for not increasing his methadone dose. 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 As such she was refused methadone and transferred to the ER. He is complaining of epigastric pain and nausea with some bilous vomiting before. He states vomiting has resolved. He was hospitalized here in February and at that time he underwent upper GI endoscopy which showed esophagitis and gastritis with possible rafael infection. Pathology results showed chronic superficial gastritis. He has chronically dilated CBD 1.1 mm unchanged since 2014. He underwent EUS 03/09 which did not show mass or obstruction. Patient had left the hospital AGAINST MEDICAL ADVICE at that time. He was prescribed fluconazole. He denies any hematemesis or melena at this time. He has chronic dyspnea, worse on exertion, he is currently on 4l nc and O2 sat is 90% which he states is good for him. LFTs were normal. EG candidiasis esophagitis, EUS biliary dilation without mass or obstruction Colon NSAIDS: denies anticoagulants: denies Past Med Surg Social Fam HX - Past Medical History Medical history: COPD, hepatitis, hypertension, seizures, other Additional medical history: hep C Psychiatric history: anxiety, depression - Past Surgical History Surgical History: no surgical history - Social History Smoking Status: Former smoker Smokeless Tobacco Status: Yes Alcohol use: none, rarely Drug use: opiates, marijuana, other (Pt reportedly "clean x 7 weeks" & Suboxone use when questioned 02/2018) - Family History Mother Family Member Ethnicity: Non- Living Status: Still Living Hx Family Endocrine Disorder: Yes (DM) Father Living Status: Hx Family Respiratory Disorders: Yes (COPD) Review of Systems: GI: as per [place] [facility]: denies fever, or chills EYES: denies yellow discoloration ENT: denies pain with swallowing or difficulty swallowing CARDIO: denies chest pain, palpitations RESP: Shortness of breath with exertion : denies change in color of urine NEURO: increased weakness HEME: Denies any bruising MS: chronic back and joint pain DERM: denies rash or itching PSYCH: history of anxiety and depression - Constitutional Vitals: Temp Pulse Resp BP Pulse Ox 97.5 F L 89 18 129/95 90 07/14/18 06:44 07/14/18 06:44 07/14/18 07:30 07/14/18 06:44 07/14/18 07:30 Exam: CONSTITUTIONAL:~alert, no acute distress.~HEAD:~normocephalic.~EYES:~no jaundice.~NECK:~no obvious swelling.~HEART:~regular rate and rhythm, no murmurs. ~LUNGS:~bilateral fair air entry, coarse breath sounds.~ABDOMEN:~non distended, soft, non tender, no masses palpable, no organomegaly.~RECTAL EXAM:~Deferred.~ EXTREMITIES:~ cyanosis or edema, cachectic.~SKIN:~no stigmata of chronic liver disease.~NEUROLOGIC:~no obvious focal defect.~~~~ Results - Labs CBC & Chem 7: 07/14/18 04:45 07/14/18 04:45 Labs: Last Result Calcium 9.1 mg/dL (8.6-10.3) 07/14/18 04:45 Troponin I < 0.03 ng/mL (< 0.04) 07/13/18 07:54 Entire Visit Hgb 12.3 g/dL (12.9-16.9) L 07/14/18 04:45 Hct 36.2 % (37.5-50.1) L 07/14/18 04:45 Total Bilirubin 0.8 mg/dL (0.3-1.0) 07/13/18 07:54 AST 11 Units/L (13-39) L 07/13/18 07:54 ALT 14 Units/L (7-52) 07/13/18 07:54 - Impressions Impressions Abdomen Ultrasound 07/13/18 18:30 IMPRESSION: Dilated common bile duct measuring up to 1.1 cm. This is unchanged since 2014. D/ / Graciela Leonard MD / Graciela Leonard MD Interpreting Provider: Graciela Leonard MD Consult Discharge Plan - Plan Instructions: Doxycycline (By mouth), Prednisone (By mouth), Amlodipine (By mouth), Cefdinir (By mouth), How to Stop Smoking (DC), How to Stop Smoking (GEN) , Cigarette Smoking and Your Health (GEN), Chronic Obstructive Pulmonary Disease (DC), Chronic Obstructive Pulmonary Disease (GEN), Community-acquired Pneumonia (DC), Community-acquired Pneumonia (GEN), Cannabis Abuse (DC), Cannabis Abuse (GEN), Methamphetamine Abuse (DC), Methamphetamine Abuse (GEN), Anxiety (DC), Anxiety (GEN), Cigarette Smoking and Your Health, Scientific Programmer Analyst (GEN), Methamphetamine Abuse, Scientific Programmer Analyst (GEN), Community-Acquired Pneumonia, Scientific Programmer Analyst (GEN), Anxiety, Scientific Programmer Analyst (GEN), How to Stop Smoking, Scientific Programmer Analyst (GEN), COPD, Scientific Programmer Analyst (GEN), COPD Exacerbation, Scientific Programmer Analyst (GEN), Cannabis Abuse, Scientific Programmer Analyst (GEN) Referrals: Rick Hatch DO [Primary Care Provider] - 07/18/18 (please call on Wednesday to make an appointment at [phone]) Prescriptions: amLODIPine [Norvasc] 10 mg PO DAILY #30 tablet Cefdinir [Omnicef] 300 mg PO BID 3 Days #6 capsule Doxycycline 100 mg PO BID 2 Days #4 capsule predniSONE [PredniSONE] See Taper PO DAILY 9 Days #18 tablet <Constantin Gutierrez - Last Filed: 08/09/18 15:20> Date of Encounter: 07/14/18 - Time Spent With Patient Total time spent is greater than 50% in coordination of care (as documented) at patient's floor/unit and/or counseling patient: GI History of Present Illness - Data of Consult Requesting Physician: Spenser Parikh MD - Consult Narrative History of present illness: Mr. Galindo is a 53 year old male - Constitutional Vitals: Temp Pulse Resp BP Pulse Ox 100.1 F H 101 16 134/102 95 07/17/18 08:08 07/17/18 08:08 07/17/18 15:41 07/17/18 08:08 07/17/18 15:41 Results - Labs CBC & Chem 7: 07/17/18 05:16 07/17/18 05:16 Labs: Last Result Calcium 9.0 mg/dL (8.6-10.3) 07/17/18 05:16 Troponin I < 0.03 ng/mL (< 0.04) 07/13/18 07:54 Entire Visit Hgb 13.0 g/dL (12.9-16.9) 07/17/18 05:16 Hct 38.4 % (37.5-50.1) 07/17/18 05:16 Total Bilirubin 0.8 mg/dL (0.3-1.0) 07/13/18 07:54 AST 11 Units/L (13-39) L 07/13/18 07:54 ALT 14 Units/L (7-52) 07/13/18 07:54 - Attending Attestation Plan [facility] I have personally performed a face to face evaluation on this patient. I have reviewed and agree with the care plan. History and Exam by me shows:
--- NOTE | 2018-07-14 10:40 | Internal Med Progress Note ---
<Scooby Martinez W - Last Filed: 07/14/18 15:01> Hospitalist Progress Note - Encounter Date of Encounter: 07/14/18 Time of Encounter: 09:45 - Subjective Interval History: Patient was recently admitted for COPD exacerbation and left AMA and is now readmitted. Patient stated he does not remember leaving the went to go to his methadone clinic. X-ray shows right lower lobe pneumonia. Patient was discharged on doxycycline and prednisone taper. That had returned as he was hypoxic. Patient reports that his breathing is better today, he does still have a productive cough. Patient does state his significant epigastric pain. History of esophagitis and gastritis possible rafael infection. GI consulted, upper endoscopy today. Denies any hematemesis or emesis or melena at this time. - Exam Vitals: Temp Pulse Resp BP Pulse Ox 97.5 F L 89 18 129/95 90 07/14/18 06:44 07/14/18 06:44 07/14/18 07:30 07/14/18 06:44 07/14/18 07:30 Exam: Gen.: No apparent distress, alert and oriented, thin Head: Atraumatic normocephalic Eyes PERRLA, EOMI, anicteric Cardio: Regular rate and rhythm no murmurs rubs or gallops Pulmonary: Clear to auscultation bilateral, no wheezes rales or rhonchi Abdomen: Clear to auscultation bilateral, tenderness to palpation epigastric region, no hepatomegaly no splenomegaly. - Assessment and Plan (1) Pneumonia Current Visit: Yes Status: Suspected Assessment and Plan: CXR shows Bibasilar infiltrates likely due to pneumonia which is slightly worse from yesterday Most likely community acquired pneumonia Was on doxycycline at discharge ceftriaxone was added. Plan - Cotinue Doxycycline - Rocephen changed to 1 gram IVPB (2) COPD exacerbation Current Visit: Yes Status: Acute Assessment and Plan: Known history of COPD Diffuse wheezes throughout Was being treated for COPD exacerbation during previous hospitalization Underlying pneumonia Plan - IV Solu-Medrol 60 mg q12 - Duonebs - Doxycycline and Rocephen - O2 qualification ordered (3) Abdominal pain Current Visit: Yes Status: Acute Assessment and Plan: History of gastritis and esophagitis GI consulted appreciate recs EGD planned IV PPI Symptomatic treatment with Phenergan for nausea and vomiting Pain control with sublingual morphine (4) Acute respiratory failure with hypoxia Current Visit: Yes Status: Acute Assessment and Plan: Patient noted to be hypoxic on admission Known history of COPD Currently 91% on 4L nc (5) Hypertension Current Visit: Yes Status: Chronic Assessment and Plan: Blood pressure is elevated. Likely due to pain. Patient does not appear to be on any medications at home. We will start amlodipine. (6) Anxiety Current Visit: Yes Status: Acute Assessment and Plan: Continue hydroxyzine and Remeron. (7) DVT prophylaxis Current Visit: Yes Status: Acute Assessment and Plan: With subcutaneous heparin (8) Methadone dependence Current Visit: Yes Status: Acute Assessment and Plan: Continue methadone per regimen. Dosage confirmed by pharmacy. - Time Spent with Patient Total time spent is greater than 50% in coordination of care (as documented) at patient's floor/unit and/or counseling patient: Internal Medicine: Result - Labs CBC & Chem 7: 07/14/18 04:45 07/14/18 04:45 Labs: Short CBC 07/14/18 Range/Units 04:45 WBC 13.2 H (4.3-11.1) K/mcL Hgb 12.3 L (12.9-16.9) g/dL Hct 36.2 L (37.5-50.1) % Plt Count 472 H (140-400) K/mcL Neutrophils # 11.7 H (1.6-8.9) K/mcL BMP 07/14/18 04:45 Sodium 134 L Potassium 3.7 Chloride 102 Carbon Dioxide 21 L BUN 16 Creatinine 0.54 L Glucose 129 H Calcium 9.1 - Impressions Impressions Abdomen Ultrasound 07/13/18 18:30 IMPRESSION: Dilated common bile duct measuring up to 1.1 cm. This is unchanged since 2014. D/ / Graciela Leonard MD / Graciela Leonard MD Interpreting Provider: Graciela Leonard MD Consult Discharge Plan - Plan Referrals: Rick Hatch DO [Primary Care Provider] - <Spenser Parikh T - Last Filed: 07/14/18 15:50> Hospitalist Progress Note - Encounter Date of Encounter: 07/14/18 - Exam Vitals: Temp Pulse Resp BP Pulse Ox 97.9 F 82 22 136/91 87 07/14/18 15:36 07/14/18 15:36 07/14/18 15:36 07/14/18 15:36 07/14/18 15:36 - Assessment and Plan (1) DVT prophylaxis Current Visit: Yes Status: Acute (2) Abdominal pain Current Visit: Yes Status: Acute (3) Acute respiratory failure with hypoxia Current Visit: Yes Status: Acute (4) Hypertension Current Visit: Yes Status: Chronic (5) Anxiety Current Visit: Yes Status: Acute (6) COPD exacerbation Current Visit: Yes Status: Acute (7) Pneumonia Current Visit: Yes Status: Suspected (8) Methadone dependence Current Visit: Yes Status: Acute - Time Spent with Patient Total time spent is greater than 50% in coordination of care (as documented) at patient's floor/unit and/or counseling patient: Internal Medicine: Result - Labs CBC & Chem 7: 07/14/18 04:45 07/14/18 04:45 Labs: Short CBC 07/14/18 Range/Units 04:45 WBC 13.2 H (4.3-11.1) K/mcL Hgb 12.3 L (12.9-16.9) g/dL Hct 36.2 L (37.5-50.1) % Plt Count 472 H (140-400) K/mcL Neutrophils # 11.7 H (1.6-8.9) K/mcL BMP 07/14/18 04:45 Sodium 134 L Potassium 3.7 Chloride 102 Carbon Dioxide 21 L BUN 16 Creatinine 0.54 L Glucose 129 H Calcium 9.1 - Impressions Impressions Abdomen Ultrasound 07/13/18 18:30 IMPRESSION: Dilated common bile duct measuring up to 1.1 cm. This is unchanged since 2014. D/ / Graciela Leonard MD / Graciela Leonard MD Interpreting Provider: Graciela Leonard MD - Attending Attestation I have personally seen and examined this patient on 07/14/18 and reviewed her chart and labs, including medications, I have discussed plan of care with the resident physician, whose documentation reflect our plan of care. With the additions/exceptions set forth below. 53-year-old male with COPD, opiate dependence hypertension or just left the hospital AMA 07/13 and readmitted for pneumonia, acute hypoxic respiratory failure, COPD exacerbation and abdominal pain. The patient reports no new complaints, he continues to have productive cough. Chest examination significant for distant and diminished breath sounds. Abdomen is not acute. Labs and imaging reviewed. EGD report noted for portal hypertension gastropathy. The Z line was irregular There was no acute bleeding Plan is to continue current antibiotics, qualify for home O2. Rest of details as in the resident physicians documentation. <Scooby Martinez W - Last Filed: 07/14/18 15:01> (1) Pneumonia Qualifiers: Pneumonia type: due to Pneumococcus Laterality: bilateral Lung location: lower lobe of lung Qualified Code(s): J13 - Pneumonia due to Streptococcus pneumoniae (3) Abdominal pain Qualifiers: Abdominal location: epigastric Qualified Code(s): R10.13 - Epigastric pain (5) Hypertension Qualifiers: Hypertension type: essential hypertension Qualified Code(s): I10 - Essential (primary) hypertension <Spenser Parikh T - Last Filed: 07/14/18 15:50> (2) Abdominal pain Qualifiers: Abdominal location: epigastric Qualified Code(s): R10.13 - Epigastric pain (4) Hypertension Qualifiers: Hypertension type: essential hypertension Qualified Code(s): I10 - Essential (primary) hypertension (7) Pneumonia Qualifiers: Pneumonia type: due to Pneumococcus Laterality: bilateral Lung location: lower lobe of lung Qualified Code(s): J13 - Pneumonia due to Streptococcus pneumoniae
[2018-07-14] MEDS ORDERED: Propofol 500 MG/50 ML INFUS..BTL ONE (12:39)
[2018-07-14] MEDS ORDERED: Lidocaine -MPF 2% 2 ML VIAL ONE (12:39)
[2018-07-14] MEDS ORDERED: 0.9 % Sodium Chloride 500 ML IVC SCH (13:00)
[2018-07-14] MEDS: Ringers Solution, Lactated 1,000 ML IVC SCH (14:03)
[2018-07-14] MEDS: MORPHINE SUL Oral CONC 10 MG/0.5 ML ORAL.SYG SL PRN (18:44)
[2018-07-14] MEDS: Mirtazapine 15 MG TABLET PO SCH (21:24)
[2018-07-14] MEDS: traZODone 50 MG TABLET PO PRN (21:37)
[2018-07-14] MEDS ORDERED: *HR* LORazepam 2 MG/ML VIAL IVP ONE (22:32)
[2018-07-15] MEDS: Ipratropium/Albuterol Neb 3 ML IH SCH ×7 (03:44→23:36)
[2018-07-15] MEDS: cloNIDine HCl 0.1 MG TABLET PO PRN ×3 (04:09→20:55)
[2018-07-15] MEDS: Doxycycline 100 MG in 0.9 % Sodium Chloride Mini Bag 100 ML IVPB SCH ×2 (06:32→18:41)
[2018-07-15] MEDS: Methadone Oral Concentrate 50 MG/5 ML UDC PO SCH (06:33)
[2018-07-15] MEDS: *HR* Heparin 5,000 UNIT/ML VIAL SQ SCH ×2 (06:35→20:57)
[2018-07-15] MEDS: Pantoprazole 40 MG VIAL IVP SCH ×2 (06:35→18:26)
[2018-07-15] MEDS: methylPREDNISolone 125 MG/2 ML VIAL IVP SCH ×2 (06:35→18:26)
--- NOTE | 2018-07-15 09:05 | Internal Med Progress Note ---
<Scooby Martinez W - Last Filed: 07/15/18 11:24> Hospitalist Progress Note - Encounter Date of Encounter: 07/15/18 Time of Encounter: 09:02 - Subjective Interval History: Patient states he is doing well today. Patient states he is still short of breath is much improved. Still requiring 3 L of oxygen. Oxygen qualification to be performed today. His cough is becoming dry. Patient denies any abdominal pain at this time. Endoscopy from yesterday showing gastropathy. MRCP to be performed today. Patient required Ativan last night after complaining of insomnia. Patient was given ativan before MRCP. - Exam Vitals: Temp Pulse Resp BP Pulse Ox 98 F 79 17 131/82 91 07/15/18 07:44 07/15/18 07:44 07/15/18 07:44 07/15/18 07:44 07/15/18 07:44 Exam: Gen.: No apparent distress, alert and oriented, thin Head: Atraumatic normocephalic Eyes PERRLA, EOMI, anicteric Cardio: Regular rate and rhythm no murmurs rubs or gallops Pulmonary: Clear to auscultation bilateral, mild wheezes diffuse no rales or rhonchi Abdomen: Clear to auscultation bilateral, tenderness to palpation epigastric region, no hepatomegaly no splenomegaly. - Assessment and Plan (1) Pneumonia Current Visit: Yes Status: Suspected Assessment and Plan: CXR shows Bibasilar infiltrates likely due to pneumonia which is slightly worse from yesterday Most likely community acquired pneumonia Was on doxycycline at discharge ceftriaxone was added. total duration of antibiotics has been 7 days Plan - Cotinue Doxycycline day 4 - Rocephen changed to 1 gram IVPB day 3 (2) COPD exacerbation Current Visit: Yes Status: Acute Assessment and Plan: Known history of COPD Diffuse wheezes throughout Was being treated for COPD exacerbation during previous hospitalization Underlying pneumonia Plan - IV Solu-Medrol 60 mg q12 continue taper lower dose tomorrow - Duonebs - Doxycycline and Rocephen - O2 qualification ordered (3) Abdominal pain Current Visit: Yes Status: Acute Assessment and Plan: History of gastritis and esophagitis GI consulted appreciate recs EGD found Gastropathy and abnormal Z-line. MRCP scheduled today Symptomatic treatment with Phenergan for nausea and vomiting Pain control with sublingual morphine (4) Acute respiratory failure with hypoxia Current Visit: Yes Status: Acute Assessment and Plan: Patient noted to be hypoxic on admission Known history of COPD Currently 91% on 3L nc See above plan (5) Hypertension Current Visit: Yes Status: Chronic Assessment and Plan: Likely due to pain. Patient does not appear to be on any medications at home. Amlodpine 10 mg was added bBP better controlled (6) Anxiety Current Visit: Yes Status: Acute Assessment and Plan: Continue hydroxyzine and Remeron. Was given Ativan last night due to persistent insomnia complaints (7) Methadone dependence Current Visit: Yes Status: Acute Assessment and Plan: Continue methadone per regimen. Dosage confirmed by pharmacy. (8) DVT prophylaxis Current Visit: Yes Status: Acute Assessment and Plan: With subcutaneous heparin (9) Hypokalemia Current Visit: Yes Status: Acute Assessment and Plan: 3.2 today 40meq given - Time Spent with Patient Total time spent is greater than 50% in coordination of care (as documented) at patient's floor/unit and/or counseling patient: Internal Medicine: Result - Labs CBC & Chem 7: 07/15/18 08:42 07/15/18 08:42 Consult Discharge Plan - Plan Referrals: Rick Hatch DO [Primary Care Provider] - <Spenser Parikh - Last Filed: 07/15/18 13:53> Hospitalist Progress Note - Encounter Date of Encounter: 07/15/18 - Exam Vitals: Temp Pulse Resp BP Pulse Ox 97.6 F 79 17 115/75 91 07/15/18 11:22 07/15/18 07:44 07/15/18 11:22 07/15/18 11:22 07/15/18 13:03 - Assessment and Plan (1) DVT prophylaxis Current Visit: Yes Status: Acute (2) Abdominal pain Current Visit: Yes Status: Acute (3) Acute respiratory failure with hypoxia Current Visit: Yes Status: Acute (4) Hypertension Current Visit: Yes Status: Chronic (5) Anxiety Current Visit: Yes Status: Acute (6) COPD exacerbation Current Visit: Yes Status: Acute (7) Pneumonia Current Visit: Yes Status: Suspected (8) Methadone dependence Current Visit: Yes Status: Acute (9) Hypokalemia Current Visit: Yes Status: Acute - Time Spent with Patient Total time spent is greater than 50% in coordination of care (as documented) at patient's floor/unit and/or counseling patient: Internal Medicine: Result - Labs CBC & Chem 7: 07/15/18 08:42 07/15/18 08:42 Labs: Short CBC 07/15/18 Range/Units 08:42 WBC 18.9 H (4.3-11.1) K/mcL Hgb 13.1 (12.9-16.9) g/dL Hct 38.5 (37.5-50.1) % Plt Count 499 H (140-400) K/mcL Neutrophils # 16.7 H (1.6-8.9) K/mcL BMP 07/15/18 08:42 Sodium 133 L Potassium 3.2 L Chloride 102 Carbon Dioxide 22 L BUN 19 Creatinine 0.63 L Glucose 153 H Calcium 9.0 - Impressions Impressions Abdomen MRI 07/15/18 08:11 IMPRESSION: 1. No significant change in intra and extrahepatic biliary ductal dilatation without clear evidence for an obstructing lesion. No choledocholithiasis. 2. Limited evaluation for pancreatic mass or periampullary lesion in the absence of IV contrast. Within these limitations no lesions are demonstrated. 3. Stable mild hepatomegaly. No hepatic steatosis. D/ / Nile Navas MD / Nile Navas MD Interpreting Provider: Nile Navas MD - Attending Attestation I have personally seen and examined this patient on 07/15/18 and reviewed her chart and labs, including medications, I have discussed plan of care with the resident physician, whose documentation reflect our plan of care. With the additions/exceptions set forth below. 53-year-old male with COPD, opiate dependence, hypertension who had left the hospital AMA 07/13 and readmitted for pneumonia, acute hypoxic respiratory failure, COPD exacerbation and abdominal pain. The patient reports no new complaints, reports improvement in respiratory symptoms. Chest examination significant for distant and diminished breath sounds. Abdomen is not acute. Labs and imaging reviewed. EGD report noted for portal hypertension gastropathy. The Z line was irregular There was no acute bleeding. Abdomen MRI shows dilated common bile duct without any evidence of obstructing lesion, no visible pancreatic mass or south-ampullary lesion, stable hepatomegaly. Plan is to continue current antibiotics, qualify for home O2 today Patient continues to improve clinically, be discharged home with oxygen a.m. Rest of details as in the resident physicians documentation. <Scooby Martinez W - Last Filed: 07/15/18 11:24> (1) Pneumonia Qualifiers: Pneumonia type: due to Pneumococcus Laterality: bilateral Lung location: lower lobe of lung Qualified Code(s): J13 - Pneumonia due to Streptococcus pneumoniae (3) Abdominal pain Qualifiers: Abdominal location: epigastric Qualified Code(s): R10.13 - Epigastric pain (5) Hypertension Qualifiers: Hypertension type: essential hypertension Qualified Code(s): I10 - Essential (primary) hypertension <Spenser Parikh T - Last Filed: 07/15/18 13:53> (2) Abdominal pain Qualifiers: Abdominal location: epigastric Qualified Code(s): R10.13 - Epigastric pain (4) Hypertension Qualifiers: Hypertension type: essential hypertension Qualified Code(s): I10 - Essential (primary) hypertension (7) Pneumonia Qualifiers: Pneumonia type: due to Pneumococcus Laterality: bilateral Lung location: lower lobe of lung Qualified Code(s): J13 - Pneumonia due to Streptococcus pneumoniae
[2018-07-15 09:09] LABS: Basophils % 0.1 %; Eosinophils % 0.1 %; Hematocrit 38.5 % (37.5-50.1); Hemoglobin 13.1 g/dL (12.9-16.9); Immature Granulocytes % 0.6 % (0-4); Lymphocytes # 1.1 K/mcL (0.6-4.6); Mean Corpuscular Hemoglobin 31.3 pg (28.0-33.3); Mean Corpuscular Volume 92.1 fL (83.0-100.0); Mean Platelet Volume 8.9 fL (9.4-12.4); Monocytes % 5.3 %; Neutrophils # 16.7 K/mcL (1.6-8.9); Platelet Count 499 K/mcL (140-400); Red Blood Count 4.18 M/mcL (4.19-5.50); Red Cell Distribution Width 13.9 % (11.5-14.5); Segmented Neutrophils % 87.9 %
[2018-07-15 09:20] LABS: BUN/Creatinine Ratio 30 (6-26); Blood Urea Nitrogen 19 mg/dL (6-20); Carbon Dioxide 22 mEq/L (23-29); Chloride 102 mEq/L (98-107); Glucose 153 mg/dL (70-105); Osmolality,Calculated 281 (280-300); Potassium 3.2 mEq/L (3.5-5.1); Sodium 133 mEq/L (136-145); eGFR For Non-African Americans > 60 (> 60)
[2018-07-15] MEDS ORDERED: *HR* LORazepam 2 MG/ML VIAL IVP ONE ×2 (09:31→23:42)
[2018-07-15] MEDS: Gabapentin 400 MG CAPSULE PO SCH ×4 (09:51→20:54)
[2018-07-15] MEDS: amLODIPine 5 MG TABLET PO SCH (09:51)
[2018-07-15] MEDS: Thiamine (B-1) 100 MG TABLET PO SCH (09:52)
[2018-07-15] MEDS: cefTRIAXone 1,000 MG in 0.9 % Sodium Chloride Mini Bag 100 ML IVPB SCH (11:40)
[2018-07-15] MEDS: hydrOXYzine pamoate 25 MG CAPSULE PO PRN (16:02)
[2018-07-15] MEDS: traZODone 50 MG TABLET PO PRN (20:54)
[2018-07-15] MEDS: Mirtazapine 15 MG TABLET PO SCH (20:54)
[2018-07-16] MEDS: Ipratropium/Albuterol Neb 3 ML IH SCH ×5 (04:05→19:51)
[2018-07-16 05:03] LABS: Basophils % 0.2 %; Hematocrit 35.9 % (37.5-50.1); Hemoglobin 12.2 g/dL (12.9-16.9); Immature Granulocytes % 0.6 % (0-4); Lymphocytes % 19.1 %; Mean Corpuscular Volume 88.4 fL (83.0-100.0); Mean Platelet Volume 8.5 fL (9.4-12.4); Monocytes # 1.4 K/mcL (0.0-1.3); Monocytes % 13.5 %; Platelet Count 473 K/mcL (140-400); Red Blood Count 4.06 M/mcL (4.19-5.50); Red Cell Distribution Width 13.7 % (11.5-14.5); Segmented Neutrophils % 66.6 %
[2018-07-16 05:26] LABS: BUN/Creatinine Ratio 23 (6-26); Blood Urea Nitrogen 14 mg/dL (6-20); Calcium 8.9 mg/dL (8.6-10.3); Carbon Dioxide 23 mEq/L (23-29); Chloride 105 mEq/L (98-107); Glucose 112 mg/dL (70-105); Osmolality,Calculated 283 (280-300); Potassium 3.9 mEq/L (3.5-5.1); Sodium 136 mEq/L (136-145); eGFR For Non-African Americans > 60 (> 60)
[2018-07-16] MEDS: Methadone Oral Concentrate 50 MG/5 ML UDC PO SCH (06:21)
[2018-07-16] MEDS: Pantoprazole 40 MG VIAL IVP SCH ×2 (06:21→17:17)
[2018-07-16] MEDS: Doxycycline 100 MG in 0.9 % Sodium Chloride Mini Bag 100 ML IVPB SCH ×2 (06:22→17:17)
[2018-07-16] MEDS: *HR* Promethazine 25 MG/ML VIAL IVP PRN (06:22)
[2018-07-16] MEDS: *HR* Heparin 5,000 UNIT/ML VIAL SQ SCH ×2 (06:22→17:18)
[2018-07-16] MEDS: cloNIDine HCl 0.1 MG TABLET PO PRN ×3 (06:36→22:12)
[2018-07-16] MEDS: traZODone 50 MG TABLET PO PRN ×2 (06:36→22:12)
[2018-07-16] MEDS: amLODIPine 5 MG TABLET PO SCH (09:13)
[2018-07-16] MEDS: predniSONE 20 MG TABLET PO SCH (09:13)
[2018-07-16] MEDS: hydrOXYzine pamoate 25 MG CAPSULE PO PRN ×2 (09:14→15:49)
[2018-07-16] MEDS: MORPHINE SUL Oral CONC 10 MG/0.5 ML ORAL.SYG SL PRN ×2 (09:14→13:36)
[2018-07-16] MEDS: cefTRIAXone 1,000 MG in 0.9 % Sodium Chloride Mini Bag 100 ML IVPB SCH (09:14)
[2018-07-16] MEDS: Gabapentin 400 MG CAPSULE PO SCH ×4 (09:14→22:12)
[2018-07-16] MEDS: Thiamine (B-1) 100 MG TABLET PO SCH (09:14)
[2018-07-16] MEDS ORDERED: GI Cocktail 40 ML EACH PO ONE (09:30)
--- NOTE | 2018-07-16 09:51 | Internal Med Progress Note ---
<Scooby Martinez W - Last Filed: 07/16/18 13:16> Hospitalist Progress Note - Encounter Date of Encounter: 07/16/18 Time of Encounter: 09:49 - Subjective Interval History: Patient states he is not doing well today. States he does severe abdominal pain 10 out of 10 epigastric. Has vomited once this morning. Also states he had black or "coffee-ground" stool this a.m. States he really wants something to help with pain. Currently prescribed sublingual morphine 10 mg. In terms of his respirations states that he is breathing better, not coughing as much, the cough is dry. In general he feels better with his respirations. His main concern is his abdominal complaints. GI with biopsy was performed 2 days ago found portal hypertensive gastropathy no ulcers present. No Stones or increased biliary ducts size. - Exam Vitals: Temp Pulse Resp BP Pulse Ox 99.2 F 89 19 138/103 90 07/16/18 08:45 07/16/18 08:45 07/16/18 08:45 07/16/18 08:45 07/16/18 08:45 Exam: Gen.: No apparent distress, alert and oriented, thin Head: Atraumatic normocephalic Eyes PERRLA, EOMI, anicteric Cardio: Regular rate and rhythm no murmurs rubs or gallops Pulmonary: Clear to auscultation bilateral, mild wheezes diffuse no rales or rhonchi Abdomen: Clear to auscultation bilateral, soft, tenderness to palpation epigastric region, invuluntary guarding. no hepatomegaly no splenomegaly. - Assessment and Plan (1) Pneumonia Current Visit: Yes Status: Suspected Assessment and Plan: CXR shows Bibasilar infiltrates likely due to pneumonia which is slightly worse from yesterday Most likely community acquired pneumonia Was on doxycycline at discharge ceftriaxone was added. total duration of antibiotics has been 8 days began with azithromycin from previous admission Clinically improving Plan - Cotinue Doxycycline day 5 - Rocephen changed to 1 gram IVPB day 4 (2) COPD exacerbation Current Visit: Yes Status: Acute Assessment and Plan: Known history of COPD Diffuse wheezes throughout Was being treated for COPD exacerbation during previous hospitalization Underlying pneumonia Plan - Prednisone 40mg today 1 day total continue taper - Duonebs - Doxycycline and Rocephen - O2 qualification performed (3) Abdominal pain Current Visit: Yes Status: Acute Assessment and Plan: History of gastritis and esophagitis GI consulted appreciate recs EGD found Gastropathy and abnormal Z-line. MRCP scheduled today Worsening abdominal pain today epigastric region had one dark "coffee-ground" stool this a.m. One episode of vomiting clear/yellow Plan - Symptomatic treatment with Phenergan for nausea and vomiting - Pain control with sublingual morphine atttempt to wean off - Q12 H&H check if dropping H&H consider scope - GI cocktail given (4) Acute respiratory failure with hypoxia Current Visit: Yes Status: Acute Assessment and Plan: Patient noted to be hypoxic on admission Known history of COPD Currently 91% on 3L nc See above plan (5) Hypertension Current Visit: Yes Status: Chronic Assessment and Plan: Likely due to pain. Patient does not appear to be on any medications at home. Amlodpine 10 mg was added bBP better controlled (6) Anxiety Current Visit: Yes Status: Acute Assessment and Plan: Continue hydroxyzine and Remeron. Was given Ativan last night due to persistent insomnia complaints (7) Methadone dependence Current Visit: Yes Status: Acute Assessment and Plan: Continue methadone per regimen. Dosage confirmed by pharmacy. (8) DVT prophylaxis Current Visit: Yes Status: Acute Assessment and Plan: With subcutaneous heparin (9) Hypokalemia Current Visit: Yes Status: Acute Assessment and Plan: resolved - Time Spent with Patient Total time spent is greater than 50% in coordination of care (as documented) at patient's floor/unit and/or counseling patient: Internal Medicine: Result - Labs CBC & Chem 7: 07/16/18 04:20 07/16/18 04:20 Labs: Short CBC 07/16/18 Range/Units 04:20 WBC 10.5 (4.3-11.1) K/mcL Hgb 12.2 L (12.9-16.9) g/dL Hct 35.9 L (37.5-50.1) % Plt Count 473 H (140-400) K/mcL Neutrophils # 7.0 (1.6-8.9) K/mcL BMP 07/16/18 04:20 Sodium 136 Potassium 3.9 Chloride 105 Carbon Dioxide 23 BUN 14 Creatinine 0.62 L Glucose 112 H Calcium 8.9 - Impressions Impressions Abdomen MRI 07/15/18 08:11 IMPRESSION: 1. No significant change in intra and extrahepatic biliary ductal dilatation without clear evidence for an obstructing lesion. No choledocholithiasis. 2. Limited evaluation for pancreatic mass or periampullary lesion in the absence of IV contrast. Within these limitations no lesions are demonstrated. 3. Stable mild hepatomegaly. No hepatic steatosis. D/ / Nile Navas MD / Nile Navas MD Interpreting Provider: Nile Navas MD Consult Discharge Plan - Plan Referrals: Rick Hatch DO [Primary Care Provider] - <GeorgedickSpenser T - Last Filed: 07/16/18 14:34> Hospitalist Progress Note - Encounter Date of Encounter: 07/16/18 - Exam Vitals: Temp Pulse Resp BP Pulse Ox 98.1 F 95 19 107/86 91 07/16/18 11:30 07/16/18 11:30 07/16/18 11:51 07/16/18 11:30 07/16/18 11:51 - Assessment and Plan (1) DVT prophylaxis Current Visit: Yes Status: Acute (2) Abdominal pain Current Visit: Yes Status: Acute (3) Acute respiratory failure with hypoxia Current Visit: Yes Status: Acute (4) Hypertension Current Visit: Yes Status: Chronic (5) Anxiety Current Visit: Yes Status: Acute (6) COPD exacerbation Current Visit: Yes Status: Acute (7) Pneumonia Current Visit: Yes Status: Suspected (8) Methadone dependence Current Visit: Yes Status: Acute (9) Hypokalemia Current Visit: Yes Status: Acute - Time Spent with Patient Total time spent is greater than 50% in coordination of care (as documented) at patient's floor/unit and/or counseling patient: Internal Medicine: Result - Labs CBC & Chem 7: 07/16/18 04:20 07/16/18 04:20 Labs: Short CBC 07/16/18 Range/Units 04:20 WBC 10.5 (4.3-11.1) K/mcL Hgb 12.2 L (12.9-16.9) g/dL Hct 35.9 L (37.5-50.1) % Plt Count 473 H (140-400) K/mcL Neutrophils # 7.0 (1.6-8.9) K/mcL BMP 07/16/18 04:20 Sodium 136 Potassium 3.9 Chloride 105 Carbon Dioxide 23 BUN 14 Creatinine 0.62 L Glucose 112 H Calcium 8.9 - Attending Attestation I have personally seen and examined this patient on 07/16/18 and reviewed her chart and labs, including medications, I have discussed plan of care with the resident physician, whose documentation reflect our plan of care. With the additions/exceptions set forth below. <Scooby Martinez W - Last Filed: 07/16/18 13:16> (1) Pneumonia Qualifiers: Pneumonia type: due to Pneumococcus Laterality: bilateral Lung location: lower lobe of lung Qualified Code(s): J13 - Pneumonia due to Streptococcus pneumoniae (3) Abdominal pain Qualifiers: Abdominal location: epigastric Qualified Code(s): R10.13 - Epigastric pain (5) Hypertension Qualifiers: Hypertension type: essential hypertension Qualified Code(s): I10 - Essential (primary) hypertension <Spenser Parikh T - Last Filed: 07/16/18 14:34> (2) Abdominal pain Qualifiers: Abdominal location: epigastric Qualified Code(s): R10.13 - Epigastric pain (4) Hypertension Qualifiers: Hypertension type: essential hypertension Qualified Code(s): I10 - Essential (primary) hypertension (7) Pneumonia Qualifiers: Pneumonia type: due to Pneumococcus Laterality: bilateral Lung location: lower lobe of lung Qualified Code(s): J13 - Pneumonia due to Streptococcus pneumoniae
[2018-07-16 15:06] LABS: Hematocrit 38.1 % (37.5-50.1); Hemoglobin 12.8 g/dL (12.9-16.9)
[2018-07-16] MEDS: Mirtazapine 15 MG TABLET PO SCH (22:12)
[2018-07-17] MEDS: Ipratropium/Albuterol Neb 3 ML IH SCH ×5 (00:03→15:41)
[2018-07-17] MEDS: *HR* Heparin 5,000 UNIT/ML VIAL SQ SCH (05:11)
[2018-07-17] MEDS: MORPHINE SUL Oral CONC 10 MG/0.5 ML ORAL.SYG SL PRN (05:11)
[2018-07-17 05:46] LABS: Eosinophils % 0.5 %; Hematocrit 38.4 % (37.5-50.1); Immature Granulocytes % 0.5 % (0-4); Lymphocytes % 22.4 %; Mean Corpuscular HGB Conc 33.9 g/dL (31.6-35.5); Mean Corpuscular Hemoglobin 30.9 pg (28.0-33.3); Mean Corpuscular Volume 91.2 fL (83.0-100.0); Mean Platelet Volume 8.5 fL (9.4-12.4); Platelet Count 523 K/mcL (140-400); Red Blood Count 4.21 M/mcL (4.19-5.50); Red Cell Distribution Width 13.4 % (11.5-14.5); Segmented Neutrophils % 64.5 %
[2018-07-17 05:47] LABS: Basophils % 0.1 %; Eosinophils # 0.1 K/mcL (0.0-0.6); Lymphocytes # 2.6 K/mcL (0.6-4.6); Monocytes # 1.4 K/mcL (0.0-1.3)
[2018-07-17 05:50] LABS: Neutrophils # 7.6 K/mcL (1.6-8.9)
[2018-07-17 06:06] LABS: BUN/Creatinine Ratio 28 (6-26); Blood Urea Nitrogen 17 mg/dL (6-20); Carbon Dioxide 24 mEq/L (23-29); Chloride 105 mEq/L (98-107); Glucose 115 mg/dL (70-105); Osmolality,Calculated 286 (280-300); Potassium 3.3 mEq/L (3.5-5.1); Sodium 137 mEq/L (136-145); eGFR For Non-African Americans > 60 (> 60)
[2018-07-17 06:17] LABS: Platelet Estimate Increased (Normal)
[2018-07-17] MEDS: Methadone Oral Concentrate 50 MG/5 ML UDC PO SCH (07:04)
[2018-07-17 08:10] VITALS: BP 134/102
[2018-07-17] MEDS: cefTRIAXone 1,000 MG in 0.9 % Sodium Chloride Mini Bag 100 ML IVPB SCH (08:57)
[2018-07-17] MEDS ORDERED: Doxycycline 100 MG CAPSULE PO SCH (09:00)
[2018-07-17] MEDS: cloNIDine HCl 0.1 MG TABLET PO PRN ×2 (09:02→15:27)
[2018-07-17] MEDS: predniSONE 20 MG TABLET PO SCH (09:02)
[2018-07-17] MEDS: amLODIPine 5 MG TABLET PO SCH (09:02)
[2018-07-17] MEDS: Gabapentin 400 MG CAPSULE PO SCH ×2 (09:03→15:27)
[2018-07-17] MEDS: Thiamine (B-1) 100 MG TABLET PO SCH (09:03)
--- NOTE | 2018-07-17 09:27 | Internal Med Progress Note ---
Hospitalist Progress Note - Encounter Date of Encounter: 07/17/18 Time of Encounter: 09:25 - Subjective Interval History: Patient reports his breathing and abdominal pain have improved. Patient states he is no longer short of breath. He is still coughing and is somewhat productive however the cough is less. Patient no longer has any abdominal pain. Has not had any dark stools since yesterday. However patient still states he is very anxious. Believes it is something with his methadone. Clonodine was increased to 3 times a day when necessary. Trending hemoglobin has not dropped. - Exam Vitals: Temp Pulse Resp BP Pulse Ox 100.1 F H 101 17 134/102 92 07/17/18 08:08 07/17/18 08:08 07/17/18 08:08 07/17/18 08:08 07/17/18 08:08 Exam: Gen.: No apparent distress, alert and oriented, thin Head: Atraumatic normocephalic Eyes PERRLA, EOMI, anicteric Cardio: Regular rate and rhythm no murmurs rubs or gallops Pulmonary: Clear to auscultation bilateral, mild wheezes diffuse no rales or rhonchi Abdomen: Clear to auscultation bilateral, soft, tenderness to palpation epigastric region, invuluntary guarding. no hepatomegaly no splenomegaly. Psych: Anxious, fidgety, tearful per nursing report - Assessment and Plan (1) Pneumonia Current Visit: Yes Status: Suspected Assessment and Plan: CXR shows Bibasilar infiltrates likely due to pneumonia Most likely community acquired pneumonia Was on doxycycline at previous discharge ceftriaxone was added on admission. total duration of antibiotics has been 9 days began with azithromycin from previous admission Clinically improving Plan - D/C Doxycycline day 6 - Rocephen changed to 1 gram IVPB day 5 (2) COPD exacerbation Current Visit: Yes Status: Acute (3) Abdominal pain Current Visit: Yes Status: Acute (4) Acute respiratory failure with hypoxia Current Visit: Yes Status: Acute (5) Hypertension Current Visit: Yes Status: Chronic (6) Anxiety Current Visit: Yes Status: Acute (7) Methadone dependence Current Visit: Yes Status: Acute (8) Hypokalemia Current Visit: Yes Status: Acute (9) DVT prophylaxis Current Visit: Yes Status: Acute - Time Spent with Patient Total time spent is greater than 50% in coordination of care (as documented) at patient's floor/unit and/or counseling patient: Internal Medicine: Result - Labs CBC & Chem 7: 07/17/18 05:16 07/17/18 05:16 Labs: Short CBC 07/16/18 07/17/18 Range/Units 14:53 05:16 WBC 11.7 H (4.3-11.1) K/mcL Hgb 12.8 L 13.0 (12.9-16.9) g/dL Hct 38.1 38.4 (37.5-50.1) % Plt Count 523 H (140-400) K/mcL Neutrophils # 7.6 (1.6-8.9) K/mcL BMP 07/17/18 05:16 Sodium 137 Potassium 3.3 L Chloride 105 Carbon Dioxide 24 BUN 17 Creatinine 0.61 L Glucose 115 H Calcium 9.0 Consult Discharge Plan - Plan Referrals: Rick Hatch DO [Primary Care Provider] - (1) Pneumonia Qualifiers: Pneumonia type: due to Pneumococcus Laterality: bilateral Lung location: lower lobe of lung Qualified Code(s): J13 - Pneumonia due to Streptococcus pneumoniae (3) Abdominal pain Qualifiers: Abdominal location: epigastric Qualified Code(s): R10.13 - Epigastric pain (5) Hypertension Qualifiers: Hypertension type: essential hypertension Qualified Code(s): I10 - Essential (primary) hypertension
--- NOTE | 2018-07-17 09:37 | Discharge Summary ---
<Scooby Martinez W - Last Filed: 07/17/18 10:23> - NOTES TO OUTPATIENT PROVIDER Notes to Outpatient Provider: Patient readmitted for COPD exacerbation from underlying pneumonia. Previously left AMA. Clinically returning to baseline. Home O2 has been qualified. Due to abdominal pain patient received EGD and found portal hypertensive gastropathy. MRCP found no change in previously dilated biliary ducts. Orders not resulted at time of discharge: Pending orders 07/14/18 14:01 Surgical Pathology [PTH] Routine 07/18/18 04:00 Basic Metabolic Panel AM 0400 CBC [Complete Blood Count] [HEME] AM 0400 07/19/18 04:00 Basic Metabolic Panel AM 0400 CBC [Complete Blood Count] [HEME] AM 0400 Date of Encounter: 07/17/18 Time of Encounter: 09:34 - Discharge Diagnosis (1) Pneumonia Priority: Primary Status: Suspected Assessment and Plan: CXR shows Bibasilar infiltrates likely due to pneumonia Most likely community acquired pneumonia Was on doxycycline at previous discharge ceftriaxone was added on admission. Total duration of antibiotics has been 9 days began with azithromycin from previous admission Clinically improving Plan - Doxycycline day 5 continue for 2 more days - Rocephen changed to 1 gram IVPB day 4 continue for 3 more days Qualifiers: Pneumonia type: due to Pneumococcus Laterality: bilateral Lung location: lower lobe of lung Qualified Code(s): J13 - Pneumonia due to Streptococcus pneumoniae (2) COPD exacerbation Priority: Primary Status: Acute Assessment and Plan: Known history of COPD Diffuse wheezes throughout Was being treated for COPD exacerbation during previous hospitalization Underlying pneumonia clincically improving Plan - Prednisone 40mg today 2 day total continue taper - Duonebs - Doxycycline and Rocephen - O2 qualified (3) Abdominal pain Priority: Primary Status: Acute Assessment and Plan: History of gastritis and esophagitis EGD found Gastropathy and abnormal Z-line. MRCP found no change in previously dilated biliary ducts pain resolved Plan - Symptomatic treatment with Phenergan for nausea and vomiting - GI cocktail given Qualifiers: Abdominal location: epigastric Qualified Code(s): R10.13 - Epigastric pain (4) Acute respiratory failure with hypoxia Priority: Secondary Status: Acute Assessment and Plan: resolved Patient noted to be hypoxic on admission Known history of COPD Currently 91% on 3L nc See above plan (5) Hypertension Priority: Secondary Status: Chronic Assessment and Plan: Likely due to pain. Patient does not appear to be on any medications at home. Amlodpine 10 mg was added bBP better controlled Qualifiers: Hypertension type: essential hypertension Qualified Code(s): I10 - Essential (primary) hypertension (6) Anxiety Priority: Secondary Status: Acute Assessment and Plan: Continue hydroxyzine and Remeron. Clonidine 0.5 was increased to TID PRN Was given Ativan last night due to persistent insomnia complaints (7) Methadone dependence Priority: Secondary Status: Acute Assessment and Plan: Continue methadone per regimen. Dosage confirmed by pharmacy. (8) DVT prophylaxis Priority: Secondary Status: Acute Assessment and Plan: With subcutaneous heparin (9) Hypokalemia Priority: Secondary Status: Acute Assessment and Plan: resolved Hospital course: Mr. Galindo is a 53 year old male patient with history of COPD, hepatitis, hypertension and seizure disorder who was discharged from the hospital yesterday after threatening to leave AGAINST MEDICAL ADVICE multiple times for not increasing his methadone dose. He had been admitted here for COPD exacerbation. He was treated with steroids and bronchodilators. His x-ray done here then showed right lower lobe pneumonia. He was discharged on doxycycline and prednisone taper. He went to his regular methadone clinic today to order picker his prescription for methadone and at that time was found to be hypoxic. As such she was refused methadone and transferred to the ER here. Presently he is complaining of abdominal pain and inability to sleep. He reports nausea and vomiting. Pain is in his epigastric region. He has had this pain intermittently for several days. Patient had upper endoscopy which showed gastric portal hypertension. No active bleeding is noted. H. Pylori biopsies negative. She had MRCP which showed no change in previously dilated biliary ducts. Patient had severe anxiety throughout his stay. Was given Ativan and clonidine sparingly in addition to his home medications. Patient was qualified for home oxygen. Clinically patient had improved significantly - Time Spent with Patient Total time spent providing and/or coordinating discharge services: - Discharge Medications Prescriptions: amLODIPine [Norvasc] 10 mg PO DAILY #30 tablet Cefdinir [Omnicef] 300 mg PO BID 3 Days #6 capsule Doxycycline 100 mg PO BID 2 Days #4 capsule predniSONE [PredniSONE] See Taper PO DAILY 9 Days #18 tablet Home Medications: Albuterol Sulfate [Ventolin Hfa] 2 puff IH Q4H PRN 07/09/18 [History] Gabapentin [Neurontin] 400 mg PO QID 07/09/18 [History] Methadone 75 mg PO DAILY 07/09/18 [History] Mirtazapine [Remeron] 30 mg PO HS 07/09/18 [History] Omeprazole [PriLOSEC] 40 mg PO BID 07/09/18 [History] Phenytoin ER [Dilantin ER] 100 mg PO TID 07/09/18 [History] Thiamine HCl [Vitamin B-1] 100 mg PO DAILY 07/09/18 [History] hydrOXYzine HCl [Hydroxyzine HCl] 50 mg PO TID PRN 07/09/18 [History] Cefdinir [Omnicef] 300 mg PO BID 3 Days #6 capsule 07/17/18 [Rx] Doxycycline 100 mg PO BID 2 Days #4 capsule 07/17/18 [Rx] amLODIPine [Norvasc] 10 mg PO DAILY #30 tablet 07/17/18 [Rx] predniSONE [PredniSONE] See Taper PO DAILY 9 Days #18 tablet 07/17/18 [Rx] Allergies/Adverse Reactions: 3 Allergy/AdvReac Type Severity Reaction Status Date / Time Penicillins Allergy Anaphylaxis Verified 07/09/18 10:03 codeine AdvReac Hives Verified 07/09/18 10:03 Date of admission: 07/13/18 11:17 Primary care physician: Rick Hatch DO Consults: 07/13/18 13:33 Consult to Nutrition [CONS] Routine Comment: h.pylori patient state he use to weight 180lbs he Consulting Provider: NUTRITION Reason for Dietary Consult: Other Consult to Card Folder [CONS] Routine Reason for SW Consult: possibly need home oxygen set up Discharging clinician: Scooby Martinez Anticipated date of discharge: 07/17/18 - Constitutional Vitals: Temp Pulse Resp BP Pulse Ox 100.1 F H 101 17 134/102 92 07/17/18 08:08 07/17/18 08:08 07/17/18 08:08 07/17/18 08:08 07/17/18 08:08 General appearance: Present: cooperative, A&O X 3, underweight, answers questions appropriately Exam: see below - Head Head exam: Present: atraumatic, normocephalic - Eye Eye exam: Present: PERRL, conjuntiva pink, sclera anicteric Pupils: Present: PERRL - Respiratory Respiratory exam: Present: CTAB. Absent: accessory muscle use, rales, rhonchi, wheezes - Cardiovascular Cardiovascular exam: Present: RRR, +S1, +S2. Absent: diastolic murmur, gallop, rubs, systolic murmur - GI/Abdominal GI/Abdominal exam: Present: normal bowel sounds, soft, no peritoneal signs. Absent: distended, tenderness - Psychiatric Psychiatric exam: Present: anxious - Skin Skin exam: Present: dry, intact - Patient Status Disposition: Home, Self-Care Condition: Fair Functional capacity at discharge: independent ambulation Overall status at discharge: patient is progressing back to baseline - Discharge Instructions Follow Up With: Rick Hatch DO [Primary Care Provider] - - Diet and Activity Activity: increase activity as tolerated Diet: advance to your usual diet <Spenser Parikh T - Last Filed: 07/17/18 12:13> Orders not resulted at time of discharge: Pending orders 07/14/18 14:01 Surgical Pathology [PTH] Routine 07/18/18 04:00 Basic Metabolic Panel AM 0400 CBC [Complete Blood Count] [HEME] AM 0400 07/19/18 04:00 Basic Metabolic Panel AM 0400 CBC [Complete Blood Count] [HEME] AM 0400 Date of Encounter: 07/17/18 - Discharge Diagnosis (1) DVT prophylaxis Status: Acute (2) Abdominal pain Status: Acute Qualifiers: Abdominal location: epigastric Qualified Code(s): R10.13 - Epigastric pain (3) Acute respiratory failure with hypoxia Status: Acute (4) Hypertension Status: Chronic Qualifiers: Hypertension type: essential hypertension Qualified Code(s): I10 - Essential (primary) hypertension (5) Anxiety Status: Acute (6) COPD exacerbation Status: Acute (7) Pneumonia Status: Suspected Qualifiers: Pneumonia type: due to Pneumococcus Laterality: bilateral Lung location: lower lobe of lung Qualified Code(s): J13 - Pneumonia due to Streptococcus pneumoniae (8) Methadone dependence Status: Acute (9) Hypokalemia Status: Acute Hospital course: Mr. Galindo is a 53 year old male - Time Spent with Patient Total time spent providing and/or coordinating discharge services: Less than 30 minutes Date of admission: 07/13/18 11:17 Primary care physician: Rick Hatch DO Consults: 07/13/18 13:33 Consult to Nutrition [CONS] Routine Comment: h.pylori patient state he use to weight 180lbs he Consulting Provider: NUTRITION Reason for Dietary Consult: Other Consult to Card Folder [CONS] Routine Reason for SW Consult: possibly need home oxygen set up - Constitutional Vitals: Temp Pulse Resp BP Pulse Ox 100.1 F H 101 18 134/102 94 07/17/18 08:08 07/17/18 08:08 07/17/18 11:15 07/17/18 08:08 07/17/18 11:15 - Attending Attestation I have personally seen and examined this patient on 07/17/18 and reviewed her chart and labs, including medications, I have discussed plan of care with the resident physician, whose documentation reflect our plan of care. With the additions/exceptions set forth below Patient admitted from hypoxia secondary to community-acquired pneumonia, patient with opiate dependence and drug-seeking behavior,. He was also managed for COPD exacerbation. Throughout the hospital stay, patient continued to request for Ativan and antianxiety medications. Seen and evaluatd this mrn, respiratory symptoms have improved significantly and patient is not in respiratory distress He has been qualified for home oxygen, has completed 5 days of IV antibiotics inpatient, and clinically stable to be discharged with oral antibiotics for 2-3 more days. Patient educated to follow up with his methadone clinic, as he seems to require increasing the dose of methadone. He is also discharged with oxygen and tapering prednisone dose. Rest of details as in the resident physician's documentation
== END 2018-07-17 16:54 | disposition home or self-care (01) | DRG 139 ==
LOC: 2NENU 07:35 → EMEROOARM 07:35 → SUATTDRO 11:17 → 2NENU 12:35
PROVIDERS: ADMIT Internal Medicine; ATTEND Internal Medicine
PROC: ENDOEBX (2018-07-14 18:20)

== ENCOUNTER 2018-09-06 02:45 | Observation (INO) ==
[2018-09-06] MEDS ORDERED: methylPREDNISolone 125 MG/2 ML VIAL IVP ONE (02:53)
[2018-09-06] MEDS ORDERED: Ipratropium/Albuterol Neb 3 ML IH ONE (02:53)
--- NOTE | 2018-09-06 02:58 | Emergency Department Note ---
Disposition Clinical Impression: Acute exacerbation of chronic obstructive airways disease Disposition: Admitted As Inpatient Condition: Fair Forms: ED Satisfaction Letter General Adult HPI - General Chief complaint: ED Shortness of Breath/Dyspnea Stated complaint: corrina Time Seen by Provider: 09/06/18 02:49 Source: patient, EMS Mode of arrival: EMS Limitations: no limitations Nursing Notes Reviewed: Yes Vital Signs Reviewed: Yes - History of Present Illness HPI Narrative: 53-year-old male with significant past medical history of COPD who wears 4 L at home presenting to the emergency department with chief complaint of dyspnea. Patient states this evening he smokes some marijuana became very anxious and started having shortness of breath. He felt that her shortness of breath was associated with his anxiety. He states he has been without his antidepressant and antianxiety medications for approximately 2 weeks as he does not have a ride to get refills. Patient does state over the past few days he has had some increased shortness of breath and increased sputum production. He denies any fevers or chest pain. Denies any abdominal pain, nausea or vomiting. Patient states he was admitted approximately one month ago for pneumonia and kept for 6 days. Pain Scale: 0 - Related Data Home Medications Medication Instructions Recorded Confirmed Albuterol Sulfate [Ventolin Hfa] 2 puff IH Q4H PRN 07/09/18 07/13/18 Gabapentin [Neurontin] 400 mg PO QID 07/09/18 07/13/18 Methadone 75 mg PO DAILY 07/09/18 07/13/18 Mirtazapine [Remeron] 30 mg PO HS 07/09/18 07/13/18 Omeprazole [PriLOSEC] 40 mg PO BID 07/09/18 07/13/18 Phenytoin ER [Dilantin ER] 100 mg PO TID 07/09/18 07/13/18 Thiamine HCl [Vitamin B-1] 100 mg PO DAILY 07/09/18 07/13/18 hydrOXYzine HCl [Hydroxyzine HCl] 50 mg PO TID PRN 07/09/18 07/13/18 Previous Rx's Medication Instructions Recorded Cefdinir [Omnicef] 300 mg PO BID 3 Days #6 capsule 07/17/18 Doxycycline 100 mg PO BID 2 Days #4 capsule 07/17/18 amLODIPine [Norvasc] 10 mg PO DAILY #30 tablet 08/26/18 predniSONE [PredniSONE] See Taper PO DAILY 9 Days #18 07/17/18 tablet Allergies Allergy/AdvReac Type Severity Reaction Status Date / Time Penicillins Allergy Anaphylaxis Verified 07/09/18 10:03 codeine AdvReac Hives Verified 07/09/18 10:03 All systems ED: reviewed and negative except as stated. Constitutional: Denies: fever, chills, weakness Eyes: Reports: as per HPI ENT ED: Reports: as per HPI Cardiovascular: Reports: dyspnea on exertion. Denies: chest pain, palpitations Respiratory: Reports: cough, dyspnea, sputum production Gastrointestinal: Denies: abdominal pain, nausea, vomiting Genitourinary: Reports: as per HPI Musculoskeletal: Reports: as per HPI Integumentary: Reports: as per HPI Neurological: Denies: weakness, numbness, paresthesias Psychiatric: Reports: anxiety Endocrine: Reports: as per HPI Hematological/Lymphatic: Reports: as per HPI Allergic/Immunologic: Reports: as per HPI Past Medical History - Past Medical History Attestation: Yes The following information was validated with the patient. Medical history: Reports: COPD, hepatitis, hypertension, seizures, other Surgical history: Reports: no surgical history Psychiatric history: Reports: anxiety, depression - Social History Smoking Status: Former smoker Smokeless Tobacco Status: Yes Alcohol use: Reports: occasionally Drug use: Reports: marijuana, prescription drug abuse, other Physical Exam - General Limitations: no limitations General appearance: alert, cachectic - Head Head exam: atraumatic, normocephalic, normal inspection - Eye Eye exam: Present: normal appearance. Absent: scleral icterus, conjunctival injection - ENT ENT exam: normal exam, mucous membranes moist - Neck Neck exam: Present: normal inspection, full ROM. Absent: tenderness, meningismus - Chest Chest inspection: Present: normal inspection, symmetric chest wall rise. Absent : tenderness, rash - Respiratory Respiratory exam: Present: other (Coarse breath sounds throughout. Inspiratory and expiratory wheezing on exam) - Cardiovascular Cardiovascular exam: Present: regular rate, normal rhythm, normal heart sounds - Abdominal Exam Abdominal exam: Present: soft, Non-Tender. Absent: distention, guarding, rebound - Extremities Exam Extremities exam: Present: normal inspection, full ROM - Neurological Exam Neurological exam: Present: alert, oriented X3 - Psychiatric Psychiatric exam: Present: anxious - Skin Skin exam: Present: warm, intact Course Course Narrative: 53-year-old male presenting with shortness of breath. On exam patient is tachycardic but otherwise hemodynamically stable. He is alert and oriented 3. His physical exam shows coarse breath sounds with inspiratory and expiratory wheezing throughout. Patient has productive cough in the room. Concern for pneumonia versus COPD exacerbation. Patient does believe this is anxiety related but due to findings on physical exam we will perform a dyspnea workup including 3 [id number] DuoNeb nebs, steroids, chest x-ray and reevaluation. Disposition pending results. Patient agrees this plan. - Reevaluation(s) Reevaluation #1: Patient's x-ray shows no focal consolidation. Laboratory analysis unchanged from baseline. Patient states he cannot go home because he has no way to get medications. He has no inhaler or nebulizer treatments at home. He states he has no ride and cannot get his prescriptions. Also has gone without his antidepressants for 2 weeks. He has remained alert and oriented 3 and hemodynamically stable in the room. Patient has not ambulated but is mildly dyspneic on conversation. Patient's breath sounds are still coarse after 3 back -to-back DuoNebs and steroids. At this time will plan to admit him for further evaluation and treatment of his COPD exacerbation. Patient agrees with this plan. I spoke with the hospitalist on-call who agrees to accept the patient at this time. Vital Signs Temperature 98.2 F 09/06/18 02:47 Pulse Rate 72 09/06/18 02:47 Respiratory Rate 16 09/06/18 02:47 Blood Pressure 144/76 09/06/18 02:47 O2 Sat by Pulse Oximetry 98 09/06/18 02:47 Temperature 98.2 F 09/06/18 02:47 Pulse Rate 84 09/06/18 04:28 Respiratory Rate 15 09/06/18 04:28 Blood Pressure 120/80 09/06/18 04:28 O2 Sat by Pulse Oximetry 96 09/06/18 04:28 Oxygen Delivery Oxygen Delivery Nasal Cannula Medical Decision Making - Lab Data Result diagrams: 09/06/18 03:46 09/06/18 03:46 Lab Results 09/06/18 09/06/18 09/06/18 Range/Units 03:46 03:46 03:46 WBC 11.5 H (4.3-11.1) K/mcL RBC 4.09 L (4.19-5.50) M/mcL Hgb 12.3 L (12.9-16.9) g/dL Hct 37.0 L (37.5-50.1) % MCV 90.5 (83.0-100.0) fL MCH 30.1 (28.0-33.3) pg MCHC 33.2 (31.6-35.5) g/dL RDW 13.5 (11.5-14.5) % Plt Count 257 (140-400) K/mcL MPV 8.7 L (9.4-12.4) fL Immature Gran % 0.3 (0-4) % Seg Neutrophils % 73.4 % Lymphocytes % 16.0 % Monocytes % 9.6 % Eosinophils % 0.3 % Basophils % 0.4 % Neutrophils # 8.4 (1.6-8.9) K/mcL Lymphocytes # 1.8 (0.6-4.6) K/mcL Monocytes # 1.1 (0.0-1.3) K/mcL Eosinophils # 0.0 (0.0-0.6) K/mcL Basophils # 0.1 (0.0-0.2) K/mcL Sodium 138 (136-145) mEq/L Potassium 3.4 L (3.5-5.1) mEq/L Chloride 101 (98-107) mEq/L Carbon Dioxide 27 (23-29) mEq/L BUN 6 (6-20) mg/dL Creatinine 0.71 (0.70-1.30) mg/dL Est GFR ( Amer) > 60 (> 60) Est GFR (Non-Af Amer) > 60 (> 60) BUN/Creatinine Ratio 8 (6-26) Glucose 106 H (70-105) mg/dL Calculated Osmolality 284 (280-300) Calcium 9.1 (8.6-10.3) mg/dL Troponin I < 0.03 (< 0.04) ng/mL B-Natriuretic Peptide 57 (Less than 100) pg/mL - EKG Data EKG #1 EKG attestation: Yes I reviewed and interpreted this EKG. EKG results narrative: Sinus rhythm. 75 beats for minute. NH interval 159, QRS 101, QTC 45. No sign of acute ST segment elevation or ischemia. Compared to previous EKG completed on 07/13/2018 no significant changes noted
--- NOTE | 2018-09-06 03:02 | Emergency Department Note ---
Disposition Clinical Impression: Acute exacerbation of chronic obstructive airways disease Disposition: Admitted As Inpatient Condition: Fair General Adult HPI - General Chief complaint: ED Shortness of Breath/Dyspnea Stated complaint: corrina Time Seen by Provider: 09/06/18 02:49 Source: patient, EMS Mode of arrival: EMS Limitations: no limitations Nursing Notes Reviewed: Yes Vital Signs Reviewed: Yes - History of Present Illness Pain Scale: 0 - Related Data Home Medications Medication Instructions Recorded Confirmed Albuterol Sulfate [Ventolin Hfa] 2 puff IH Q4H PRN 07/09/18 09/06/18 Gabapentin [Neurontin] 400 mg PO QID 07/09/18 09/06/18 Methadone 80 mg PO DAILY 07/09/18 09/06/18 Mirtazapine [Remeron] 30 mg PO HS 07/09/18 09/06/18 Omeprazole [PriLOSEC] 40 mg PO BID 07/09/18 09/06/18 Phenytoin ER [Dilantin ER] 100 mg PO TID 07/09/18 09/06/18 Thiamine HCl [Vitamin B-1] 100 mg PO DAILY 07/09/18 09/06/18 hydrOXYzine HCl [Hydroxyzine HCl] 50 mg PO TID PRN 07/09/18 09/06/18 Allergies Allergy/AdvReac Type Severity Reaction Status Date / Time Penicillins Allergy Anaphylaxis Verified 07/09/18 10:03 codeine AdvReac Hives Verified 07/09/18 10:03 Constitutional: Denies: fever, chills, weakness Eyes: Reports: as per HPI ENT ED: Reports: as per HPI Cardiovascular: Reports: dyspnea on exertion. Denies: chest pain, palpitations Respiratory: Reports: cough, dyspnea, sputum production Gastrointestinal: Denies: abdominal pain, nausea, vomiting Genitourinary: Reports: as per HPI Musculoskeletal: Reports: as per HPI Integumentary: Reports: as per HPI Neurological: Denies: weakness, numbness, paresthesias Psychiatric: Reports: anxiety Endocrine: Reports: as per HPI Hematological/Lymphatic: Reports: as per HPI Allergic/Immunologic: Reports: as per HPI Past Medical History - Past Medical History Medical history: Reports: COPD, hepatitis, hypertension, seizures, other Surgical history: Reports: no surgical history Psychiatric history: Reports: anxiety, depression - Social History Smoking Status: Former smoker Smokeless Tobacco Status: Yes Alcohol use: Reports: occasionally Drug use: Reports: marijuana, prescription drug abuse, other Physical Exam - General Limitations: no limitations General appearance: alert, cachectic Course Vital Signs Temperature 98.2 F 09/06/18 02:47 Pulse Rate 72 09/06/18 02:47 Respiratory Rate 16 09/06/18 02:47 Blood Pressure 144/76 09/06/18 02:47 O2 Sat by Pulse Oximetry 98 09/06/18 02:47 Temperature 98.2 F 09/06/18 02:47 Pulse Rate 84 09/06/18 04:28 Respiratory Rate 19 09/06/18 05:06 Blood Pressure 141/91 09/06/18 05:06 O2 Sat by Pulse Oximetry 96 09/06/18 04:28 Oxygen Delivery Oxygen Delivery Nasal Cannula Medical Decision Making - Lab Data Result diagrams: 09/06/18 03:46 09/06/18 03:46 Lab Results 09/06/18 09/06/18 09/06/18 Range/Units 03:46 03:46 03:46 WBC 11.5 H (4.3-11.1) K/mcL RBC 4.09 L (4.19-5.50) M/mcL Hgb 12.3 L (12.9-16.9) g/dL Hct 37.0 L (37.5-50.1) % MCV 90.5 (83.0-100.0) fL MCH 30.1 (28.0-33.3) pg MCHC 33.2 (31.6-35.5) g/dL RDW 13.5 (11.5-14.5) % Plt Count 257 (140-400) K/mcL MPV 8.7 L (9.4-12.4) fL Immature Gran % 0.3 (0-4) % Seg Neutrophils % 73.4 % Lymphocytes % 16.0 % Monocytes % 9.6 % Eosinophils % 0.3 % Basophils % 0.4 % Neutrophils # 8.4 (1.6-8.9) K/mcL Lymphocytes # 1.8 (0.6-4.6) K/mcL Monocytes # 1.1 (0.0-1.3) K/mcL Eosinophils # 0.0 (0.0-0.6) K/mcL Basophils # 0.1 (0.0-0.2) K/mcL Sodium 138 (136-145) mEq/L Potassium 3.4 L (3.5-5.1) mEq/L Chloride 101 (98-107) mEq/L Carbon Dioxide 27 (23-29) mEq/L BUN 6 (6-20) mg/dL Creatinine 0.71 (0.70-1.30) mg/dL Est GFR ( Amer) > 60 (> 60) Est GFR (Non-Af Amer) > 60 (> 60) BUN/Creatinine Ratio 8 (6-26) Glucose 106 H (70-105) mg/dL Calculated Osmolality 284 (280-300) Calcium 9.1 (8.6-10.3) mg/dL Troponin I < 0.03 (< 0.04) ng/mL B-Natriuretic Peptide 57 (Less than 100) pg/mL Attestation Statement - Attestation Attestation: Resident Attestation: I examined this patient and my medical decision making was reviewed with the Resident Physician. I agree with the documented findings, disposition and treatment plan as described except to the extent set forth below. We independently had [id number] contact with the patient. Resident Keshawn Scott Patient with past medical history of COPD, hepatitis, hypertension, seizures, anxiety, depression, former smoker, current marijuana user presenting for evaluation of shortness of breath. Worsening of last several days. Worse today after smoking marijuana. Patient does state that he has some underlying anxiety. Has not been taking his anxiety and depression medication secondary to underlying social situation. Patient uses home oxygen. He states that he rather use that than his inhalers so he has not been using any inhalers to help with his overall breathing symptoms. He has had cough. Positive sputum production. Recent admission for pneumonia. Patient does have mild to moderate wheezing throughout. Regular rate and rhythm. Abdomen soft nontender to palpation with no significant peripheral edema. Patient will undergo further evaluation for dyspnea with blood work and chest x-ray. Please see resident note for further details and disposition.
[2018-09-06] MEDS ORDERED: *HR* LORazepam 2 MG/ML VIAL IVP ONE (03:42)
[2018-09-06 03:58] LABS: Basophils # 0.1 K/mcL (0.0-0.2); Basophils % 0.4 %; Eosinophils % 0.3 %; Hemoglobin 12.3 g/dL (12.9-16.9); Immature Granulocytes % 0.3 % (0-4); Lymphocytes # 1.8 K/mcL (0.6-4.6); Mean Corpuscular HGB Conc 33.2 g/dL (31.6-35.5); Mean Corpuscular Hemoglobin 30.1 pg (28.0-33.3); Mean Corpuscular Volume 90.5 fL (83.0-100.0); Mean Platelet Volume 8.7 fL (9.4-12.4); Monocytes # 1.1 K/mcL (0.0-1.3); Monocytes % 9.6 %; Neutrophils # 8.4 K/mcL (1.6-8.9); Platelet Count 257 K/mcL (140-400); Red Blood Count 4.09 M/mcL (4.19-5.50); Red Cell Distribution Width 13.5 % (11.5-14.5); Segmented Neutrophils % 73.4 %
[2018-09-06 04:19] LABS: BUN/Creatinine Ratio 8 (6-26); Blood Urea Nitrogen 6 mg/dL (6-20); Calcium 9.1 mg/dL (8.6-10.3); Carbon Dioxide 27 mEq/L (23-29); Chloride 101 mEq/L (98-107); Glucose 106 mg/dL (70-105); Osmolality,Calculated 284 (280-300); Potassium 3.4 mEq/L (3.5-5.1); Sodium 138 mEq/L (136-145); Troponin I < 0.03 ng/mL (< 0.04); eGFR For Non-African Americans > 60 (> 60)
[2018-09-06] MEDS ORDERED: hydrOXYzine pamoate 25 MG CAPSULE PO PRN (04:43)
[2018-09-06] MEDS ORDERED: Potassium Chloride Elixir 20 MEQ/15 ML UDC PO ONE (04:47)
--- NOTE | 2018-09-06 05:23 | Internal Med History&Physical ---
Date of Encounter: 09/06/18 Time of Encounter: 05:21 Internal Medicine - H&P: HPI Chief complaint: SOB Admitted From: Emergency Dept Plans for Post Hospital Care: Home History of present illness: Kiran Galindo is a 53 year old man former smoker with severe COPD, hypertension, seizure d/o and hepatitis C on methadone program who has been admitted multiple times and comes in now with the complaint of shortness of breath. He says that he has been progressively worsening over the past week and today worsened after smoking marijuana and vaping. He does acknowledge underlying anxiety issues which contributes to his dyspnea however he says that he no longer has medications and nebulizers at home. He states he required an increase in his oxygen therapy. He also complained of cough productive of whitish phlegm. On arrival he was found moderately dyspneic and improved with nebulizer. Although he improved, he states that [place] [facility] [place] ambulance [place] reach him and has no medications a home therefore does not feel safe. On my assessment he was in no acute distress and hemodynamically stable. Family hx of HTN in father. Lives w/ brother. Reportedly quit smoking 3yrs ago and now vapes. All systems reviewed and negative except as above. Past Med Surg Social Fam HX - Past Medical History Medical history: COPD, hepatitis, hypertension, seizures, other Additional medical history: hep C Psychiatric history: anxiety, depression - Past Surgical History Surgical History: no surgical history - Social History Smoking Status: Former smoker Smokeless Tobacco Status: Yes Alcohol use: occasionally Drug use: marijuana, prescription drug abuse, other - Family History Mother Family Member Ethnicity: Non- Living Status: Still Living Hx Family Endocrine Disorder: Yes (DM) Father Living Status: Hx Family Respiratory Disorders: Yes (COPD) Internal Medicine - H&P: Meds Albuterol Sulfate [Ventolin Hfa] 2 puff IH Q4H PRN 07/09/18 [History] Gabapentin [Neurontin] 400 mg PO QID 07/09/18 [History] Methadone 80 mg PO DAILY 07/09/18 [History] Mirtazapine [Remeron] 30 mg PO HS 07/09/18 [History] Omeprazole [PriLOSEC] 40 mg PO BID 07/09/18 [History] Phenytoin ER [Dilantin ER] 100 mg PO TID 07/09/18 [History] Thiamine HCl [Vitamin B-1] 100 mg PO DAILY 07/09/18 [History] hydrOXYzine HCl [Hydroxyzine HCl] 50 mg PO TID PRN 07/09/18 [History] 3 Allergy/AdvReac Type Severity Reaction Status Date / Time Penicillins Allergy Anaphylaxis Verified 07/09/18 10:03 codeine AdvReac Hives Verified 07/09/18 10:03 All Systems PM: A 10-system review of systems was performed and is negative for pertinent findings except as documented above in the HPI. - Constitutional Vitals: Temp Pulse Resp BP Pulse Ox 98.2 F 84 19 141/91 96 09/06/18 02:47 09/06/18 04:28 09/06/18 05:06 09/06/18 05:06 09/06/18 04:28 Exam: Vitals: Reviewed General: NAD, emaciated Skin: Warm. No lesions. HEENT: Moist mucous membranes. No conjunctivae pallor. Neck: No lymphadenopathy. No JVD. No carotid bruits. No palpable thyroid. Chest: Barrel chest. Diminished thoracic expansion with reduced breath sounds but no wheezes, rales or rhonchi. Heart: Normal S1 & S2; rhythmic. No rubs or murmurs. Abdomen: Non-distended, soft and non-tender to palpation. Extremities: (+)clubbing, no cyanosis or edema. No calf tenderness. Normal distal pulses. Neurological: Awake, alert and oriented to person, place and time. No focal deficits. Psych: Affect appropriate. Internal Med - H&P Results - Labs CBC & Chem 7: 09/06/18 03:46 09/06/18 03:46 - Assessment and plan (1) Acute exacerbation of chronic obstructive airways disease Current Visit: Yes Status: Acute Assessment and plan: Seems to be a mild to moderate exacerbation. Will continue supplemental oxygen. Nebs q4-6hrs. Prednisone 40mg daily and azithromycin 500mg x 3 days PO. SW consult for assistance w/ meds. (2) Anxiety Current Visit: Yes Status: Acute Assessment and plan: Received lorazepam and feels better. (3) Hypokalemia Current Visit: Yes Status: Acute Assessment and plan: Will supplement w/ KCL. (4) Seizure disorder Current Visit: Yes Status: Chronic Assessment and plan: Will continue phenytoin TID. (5) Substance use disorder Current Visit: Yes Status: Chronic Assessment and plan: Will continue methadone; dose pending verification. (6) DVT prophylaxis Current Visit: Yes Status: Acute Assessment and plan: Heparin SubQ. - Time Spent With Patient Total time spent is greater than 50% in coordination of care (as documented) at patient's floor/unit and/or counseling patient: Greater than 35 minutes
[2018-09-06] MEDS ORDERED: Ipratropium/Albuterol Neb 3 ML IH SCH ×2 (06:00→08:00)
[2018-09-06] MEDS ORDERED: *HR* Heparin 5,000 UNIT/ML VIAL SQ SCH (06:00)
[2018-09-06 06:40] VITALS: BP 148/96
[2018-09-06] MEDS ORDERED: predniSONE 20 MG TABLET PO SCH (09:00)
[2018-09-06] MEDS ORDERED: Thiamine (B-1) 100 MG TABLET PO SCH (09:00)
[2018-09-06] MEDS ORDERED: *HR* Methadone 10 MG TABLET PO SCH ×2 (09:00)
[2018-09-06] MEDS ORDERED: Azithromycin 250 MG TABLET PO SCH (09:00)
[2018-09-06] MEDS ORDERED: amLODIPine 5 MG TABLET PO SCH (09:00)
[2018-09-06] MEDS ORDERED: Gabapentin 400 MG CAPSULE PO SCH (09:00)
--- NOTE | 2018-09-06 12:53 | Event Note ---
Date of Encounter: 09/06/18 Time of Encounter: 12:53 Left AMA prior to eval
[2018-09-06] MEDS ORDERED: Mirtazapine 15 MG TABLET PO SCH (21:00)
--- NOTE | 2018-09-08 16:19 | Electrocardiograph Report ---
[place] [id number] Test Date: 2018-09-06 Pat Name: Kiran Galindo Department: [id number] Room: 2A Gender: M Workshop Manager: : 1965 Requested By: Naomi Scott Order Number: [id number] Reading MD: Leanne Razo Measurements Intervals [place] Rate: 75 P: 26 PA: 159 QRS: 87 QRSD: 101 T: 67 QT: 434 QTc: 485 Interpretive Statements Sinus rhythm Borderline prolonged QT interval Electronically Signed On 09-08-2018 16:17:45 EDT by Leanne Razo
== END 2018-09-06 09:35 | disposition left against medical advice (07) ==
LOC: 2ANU 02:45 → EMEROOARM 02:45 → SUATTDRO 04:46 → 2ANU 05:16
PROVIDERS: ADMIT Internal Medicine; ATTEND Internal Medicine

== ENCOUNTER 2018-11-27 17:30 | Inpatient (IN) ==
[2018-11-27] MEDS ORDERED: Ketorolac 30 MG/ML VIAL IVP ONE (17:50)
[2018-11-27] MEDS ORDERED: Ondansetron 4 MG/2 ML VIAL IVP ONE (17:50)
[2018-11-27] MEDS ORDERED: 0.9 % Sodium Chloride 1,000 ML IVC ONE ×2 (17:50→19:41)
[2018-11-27] MEDS ORDERED: Isovue-370 500 ML INFUS..BTL IV ONE (17:51)
[2018-11-27 18:14] LABS: Bilirubin,Urine Negative (Negative); Blood,Urine Negative (Negative); Clarity,Urine Cloudy (Clear); Color,Urine Yellow (Yellow); Glucose,Urine (UA) Normal (Normal); Ketones,Urine 15 mg/dL (Negative); Leukocyte Esterase,Urine Negative (Negative); Nitrite,Urine Negative (Negative); Protein,Urine Trace mg/dL (Neg-Trace); Specific Gravity,Urine 1.009 (1.010-1.025); Urobilinogen,Urine Normal (Normal)
[2018-11-27 18:17] LABS: Bacteria,Urine None Seen per hpf (None-Few); Hyaline Casts,Urine None Seen per lpf (None-Few); RBC,Urine 0-3 per hpf (0-3); Squamous Epithelial Cell,Urine Few per lpf (None-Few); WBC,Urine 0-3 per hpf (0-3)
--- NOTE | 2018-11-27 18:29 | Emergency Department Note ---
Disposition Clinical Impression: Abdominal pain Qualifiers: Abdominal location: epigastric Qualified Code(s): R10.13 - Epigastric pain Disposition: Still a Patient Condition: Fair Referrals: Rick Hatch DO [Primary Care Provider] - Forms: ED Satisfaction Letter, Work/School Release Time of Disposition: 19:24 General Adult HPI - General Chief complaint: ED Abdominal Pain Stated complaint: abdominal pain Time Seen by Provider: 11/27/18 17:32 Source: EMS Mode of arrival: ambulatory Limitations: no limitations Nursing Notes Reviewed: Yes Vital Signs Reviewed: Yes - History of Present Illness HPI Narrative: Patient is a 53-year-old male with past medical history of COPD, hepatitis C, hypertension, seizures and pancreatitis presents to the emergency department for evaluation of epigastric abdominal pain. Patient states that he has had pain test in the past and this feels similar. He states that he drank vodka 3 days ago and is abdominal pain started this morning. He describes as sharp stabbing pain that is 10/10 rating to his back. Associated with nausea and vomiting t hroughout today that was nonbloody and nonbilious. Denies fevers, chest pain, shortness of breath. States he is also on methadone patient. Pain Scale: 10 - Related Data Home Medications Medication Instructions Recorded Confirmed Albuterol Sulfate [Ventolin Hfa] 2 puff IH Q4H PRN 07/09/18 09/06/18 Gabapentin [Neurontin] 400 mg PO QID 07/09/18 09/06/18 Mirtazapine [Remeron] 30 mg PO HS 07/09/18 09/06/18 Omeprazole [PriLOSEC] 40 mg PO BID 07/09/18 09/06/18 Phenytoin ER [Dilantin ER] 100 mg PO TID 07/09/18 09/06/18 Thiamine HCl [Vitamin B-1] 100 mg PO DAILY 07/09/18 09/06/18 hydrOXYzine HCl [Hydroxyzine HCl] 50 mg PO TID PRN 07/09/18 09/06/18 Methadone Oral Concentrate 70 mg PO DAILY 11/24/18 11/24/18 [Methadone] Previous Rx's Medication Instructions Recorded Gabapentin [Neurontin] 600 mg PO Q8HR #9 tablet 10/27/18 Doxycycline 100 mg PO BID 5 Days #10 capsule 11/25/18 Ipratropium/Albuterol Neb [Duoneb] 3 ml IH [id number] PRN #90 inhsol 11/25/18 predniSONE [PredniSONE] 40 mg PO DAILY #10 tablet 11/25/18 Allergies Allergy/AdvReac Type Severity Reaction Status Date / Time Penicillins Allergy Anaphylaxis Verified 07/09/18 10:03 codeine AdvReac Hives Verified 07/09/18 10:03 All systems ED: reviewed and negative except as stated. Review of Systems: As Per HPI Constitutional: Denies: fever, chills Cardiovascular: Denies: chest pain, palpitations Respiratory: Denies: cough, dyspnea, wheezes Gastrointestinal: Reports: abdominal pain, nausea, vomiting. Denies: diarrhea, constipation, hematemesis, melena, hematochezia Genitourinary: Denies: urgency, dysuria Musculoskeletal: Denies: back pain, neck pain Integumentary: Denies: rash Past Medical History - Past Medical History Attestation: Yes The following information was validated with the patient. Medical history: Reports: COPD, hepatitis, hypertension, seizures, other Surgical history: Reports: no surgical history Psychiatric history: Reports: anxiety, depression - Social History Smoking Status: Former smoker Smokeless Tobacco Status: Yes Alcohol use: Reports: heavy, recent Drug use: Reports: marijuana, prescription drug abuse, other Physical Exam CONSTITUTIONAL: Alert and oriented X3, in no apparent distress. HEAD: Normocephalic; atraumatic. EYES: PERRL, no scleral icterus. NOSE: The nose is normal in appearance without rhinorrhea RESP: Normal chest excursion with respiration; breath sounds clear and equal bilaterally; no wheezes, rhonchi, or rales CARD: Regular rhythm, without murmurs, rub or gallop ABD: Non-distended; mild epigastric abdominal pain,without rigidity, rebound or guarding SKIN: Normal for age and race; warm and dry; no apparent lesions - General Limitations: no limitations General appearance: alert, in no apparent distress Course Course Narrative: Patient received IV fluids, Zofran as well as analgesics. Plan is to work him up for pancreatitis. Patient states is similar to the pain but has been is had in the past. - Reevaluation(s) Reevaluation #1: Patient will be transferred to the night team Dr. Haines and Dr. Sotomayor. I discussed pending lab results and workup the patient which includes pending CT scan of the abdomen and pelvis as well as lab work. Vital Signs Temperature 98.8 F 11/27/18 17:32 Pulse Rate 68 11/27/18 17:32 Respiratory Rate 18 11/27/18 17:32 Blood Pressure 168/105 11/27/18 17:32 O2 Sat by Pulse Oximetry 96 11/27/18 17:32 Temperature 98.8 F 11/27/18 17:32 Pulse Rate 69 11/27/18 18:38 Respiratory Rate 16 11/27/18 18:38 Blood Pressure 161/112 11/27/18 18:38 O2 Sat by Pulse Oximetry 97 11/27/18 18:38 Oxygen Delivery Oxygen Delivery Room Air Medical Decision Making - Medical Records Medical records reviewed: Yes I reviewed the patient's medical records. - Lab Data Lab results reviewed: Yes I reviewed the patient's lab results. Result diagrams: 11/27/18 18:23 11/27/18 18:23 Lab Results 11/27/18 11/27/18 11/27/18 Range/Units 18:03 18:23 18:23 WBC 9.0 (4.3-11.1) K/mcL RBC 4.53 (4.19-5.50) M/mcL Hgb 13.5 (12.9-16.9) g/dL Hct 41.6 (37.5-50.1) % MCV 91.8 (83.0-100.0) fL MCH 29.8 (28.0-33.3) pg MCHC 32.5 (31.6-35.5) g/dL RDW 15.1 H (11.5-14.5) % Plt Count 293 (140-400) K/mcL MPV 9.9 (9.4-12.4) fL Immature Gran % 0.2 (0-4) % Seg Neutrophils % 77.6 % Lymphocytes % 14.2 % Monocytes % 7.4 % Eosinophils % 0.0 % Basophils % 0.6 % Neutrophils # 7.0 (1.6-8.9) K/mcL Lymphocytes # 1.3 (0.6-4.6) K/mcL Monocytes # 0.7 (0.0-1.3) K/mcL Eosinophils # 0.0 (0.0-0.6) K/mcL Basophils # 0.1 (0.0-0.2) K/mcL Sodium 132 L (136-145) mEq/L Potassium 3.4 L (3.5-5.1) mEq/L Chloride 95 L (98-107) mEq/L Carbon Dioxide 27 (23-29) mEq/L BUN 11 (6-20) mg/dL Creatinine 0.48 L (0.70-1.30) mg/dL Est GFR ( Amer) > 60 (> 60) Est GFR (Non-Af Amer) > 60 (> 60) BUN/Creatinine Ratio 23 (6-26) Glucose 112 H (70-105) mg/dL Calculated Osmolality 274 L (280-300) Calcium 9.6 (8.6-10.3) mg/dL Total Bilirubin 1.0 (0.3-1.0) mg/dL Direct Bilirubin 0.2 (0.0-0.2) mg/dL Indirect Bilirubin 0.8 (0.0-1.2) mg/dL AST 30 (13-39) Units/L ALT 26 (7-52) Units/L Alkaline Phosphatase 55 (34-104) Units/L Troponin I < 0.03 (< 0.04) ng/mL Serum Total Protein 7.4 (6.4-8.9) g/dL Albumin 4.6 (3.5-5.7) g/dL Globulin 2.8 (2.4-3.5) g/dL Albumin/Globulin Ratio 1.6 (1.1-2.2) Lipase 8 L (11-82) Units/L Urine Color Yellow (Yellow) Urine Clarity Cloudy A (Clear) Urine pH 8.0 (5.0-8.0) pH Units Ur Specific [place] 1.009 L (1.010-1.025) Urine Protein Trace (Neg-Trace) mg/dL Urine Glucose (UA) Normal (Normal) mg/dL Urine Ketones 15 H (Negative) mg/dL Urine Blood Negative (Negative) Urine Nitrite Negative (Negative) Urine Bilirubin Negative (Negative) Urine Urobilinogen Normal (Normal) mg/dL Ur Leukocyte Esterase Negative (Negative) Urine Microscopic RBC 0-3 (0-3) per hpf Urine Microscopic WBC 0-3 (0-3) per hpf Ur Squamous Epith Cells Few (None-Few) per lpf Urine Bacteria None Seen (None-Few) per hpf Hyaline Casts None Seen (None-Few) per lpf Ur Culture Indicated? NO (NO) - Radiology Data Radiology results reviewed: Yes I reviewed the patient's radiology results. Ayanna - Aynana Situation: Demographics, MOA Background: Presenting Complaint, Relevant PMH, Meds, & Allergies Assessment: Vital Signs, Course and respsone to treatment, Exam Concerns, Patient/Family Expectation, Pertinant Lab Results, Outstanding Labs Recommendation: Barrier(s) to disposition, Recommendation based on pending studies, treatments, or consults S.Ambrose.Nely Report Given to: Rossana Urena Repor Time: 19:24
[2018-11-27 18:44] LABS: Basophils # 0.1 K/mcL (0.0-0.2); Basophils % 0.6 %; Hematocrit 41.6 % (37.5-50.1); Hemoglobin 13.5 g/dL (12.9-16.9); Immature Granulocytes % 0.2 % (0-4); Lymphocytes # 1.3 K/mcL (0.6-4.6); Lymphocytes % 14.2 %; Mean Corpuscular HGB Conc 32.5 g/dL (31.6-35.5); Mean Corpuscular Hemoglobin 29.8 pg (28.0-33.3); Mean Corpuscular Volume 91.8 fL (83.0-100.0); Mean Platelet Volume 9.9 fL (9.4-12.4); Monocytes # 0.7 K/mcL (0.0-1.3); Monocytes % 7.4 %; Platelet Count 293 K/mcL (140-400); Red Blood Count 4.53 M/mcL (4.19-5.50); Red Cell Distribution Width 15.1 % (11.5-14.5); Segmented Neutrophils % 77.6 %
[2018-11-27 18:55] LABS: Alanine Aminotransferase 26 Units/L (7-52); Albumin 4.6 g/dL (3.5-5.7); Albumin/Globulin Ratio 1.6 (1.1-2.2); Alkaline Phosphatase 55 Units/L (34-104); Aspartate Amino Transferase 30 Units/L (13-39); BUN/Creatinine Ratio 23 (6-26); Bilirubin,Direct 0.2 mg/dL (0.0-0.2); Bilirubin,Indirect 0.8 mg/dL (0.0-1.2); Blood Urea Nitrogen 11 mg/dL (6-20); Calcium 9.6 mg/dL (8.6-10.3); Carbon Dioxide 27 mEq/L (23-29); Chloride 95 mEq/L (98-107); Globulin 2.8 g/dL (2.4-3.5); Glucose 112 mg/dL (70-105); Lipase 8 Units/L (11-82); Osmolality,Calculated 274 (280-300); Potassium 3.4 mEq/L (3.5-5.1); Sodium 132 mEq/L (136-145); Total Protein 7.4 g/dL (6.4-8.9); Troponin I < 0.03 ng/mL (< 0.04); eGFR For Non-African Americans > 60 (> 60)
--- NOTE | 2018-11-27 18:56 | Emergency Department Note ---
Disposition Clinical Impression: Abdominal pain Qualifiers: Abdominal location: epigastric Qualified Code(s): R10.13 - Epigastric pain Disposition: Still a Patient Referrals: Rick Hatch DO [Primary Care Provider] - Forms: ED Satisfaction Letter, Work/School Release General Adult HPI - General Chief complaint: ED Abdominal Pain Stated complaint: abdominal pain Time Seen by Provider: 11/27/18 17:32 Source: EMS Mode of arrival: ambulatory Limitations: no limitations - History of Present Illness Pain Scale: 10 - Related Data Home Medications Medication Instructions Recorded Confirmed Albuterol Sulfate [Ventolin Hfa] 2 puff IH Q4H PRN 07/09/18 09/06/18 Gabapentin [Neurontin] 400 mg PO QID 07/09/18 09/06/18 Mirtazapine [Remeron] 30 mg PO HS 07/09/18 09/06/18 Omeprazole [PriLOSEC] 40 mg PO BID 07/09/18 09/06/18 Phenytoin ER [Dilantin ER] 100 mg PO TID 07/09/18 09/06/18 Thiamine HCl [Vitamin B-1] 100 mg PO DAILY 07/09/18 09/06/18 hydrOXYzine HCl [Hydroxyzine HCl] 50 mg PO TID PRN 07/09/18 09/06/18 Methadone Oral Concentrate 70 mg PO DAILY 11/24/18 11/24/18 [Methadone] Previous Rx's Medication Instructions Recorded Gabapentin [Neurontin] 600 mg PO Q8HR #9 tablet 10/27/18 Doxycycline 100 mg PO BID 5 Days #10 capsule 11/25/18 Ipratropium/Albuterol Neb [Duoneb] 3 ml IH [id number] PRN #90 inhsol 11/25/18 predniSONE [PredniSONE] 40 mg PO DAILY #10 tablet 11/25/18 Allergies Allergy/AdvReac Type Severity Reaction Status Date / Time Penicillins Allergy Anaphylaxis Verified 07/09/18 10:03 codeine AdvReac Hives Verified 07/09/18 10:03 Constitutional: Denies: fever, chills Cardiovascular: Denies: chest pain, palpitations Respiratory: Denies: cough, dyspnea, wheezes Gastrointestinal: Reports: abdominal pain, nausea, vomiting. Denies: diarrhea, constipation, hematemesis, melena, hematochezia Genitourinary: Denies: urgency, dysuria Musculoskeletal: Denies: back pain, neck pain Integumentary: Denies: rash Past Medical History - Past Medical History Medical history: Reports: COPD, hepatitis, hypertension, seizures, other Surgical history: Reports: no surgical history Psychiatric history: Reports: anxiety, depression - Social History Smoking Status: Former smoker Smokeless Tobacco Status: Yes Alcohol use: Reports: heavy, recent Drug use: Reports: marijuana, prescription drug abuse, other Physical Exam - General Limitations: no limitations General appearance: alert, in no apparent distress Course Vital Signs Temperature 98.8 F 11/27/18 17:32 Pulse Rate 68 11/27/18 17:32 Respiratory Rate 18 11/27/18 17:32 Blood Pressure 168/105 11/27/18 17:32 O2 Sat by Pulse Oximetry 96 11/27/18 17:32 Temperature 98.8 F 11/27/18 17:32 Pulse Rate 69 11/27/18 18:38 Respiratory Rate 16 11/27/18 18:38 Blood Pressure 161/112 11/27/18 18:38 O2 Sat by Pulse Oximetry 97 11/27/18 18:38 Oxygen Delivery Oxygen Delivery Room Air Medical Decision Making - Lab Data Result diagrams: 11/27/18 18:23 Lab Results 11/27/18 11/27/18 Range/Units 18:03 18:23 WBC 9.0 (4.3-11.1) K/mcL RBC 4.53 (4.19-5.50) M/mcL Hgb 13.5 (12.9-16.9) g/dL Hct 41.6 (37.5-50.1) % MCV 91.8 (83.0-100.0) fL MCH 29.8 (28.0-33.3) pg MCHC 32.5 (31.6-35.5) g/dL RDW 15.1 H (11.5-14.5) % Plt Count 293 (140-400) K/mcL MPV 9.9 (9.4-12.4) fL Immature Gran % 0.2 (0-4) % Seg Neutrophils % 77.6 % Lymphocytes % 14.2 % Monocytes % 7.4 % Eosinophils % 0.0 % Basophils % 0.6 % Neutrophils # 7.0 (1.6-8.9) K/mcL Lymphocytes # 1.3 (0.6-4.6) K/mcL Monocytes # 0.7 (0.0-1.3) K/mcL Eosinophils # 0.0 (0.0-0.6) K/mcL Basophils # 0.1 (0.0-0.2) K/mcL Urine Color Yellow (Yellow) Urine Clarity Cloudy A (Clear) Urine pH 8.0 (5.0-8.0) pH Units Ur Specific [place] 1.009 L (1.010-1.025) Urine Protein Trace (Neg-Trace) mg/dL Urine Glucose (UA) Normal (Normal) mg/dL Urine Ketones 15 H (Negative) mg/dL Urine Blood Negative (Negative) Urine Nitrite Negative (Negative) Urine Bilirubin Negative (Negative) Urine Urobilinogen Normal (Normal) mg/dL Ur Leukocyte Esterase Negative (Negative) Urine Microscopic RBC 0-3 (0-3) per hpf Urine Microscopic WBC 0-3 (0-3) per hpf Ur Squamous Epith Cells Few (None-Few) per lpf Urine Bacteria None Seen (None-Few) per hpf Hyaline Casts None Seen (None-Few) per lpf Ur Culture Indicated? NO (NO) Attestation Statement - Attestation Attestation: I examined this patient and my medical decision-making was reviewed with the Resident Physician. I agree with the documented findings, disposition and treatment plan as described except to the extent set forth below. 53 year old male presens to the Ed with copmlaints of epigasttic pain and pancreatitis that is secnodary to alcohol abuse. PAtinet states he isn 10/10 pain althuogh looking completely flat with stable vitals. Labs and CT pending. PAin medications ordered. We will sign out to Dr. Haines/Bran for followup and dispositon based on CT and ability to tolerate PO.
--- NOTE | 2018-11-27 19:36 | Emergency Department Note ---
Disposition Clinical Impression: Intrahepatic bile duct dilation, Pancreatic duct dilated, History of substance abuse Abdominal pain Qualifiers: Abdominal location: epigastric Qualified Code(s): R10.13 - Epigastric pain Disposition: Admitted As Inpatient Condition: Fair Time of Disposition: 22:02 General Adult HPI - General Chief complaint: ED Abdominal Pain Stated complaint: abdominal pain Time Seen by Provider: 11/27/18 17:32 Source: EMS Mode of arrival: ambulatory Limitations: no limitations - History of Present Illness HPI Narrative: Patient was signed out by the prior provider. Please see their documentation for complete history and physical. Pain Scale: 10 - Related Data Home Medications Medication Instructions Recorded Confirmed RX: Albuterol Sulfate [Ventolin 2 puff IH Q4H PRN 07/09/18 09/06/18 Hfa] RX: Gabapentin [Neurontin] 400 mg PO QID 07/09/18 09/06/18 RX: Mirtazapine [Remeron] 30 mg PO HS 07/09/18 09/06/18 RX: Omeprazole [PriLOSEC] 40 mg PO BID 07/09/18 09/06/18 RX: Phenytoin ER [Dilantin ER] 100 mg PO TID 07/09/18 09/06/18 RX: Thiamine HCl [Vitamin B-1] 100 mg PO DAILY 07/09/18 09/06/18 RX: hydrOXYzine HCl [Hydroxyzine 50 mg PO TID PRN 07/09/18 09/06/18 HCl] RX: Methadone Oral Concentrate 70 mg PO DAILY 11/24/18 11/24/18 [Methadone] Previous Rx's Medication Instructions Recorded RX: Gabapentin [Neurontin] 600 mg PO Q8HR #9 tablet 10/27/18 RX: Doxycycline 100 mg PO BID 5 Days #10 capsule 11/25/18 RX: Ipratropium/Albuterol Neb 3 ml IH [id number] PRN #90 inhsol 11/25/18 [Duoneb] RX: predniSONE [PredniSONE] 40 mg PO DAILY #10 tablet 11/25/18 Allergies Allergy/AdvReac Type Severity Reaction Status Date / Time Penicillins Allergy Anaphylaxis Verified 07/09/18 10:03 codeine AdvReac Hives Verified 07/09/18 10:03 Constitutional: Denies: fever, chills Cardiovascular: Denies: chest pain, palpitations Respiratory: Denies: cough, dyspnea, wheezes Gastrointestinal: Reports: abdominal pain, nausea, vomiting. Denies: diarrhea, constipation, hematemesis, melena, hematochezia Genitourinary: Denies: urgency, dysuria Musculoskeletal: Denies: back pain, neck pain Integumentary: Denies: rash Past Medical History - Past Medical History Medical history: Reports: COPD, hepatitis, hypertension, seizures, other Surgical history: Reports: no surgical history Psychiatric history: Reports: anxiety, depression - Social History Smoking Status: Former smoker Smokeless Tobacco Status: Yes Alcohol use: Reports: heavy, recent Drug use: Reports: marijuana, prescription drug abuse, other Physical Exam - General Limitations: no limitations General appearance: alert, in no apparent distress Course Course Narrative: At time of sign out the patient is awaiting labs as well as CT scan the abdomen pelvis. Patient does admit to a history of alcoholism with alcoholic pancreatitis in the past. Presenting with abdominal pain. Patient states is not a daily drinker but did drink a couple days ago. On exam the patient appears resting comfortably. No needs at this time. - Reevaluation(s) Reevaluation #1: Patient seen and examined. Time: 21:07 Vital Signs Temperature 98.8 F 11/27/18 17:32 Pulse Rate 68 11/27/18 17:32 Respiratory Rate 18 11/27/18 17:32 Blood Pressure 168/105 11/27/18 17:32 O2 Sat by Pulse Oximetry 96 11/27/18 17:32 Temperature 98.8 F 11/27/18 17:32 Pulse Rate 65 11/27/18 20:49 Respiratory Rate 17 11/27/18 20:49 Blood Pressure 174/98 11/27/18 20:49 O2 Sat by Pulse Oximetry 95 11/27/18 20:49 Oxygen Delivery Oxygen Delivery Room Air Medical Decision Making - [facility] Narrative Medical decision making narrative: Patient presented for concerns of abdominal pain. Patient's in known alcoholic known hepatitis see from IV drug use who presents for concerns of epigastric pain. Patient's pain started 2 days ago after drinking alcohol. Patient's workup was initiated by the prior provider. Patient had basic labs as well as symptomatically treatment with anti-inflammatories antiemetics. Patient required escalation of therapies. Patient had CT scan which shows no evidence of pancreatitis however did have dilation of the hepatic biliary ducts. Recommended MRCP. Patient pain was not necessary control. Given the patient's continued pain with CT findings that prompted additional evaluation the patient will be admitted for facet evaluation. Looking back in a pass it appears the patient did have a GI consult where he has had gastritis. Patient was offered home follow-up with GI versus inpatient evaluation and patient felt that he cannot control his pain in the outpatient setting. Patient's pain possibly result of chronic pancreatitis given the dilation of the intra-, extra in pancreatic dilation. Patient be admitted for continued evaluation likely GI consult. - Lab Data Lab results reviewed: Yes I reviewed the patient's lab results. Result diagrams: 11/27/18 18:23 11/27/18 18:23 Lab Results 11/27/18 11/27/18 11/27/18 Range/Units 18:03 18:23 18:23 WBC 9.0 (4.3-11.1) K/mcL RBC 4.53 (4.19-5.50) M/mcL Hgb 13.5 (12.9-16.9) g/dL Hct 41.6 (37.5-50.1) % MCV 91.8 (83.0-100.0) fL MCH 29.8 (28.0-33.3) pg MCHC 32.5 (31.6-35.5) g/dL RDW 15.1 H (11.5-14.5) % Plt Count 293 (140-400) K/mcL MPV 9.9 (9.4-12.4) fL Immature Gran % 0.2 (0-4) % Seg Neutrophils % 77.6 % Lymphocytes % 14.2 % Monocytes % 7.4 % Eosinophils % 0.0 % Basophils % 0.6 % Neutrophils # 7.0 (1.6-8.9) K/mcL Lymphocytes # 1.3 (0.6-4.6) K/mcL Monocytes # 0.7 (0.0-1.3) K/mcL Eosinophils # 0.0 (0.0-0.6) K/mcL Basophils # 0.1 (0.0-0.2) K/mcL Sodium 132 L (136-145) mEq/L Potassium 3.4 L (3.5-5.1) mEq/L Chloride 95 L (98-107) mEq/L Carbon Dioxide 27 (23-29) mEq/L BUN 11 (6-20) mg/dL Creatinine 0.48 L (0.70-1.30) mg/dL Est GFR ( Amer) > 60 (> 60) Est GFR (Non-Af Amer) > 60 (> 60) BUN/Creatinine Ratio 23 (6-26) Glucose 112 H (70-105) mg/dL Calculated Osmolality 274 L (280-300) Calcium 9.6 (8.6-10.3) mg/dL Total Bilirubin 1.0 (0.3-1.0) mg/dL Direct Bilirubin 0.2 (0.0-0.2) mg/dL Indirect Bilirubin 0.8 (0.0-1.2) mg/dL AST 30 (13-39) Units/L ALT 26 (7-52) Units/L Alkaline Phosphatase 55 (34-104) Units/L Troponin I < 0.03 (< 0.04) ng/mL Serum Total Protein 7.4 (6.4-8.9) g/dL Albumin 4.6 (3.5-5.7) g/dL Globulin 2.8 (2.4-3.5) g/dL Albumin/Globulin Ratio 1.6 (1.1-2.2) Lipase 8 L (11-82) Units/L Urine Color Yellow (Yellow) Urine Clarity Cloudy A (Clear) Urine pH 8.0 (5.0-8.0) pH Units Ur Specific [place] 1.009 L (1.010-1.025) Urine Protein Trace (Neg-Trace) mg/dL Urine Glucose (UA) Normal (Normal) mg/dL Urine Ketones 15 H (Negative) mg/dL Urine Blood Negative (Negative) Urine Nitrite Negative (Negative) Urine Bilirubin Negative (Negative) Urine Urobilinogen Normal (Normal) mg/dL Ur Leukocyte Esterase Negative (Negative) Urine Microscopic RBC 0-3 (0-3) per hpf Urine Microscopic WBC 0-3 (0-3) per hpf Ur Squamous Epith Cells Few (None-Few) per lpf Urine Bacteria None Seen (None-Few) per hpf Hyaline Casts None Seen (None-Few) per lpf Ur Culture Indicated? NO (NO) - Radiology Data Radiology results reviewed: Yes I reviewed the patient's radiology results. Abdomen/Pelvis CT 11/27/18 17:51 IMPRESSION: 1. Redemonstration of intrahepatic, extrahepatic, and pancreatic ductal dilatation is noted on previous exams. This does appear somewhat decreased. Again MRCP may be of benefit for further evaluation is recommended on prior exams to exclude the possibility of underlying mass. D/ / Sacha Hubbard MD / Sacha Hubbard MD Interpreting Provider: Sacha Hubbard MD Ayanna - yAanna Situation: Demographics Background: Presenting Complaint Assessment: Vital Signs, Course and respsone to treatment, Patient/Family Expectation Recommendation: Barrier(s) to disposition, Recommendation based on pending studies, treatments, or consults Ayanna Report Given to: Dr. Matthew Urena Repor Time: 22:41 Attestation Statement - Attestation Attestation: Resident Attestation: I examined this patient and my medical decision making was reviewed with the Resident Physician. I agree with the documented findings, disposition and treatment plan as described except to the extent set forth below. We independently had [id number] contact with the patient. Patient taken over at sign out from Dr. Breaux.. Patient with a history of chronic pancreatitis. Patient with abdominal pain as well as nausea. Decreased by mouth. Blood work and CT scan pending. Blood work and CT scan without significant acute findings. Dilated pancreatic and bile ducts noted on prior scan. Patient reevaluated requiring repeat dose of pain and nausea medications. Patient will attempt to have by mouth challenge. Patient with no significant improvement in symptoms. Given the history as well as CT scan findings. Patient admitted to the hospitalist service. No acute distress, flat affect. Abdomen generalized tender worse in the epigastric region with associated moderate tenderness, no guarding or rebound.
[2018-11-27] MEDS ORDERED: *HR* HYDROmorphone (PF) 1 MG/ML SYRINGE IVP ONE ×2 (19:40→21:52)
[2018-11-27] MEDS ORDERED: Metoclopramide 10 MG/2 ML VIAL IVP ONE (19:40)
[2018-11-27] MEDS ORDERED: Folic Acid 1 MG TABLET PO ONE (21:55)
[2018-11-27] MEDS ORDERED: Thiamine (B-1) 100 MG TABLET PO ONE (21:55)
[2018-11-27] MEDS ORDERED: Pantoprazole 40 MG VIAL IVP ONE (21:58)
[2018-11-27] MEDS ORDERED: 0.9 % Sodium Chloride 1,000 ML IVC SCH (22:45)
--- NOTE | 2018-11-27 22:59 | Internal Med History&Physical ---
Date of Encounter: 11/28/18 Time of Encounter: 22:58 Internal Medicine - H&P: HPI Chief complaint: abdominal pain Admitted From: Home Plans for Post Hospital Care: Home () History of present illness: Kiran Galindo is a 53 year old man former smoker with severe COPD, hypertension, seizure d/o, hepatitis C and substance use disorder now on methadone program who has been admitted multiple times for COPD exacerbations. He comes in now complaining of epigastric pain the morning after drinking half a gallon of vodka 3 days ago described as sharp and stabbing with radiation to the back. It is associated with nonbloody, nonbilious vomiting. He denied fever, chest pain and shortness of breath. In the ER he was given fluids, antiemetics and analgesics. Serum lipase was within normal limits or seen to have mild hyponatremia and hypokalemia. Abdomen CT showed redemonstration of intrahepatic, extrahepatic and pancreatic ductal dilation as noted on prior exams but appears decreased with the recommendation of doing an MRCP. It is noted on review of old records that he has been evaluated in the past for the same problem of abdominal pain and a dilated CBD, seen by GI in June 2018 and undergoing MRCP with no significant findings. This time we will admit him for symptomatic relief of intractable epigastralgia. Past Med Surg Social Fam HX - Past Medical History Medical history: COPD, hepatitis, hypertension, seizures, other Additional medical history: hep C. pancreatitis Psychiatric history: anxiety, depression - Past Surgical History Surgical History: no surgical history - Social History Smoking Status: Former smoker Smokeless Tobacco Status: Yes Alcohol use: heavy, recent Drug use: marijuana, prescription drug abuse, other - Family History Mother Family Member Ethnicity: Non- Living Status: Still Living Hx Family Endocrine Disorder: Yes (DM) Father Living Status: Hx Family Respiratory Disorders: Yes (COPD) Internal Medicine - H&P: Meds Albuterol Sulfate [Ventolin Hfa] 2 puff IH Q4H PRN 07/09/18 [History] Gabapentin [Neurontin] 400 mg PO QID 07/09/18 [History] Mirtazapine [Remeron] 30 mg PO HS 07/09/18 [History] Omeprazole [PriLOSEC] 40 mg PO BID 07/09/18 [History] Phenytoin ER [Dilantin ER] 100 mg PO TID 07/09/18 [History] Thiamine HCl [Vitamin B-1] 100 mg PO DAILY 07/09/18 [History] hydrOXYzine HCl [Hydroxyzine HCl] 50 mg PO TID PRN 07/09/18 [History] Gabapentin [Neurontin] 600 mg PO Q8HR #9 tablet 10/27/18 [Rx] Methadone Oral Concentrate [Methadone] 70 mg PO DAILY 11/24/18 [History] Doxycycline 100 mg PO BID 5 Days #10 capsule 11/25/18 [Rx] Ipratropium/Albuterol Neb [Duoneb] 3 ml IH [id number] PRN #90 inhsol 11/25/18 [Rx] predniSONE [PredniSONE] 40 mg PO DAILY #10 tablet 11/25/18 [Rx] Allergy/AdvReac Type Severity Reaction Status Date / Time Penicillins Allergy Anaphylaxis Verified 07/09/18 10:03 codeine AdvReac Hives Verified 07/09/18 10:03 All Systems PM: A 10-system review of systems was performed and is negative for pertinent findings except as documented above in the HPI. - Constitutional Vitals: Temp Pulse Resp BP Pulse Ox 98.8 F 65 17 174/98 95 11/27/18 17:32 11/27/18 20:49 11/27/18 20:49 11/27/18 20:49 11/27/18 20:49 Exam: Vitals: Reviewed General: NAD Skin: Warm and supple. HEENT: Dry oral mucous membranes. No conjunctivae pallor. Neck: No lymphadenopathy. No JVD. No carotid bruits. No palpable thyroid. Chest: Normal thoracic expansion. Normal breath sounds. Clear to auscultation. Heart: Normal S1 & S2; rhythmic. No rubs or murmurs. Abdomen: Non-distended, exquisitely tender to palpation in the epigastrium and periumbilical region. Extremities: No clubbing, cyanosis or edema. No calf tenderness. Normal distal pulses. Neurological: Awake, alert and oriented to person, place and time. No focal deficits. Psych: Affect appropriate. Internal Med - H&P Results - Labs CBC & Chem 7: 11/27/18 18:23 11/27/18 18:23 Labs: Short CBC 11/27/18 Range/Units 18:23 WBC 9.0 (4.3-11.1) K/mcL Hgb 13.5 (12.9-16.9) g/dL Hct 41.6 (37.5-50.1) % Plt Count 293 (140-400) K/mcL Neutrophils # 7.0 (1.6-8.9) K/mcL BMP 11/27/18 18:23 Sodium 132 L Potassium 3.4 L Chloride 95 L Carbon Dioxide 27 BUN 11 Creatinine 0.48 L Glucose 112 H Calcium 9.6 Cardiac Enzymes 11/27/18 Range/Units 18:23 Troponin I < 0.03 (< 0.04) ng/mL Liver Function 11/27/18 Range/Units 18:23 Total Bilirubin 1.0 (0.3-1.0) mg/dL Direct Bilirubin 0.2 (0.0-0.2) mg/dL AST 30 (13-39) Units/L ALT 26 (7-52) Units/L Alkaline Phosphatase 55 (34-104) Units/L Albumin 4.6 (3.5-5.7) g/dL Urine 11/27/18 Range/Units 18:03 Urine Color Yellow (Yellow) Urine Clarity Cloudy A (Clear) Urine pH 8.0 (5.0-8.0) pH Units Ur Specific [place] 1.009 L (1.010-1.025) Urine Protein Trace (Neg-Trace) mg/dL Urine Glucose (UA) Normal (Normal) mg/dL - Impressions ITS Impressions Abdomen/Pelvis CT 11/27/18 17:51 IMPRESSION: 1. Redemonstration of intrahepatic, extrahepatic, and pancreatic ductal dilatation is noted on previous exams. This does appear somewhat decreased. Again MRCP may be of benefit for further evaluation is recommended on prior exams to exclude the possibility of underlying mass. D/ / Sacha Hubbard MD / Sacha Hubbard MD Interpreting Provider: Sacha Hubbard MD - Assessment and plan (1) Abdominal pain Current Visit: Yes Status: Acute Assessment and plan: No serologic or radiographic signs of pancreatitis. May be associated with alcohol-related gastritis. No signs of gastroenteritis at the moment. Will continue to provide symptomatic relief measures. Qualifiers: Abdominal location: epigastric Qualified Code(s): R10.13 - Epigastric pain (2) History of substance abuse Current Visit: Yes Status: Acute Assessment and plan: Continue verified methadone dose. (3) Intrahepatic bile duct dilation Current Visit: Yes Status: Acute Assessment and plan: Evaluated in the past. No LFT abnormalities. Can undergo outpatient monitoring. (4) Anxiety Current Visit: Yes Status: Acute Assessment and plan: Resume home meds as needed. (5) COPD (chronic obstructive pulmonary disease) Current Visit: Yes Status: Chronic Assessment and plan: Not in acitve decompensation at this time. Nebulizer therapy as needed. Smoking cessation counseling given. Qualifiers: COPD type: emphysema Emphysema type: panlobular Qualified Code(s): J43.1 - Panlobular emphysema (6) DVT prophylaxis Current Visit: Yes Status: Acute Assessment and plan: SubQ heparin. (7) Electrolyte abnormality Current Visit: Yes Status: Acute Assessment and plan: Mild hyponatremia/kalemia secondary to GI fluid losses. Will fluid resuscitate and recheck values in the morning. - Time Spent With Patient Total time spent is greater than 50% in coordination of care (as documented) at patient's floor/unit and/or counseling patient: Greater than 35 minutes
[2018-11-27] MEDS ORDERED: hydrOXYzine pamoate 25 MG CAPSULE PO PRN (23:02)
[2018-11-27] MEDS ORDERED: Naloxone 0.4 MG/ML INJ IVP PRN (23:05)
[2018-11-27] MEDS ORDERED: OXYCODONE Oral CONC 10 MG/0.5 ML ORAL.SYG SL PRN (23:05)
[2018-11-27] MEDS ORDERED: Ringers Solution, Lactated 1,000 ML IVC SCH (23:15)
[2018-11-28] MEDS ORDERED: Ringers Solution, Lactated 1,000 ML IVC ONE ×2 (01:11→01:19)
[2018-11-28] MEDS: Ketorolac 30 MG/ML VIAL IVP PRN ×3 (01:18→17:25)
[2018-11-28] MEDS ORDERED: GI Cocktail 40 ML EACH PO ONE (01:19)
[2018-11-28] MEDS: Mirtazapine 15 MG TABLET PO SCH ×2 (01:19→20:35)
[2018-11-28] MEDS ORDERED: Potassium Chloride 40 MEQ in D5% in 0.9% NACL 1,000 ML IVC SCH (01:30)
[2018-11-28] MEDS ORDERED: *HR* LORazepam 2 MG/ML VIAL IVP PRN ×3 (01:53)
[2018-11-28] MEDS ORDERED: diazePAM 10 MG/2 ML SYRINGE IVP PRN (01:53)
[2018-11-28] MEDS: OXYCODONE Oral CONC 10 MG/0.5 ML ORAL.SYG SL PRN ×2 (03:26→07:43)
[2018-11-28 03:49] LABS: Amylase 46 Units/L (29-103); BUN/Creatinine Ratio 17 (6-26); Blood Urea Nitrogen 8 mg/dL (6-20); Calcium 9.4 mg/dL (8.6-10.3); Carbon Dioxide 25 mEq/L (23-29); Chloride 96 mEq/L (98-107); Ethanol < 10 mg/dL (Less than 10); Glucose 118 mg/dL (70-105); Magnesium 1.7 mg/dL (1.6-2.6); Osmolality,Calculated 271 (280-300); Potassium 3.6 mEq/L (3.5-5.1); Sodium 131 mEq/L (136-145); eGFR For Non-African Americans > 60 (> 60)
[2018-11-28] MEDS: *HR* Heparin 5,000 UNIT/ML VIAL SQ SCH ×3 (05:23→20:37)
[2018-11-28] MEDS ORDERED: METHADONE 70 MG PO SCH (09:00)
[2018-11-28] MEDS: Methadone Oral Concentrate 50 MG/5 ML UDC PO SCH (11:07)
[2018-11-28] MEDS: Gabapentin 400 MG CAPSULE PO SCH ×3 (11:08→20:35)
--- NOTE | 2018-11-28 15:13 | Internal Med Progress Note ---
Hospitalist Progress Note - Encounter Date of Encounter: 11/28/18 Time of Encounter: 15:11 - Subjective Interval History: Doing better as far as the epigastric pain is concerned. His chronic pain seems to be doing better after starting methadone. - Exam Vitals: Temp Pulse Resp BP Pulse Ox 98 F 110 16 133/93 98 11/28/18 12:25 11/28/18 12:25 11/28/18 12:25 11/28/18 12:25 11/28/18 12:25 Exam: GENERAL: Alert, no distress, cooperative EYES: PERRLA, EOMI EARS: External ears normal, canals clear OROPHARYNX: Lips, mucosa, and tongue normal. Teeth and gums normal. Oropharynx normal. NECK: No jugulovenous distention, No carotid bruits, Carotid pulse normal contour, Supple LUNGS: Lungs clear to auscultation, Good diaphragmatic excursion CARDIAC: Normal S1 and S2; no rubs, murmurs, or gallops ABDOMEN: Abdomen soft, mild tenderness to palpation in the epigastric region, no guarding no rigidity EXTREMITIES: Extremities normal, no deformities, edema, clubbing or skin discoloration. Good capillary refill., No ulcers NEURO: Gait normal. Reflexes normal and symmetric. Sensation grossly intact, Cranial nerves II-XII intact PULSES: 2+ radial, 2+ carotid Rest of the exam is non contributory - Assessment and Plan (1) COPD (chronic obstructive pulmonary disease) Current Visit: Yes Status: Chronic Assessment and Plan: Continue to monitor. Stable at this time. (2) DVT prophylaxis Current Visit: Yes Status: Acute Assessment and Plan: SubQ heparin. (3) Abdominal pain Current Visit: Yes Status: Acute Assessment and Plan: No serologic or radiographic signs of pancreatitis. May be associated with alcohol-related gastritis. No signs of gastroenteritis at the moment. Will continue to provide symptomatic relief measures. 11/28-most likely due to gastritis from his recent alcohol bout. We have started him on PPI. We will advance his diet and if he does not tolerate it we will consider adding sucralfate or gastroenterology consultation. (4) Anxiety Current Visit: Yes Status: Acute Assessment and Plan: Resume scheduled hydroxyzine while in house. (5) Intrahepatic bile duct dilation Current Visit: Yes Status: Acute (6) History of substance abuse Current Visit: Yes Status: Acute Assessment and Plan: Continue verified methadone dose. Education provided regarding cessation (7) Electrolyte abnormality Current Visit: Yes Status: Acute Assessment and Plan: Hypokalemia now improved. Continue to monitor - Time Spent with Patient Total time spent is greater than 50% in coordination of care (as documented) at patient's floor/unit and/or counseling patient: 25 - 35 minutes Plan of Care Discussed with: patient Internal Medicine: Result - Labs CBC & Chem 7: 11/27/18 18:23 11/28/18 02:59 Labs: Short CBC 11/27/18 Range/Units 18:23 WBC 9.0 (4.3-11.1) K/mcL Hgb 13.5 (12.9-16.9) g/dL Hct 41.6 (37.5-50.1) % Plt Count 293 (140-400) K/mcL Neutrophils # 7.0 (1.6-8.9) K/mcL BMP 11/27/18 11/28/18 18:23 02:59 Sodium 132 L 131 L Potassium 3.4 L 3.6 Chloride 95 L 96 L Carbon Dioxide 27 25 BUN 11 8 Creatinine 0.48 L 0.48 L Glucose 112 H 118 H Calcium 9.6 9.4 Cardiac Enzymes 11/27/18 Range/Units 18:23 Troponin I < 0.03 (< 0.04) ng/mL Liver Function 11/27/18 Range/Units 18:23 Total Bilirubin 1.0 (0.3-1.0) mg/dL Direct Bilirubin 0.2 (0.0-0.2) mg/dL AST 30 (13-39) Units/L ALT 26 (7-52) Units/L Alkaline Phosphatase 55 (34-104) Units/L Albumin 4.6 (3.5-5.7) g/dL Urine 11/27/18 Range/Units 18:03 Urine Color Yellow (Yellow) Urine Clarity Cloudy A (Clear) Urine pH 8.0 (5.0-8.0) pH Units Ur Specific [place] 1.009 L (1.010-1.025) Urine Protein Trace (Neg-Trace) mg/dL Urine Glucose (UA) Normal (Normal) mg/dL - Impressions Impressions Abdomen/Pelvis CT 11/27/18 17:51 IMPRESSION: 1. Redemonstration of intrahepatic, extrahepatic, and pancreatic ductal dilatation is noted on previous exams. This does appear somewhat decreased. Again MRCP may be of benefit for further evaluation is recommended on prior exams to exclude the possibility of underlying mass. D/ / Sacha Hubbard MD / Sacha Hubbard MD Interpreting Provider: Sacha Hubbard MD Consult Discharge Plan - Plan Referrals: Rick Hatch DO [Primary Care Provider] - (1) COPD (chronic obstructive pulmonary disease) Qualifiers: COPD type: emphysema Emphysema type: panlobular Qualified Code(s): J43.1 - Panlobular emphysema (3) Abdominal pain Qualifiers: Abdominal location: epigastric Qualified Code(s): R10.13 - Epigastric pain
[2018-11-28] MEDS: hydrOXYzine pamoate 25 MG CAPSULE PO SCH (20:35)
[2018-11-29] MEDS: *HR* Heparin 5,000 UNIT/ML VIAL SQ SCH ×4 (05:00→22:49)
[2018-11-29] MEDS: Ketorolac 30 MG/ML VIAL IVP PRN ×2 (06:48→22:53)
[2018-11-29] MEDS: Ondansetron 4 MG/2 ML VIAL IVP PRN (06:48)
[2018-11-29] MEDS: *HR* Promethazine 25 MG/ML VIAL IVP PRN (08:56)
[2018-11-29] MEDS: Gabapentin 400 MG CAPSULE PO SCH ×3 (09:00→20:51)
[2018-11-29] MEDS: hydrOXYzine pamoate 25 MG CAPSULE PO SCH ×3 (09:00→20:51)
[2018-11-29] MEDS ORDERED: OXYCODONE Oral CONC 10 MG/0.5 ML ORAL.SYG SL PRN ×2 (09:04→10:53)
[2018-11-29] MEDS: Methadone Oral Concentrate 50 MG/5 ML UDC PO SCH (09:48)
[2018-11-29] MEDS ORDERED: 0.9 % Sodium Chloride 500 ML IVC ONE ×2 (10:51→14:53)
[2018-11-29] MEDS ORDERED: *HR* LORazepam 2 MG/ML VIAL IVP PRN ×3 (10:55→14:55)
[2018-11-29 11:44] LABS: Amylase 38 Units/L (29-103); Lipase 7 Units/L (11-82)
--- NOTE | 2018-11-29 12:02 | Internal Med Progress Note ---
Hospitalist Progress Note - Encounter Date of Encounter: 11/29/18 Time of Encounter: 11:30 - Subjective Interval History: Patient's pain is significantly worse as compared to yesterday. He looks uncomfortable and is clutching onto his abdomen. He states that pain is at a severity of 1-10 about a 10 at this point and is deep boring pain in the midepigastric region. He denies any heartburn or acid reflux. He states the pain does radiate a little bit to his back and feels like his prior pancreatitis pain - Exam Vitals: Temp Pulse Resp BP Pulse Ox 99.0 F 98 16 166/111 97 11/29/18 10:22 11/29/18 10:22 11/29/18 10:22 11/29/18 10:22 11/29/18 10:22 Exam: GENERAL: Alert, significant distress, cooperative LUNGS: Lungs clear to auscultation, Good diaphragmatic excursion CARDIAC: Normal S1 and S2; no rubs, murmurs, or gallops ABDOMEN: Abdomen is soft, tenderness to palpation in the hypogastric and periumbilical region. He is guarding but there is no rigidity appreciated. PULSES: 2+ radial, 2+ carotid Rest of the exam is non contributory - Assessment and Plan (1) Abdominal pain Current Visit: Yes Status: Acute Assessment and Plan: No serologic or radiographic signs of pancreatitis. May be associated with alcohol-related gastritis. No signs of gastroenteritis at the moment. Will continue to provide symptomatic relief measures. 11/28-most likely due to gastritis from his recent alcohol bout. We have started him on PPI. We will advance his diet and if he does not tolerate it we will consider adding sucralfate or gastroenterology consultation. 11/29-significantly worse today. Prior management was ongoing for gastritis and continuing on his PPI. Today we will consult gastroenterology. In lieu of his significant intrahepatic biliary dilatation, I will to order an MRCP. Will consider sucralfate as well. Given his recent significant alcohol use and this is most likely a gastritis were dealing with I have adjusted his pain medication after consultation with the floor pharmacist and keeping in mind his prior history of methadone use (2) COPD (chronic obstructive pulmonary disease) Current Visit: Yes Status: Chronic Assessment and Plan: Continue to monitor. Stable at this time. (3) DVT prophylaxis Current Visit: Yes Status: Acute Assessment and Plan: SubQ heparin. (4) Anxiety Current Visit: Yes Status: Acute (5) Intrahepatic bile duct dilation Current Visit: Yes Status: Acute Assessment and Plan: Evaluated in the past. No LFT abnormalities. Can undergo outpatient monitoring. 11/29-we will order a MRCP. Also requesting a consult to gastroenterology (6) History of substance abuse Current Visit: Yes Status: Acute Assessment and Plan: Continue verified methadone dose. Education provided regarding cessation (7) Electrolyte abnormality Current Visit: Yes Status: Acute - Time Spent with Patient Total time spent is greater than 50% in coordination of care (as documented) at patient's floor/unit and/or counseling patient: 25 - 35 minutes Plan of Care Discussed with: patient Internal Medicine: Result - Labs CBC & Chem 7: 11/27/18 18:23 11/28/18 02:59 Consult Discharge Plan - Plan Referrals: Rick Hatch DO [Primary Care Provider] - 12/07/18 3:00 pm (Follow up as scheduled. ) (1) Abdominal pain Qualifiers: Abdominal location: epigastric Qualified Code(s): R10.13 - Epigastric pain (2) COPD (chronic obstructive pulmonary disease) Qualifiers: COPD type: emphysema Emphysema type: panlobular Qualified Code(s): J43.1 - Panlobular emphysema
[2018-11-29 12:30] LABS: Basophils % 0.2 %; Hematocrit 38.9 % (37.5-50.1); Hemoglobin 13.5 g/dL (12.9-16.9); Immature Granulocytes % 0.3 % (0-4); Lymphocytes # 1.3 K/mcL (0.6-4.6); Lymphocytes % 9.2 %; Mean Corpuscular HGB Conc 34.7 g/dL (31.6-35.5); Mean Corpuscular Hemoglobin 30.1 pg (28.0-33.3); Mean Corpuscular Volume 86.6 fL (83.0-100.0); Mean Platelet Volume 9.2 fL (9.4-12.4); Monocytes # 1.4 K/mcL (0.0-1.3); Monocytes % 9.9 %; Neutrophils # 11.4 K/mcL (1.6-8.9); Platelet Count 281 K/mcL (140-400); Red Blood Count 4.49 M/mcL (4.19-5.50); Red Cell Distribution Width 14.1 % (11.5-14.5); Segmented Neutrophils % 80.4 %
[2018-11-29 12:50] LABS: Alanine Aminotransferase 17 Units/L (7-52); Albumin/Globulin Ratio 1.5 (1.1-2.2); Alkaline Phosphatase 50 Units/L (34-104); Aspartate Amino Transferase 16 Units/L (13-39); BUN/Creatinine Ratio 15 (6-26); Blood Urea Nitrogen 12 mg/dL (6-20); Carbon Dioxide 26 mEq/L (23-29); Chloride 100 mEq/L (98-107); Globulin 2.6 g/dL (2.4-3.5); Glucose 134 mg/dL (70-105); Osmolality,Calculated 280 (280-300); Potassium 3.8 mEq/L (3.5-5.1); Sodium 134 mEq/L (136-145); Total Protein 6.6 g/dL (6.4-8.9); eGFR For Non-African Americans > 60 (> 60)
[2018-11-29] MEDS: Cefepime HCl 2,000 MG in Water for inj. (sterile) 20 ML 20 ML IVP SCH ×2 (15:10→15:20)
[2018-11-29] MEDS: MetroNIDAZOLE 500 MG/100 ML 500 MG/100 ML BAG IVPB SCH ×2 (15:15→22:54)
[2018-11-29] MEDS: Mirtazapine 15 MG TABLET PO SCH (20:51)
[2018-11-29] MEDS ORDERED: GI Cocktail 40 ML EACH PO ONE (21:00)
[2018-11-29] MEDS: OXYCODONE Oral CONC 10 MG/0.5 ML ORAL.SYG SL PRN (21:02)
[2018-11-29] MEDS ORDERED: Melatonin 3 MG TABLET PO ONE (21:04)
[2018-11-30] MEDS: *HR* Heparin 5,000 UNIT/ML VIAL SQ SCH ×3 (04:37→20:30)
[2018-11-30] MEDS: Cefepime HCl 2,000 MG in Water for inj. (sterile) 20 ML 20 ML IVP SCH ×2 (04:50→16:53)
[2018-11-30] MEDS: Ondansetron 4 MG/2 ML VIAL IVP PRN (04:50)
[2018-11-30] MEDS: Ketorolac 30 MG/ML VIAL IVP PRN ×2 (04:50→15:29)
[2018-11-30] MEDS: OXYCODONE Oral CONC 10 MG/0.5 ML ORAL.SYG SL PRN ×3 (05:09→23:29)
[2018-11-30] MEDS: Methadone Oral Concentrate 50 MG/5 ML UDC PO SCH (08:26)
[2018-11-30] MEDS: MetroNIDAZOLE 500 MG/100 ML 500 MG/100 ML BAG IVPB SCH ×3 (08:27→23:29)
[2018-11-30] MEDS: Gabapentin 400 MG CAPSULE PO SCH ×3 (08:27→20:28)
[2018-11-30] MEDS: hydrOXYzine pamoate 25 MG CAPSULE PO SCH ×3 (08:27→20:28)
--- NOTE | 2018-11-30 09:17 | Gastroenterology Consult Note ---
<Kamaljit Sandhu - Last Filed: 11/30/18 13:03> Date of Encounter: 11/30/18 Time of Encounter: 10:08 - Assessment and plan (1) Dilated cbd, acquired Current Visit: Yes Status: Acute Assessment and plan: Chronic dilatation of the CBD demonstrated on multiple imaging studies EGD on 07/14/18 demonstrated Z line irregularity with portal hypertension gastropathy and normal ampulla Patient has normal liver enzymes and pancreatic enzymes at this time MRCP is pending, however suspect that the patient will most likely benefit from ERCP with sphincterotomy due to suspected etiology of sphincter of Oddi dysfunction We will plan for ERCP in the morning, nothing by mouth at midnight (2) Abdominal pain Current Visit: Yes Status: Acute Assessment and plan: Abdominal pain, likely secondary to sphincter of Oddi dysfunction as above Plan for ERCP tomorrow Qualifiers: Abdominal location: epigastric Qualified Code(s): R10.13 - Epigastric pain - Time Spent With Patient Total time spent is greater than 50% in coordination of care (as documented) at patient's floor/unit and/or counseling patient: GI History of Present Illness - Data of Consult Patient: known to practice within the last 3 years Consult date: 11/30/18 Requesting Physician: Marilee Zabala - Consult Narrative Reason for consult: Abdominal pain History of present illness: Mr. Galindo is a 53 year old male with history of polysubstance abuse, COPD, hypertension, seizure disorder, hepatitis C and frequent admission for abdominal pain who presented to the hospital for 4 day history of abdominal pain. He describes the pain as severe pain in the epigastric region which is mostly desc ribed as burning in character. The pain apparently began after a significant episode of drinking at which time he drank apparently half a gallon of vodka. The pain is sharp and stabbing in nature, and is nonstop. It is worsened by food. It is associated with nausea however there is no vomiting. He does mention that the pain is especially worse when he eats, and it is worse and immediately after eating. Nothing seems to make it better although he has attempted to take Prilosec at home with no in the past she has had multiple admissions resulting in several CTs, MRIs and EGDs in the past. On this admission, he did have an abdominal CT which had a redemonstration of intra-and extrahepatic ductal dilatation of the CBD, however consented that it is somewhat decreased in comparison to previous. There is a recommendation for MRCP. Overall, the patient does say that he has very limited use of alcohol, and he denies NSAID use overall. This is at also with some of the previous document ation in his chart. He is in a substance abuse program and is currently on methadone. It should be noticed that on his last admission in June, the patient did have an abdominal MRI which demonstrated similar findings as above, without pancreatic mass or obvious obstruction. He did have an EGD on 07/14/18 which demonstrated Z line irregularity with portal hypertension gastropathy and normal ampulla. He additionally had EUS in 03/09 which did not demonstrate any mass or obstruction, however he did have esophageal rafael that time. Gi was consulted for recurrent abdominal pain which is intractable. EGD: 07/14/18 Past Med Surg Social Fam HX - Past Medical History Medical history: COPD, hepatitis, hypertension, seizures, other Additional medical history: hep C. pancreatitis Psychiatric history: anxiety, depression - Past Surgical History Surgical History: no surgical history - Social History Smoking Status: Former smoker Smokeless Tobacco Status: Yes Alcohol use: heavy, recent Drug use: marijuana, prescription drug abuse, other - Family History Mother Family Member Ethnicity: Non- Living Status: Still Living Hx Family Endocrine Disorder: Yes (DM) Father Living Status: Hx Family Respiratory Disorders: Yes (COPD) Review of Systems: Constitutional: Denies fevers, chills, weight loss, generalized fatigue Head/Neck: Denies EID, neck stiffness EENT: Denies vision changes/blurriness, rhinorrhea, congestion, sore throat CVS: Denies TORRES, orthopnea, edema, PND. He admits to chest pains and palpitations which he suspects are due to anxiety. Pulm: Denies SOB, cough, sputum, hemoptysis, wheezing GI: Denies vomiting, diarrhea, constipation, melena, hematemasis. Admits to abdominal pain and nausea : Denies dysuria, increased frequency, urgency, hematuria Heme: Denies ease of bleeding or bruising MSK: Denies joint pain, limited ROM Skin: Denies rashes, ulcers, color changes Neuro: Denies EID, paresthesias, focal deficits, ataxia. He does admit to visual hallucinations. - Constitutional Vitals: Temp Pulse Resp BP Pulse Ox 99.0 F 83 15 136/87 94 11/30/18 04:44 11/30/18 04:44 11/30/18 04:44 11/30/18 04:44 11/30/18 04:44 Exam: Gen: Vitals noted. No acute distress. Extremely agitated Eyes: anicteric sclerae, moist conjunctivae; no lid-lag; Pupils equal and reactive to light HENT: Atraumatic; oropharynx clear with moist mucous membranes and no mucosal ul cerations; normal hard and soft palate Neck: Trachea midline; supple, no thyromegaly or lymphadenopathy Cardiac: RRR, no murmur, +S1/S2 Pulmonary: CTA bilaterally, no wheezes, rales or rhonchi, equal chest expansion Abdomen: soft, epigastric tenderness to palpation, no guarding. No masses or hepatosplenomegaly MSK: ROM intact, no joint swelling noted Extremities: no BLE edema, nontender calf, no cyanosis or clubbing Skin: Normal temperature, turgor and texture; no rash, ulcers or subcutaneous nodules Neuro: moves all extremities, no focal deficits. Psych: Exceptionally agitated and poorly cooperative. A&Ox3 Results - Labs CBC & Chem 7: 11/29/18 12:22 11/29/18 12:22 Labs: Last Result Calcium 9.0 mg/dL (8.6-10.3) 11/29/18 12:22 Troponin I < 0.03 ng/mL (< 0.04) 11/27/18 18:23 Entire Visit Hgb 13.5 g/dL (12.9-16.9) 11/29/18 12:22 Hct 38.9 % (37.5-50.1) 11/29/18 12:22 Total Bilirubin 1.0 mg/dL (0.3-1.0) 11/29/18 12:22 AST 16 Units/L (13-39) 11/29/18 12:22 ALT 17 Units/L (7-52) 11/29/18 12:22 Amylase 38 Units/L (29-103) 11/29/18 11:15 Lipase 7 Units/L (11-82) L 11/29/18 11:15 Consult Discharge Plan - Plan Referrals: Rick Hatch DO [Primary Care Provider] - 12/07/18 3:00 pm (Follow up as anam romero. ) <Jane Francois - Last Filed: 11/30/18 17:02> Date of Encounter: 11/30/18 Time of Encounter: 14:00 - Time Spent With Patient Total time spent is greater than 50% in coordination of care (as documented) at patient's floor/unit and/or counseling patient: GI History of Present Illness - Data of Consult Requesting Physician: Marilee Zabala - Consult Narrative History of present illness: Mr. Galindo is a 53 year old male - Constitutional Vitals: Temp Pulse Resp BP Pulse Ox 99.0 F 83 15 136/87 94 11/30/18 04:44 11/30/18 04:44 11/30/18 04:44 11/30/18 04:44 11/30/18 04:44 Results - Labs CBC & Chem 7: 11/30/18 12:13 11/30/18 12:13 Labs: Last Result Calcium 9.0 mg/dL (8.6-10.3) 11/30/18 12:13 Troponin I < 0.03 ng/mL (< 0.04) 11/27/18 18:23 Entire Visit Hgb 12.7 g/dL (12.9-16.9) L 11/30/18 12:13 Hct 38.2 % (37.5-50.1) 11/30/18 12:13 Total Bilirubin 0.8 mg/dL (0.3-1.0) 11/30/18 12:13 AST 14 Units/L (13-39) 11/30/18 12:13 ALT 13 Units/L (7-52) 11/30/18 12:13 Amylase 38 Units/L (29-103) 11/29/18 11:15 Lipase 7 Units/L (11-82) L 11/29/18 11:15 - Attending Attestation I examined this patient and my medical decision-making was reviewed with the Resident Physician. I agree with the documented findings, disposition and treatment plan as described except to the extent set forth below. Patient seen patient with the abdominal pain which is more epigastric and upper abdomen more so with eating. Extensive workup for abdominal pain has been negative other than dilated CBD. LFTs are normal. Assessment: Dilated CBD with the chronic abdominal pain on and off flare concern is for SOD. Recommendation: ERCP with possible sphincterotomy
--- NOTE | 2018-11-30 13:08 | Internal Med Progress Note ---
Hospitalist Progress Note - Encounter Date of Encounter: 11/30/18 Time of Encounter: 13:06 - Subjective Interval History: Patient says that he continues to have intermittent epigastric abdominal pain also radiating around his umbilicus. He does say he feels chills but has not had overt fevers. Not accompanied by nausea or vomiting at this time. - Exam Vitals: Temp Pulse Resp BP Pulse Ox 99.0 F 83 15 136/87 94 11/30/18 04:44 11/30/18 04:44 11/30/18 04:44 11/30/18 04:44 11/30/18 04:44 Exam: GENERAL: Alert, moderate distress, cooperative LUNGS: Lungs clear to auscultation, Good diaphragmatic excursion CARDIAC: Normal S1 and S2; no rubs, murmurs, or gallops ABDOMEN: Abdomen is soft, tenderness to palpation in the hypogastric and periumbilical region. No guarding or rigidity at this time PULSES: 2+ radial, 2+ carotid Rest of the exam is non contributory - Assessment and Plan (1) Abdominal pain Current Visit: Yes Status: Acute Assessment and Plan: No serologic or radiographic signs of pancreatitis. May be associated with alcohol-related gastritis. No signs of gastroenteritis at the moment. Will continue to provide symptomatic relief measures. 11/28-most likely due to gastritis from his recent alcohol bout. We have started him on PPI. We will advance his diet and if he does not tolerate it we will consider adding sucralfate or gastroenterology consultation. 11/29-significantly worse today. Prior management was ongoing for gastritis and continuing on his PPI. Today we will consult gastroenterology. In lieu of his significant intrahepatic biliary dilatation, I will to order an MRCP. Will consider sucralfate as well. Given his recent significant alcohol use and this is most likely a gastritis were dealing with I have adjusted his pain medication after consultation with the floor pharmacist and keeping in mind his prior history of methadone use 11/30-continue current pain control. Gastroenterology consult done and his results are pending. Awaiting MRI/MRCP. Potentially considering ERCP tomorrow morning. We have antibiotic coverage for intra-abdominal pathogens given his rising white count yesterday. This morning's CBC and BMP are pending (2) COPD (chronic obstructive pulmonary disease) Current Visit: Yes Status: Chronic Assessment and Plan: Continue to monitor. Stable at this time. (3) DVT prophylaxis Current Visit: Yes Status: Acute Assessment and Plan: SubQ heparin. (4) Anxiety Current Visit: Yes Status: Acute Assessment and Plan: Resume scheduled hydroxyzine while in house. When necessary anxiolytics prior to MRCP (5) Intrahepatic bile duct dilation Current Visit: Yes Status: Acute Assessment and Plan: Evaluated in the past. No LFT abnormalities. Can undergo outpatient monitoring. 11/29-we will order a MRCP. Also requesting a consult to gastroenterology 11/30-unclear significance. Significant abdominal pain. Gastroenterology consulted and awaiting further direction of management. (6) History of substance abuse Current Visit: Yes Status: Acute (7) Electrolyte abnormality Current Visit: Yes Status: Acute Assessment and Plan: Hypokalemia now improved. Continue to monitor - Time Spent with Patient Total time spent is greater than 50% in coordination of care (as documented) at patient's floor/unit and/or counseling patient: 25 - 35 minutes Plan of Care Discussed with: patient Internal Medicine: Result - Labs CBC & Chem 7: 11/29/18 12:22 11/29/18 12:22 Consult Discharge Plan - Plan Referrals: Rick Hatch DO [Primary Care Provider] - 12/07/18 3:00 pm (Follow up as scheduled. ) (1) Abdominal pain Qualifiers: Qualified Code(s): R10.13 - Epigastric pain (2) COPD (chronic obstructive pulmonary disease) Qualifiers: Qualified Code(s): J43.1 - Panlobular emphysema
[2018-11-30 13:09] LABS: Basophils % 0.4 %; Eosinophils % 0.1 %; Hematocrit 38.2 % (37.5-50.1); Hemoglobin 12.7 g/dL (12.9-16.9); Immature Granulocytes % 0.5 % (0-4); Lymphocytes # 1.6 K/mcL (0.6-4.6); Lymphocytes % 15.5 %; Mean Corpuscular HGB Conc 33.2 g/dL (31.6-35.5); Mean Corpuscular Hemoglobin 29.7 pg (28.0-33.3); Mean Corpuscular Volume 89.3 fL (83.0-100.0); Mean Platelet Volume 9.8 fL (9.4-12.4); Monocytes # 1.3 K/mcL (0.0-1.3); Monocytes % 12.2 %; Neutrophils # 7.4 K/mcL (1.6-8.9); Platelet Count 262 K/mcL (140-400); Red Blood Count 4.28 M/mcL (4.19-5.50); Red Cell Distribution Width 14.2 % (11.5-14.5); Segmented Neutrophils % 71.3 %
[2018-11-30 13:30] LABS: Alanine Aminotransferase 13 Units/L (7-52); Albumin/Globulin Ratio 1.5 (1.1-2.2); Alkaline Phosphatase 47 Units/L (34-104); Aspartate Amino Transferase 14 Units/L (13-39); BUN/Creatinine Ratio 20 (6-26); Bilirubin,Total 0.8 mg/dL (0.3-1.0); Blood Urea Nitrogen 14 mg/dL (6-20); Carbon Dioxide 26 mEq/L (23-29); Chloride 101 mEq/L (98-107); Globulin 2.6 g/dL (2.4-3.5); Glucose 107 mg/dL (70-105); Osmolality,Calculated 283 (280-300); Potassium 3.6 mEq/L (3.5-5.1); Sodium 136 mEq/L (136-145); Total Protein 6.6 g/dL (6.4-8.9); eGFR For Non-African Americans > 60 (> 60)
[2018-11-30] MEDS: Mirtazapine 15 MG TABLET PO SCH (20:29)
[2018-11-30] MEDS ORDERED: Melatonin 3 MG TABLET PO ONE (23:38)
[2018-12-01] MEDS: Cefepime HCl 2,000 MG in Water for inj. (sterile) 20 ML 20 ML IVP SCH ×2 (05:36→19:52)
[2018-12-01] MEDS: Ketorolac 30 MG/ML VIAL IVP PRN ×2 (05:36→16:39)
[2018-12-01] MEDS: *HR* Heparin 5,000 UNIT/ML VIAL SQ SCH ×3 (05:46→21:51)
[2018-12-01] MEDS: MetroNIDAZOLE 500 MG/100 ML 500 MG/100 ML BAG IVPB SCH ×2 (08:22→16:38)
[2018-12-01] MEDS: Methadone Oral Concentrate 50 MG/5 ML UDC PO SCH (08:22)
[2018-12-01] MEDS: hydrOXYzine pamoate 25 MG CAPSULE PO SCH ×3 (08:23→21:49)
[2018-12-01] MEDS: Gabapentin 400 MG CAPSULE PO SCH ×3 (08:23→21:49)
[2018-12-01] MEDS: OXYCODONE Oral CONC 10 MG/0.5 ML ORAL.SYG SL PRN ×2 (08:33→19:52)
[2018-12-01] MEDS: *HR* Promethazine 25 MG/ML VIAL IVP PRN ×3 (09:03→23:58)
[2018-12-01] MEDS: Ipratropium/Albuterol Neb 3 ML IH PRN ×2 (10:45→12:27)
[2018-12-01] MEDS ORDERED: *HR* LORazepam 2 MG/ML VIAL IVP ONE (11:33)
--- NOTE | 2018-12-01 12:11 | Anesthesia Evaluation PreOp ---
Date of Encounter: 12/01/18 Time of Encounter: 12:09 - Past History Planned Operation: ERCP Cardiac History: Denies any Significant Hx ((PT HAS HISTORY OF LEAVING HOSPITAL AGAINST MEDICAL ADVICE & non-compliance with medical treatments), HTN), HTN Pulmonary History: Smoker ( "quit smoking" but still "vapes" 1ppd x 40yrs + Marijuana), COPD [employer] History: Seizures, Other (Aniety/Depression. Methadone dependency.) Other Medical History: Hepatic (+ HepC), GERD (Gastrit/Esophagitis/Bleeding ulcers), Other (Unexplained weight loss & epigastric discomfort) Anesthesia History: Past Anesthesia (EGD/EUS 02/2018, EGD 06/2018) Alcohol Use: heavy, recent Drug use: opiates, marijuana, IV Drug Use ("Clean x 7 weeks when questioned 06/2018 - current usage unknown), prescription drug abuse, other Medications and Allergies Albuterol Sulfate [Ventolin Hfa] 2 puff IH Q4H PRN 07/09/18 [History] Mirtazapine [Remeron] 30 mg PO HS 07/09/18 [History] Omeprazole [PriLOSEC] 40 mg PO BID 07/09/18 [History] Phenytoin ER [Dilantin ER] 100 mg PO TID 07/09/18 [History] Thiamine HCl [Vitamin B-1] 100 mg PO DAILY 07/09/18 [History] hydrOXYzine HCl [Hydroxyzine HCl] 50 mg PO TID PRN 07/09/18 [History] Methadone Oral Concentrate [Methadone] 70 mg PO DAILY 11/24/18 [History] Ipratropium/Albuterol Neb [Duoneb] 3 ml IH [id number] PRN #90 inhsol 11/25/18 [Rx] predniSONE [PredniSONE] 40 mg PO DAILY #10 tablet 11/25/18 [Rx] Gabapentin [Neurontin] 400 mg PO BID 11/29/18 [History] Gabapentin [Neurontin] 800 mg PO HS 11/29/18 [History] Allergy/AdvReac Type Severity Reaction Status Date / Time Penicillins Allergy Anaphylaxis Verified 11/29/18 13:03 codeine AdvReac Hives Verified 11/29/18 13:03 - Meds/Allergy Pre-op Review Medications Reviewed: Yes Allergies Reviewed: Yes Anesthesia Results - Labs 11/30/18 12:13 11/30/18 12:13 Laboratory Results Impressions Abdomen/Pelvis CT 11/27/18 17:51 IMPRESSION: 1. Redemonstration of intrahepatic, extrahepatic, and pancreatic ductal dilatation is noted on previous exams. This does appear somewhat decreased. Again MRCP may be of benefit for further evaluation is recommended on prior exams to exclude the possibility of underlying mass. D/ / Sacha Hubbard MD / Sacha Hubbard MD Interpreting Provider: Sacha Hubbard MD - Imaging EKG: report reviewed (64bpm - SINUS RHYTHM Electronically Signed On 11-24-2018 16:12:06 EST by Alka Galindo), image reviewed Anesthesia Exam Vital Signs Temp Pulse Resp BP Pulse Ox 12/01/18 10:45 18 98 12/01/18 07:27 98.9 F 84 16 132/92 97 12/01/18 04:57 98.8 F 85 16 149/91 96 11/30/18 19:29 98.7 F 102 16 116/79 93 Intake and Output 11/30/18 12/01/18 12/01/18 23:59 07:59 15:59 Intake Total 340 / 340 240 / 240 0 / 0 Output Total 550 / 550 250 / 250 Balance 340 / 340 -310 / -310 -250 / -250 Intake: IV Fluids 100 / 100 120 / 120 Maxipime 2,000 MG In Water for 0 / 0 20 / 20 inj. (sterile) 20 ML @ 300 mls/ hr IVP Q12HR VIJI Rx#:[id number] Flagyl Premix 500 MG/100 ML 500 100 / 100 100 / 100 mg In 100 ml @ 100 mls/hr IVPB Q8HR VIJI Rx#:[id number] Oral 240 / 240 120 / 120 0 / 0 Output: Urine 550 / 550 250 / 250 Other: # Voids 1 # Bowel Movements 0 Weight 56.9 kg Blood Glucose* 94 Patient Weight 12/01/18 23:59 Weight 56.9 kg Height: 6' Weight: 125# BMI = 17 NPO (# of Hours): MNoc - HEENT Pupil (Motor): Pupils equal, EOMI Mallampati: II Teeth: Missing, Poor dentition Oral Opening: Greater than 3 - [employer] [place] [employer] Motor: Normal RUE, Normal LUE, Normal RLE, Normal LLE, Normal Face [employer] [employer] Sensory: Normal: RUE, LUE, RLE, LLE, Face - Cardiac Rhythm: Regular Murmur: None - Pulmonary Respiratory Effort: Symmetrical Anesthesia Assess/Plan ASA Score: 4 Level of consciousness: Cooperative, Oriented, Tranquil Anesthetic Plan: General Monitoring Plan: Standard Monitors Recovery Plan: PACU Anes Supervising Prov Stmt: PT seen/evaluated, R&B discussed, questions answered and consent obtained. Sandra Leung MD
[2018-12-01] MEDS ORDERED: Ipratropium/Albuterol Neb 3 ML IH ONE (12:20)
[2018-12-01] MEDS ORDERED: Ringers Solution, Lactated 1,000 ML IVC SCH (12:30)
[2018-12-01] MEDS ORDERED: *HR* Midazolam HCl 2 MG/2 ML VIAL ONE (12:35)
[2018-12-01] MEDS ORDERED: Dexamethasone 4 MG/ML VIAL ONE (12:35)
[2018-12-01] MEDS ORDERED: Ondansetron 4 MG/2 ML VIAL ONE (12:35)
[2018-12-01] MEDS ORDERED: *HR* FentaNYL (PF) 100 MCG/2 ML VIAL ONE (12:35)
[2018-12-01] MEDS ORDERED: *HR* Succinylcholine 200 MG/10 ML VIAL IVP ONE (12:35)
[2018-12-01] MEDS ORDERED: Lidocaine -MPF 2% 2 ML VIAL ONE (12:35)
[2018-12-01] MEDS ORDERED: Simethicone 40 MG/0.6 ML MLS IR ONE (12:49)
[2018-12-01] MEDS ORDERED: Indomethacin 50 MG SUPP.RECT RC ONE (13:54)
--- NOTE | 2018-12-01 14:16 | Internal Med Progress Note ---
Hospitalist Progress Note - Encounter Date of Encounter: 12/01/18 Time of Encounter: 10:30 - Subjective Interval History: Patient continues to have intermittent epigastric abdominal pain. Denies any new nausea or vomiting planned for sphincterotomy and ERCP later on today - Exam Vitals: Temp Pulse Resp BP Pulse Ox 98.7 F 90 18 122/91 95 12/01/18 12:16 12/01/18 12:16 12/01/18 12:16 12/01/18 12:16 12/01/18 12:16 Exam: GENERAL: Alert, moderate distress, cooperative EYES: PERRLA, EOMI EARS: External ears normal, canals clear OROPHARYNX: Lips, mucosa, and tongue normal. Teeth and gums normal. Oropharynx normal. NECK: No jugulovenous distention, No carotid bruits, Carotid pulse normal contour, Supple LUNGS: Lungs clear to auscultation, Good diaphragmatic excursion CARDIAC: Normal S1 and S2; no rubs, murmurs, or gallops ABDOMEN: Tenderness to palpation in the epigastric region and the umbilical region. No guarding or rigidity, no rebound tenderness EXTREMITIES: Extremities normal, no deformities, edema, clubbing or skin discoloration. Good capillary refill., No ulcers NEURO: Gait normal. Reflexes normal and symmetric. Sensation grossly intact, Cranial nerves II-XII intact PULSES: 2+ radial, 2+ carotid Rest of the exam is non contributory - Assessment and Plan (1) Abdominal pain Current Visit: Yes Status: Acute Assessment and Plan: No serologic or radiographic signs of pancreatitis. May be associated with alcohol-related gastritis. No signs of gastroenteritis at the moment. Will continue to provide symptomatic relief measures. 11/28-most likely due to gastritis from his recent alcohol bout. We have started him on PPI. We will advance his diet and if he does not tolerate it we will consider adding sucralfate or gastroenterology consultation. 11/29-significantly worse today. Prior management was ongoing for gastritis and continuing on his PPI. Today we will consult gastroenterology. In lieu of his significant intrahepatic biliary dilatation, I will to order an MRCP. Will consider sucralfate as well. Given his recent significant alcohol use and this is most likely a gastritis were dealing with I have adjusted his pain medication after consultation with the floor pharmacist and keeping in mind his prior history of methadone use 11/30-continue current pain control. Gastroenterology consult done and his results are pending. Awaiting MRI/MRCP. Potentially considering ERCP tomorrow morning. We have antibiotic coverage for intra-abdominal pathogens given his rising white count yesterday. This morning's CBC and BMP are pending 12/01-appreciate follow-up from gastroenterology. This patient has sphincter of oddi dysfunction as one of his differentials. This could also very well be from his significant use of methadone. Methadone is also implicated in dilatation of the intrahepatic bili ducts as is his case. This is probably the only suggestion at this point to help this patient from a l caitlin-term standpoint. I am not really sure of how much pain control we are able to have but this at least would answer a lot of his recurrent admissions. patient is excited to undergo this procedure. (2) COPD (chronic obstructive pulmonary disease) Current Visit: Yes Status: Chronic Assessment and Plan: Continue to monitor. Stable at this time. (3) DVT prophylaxis Current Visit: Yes Status: Acute Assessment and Plan: SubQ heparin. (4) Anxiety Current Visit: Yes Status: Acute Assessment and Plan: Resume scheduled hydroxyzine while in house. When necessary anxiolytics prior to MRCP (5) Intrahepatic bile duct dilation Current Visit: Yes Status: Acute Assessment and Plan: Evaluated in the past. No LFT abnormalities. Can undergo outpatient monitoring. 11/29-we will order a MRCP. Also requesting a consult to gastroenterology 11/30-unclear significance. Significant abdominal pain. Gastroenterology consulted and awaiting further direction of management. 12/01-methadone has been implicated in hepatic ductal dilatation. Plan to undergo ERCP today with a sphincterotomy (6) History of substance abuse Current Visit: Yes Status: Acute (7) Electrolyte abnormality Current Visit: Yes Status: Acute - Time Spent with Patient Total time spent is greater than 50% in coordination of care (as documented) at patient's floor/unit and/or counseling patient: 25 - 35 minutes Internal Medicine: Result - Labs CBC & Chem 7: 11/30/18 12:13 11/30/18 12:13 Consult Discharge Plan - Plan Referrals: Rick Hatch DO [Primary Care Provider] - 12/07/18 3:00 pm (Follow up as scheduled. ) (1) Abdominal pain Qualifiers: Abdominal location: epigastric Qualified Code(s): R10.13 - Epigastric pain (2) COPD (chronic obstructive pulmonary disease) Qualifiers: COPD type: emphysema Emphysema type: panlobular Qualified Code(s): J43.1 - Panlobular emphysema
--- NOTE | 2018-12-01 15:06 | Anesthesia Evaluation Post Op ---
Date of Encounter: 12/01/18 Time of Encounter: 15:10 - Vital Signs Vital Signs: Vital Signs/O2 Sat/Glucose, Most Current Temp Pulse Resp BP Pulse Ox 12/01/18 14:57 73 12 143/97 94 12/01/18 14:47 99.7 F H 79 12 155/99 94 12/01/18 14:37 78 20 166/104 98 12/01/18 14:27 74 19 147/109 100 12/01/18 14:17 99.5 F 82 16 165/40 99 12/01/18 12:16 98.7 F 90 18 122/91 95 - Lungs Lungs: Clear Ascult./Percussion - Cardiovascular Regular Rate - Mental Status Mental Status: Alert & Oriented, Answers Appropriately - Pain Pain Scale: 0 - Nausea Vomiting Nausea Vomiting: Not Present - Hydration Hydration: Ice chips - Discharge PostOp Status: Transfer Patient to floor
[2018-12-01] MEDS: 0.9 % Sodium Chloride 1,000 ML IVC SCH (16:00)
--- NOTE | 2018-12-01 17:30 | Electrocardiograph Report ---
[place] [id number] Test Date: 2018-11-29 Pat Name: Kiran Galindo Department: 115 Room: 3A33 Gender: M [employer] In[employer]: SHERRI : 1965 Requested By: Marilee Zabala Order Number: [id number] Reading MD: Alka Galindo Measurements Intervals [place] Rate: 91 P: -39 CA: 133 QRS: 54 QRSD: 90 T: 73 QT: 404 QTc: 453 Interpretive Statements SINUS RHYTHM Electronically Signed On 12-01-2018 17:28:59 EST by Alka Galindo
[2018-12-01] MEDS: *HR* LORazepam 1 MG TABLET PO PRN (19:52)
[2018-12-01] MEDS: Mirtazapine 15 MG TABLET PO SCH (21:50)
[2018-12-01] MEDS ORDERED: Melatonin 3 MG TABLET PO ONE (23:00)
[2018-12-02] MEDS: MetroNIDAZOLE 500 MG/100 ML 500 MG/100 ML BAG IVPB SCH ×4 (00:01→23:33)
[2018-12-02] MEDS ORDERED: *HR* Metoprolol 5 MG/5 ML VIAL IVP ONE (01:28)
[2018-12-02] MEDS: *HR* LORazepam 1 MG TABLET PO PRN ×2 (03:18→09:14)
[2018-12-02] MEDS: Ondansetron 4 MG/2 ML VIAL IVP PRN (05:00)
[2018-12-02] MEDS: OXYCODONE Oral CONC 10 MG/0.5 ML ORAL.SYG SL PRN (05:00)
[2018-12-02] MEDS: Cefepime HCl 2,000 MG in Water for inj. (sterile) 20 ML 20 ML IVP SCH ×2 (05:02→17:08)
[2018-12-02] MEDS: 0.9 % Sodium Chloride 1,000 ML IVC SCH ×3 (05:45→15:45)
[2018-12-02] MEDS: *HR* Heparin 5,000 UNIT/ML VIAL SQ SCH ×3 (05:46→21:36)
[2018-12-02] MEDS: Methadone Oral Concentrate 50 MG/5 ML UDC PO SCH (07:10)
[2018-12-02] MEDS: Gabapentin 400 MG CAPSULE PO SCH ×3 (07:15→21:35)
[2018-12-02] MEDS: hydrOXYzine pamoate 25 MG CAPSULE PO SCH ×3 (07:15→21:36)
[2018-12-02] MEDS: *HR* Promethazine 25 MG/ML VIAL IVP PRN (07:16)
--- NOTE | 2018-12-02 08:16 | Gastroenterology Progress Note ---
<Kamaljit Sandhu - Last Filed: 12/02/18 11:35> Date of Encounter: 12/02/18 Time of Encounter: 09:19 - Assessment and plan (1) Dilated cbd, acquired Current Visit: Yes Status: Acute Assessment and plan: Chronic dilatation of the CBD demonstrated on multiple imaging studies EGD on 07/14/18 demonstrated Z line irregularity with portal hypertension gastropathy and normal ampulla Patient is status post ERCP done 12/01/18 with sphincterotomy and stent placement Today he says that his pain has significantly improved compared to previous There is some mild improvement on labs, however he did not ever have any signifi cant laboratory derangements We will continue to monitor as an outpatient to determine whether or not his abdominal pain remains improved (2) Abdominal pain Current Visit: Yes Status: Acute Assessment and plan: Abdominal pain, improved compared to prior days s/p ERCP Recommend tapering Pain medications as tolerated Qualifiers: Abdominal location: epigastric Qualified Code(s): R10.13 - Epigastric pain (3) Hallucination Current Visit: Yes Status: Acute Assessment and plan: Patient is experiencing worsening visual hallucinations Unclear etiology at this time, alcohol withdrawal is a consideration I will order an ammonia level - Time Spent With Patient Total time spent is greater than 50% in coordination of care (as documented) at patient's floor/unit and/or counseling patient: - Subjective Interval history: Patient resting in bed at time of examination. The patient says that he continues to experience hallucinations and is flustered by these, however his pain has resolved quite substantially. He has no acute complaints today. - Constitutional Vitals: Temp Pulse Resp BP Pulse Ox 98.8 F 97 14 169/98 95 12/02/18 06:45 12/02/18 06:45 12/02/18 06:45 12/02/18 06:45 12/02/18 06:45 Exam: Gen: Vitals noted. No acute distress. Eyes: anicteric sclerae, moist conjunctivae; no lid-lag; Pupils equal and reactive to light HENT: Atraumatic; oropharynx clear with moist mucous membranes and no mucosal ulcerations; normal hard and soft palate Neck: Trachea midline; supple, no thyromegaly or lymphadenopathy Cardiac: RRR, no murmur, +S1/S2 Pulmonary: CTA bilaterally, no wheezes, rales or rhonchi, equal chest expansion Abdomen: soft, epigastric tenderness to palpation, mild guarding. No masses or hepatosplenomegaly MSK: ROM intact, no joint swelling noted Extremities: no BLE edema, nontender calf, no cyanosis or clubbing Skin: Normal temperature, turgor and texture; no rash, ulcers or subcutaneous nodules Neuro: moves all extremities, no focal deficits. Psych: A&Ox3, complaining of visual hallucinations but pleasant Results - Labs CBC & Chem 7: 12/02/18 08:39 12/02/18 08:39 Labs: Last Result Calcium 9.0 mg/dL (8.6-10.3) 11/30/18 12:13 Troponin I < 0.03 ng/mL (< 0.04) 11/27/18 18:23 Entire Visit Hgb 12.7 g/dL (12.9-16.9) L 11/30/18 12:13 Hct 38.2 % (37.5-50.1) 11/30/18 12:13 Total Bilirubin 0.8 mg/dL (0.3-1.0) 11/30/18 12:13 AST 14 Units/L (13-39) 11/30/18 12:13 ALT 13 Units/L (7-52) 11/30/18 12:13 Amylase 38 Units/L (29-103) 11/29/18 11:15 Lipase 7 Units/L (11-82) L 11/29/18 11:15 - Impressions Impressions Cath/Invasive Procedure 12/01/18 12:40 IMPRESSION: ERCP images as described. Please refer to the procedure report for further details. D/ / 12/01/2018 14:44:10 Bety Vazquez MD / Rosa M Heredia Interpreting Provider: Bety Vazquez MD Consult Discharge Plan - Plan Referrals: Rick Hatch DO [Primary Care Provider] - 12/07/18 3:00 pm (Follow up as scheduled. ) <Jane Francois - Last Filed: 12/02/18 11:54> Date of Encounter: 12/02/18 - Time Spent With Patient Total time spent is greater than 50% in coordination of care (as documented) at patient's floor/unit and/or counseling patient: - Constitutional Vitals: Temp Pulse Resp BP Pulse Ox 98.8 F 97 14 169/98 95 12/02/18 06:45 12/02/18 06:45 12/02/18 06:45 12/02/18 06:45 12/02/18 06:45 Results - Labs CBC & Chem 7: 12/02/18 08:39 12/02/18 08:39 Labs: Last Result Calcium 9.1 mg/dL (8.6-10.3) 12/02/18 08:39 Troponin I < 0.03 ng/mL (< 0.04) 11/27/18 18:23 Entire Visit Hgb 12.5 g/dL (12.9-16.9) L 12/02/18 08:39 Hct 36.1 % (37.5-50.1) L 12/02/18 08:39 Total Bilirubin 0.8 mg/dL (0.3-1.0) 12/02/18 08:39 AST 13 Units/L (13-39) 12/02/18 08:39 ALT 11 Units/L (7-52) 12/02/18 08:39 Ammonia 37 mcmol/L (16-53) 12/02/18 09:42 Amylase 46 Units/L (29-103) 12/02/18 08:39 Lipase 18 Units/L (11-82) 12/02/18 08:39 - Impressions Impressions Cath/Invasive Procedure 12/01/18 12:40 IMPRESSION: ERCP images as described. Please refer to the procedure report for further details. D/ / 12/01/2018 14:44:10 Bety Vazquez MD / Rosa M Heredia Interpreting Provider: Bety Vazquez MD - Attending Attestation I examined this patient and my medical decision-making was reviewed with the Resident Physician. I agree with the documented findings, disposition and treatment plan as described except to the extent set forth below. Patient seen patient is currently confused. On examination abdomen is soft. Assessment: Patient with dilated CBD status post ERCP with sphincterotomy and stent placement LFTs are normal. Confusion which could be due to withdrawal fro m drug/alcohol. Recommendation: Follow up with GI as an outpatient.
[2018-12-02 09:12] LABS: Alanine Aminotransferase 11 Units/L (7-52); Albumin/Globulin Ratio 1.6 (1.1-2.2); Alkaline Phosphatase 44 Units/L (34-104); Aspartate Amino Transferase 13 Units/L (13-39); BUN/Creatinine Ratio 10 (6-26); Bilirubin,Total 0.8 mg/dL (0.3-1.0); Blood Urea Nitrogen 8 mg/dL (6-20); Calcium 9.1 mg/dL (8.6-10.3); Carbon Dioxide 26 mEq/L (23-29); Chloride 99 mEq/L (98-107); Globulin 2.5 g/dL (2.4-3.5); Glucose 152 mg/dL (70-105); Osmolality,Calculated 281 (280-300); Potassium 3.2 mEq/L (3.5-5.1); Sodium 135 mEq/L (136-145); Total Protein 6.5 g/dL (6.4-8.9); eGFR For Non-African Americans > 60 (> 60)
[2018-12-02 09:52] LABS: Basophils % 0.5 %; Eosinophils # 0.1 K/mcL (0.0-0.6); Eosinophils % 0.6 %; Hematocrit 36.1 % (37.5-50.1); Hemoglobin 12.5 g/dL (12.9-16.9); Immature Granulocytes % 0.2 % (0-4); Lymphocytes # 1.5 K/mcL (0.6-4.6); Lymphocytes % 18.6 %; Mean Corpuscular HGB Conc 34.6 g/dL (31.6-35.5); Mean Corpuscular Hemoglobin 30.1 pg (28.0-33.3); Mean Platelet Volume 9.6 fL (9.4-12.4); Monocytes # 1.3 K/mcL (0.0-1.3); Monocytes % 15.5 %; Neutrophils # 5.3 K/mcL (1.6-8.9); Platelet Count 307 K/mcL (140-400); Red Blood Count 4.15 M/mcL (4.19-5.50); Red Cell Distribution Width 13.5 % (11.5-14.5); Segmented Neutrophils % 64.6 %
[2018-12-02 10:00] LABS: Amylase 46 Units/L (29-103); Lipase 18 Units/L (11-82)
[2018-12-02] MEDS: Ketorolac 30 MG/ML VIAL IVP PRN ×2 (10:48→17:09)
[2018-12-02] MEDS ORDERED: *HR* LORazepam 2 MG/ML VIAL IVP ONE (11:15)
[2018-12-02] MEDS ORDERED: Haloperidol Lactate 5 MG/ML VIAL IM ONE ×2 (11:27→12:28)
--- NOTE | 2018-12-02 11:31 | Internal Med Progress Note ---
Hospitalist Progress Note - Encounter Date of Encounter: 12/02/18 Time of Encounter: 11:27 - Subjective Interval History: This morning patient is completely confused and apparently this started last evening right after his anesthesia from his procedure. He is normally in a sense at all and is trying to get up from the bed. - Exam Vitals: Temp Pulse Resp BP Pulse Ox 98.8 F 97 14 169/98 95 12/02/18 06:45 12/02/18 06:45 12/02/18 06:45 12/02/18 06:45 12/02/18 06:45 Exam: GENERAL: He is an alert but completely confused and not oriented at all, not answering questions appropriately. LUNGS: Lungs clear to auscultation, Good diaphragmatic excursion CARDIAC: Normal S1 and S2; no rubs, murmurs, or gallops ABDOMEN: Tenderness to palpation in the epigastric region and the umbilical region. No guarding or rigidity, no rebound tenderness EXTREMITIES: Extremities normal, no deformities, edema, clubbing or skin discoloration. Good capillary refill., No ulcers NEURO: Full neuro exam not performed for obvious reasons PULSES: 2+ radial, 2+ carotid Rest of the exam is non contributory - Assessment and Plan (1) Acute metabolic encephalopathy Current Visit: Yes Status: Acute Assessment and Plan: This is brand-new for him and started yesterday evening early in the morning this morning after the ERCP was performed. I personally believe that this is most likely an anesthesia effect. This does not conform to alcohol withdrawal because this is day 6 inpatient and if true alcohol withdrawal that should have manifested earlier. Regardless we will adjust his Ativan accordingly to make sure that he is not harming himself or anybody else. If we have to give him IM Haldol, we will keep that standby. I discussed this with nursing and pharmacy. Continue to closely monitor his neuro status. He is moving all extremities and his pupils are equal and reactive. I would hold off on imaging of his brain at this point. His labs do appear stable at this point (2) Abdominal pain Current Visit: Yes Status: Acute Assessment and Plan: No serologic or radiographic signs of pancreatitis. May be associated with alcohol-related gastritis. No signs of gastroenteritis at the moment. Will continue to provide symptomatic relief measures. 11/28-most likely due to gastritis from his recent alcohol bout. We have started him on PPI. We will advance his diet and if he does not tolerate it we will consider adding sucralfate or gastroenterology consultation. 11/29-significantly worse today. Prior management was ongoing for gastritis and continuing on his PPI. Today we will consult gastroenterology. In lieu of his significant intrahepatic biliary dilatation, I will to order an MRCP. Will consider sucralfate as well. Given his recent significant alcohol use and this is most likely a gastritis were dealing with I have adjusted his pain medication after consultation with the floor pharmacist and keeping in mind his prior history of methadone use 11/30-continue current pain control. Gastroenterology consult done and his results are pending. Awaiting MRI/MRCP. Potentially considering ERCP tomorrow morning. We have antibiotic coverage for intra-abdominal pathogens given his rising white count yesterday. This morning's CBC and BMP are pending 12/01-appreciate follow-up from gastroenterology. This patient has sphincter of oddi dysfunction as one of his differentials. This could also very well be from his significant use of methadone. Methadone is also implicated in dilatation of the intrahepatic bili ducts as is his case. This is probably the only suggestion at this point to help this patient from a long-term standpoint. I am not really sure of how much pain control we are able to have but this at least would answer a lot of his recurrent admissions. patient is excited to undergo this procedure. 12/02-patient underwent a ERCP with a temporary stent placement at the papilla. His pain was better controlled yesterday morning but today I cannot really assess his pain given his confusion. We will continue to monitor closely. (3) COPD (chronic obstructive pulmonary disease) Current Visit: Yes Status: Chronic Assessment and Plan: Continue to monitor. Stable at this time. (4) DVT prophylaxis Current Visit: Yes Status: Acute Assessment and Plan: SubQ heparin. (5) Anxiety Current Visit: Yes Status: Acute Assessment and Plan: Resume scheduled hydroxyzine while in house. When necessary anxiolytics prior to MRCP 12/02-overall he is anxious and upset. He is undergoing acute metabolic enc ephalopathy most likely secondary to effect of anesthesia (6) Intrahepatic bile duct dilation Current Visit: Yes Status: Acute (7) History of substance abuse Current Visit: Yes Status: Acute (8) Electrolyte abnormality Current Visit: Yes Status: Acute - Time Spent with Patient Total time spent is greater than 50% in coordination of care (as documented) at patient's floor/unit and/or counseling patient: Greater than 35 minutes Plan of Care Discussed with: nurse (More than 50% time spent in [id number] counseling) Internal Medicine: Result - Labs CBC & Chem 7: 12/02/18 08:39 12/02/18 08:39 Labs: Short CBC 12/02/18 Range/Units 08:39 WBC 8.3 (4.3-11.1) K/mcL Hgb 12.5 L (12.9-16.9) g/dL Hct 36.1 L (37.5-50.1) % Plt Count 307 (140-400) K/mcL Neutrophils # 5.3 (1.6-8.9) K/mcL BMP 12/02/18 08:39 Sodium 135 L Potassium 3.2 L Chloride 99 Carbon Dioxide 26 BUN 8 Creatinine 0.84 Glucose 152 H Calcium 9.1 Liver Function 12/02/18 Range/Units 08:39 Total Bilirubin 0.8 (0.3-1.0) mg/dL AST 13 (13-39) Units/L ALT 11 (7-52) Units/L Alkaline Phosphatase 44 (34-104) Units/L Albumin 4.0 (3.5-5.7) g/dL - Impressions Impressions Cath/Invasive Procedure 12/01/18 12:40 IMPRESSION: ERCP images as described. Please refer to the procedure report for further details. D/ / 12/01/2018 14:44:10 Bety Vazquez MD / Rosa M Heredia Interpreting Provider: Bety Vazquez MD Consult Discharge Plan - Plan Referrals: Rick Hatch DO [Primary Care Provider] - 12/07/18 3:00 pm (Follow up as scheduled. ) (2) Abdominal pain Qualifiers: Abdominal location: epigastric Qualified Code(s): R10.13 - Epigastric pain (3) COPD (chronic obstructive pulmonary disease) Qualifiers: COPD type: emphysema Emphysema type: panlobular Qualified Code(s): J43.1 - Panlobular emphysema
[2018-12-02] MEDS: Acetaminophen IV 1,000 MG/100 ML INFUS..BTL IVPB SCH ×2 (12:00→17:43)
[2018-12-02] MEDS ORDERED: Haloperidol Lactate 5 MG/ML VIAL ONE (12:29)
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
[2018-12-02] MEDS: *HR* LORazepam 2 MG/ML VIAL IVP PRN ×2 (15:47→21:34)
[2018-12-02] MEDS: Mirtazapine 15 MG TABLET PO SCH (21:47)
[2018-12-03] MEDS: Acetaminophen IV 1,000 MG/100 ML INFUS..BTL IVPB SCH ×3 (01:02→12:09)
[2018-12-03] MEDS: 0.9 % Sodium Chloride 1,000 ML IVC SCH (03:01)
[2018-12-03] MEDS: Ketorolac 30 MG/ML VIAL IVP PRN ×2 (03:02→10:52)
[2018-12-03] MEDS: *HR* LORazepam 2 MG/ML VIAL IVP PRN ×2 (04:28→10:51)
[2018-12-03] MEDS: *HR* Heparin 5,000 UNIT/ML VIAL SQ SCH (05:30)
[2018-12-03] MEDS: Cefepime HCl 2,000 MG in Water for inj. (sterile) 20 ML 20 ML IVP SCH (05:31)
[2018-12-03] MEDS: Methadone Oral Concentrate 50 MG/5 ML UDC PO SCH (08:47)
[2018-12-03] MEDS: MetroNIDAZOLE 500 MG/100 ML 500 MG/100 ML BAG IVPB SCH (08:48)
[2018-12-03] MEDS: Gabapentin 400 MG CAPSULE PO SCH (08:49)
[2018-12-03] MEDS: hydrOXYzine pamoate 25 MG CAPSULE PO SCH (08:49)
[2018-12-03 11:55] VITALS: BP 109/76
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
--- NOTE | 2018-12-03 17:34 | Consult Note ---
Date of Encounter: 12/03/18 Time of Encounter: 12:55 Assessment & Recommendation (1) Polysubstance (including opioids) dependence with physiol dependence Status: Acute (2) Substance induced mood disorder Status: Acute (3) History of substance abuse Status: Acute (4) Substance use disorder Status: Chronic History of Present Illness Requesting Physician: Marilee Zabala History of present illness: Mr. Galindo is a 53 year old male CC: Marilee Zabala Past Med Surg Social Fam HX - Past Medical History Medical history: COPD, hepatitis, hypertension, seizures, other - Past Surgical History Surgical History: no surgical history - Social History Smoking Status: Former smoker Smokeless Tobacco Status: Yes Alcohol use: heavy, recent Drug use: opiates, marijuana, IV Drug Use ("Clean x 7 weeks when questioned 06/2018 - current usage unknown), prescription drug abuse, other - Family History Mother Family Member Ethnicity: Non- Living Status: Still Living Hx Family Endocrine Disorder: Yes (DM) Father Living Status: Hx Family Respiratory Disorders: Yes (COPD) Medications & Allergies Albuterol Sulfate [Ventolin Hfa] 2 puff IH Q4H PRN 07/09/18 [History] Mirtazapine [Remeron] 30 mg PO HS 07/09/18 [History] Omeprazole [PriLOSEC] 40 mg PO BID 07/09/18 [History] Phenytoin ER [Dilantin ER] 100 mg PO TID 07/09/18 [History] Thiamine HCl [Vitamin B-1] 100 mg PO DAILY 07/09/18 [History] hydrOXYzine HCl [Hydroxyzine HCl] 50 mg PO TID PRN 07/09/18 [History] Methadone Oral Concentrate [Methadone] 70 mg PO DAILY 11/24/18 [History] Ipratropium/Albuterol Neb [Duoneb] 3 ml IH [id number] PRN #90 inhsol 11/25/18 [Rx] predniSONE [PredniSONE] 40 mg PO DAILY #10 tablet 11/25/18 [Rx] Gabapentin [Neurontin] 400 mg PO BID 11/29/18 [History] Gabapentin [Neurontin] 800 mg PO HS 11/29/18 [History] LORazepam [Ativan] 1 mg PO BID PRN 3 Days #6 tablet 01/12/19 [Rx] Allergy/AdvReac Type Severity Reaction Status Date / Time Penicillins Allergy Anaphylaxis Verified 11/29/18 13:03 codeine AdvReac Hives Verified 11/29/18 13:03 Psychiatry Exam - Constitutional Vitals: Temp Pulse Resp BP Pulse Ox 98.4 F 106 17 109/76 96 12/03/18 11:30 12/03/18 11:30 12/03/18 11:30 12/03/18 11:30 12/03/18 03:08 Results - Drug Levels and Toxicology Drug Levels and Toxicology: Drug Levels and Toxicity 12/03/18 04:25 Phenytoin 5.4 L - Labs Labs: Laboratory Last Values WBC 8.3 K/mcL (4.3-11.1) 12/02/18 08:39 RBC 4.15 M/mcL (4.19-5.50) L 12/02/18 08:39 Hgb 12.5 g/dL (12.9-16.9) L 12/02/18 08:39 Hct 36.1 % (37.5-50.1) L 12/02/18 08:39 MCV 87.0 fL (83.0-100.0) 12/02/18 08:39 MCH 30.1 pg (28.0-33.3) 12/02/18 08:39 MCHC 34.6 g/dL (31.6-35.5) 12/02/18 08:39 RDW 13.5 % (11.5-14.5) 12/02/18 08:39 Plt Count 307 K/mcL (140-400) 12/02/18 08:39 MPV 9.6 fL (9.4-12.4) 12/02/18 08:39 Immature Gran % 0.2 % (0-4) 12/02/18 08:39 Seg Neutrophils % 64.6 % 12/02/18 08:39 Lymphocytes % 18.6 % 12/02/18 08:39 Monocytes % 15.5 % 12/02/18 08:39 Eosinophils % 0.6 % 12/02/18 08:39 Basophils % 0.5 % 12/02/18 08:39 Neutrophils # 5.3 K/mcL (1.6-8.9) 12/02/18 08:39 Lymphocytes # 1.5 K/mcL (0.6-4.6) 12/02/18 08:39 Monocytes # 1.3 K/mcL (0.0-1.3) 12/02/18 08:39 Eosinophils # 0.1 K/mcL (0.0-0.6) 12/02/18 08:39 Basophils # 0.0 K/mcL (0.0-0.2) 12/02/18 08:39 Sodium 135 mEq/L (136-145) L 12/02/18 08:39 Potassium 3.2 mEq/L (3.5-5.1) L 12/02/18 08:39 Chloride 99 mEq/L (98-107) 12/02/18 08:39 Carbon Dioxide 26 mEq/L (23-29) 12/02/18 08:39 BUN 8 mg/dL (6-20) 12/02/18 08:39 Creatinine 0.84 mg/dL (0.70-1.30) 12/02/18 08:39 Est GFR ( Amer) > 60 (> 60) 12/02/18 08:39 Est GFR (Non-Af Amer) > 60 (> 60) 12/02/18 08:39 BUN/Creatinine Ratio 10 (6-26) 12/02/18 08:39 Glucose 152 mg/dL (70-105) H 12/02/18 08:39 POC Glucose 94 mg/dL (70-99) 12/01/18 05:03 Calculated Osmolality 281 (280-300) 12/02/18 08:39 Calcium 9.1 mg/dL (8.6-10.3) 12/02/18 08:39 Magnesium 1.7 mg/dL (1.6-2.6) 11/28/18 02:59 Total Bilirubin 0.8 mg/dL (0.3-1.0) 12/02/18 08:39 Direct Bilirubin 0.2 mg/dL (0.0-0.2) 11/27/18 18:23 Indirect Bilirubin 0.8 mg/dL (0.0-1.2) 11/27/18 18:23 AST 13 Units/L (13-39) 12/02/18 08:39 ALT 11 Units/L (7-52) 12/02/18 08:39 Alkaline Phosphatase 44 Units/L (34-104) 12/02/18 08:39 Ammonia 37 mcmol/L (16-53) 12/02/18 09:42 Troponin I < 0.03 ng/mL (< 0.04) 11/27/18 18:23 Serum Total Protein 6.5 g/dL (6.4-8.9) 12/02/18 08:39 Albumin 4.0 g/dL (3.5-5.7) 12/02/18 08:39 Globulin 2.5 g/dL (2.4-3.5) 12/02/18 08:39 Albumin/Globulin Ratio 1.6 (1.1-2.2) 12/02/18 08:39 Amylase 46 Units/L (29-103) 12/02/18 08:39 Lipase 18 Units/L (11-82) 12/02/18 08:39 Urine Color Yellow (Yellow) 11/27/18 18:03 Urine Clarity Cloudy (Clear) A 11/27/18 18:03 Urine pH 8.0 pH Units (5.0-8.0) 11/27/18 18:03 Ur Specific [place] 1.009 (1.010-1.025) L 11/27/18 18:03 Urine Protein Trace mg/dL (Neg-Trace) 11/27/18 18:03 Urine Glucose (UA) Normal mg/dL (Normal) 11/27/18 18:03 Urine Ketones 15 mg/dL (Negative) H 11/27/18 18:03 Urine Blood Negative (Negative) 11/27/18 18:03 Urine Nitrite Negative (Negative) 11/27/18 18:03 Urine Bilirubin Negative (Negative) 11/27/18 18:03 Urine Urobilinogen Normal mg/dL (Normal) 11/27/18 18:03 Ur Leukocyte Esterase Negative (Negative) 11/27/18 18:03 Urine Microscopic RBC 0-3 per hpf (0-3) 11/27/18 18:03 Urine Microscopic WBC 0-3 per hpf (0-3) 11/27/18 18:03 Ur Squamous Epith Cells Few per lpf (None-Few) 11/27/18 18:03 Urine Bacteria None Seen per hpf (None-Few) 11/27/18 18:03 Hyaline Casts None Seen per lpf (None-Few) 11/27/18 18:03 Ur Culture Indicated? NO (NO) 11/27/18 18:03 Phenytoin 5.4 mcg/mL (10.0-20.0) L 12/03/18 04:25 Ethyl Alcohol < 10 mg/dL (Less than 10) 11/28/18 02:59 Consult Discharge Plan - Plan Instructions: Acute Abdominal Pain (DC) Additional Instructions: 1. Pt educated on abstaining from any alcohol or illicit substances, following up with all scheduled appointments, and taking all medications as prescribed. 2. Pt educated on 90 meetings in 90 days and find a sponsor. 3. D/C pt home once medically stable 4. Coordinate follow up outpt mental health appointment. Referrals: Rick Hatch DO [Primary Care Provider] - 12/07/18 3:00 pm (Follow up as scheduled. ) Prescriptions: LORazepam [Ativan] 1 mg PO BID PRN 3 Days #6 tablet PRN Reason: Anxiety
== END 2018-12-03 14:59 | disposition home or self-care (01) | DRG 251 ==
LOC: EMEROOARM 17:30 → 3ANU 17:30 → SUATTDRO 23:21 → 3ANU 11-28 00:30
PROVIDERS: ADMIT Internal Medicine; ATTEND Internal Medicine

== ENCOUNTER 2020-02-21 06:48 | Inpatient (IN) ==
[2020-02-21] MEDS ORDERED: Naloxone 0.4 MG/ML INJ IVP PRN (09:32)
[2020-02-21] MEDS ORDERED: *HR* Promethazine 25 MG/ML VIAL IVP PRN (09:35)
[2020-02-21 13:08] LABS: Basophils % 0.3 %; Eosinophils % 0.2 %; Immature Granulocytes % 0.3 % (0-4); Lymphocytes # 2.9 K/mcL (0.6-4.6); Mean Corpuscular HGB Conc 32.4 g/dL (31.6-35.5); Mean Corpuscular Hemoglobin 29.9 pg (28.0-33.3); Mean Platelet Volume 9.5 fL (9.4-12.4); Monocytes # 1.8 K/mcL (0.0-1.3); Monocytes % 13.8 %; Neutrophils # 8.4 K/mcL (1.6-8.9); Platelet Count 425 K/mcL (140-400); Red Blood Count 4.02 M/mcL (4.19-5.50); Red Cell Distribution Width 14.2 % (11.5-14.5); Segmented Neutrophils % 63.4 %; White Blood Count 13.3 K/mcL (4.3-11.1)
[2020-02-21 13:24] LABS: BUN/Creatinine Ratio 19 (6-26); Blood Urea Nitrogen 10 mg/dL (6-20); Carbon Dioxide 32 mEq/L (23-29); Chloride 94 mEq/L (98-107); Glucose 87 mg/dL (70-105); Osmolality,Calculated 274 (280-300); Potassium 3.7 mEq/L (3.5-5.1); Sodium 133 mEq/L (136-145); eGFR For African Americans > 60 (> 60); eGFR For Non-African Americans > 60 (> 60)
[2020-02-21] MEDS ORDERED: *HR* LORazepam 2 MG/ML VIAL IVP ONE (17:23)
[2020-02-21] MEDS: Cefepime HCl 2,000 MG in Water for inj. (sterile) 20 ML IVP SCH (17:40)
[2020-02-21] MEDS ORDERED: Albuterol 2.5 MG/3 ML NEBULIZER IH PRN (18:44)
[2020-02-21] MEDS: hydrOXYzine pamoate 25 MG CAPSULE PO SCH (20:32)
[2020-02-21] MEDS: Mirtazapine 15 MG TABLET PO SCH (20:33)
[2020-02-21] MEDS: Budesonide/Formoterol 160/4.5 1 PUFF INH IH SCH (20:33)
[2020-02-22] MEDS: Cefepime HCl 2,000 MG in Water for inj. (sterile) 20 ML IVP SCH ×3 (00:50→14:57)
[2020-02-22] MEDS: *HR* LORazepam 2 MG/ML VIAL IVP PRN ×3 (00:50→20:49)
[2020-02-22 01:12] LABS: Basophils # 0.1 K/mcL (0.0-0.2); Basophils % 0.6 %; Eosinophils # 0.1 K/mcL (0.0-0.6); Eosinophils % 0.6 %; Hematocrit 37.8 % (37.5-50.1); Hemoglobin 12.4 g/dL (12.9-16.9); Immature Granulocytes % 0.3 % (0-4); Lymphocytes # 1.7 K/mcL (0.6-4.6); Lymphocytes % 17.4 %; Mean Corpuscular HGB Conc 32.8 g/dL (31.6-35.5); Mean Corpuscular Hemoglobin 29.8 pg (28.0-33.3); Mean Corpuscular Volume 90.9 fL (83.0-100.0); Mean Platelet Volume 9.4 fL (9.4-12.4); Monocytes # 1.4 K/mcL (0.0-1.3); Monocytes % 14.3 %; Neutrophils # 6.6 K/mcL (1.6-8.9); Platelet Count 463 K/mcL (140-400); Red Blood Count 4.16 M/mcL (4.19-5.50); Red Cell Distribution Width 13.9 % (11.5-14.5); Segmented Neutrophils % 66.8 %; White Blood Count 9.9 K/mcL (4.3-11.1)
[2020-02-22 01:48] LABS: BUN/Creatinine Ratio 20 (6-26); Blood Urea Nitrogen 9 mg/dL (6-20); Calcium 9.2 mg/dL (8.6-10.3); Carbon Dioxide 27 mEq/L (23-29); Chloride 94 mEq/L (98-107); Glucose 82 mg/dL (70-105); Osmolality,Calculated 274 (280-300); Potassium 3.5 mEq/L (3.5-5.1); Sodium 133 mEq/L (136-145); eGFR For African Americans > 60 (> 60); eGFR For Non-African Americans > 60 (> 60)
[2020-02-22] MEDS: amLODIPine 5 MG TABLET PO SCH (07:28)
[2020-02-22] MEDS: hydrOXYzine pamoate 25 MG CAPSULE PO SCH ×4 (07:28→20:48)
[2020-02-22] MEDS ORDERED: *HR* LORazepam 2 MG/ML VIAL IVP ONE (08:09)
[2020-02-22] MEDS: Budesonide/Formoterol 160/4.5 1 PUFF INH IH SCH ×2 (08:37→20:52)
[2020-02-22] MEDS: Methadone Oral Concentrate 50 MG/5 ML UDC PO SCH (09:20)
[2020-02-22] MEDS ORDERED: Gabapentin 300 MG CAPSULE PO STA (09:54)
[2020-02-22] MEDS ORDERED: Nicotine 2 MG GUM BC PRN (13:47)
[2020-02-22] MEDS: metroNIDAZOLE 500 MG TABLET PO SCH ×2 (14:57→20:49)
[2020-02-22] MEDS: Gabapentin 300 MG CAPSULE PO SCH (15:00)
[2020-02-22] MEDS: Mirtazapine 15 MG TABLET PO SCH (20:49)
[2020-02-22] MEDS ORDERED: Gabapentin 400 MG CAPSULE PO SCH (21:00)
[2020-02-23] MEDS: Cefepime HCl 2,000 MG in Water for inj. (sterile) 20 ML IVP SCH ×2 (00:58→11:12)
[2020-02-23] MEDS: *HR* LORazepam 2 MG/ML VIAL IVP PRN ×2 (00:59→05:15)
[2020-02-23 01:45] LABS: Hematocrit 39.8 % (37.5-50.1); Hemoglobin 13.2 g/dL (12.9-16.9); Mean Corpuscular HGB Conc 33.2 g/dL (31.6-35.5); Mean Corpuscular Hemoglobin 30.2 pg (28.0-33.3); Mean Corpuscular Volume 91.1 fL (83.0-100.0); Mean Platelet Volume 9.2 fL (9.4-12.4); Platelet Count 462 K/mcL (140-400); Red Blood Count 4.37 M/mcL (4.19-5.50); Red Cell Distribution Width 13.4 % (11.5-14.5); White Blood Count 8.2 K/mcL (4.3-11.1)
[2020-02-23 02:05] LABS: BUN/Creatinine Ratio 22 (6-26); Blood Urea Nitrogen 13 mg/dL (6-20); Calcium 9.2 mg/dL (8.6-10.3); Carbon Dioxide 27 mEq/L (23-29); Chloride 95 mEq/L (98-107); Glucose 93 mg/dL (70-105); Osmolality,Calculated 278 (280-300); Potassium 3.1 mEq/L (3.5-5.1); Sodium 134 mEq/L (136-145); eGFR For African Americans > 60 (> 60); eGFR For Non-African Americans > 60 (> 60)
[2020-02-23 04:24] VITALS: BP 154/110
[2020-02-23] MEDS ORDERED: *HR* Enoxaparin 40 MG/0.4 ML SYRINGE SQ SCH (06:00)
[2020-02-23] MEDS: Methadone Oral Concentrate 50 MG/5 ML UDC PO SCH (06:48)
[2020-02-23] MEDS: amLODIPine 5 MG TABLET PO SCH (11:11)
[2020-02-23] MEDS: metroNIDAZOLE 500 MG TABLET PO SCH (11:11)
[2020-02-23] MEDS: hydrOXYzine pamoate 25 MG CAPSULE PO SCH (11:12)
[2020-02-23] MEDS: Budesonide/Formoterol 160/4.5 1 PUFF INH IH SCH (11:14)
[2020-02-23] MEDS: Gabapentin 300 MG CAPSULE PO SCH (11:14)
== END 2020-02-23 13:25 | disposition home or self-care (01) | DRG 720 ==
LOC: 3NENU → SUATTDRO 09:32 → 2NNU 13:45
PROVIDERS: ADMIT Internal Medicine; ATTEND Internal Medicine

== ENCOUNTER 2020-07-23 19:56 | Inpatient (IN) ==
[2020-07-23 23:43] LABS: Adenovirus Not Detected (Not Detect); Coronavirus 229E Not Detected (Not Detect); Coronavirus HKU1 Not Detected (Not Detect); Coronavirus NL63 Not Detected (Not Detect); Coronavirus OC43 Not Detected (Not Detect); Human Metapneumovirus Not Detected (Not Detect); Human Rhinovirus/Enterovirus Not Detected (Not Detect); Influenza A Subtype 2009 H1 Not Detected (Not Detect); Influenza B Not Detected (Not Detect); Parainfluenza Virus 1 Not Detected (Not Detect); Parainfluenza Virus 2 Not Detected (Not Detect); Parainfluenza Virus 3 Not Detected (Not Detect); SARS-CoV-2 Not Detected (Not Detect)
[2020-07-23 23:44] LABS: Bordetella Pertussis Not Detected (Not Detect); Chlamydophila pneumoniae Not Detected (Not Detect); Mycoplasma pneumoniae Not Detected (Not Detect); Parainfluenza Virus 4 Not Detected (Not Detect); Respiratory Syncytial Virus Not Detected (Not Detect)
[2020-07-24] MEDS ORDERED: *HR* LORazepam 2 MG/ML VIAL IVP ONE ×2 (00:34→06:28)
[2020-07-24] MEDS ORDERED: *HR* LORazepam 2 MG/ML VIAL ONE (00:39)
[2020-07-24] MEDS ORDERED: *HR* LORazepam 2 MG/ML VIAL IVP PRN ×2 (01:28→01:31)
[2020-07-24] MEDS ORDERED: Naloxone 0.4 MG/ML INJ IVP PRN (01:40)
[2020-07-24] MEDS: Dexmedetomidine HCl 400 MCG/100 ML MLS IVC SCH ×2 (02:13→15:10)
[2020-07-24 02:20] LABS: VBG HCO3 36 mEq/L (21-27); VBG PCO2 54 mmHg (41-51); VBG PH 7.44 pH Units (7.32-7.42); VBG PO2 151 mmHg (25-50)
[2020-07-24 02:24] LABS: Hematocrit 36.1 % (37.5-50.1); Hemoglobin 11.7 g/dL (12.9-16.9); Mean Corpuscular HGB Conc 32.4 g/dL (31.6-35.5); Mean Corpuscular Hemoglobin 30.5 pg (28.0-33.3); Mean Corpuscular Volume 94.3 fL (83.0-100.0); Mean Platelet Volume 9.5 fL (9.4-12.4); Platelet Count 251 K/mcL (140-400); Red Blood Count 3.83 M/mcL (4.19-5.50); Red Cell Distribution Width 15.9 % (11.5-14.5); White Blood Count 11.4 K/mcL (4.3-11.1)
[2020-07-24 02:37] LABS: BUN/Creatinine Ratio 18 (6-26); Blood Urea Nitrogen 11 mg/dL (6-20); Carbon Dioxide 38 mEq/L (23-29); Chloride 91 mEq/L (98-107); Glucose 112 mg/dL (70-105); Osmolality,Calculated 284 (280-300); Potassium 3.3 mEq/L (3.5-5.1); Sodium 137 mEq/L (136-145); eGFR For African Americans > 60 (> 60); eGFR For Non-African Americans > 60 (> 60)
[2020-07-24] MEDS ORDERED: Levalbuterol 1 PUFF INHALER IH SCH (04:45)
[2020-07-24] MEDS: *HR* LORazepam 2 MG/ML VIAL IVP PRN (04:58)
[2020-07-24] MEDS ORDERED: Levalbuterol Neb 1.25 MG/3 ML IH PRN (05:01)
[2020-07-24] MEDS ORDERED: Ipratropium Neb 0.5 MG NEBULIZER IH PRN (05:01)
[2020-07-24] MEDS: *HR* Heparin 5,000 UNIT/ML VIAL SQ SCH ×3 (06:02→20:31)
[2020-07-24] MEDS: Azithromycin 500 MG in 0.9 % Sodium Chloride 250 ML IVPB SCH (06:02)
[2020-07-24] MEDS: cefTRIAXone 2,000 MG in Water for inj. (sterile) 20 ML IVP SCH (06:03)
[2020-07-24] MEDS ORDERED: Potassium Chloride Elixir 20 MEQ/15 ML UDC PO ONE (09:00)
[2020-07-24] MEDS: Levalbuterol Neb 1.25 MG/3 ML IH SCH ×3 (09:57→21:32)
[2020-07-24] MEDS: Ipratropium Neb 0.5 MG NEBULIZER IH SCH ×3 (09:57→21:32)
[2020-07-24] MEDS: Budesonide/Formoterol 160/4.5 1 PUFF INH IH SCH ×2 (09:58→21:32)
[2020-07-24] MEDS: MethylPREDNISolone 40 MG/ML VIAL IVP SCH ×2 (14:59→23:44)
[2020-07-24] MEDS: Methadone Oral Concentrate 50 MG/5 ML UDC PO SCH (16:51)
[2020-07-24] MEDS: Thiamine (B-1) 100 MG, Folic Acid 1 MG, MVI, adult with vitamin K 10 ML in 0.9 % Sodi... IVPB SCH (16:51)
[2020-07-24] MEDS ORDERED: Mirtazapine 15 MG TABLET PO SCH (21:00)
[2020-07-25] MEDS: *HR* LORazepam 2 MG/ML VIAL IVP PRN (01:21)
[2020-07-25] MEDS: Levalbuterol Neb 1.25 MG/3 ML IH SCH ×4 (03:33→21:43)
[2020-07-25] MEDS: Ipratropium Neb 0.5 MG NEBULIZER IH SCH ×4 (03:33→21:43)
[2020-07-25 03:52] LABS: Basophils % 0.2 %; Hemoglobin 10.9 g/dL (12.9-16.9); Immature Granulocytes % 0.4 % (0-4); Lymphocytes # 0.5 K/mcL (0.6-4.6); Lymphocytes % 4.5 %; Mean Corpuscular HGB Conc 32.1 g/dL (31.6-35.5); Mean Corpuscular Hemoglobin 29.9 pg (28.0-33.3); Mean Corpuscular Volume 93.4 fL (83.0-100.0); Mean Platelet Volume 9.6 fL (9.4-12.4); Monocytes # 1.2 K/mcL (0.0-1.3); Monocytes % 10.8 %; Neutrophils # 9.3 K/mcL (1.6-8.9); Platelet Count 253 K/mcL (140-400); Red Blood Count 3.64 M/mcL (4.19-5.50); Red Cell Distribution Width 15.9 % (11.5-14.5); Segmented Neutrophils % 84.1 %
[2020-07-25 03:53] LABS: VBG HCO3 35 mEq/L (21-27); VBG Ionized Calcium 1.05 mmol/L (1.15-1.35); VBG PCO2 49 mmHg (41-51); VBG PH 7.46 pH Units (7.32-7.42); VBG PO2 161 mmHg (25-50)
[2020-07-25 04:05] LABS: Alanine Aminotransferase 20 Units/L (7-52); Albumin 3.1 g/dL (3.5-5.7); Alkaline Phosphatase 72 Units/L (34-104); Aspartate Amino Transferase 29 Units/L (13-39); BUN/Creatinine Ratio 34 (6-26); Bilirubin,Direct 0.2 mg/dL (0.0-0.2); Bilirubin,Indirect 0.5 mg/dL (0.0-1.0); Bilirubin,Total 0.7 mg/dL (0.3-1.0); Blood Urea Nitrogen 21 mg/dL (6-20); Calcium 8.7 mg/dL (8.6-10.3); Carbon Dioxide 36 mEq/L (23-29); Chloride 94 mEq/L (98-107); Globulin 3.2 g/dL (2.4-3.5); Glucose 114 mg/dL (70-105); Osmolality,Calculated 290 (280-300); Phosphorous 2.1 mg/dL (2.7-4.5); Potassium 3.4 mEq/L (3.5-5.1); Sodium 138 mEq/L (136-145); Total Protein 6.3 g/dL (6.4-8.9); eGFR For African Americans > 60 (> 60); eGFR For Non-African Americans > 60 (> 60)
[2020-07-25] MEDS: cefTRIAXone 2,000 MG in Water for inj. (sterile) 20 ML IVP SCH (04:58)
[2020-07-25] MEDS: *HR* Heparin 5,000 UNIT/ML VIAL SQ SCH ×3 (04:59→22:59)
[2020-07-25] MEDS: Azithromycin 500 MG in 0.9 % Sodium Chloride 250 ML IVPB SCH (04:59)
[2020-07-25] MEDS ORDERED: Potassium Phosphate 44 MEQ in 0.9 % Sodium Chloride 250 ML IVPB ONE (05:00)
[2020-07-25] MEDS: Calcium Gluconate 1gm/50mL 1 GM/50 ML BAG IVPB SCH ×2 (05:00→05:58)
[2020-07-25] MEDS: Dexmedetomidine HCl 400 MCG/100 ML MLS IVC SCH ×2 (05:13→22:57)
[2020-07-25] MEDS: Methadone Oral Concentrate 50 MG/5 ML UDC PO SCH (07:45)
[2020-07-25] MEDS ORDERED: Potassium Chloride Elixir 20 MEQ/15 ML UDC PO SCH (09:00)
[2020-07-25] MEDS: Budesonide/Formoterol 160/4.5 1 PUFF INH IH SCH ×2 (09:47→21:43)
[2020-07-25] MEDS: MethylPREDNISolone 40 MG/ML VIAL IVP SCH (11:41)
[2020-07-25 15:35] LABS: Phenytoin (Dilantin) Free <0.5 ug/mL (1.0-2.5)
[2020-07-25] MEDS ORDERED: Gabapentin 400 MG CAPSULE PO SCH (17:00)
[2020-07-25] MEDS: Thiamine (B-1) 100 MG, Folic Acid 1 MG, MVI, adult with vitamin K 10 ML in 0.9 % Sodi... IVPB SCH (17:21)
[2020-07-25] MEDS ORDERED: *HR* LORazepam 2 MG/ML VIAL IVP PRN ×3 (18:56)
[2020-07-25] MEDS ORDERED: Naloxone 0.4 MG/ML INJ IVP PRN (18:56)
[2020-07-25] MEDS: Mirtazapine 15 MG TABLET PO SCH (19:38)
[2020-07-25] MEDS: Gabapentin 400 MG CAPSULE PO SCH (19:40)
[2020-07-26] MEDS: Ipratropium Neb 0.5 MG NEBULIZER IH SCH ×4 (03:46→21:25)
[2020-07-26] MEDS: Levalbuterol Neb 1.25 MG/3 ML IH SCH ×4 (03:46→21:25)
[2020-07-26 04:46] LABS: Basophils % 0.1 %; Eosinophils % 0.2 %; Hemoglobin 11.7 g/dL (12.9-16.9); Immature Granulocytes % 0.5 % (0-4); Lymphocytes # 2.5 K/mcL (0.6-4.6); Lymphocytes % 18.7 %; Mean Corpuscular HGB Conc 31.6 g/dL (31.6-35.5); Mean Corpuscular Hemoglobin 29.5 pg (28.0-33.3); Mean Corpuscular Volume 93.2 fL (83.0-100.0); Monocytes # 1.7 K/mcL (0.0-1.3); Monocytes % 12.5 %; Neutrophils # 9.1 K/mcL (1.6-8.9); Platelet Count 339 K/mcL (140-400); Red Blood Count 3.97 M/mcL (4.19-5.50); Red Cell Distribution Width 16.2 % (11.5-14.5); White Blood Count 13.4 K/mcL (4.3-11.1)
[2020-07-26 04:52] LABS: VBG Ionized Calcium 1.12 mmol/L (1.15-1.35)
[2020-07-26 05:05] LABS: Alanine Aminotransferase 17 Units/L (7-52); Albumin 3.3 g/dL (3.5-5.7); Albumin/Globulin Ratio 1.1 (1.1-2.2); Alkaline Phosphatase 76 Units/L (34-104); Aspartate Amino Transferase 31 Units/L (13-39); BUN/Creatinine Ratio 25 (6-26); Bilirubin,Total 0.6 mg/dL (0.3-1.0); Blood Urea Nitrogen 15 mg/dL (6-20); Calcium 8.9 mg/dL (8.6-10.3); Carbon Dioxide 40 mEq/L (23-29); Chloride 93 mEq/L (98-107); Globulin 3.1 g/dL (2.4-3.5); Glucose 85 mg/dL (70-105); Magnesium 1.8 mg/dL (1.6-2.6); Osmolality,Calculated 288 (280-300); Phosphorous 2.4 mg/dL (2.7-4.5); Sodium 139 mEq/L (136-145); Total Protein 6.4 g/dL (6.4-8.9); eGFR For African Americans > 60 (> 60); eGFR For Non-African Americans > 60 (> 60)
[2020-07-26] MEDS ORDERED: Calcium Gluconate 1gm/50mL 1 GM/50 ML BAG IVPB PRN (05:12)
[2020-07-26] MEDS ORDERED: Potassium Phosphate 44 MEQ in 0.9 % Sodium Chloride 250 ML IVPB PRN (05:12)
[2020-07-26] MEDS: *HR* Heparin 5,000 UNIT/ML VIAL SQ SCH ×3 (05:38→20:08)
[2020-07-26] MEDS ORDERED: Azithromycin 500 MG in 0.9 % Sodium Chloride 250 ML IVPB SCH (06:00)
[2020-07-26] MEDS ORDERED: cefTRIAXone 2,000 MG in Water for inj. (sterile) 20 ML IVP SCH (06:00)
[2020-07-26] MEDS: Levalbuterol Neb 1.25 MG/3 ML IH PRN (06:18)
[2020-07-26] MEDS: Ipratropium Neb 0.5 MG NEBULIZER IH PRN (06:18)
[2020-07-26] MEDS ORDERED: *HR* Metoprolol 5 MG/5 ML VIAL IVP ONE (06:43)
[2020-07-26] MEDS: Gabapentin 400 MG CAPSULE PO SCH ×4 (07:59→20:07)
[2020-07-26] MEDS ORDERED: Methadone Oral Concentrate 50 MG/5 ML UDC PO SCH (09:00)
[2020-07-26] MEDS ORDERED: MethylPREDNISolone 40 MG/ML VIAL IVP SCH (09:00)
[2020-07-26] MEDS ORDERED: Pantoprazole 40 MG VIAL IVP SCH (09:00)
[2020-07-26 09:26] LABS: Amylase 235 Units/L (29-103); Lipase 528 Units/L (11-82)
[2020-07-26] MEDS: Budesonide/Formoterol 160/4.5 1 PUFF INH IH SCH ×2 (10:58→21:25)
[2020-07-26] MEDS ORDERED: *HR* Promethazine 25 MG/ML VIAL IVP PRN (17:29)
[2020-07-26] MEDS ORDERED: D5% in 0.45% NACL w KCl 20 MEQ/1,000 ML MLS IVC SCH (17:30)
[2020-07-26] MEDS: Mirtazapine 15 MG TABLET PO SCH (20:07)
[2020-07-26] MEDS: Dexmedetomidine HCl 400 MCG/100 ML MLS IVC SCH (20:22)
[2020-07-27] MEDS ORDERED: Morphine Sulfate 2 MG/ML SYRINGE IVP ONE (00:28)
[2020-07-27] MEDS ORDERED: Naloxone 0.4 MG/ML INJ IVP PRN (00:48)
[2020-07-27] MEDS ORDERED: Potassium Phosphate 44 MEQ in 0.9 % Sodium Chloride 250 ML IVPB PRN (00:48)
[2020-07-27] MEDS ORDERED: Calcium Gluconate 1gm/50mL 1 GM/50 ML BAG IVPB PRN (00:48)
[2020-07-27] MEDS ORDERED: Ipratropium Neb 0.5 MG NEBULIZER IH PRN (00:48)
[2020-07-27] MEDS ORDERED: *HR* Promethazine 25 MG/ML VIAL IVP PRN (00:48)
[2020-07-27] MEDS ORDERED: *HR* LORazepam 2 MG/ML VIAL IVP PRN (00:48)
[2020-07-27] MEDS ORDERED: Levalbuterol Neb 1.25 MG/3 ML IH PRN (00:48)
[2020-07-27] MEDS ORDERED: MethylPREDNISolone 40 MG/ML VIAL IVP ONE (00:50)
[2020-07-27] MEDS: Levalbuterol Neb 1.25 MG/3 ML IH PRN (00:51)
[2020-07-27] MEDS: Ipratropium Neb 0.5 MG NEBULIZER IH PRN (00:51)
[2020-07-27] MEDS: Ipratropium Neb 0.5 MG NEBULIZER IH SCH ×4 (03:40→21:16)
[2020-07-27] MEDS: Levalbuterol Neb 1.25 MG/3 ML IH SCH ×4 (03:40→21:16)
[2020-07-27 03:44] LABS: ABG Base Excess 12 mEq/L (-2 to 3); ABG HCO3 39 mEq/L (21-27); ABG Oxygen Saturation 95 % (95-98); ABG PCO2 63 mmHg (35-45); ABG PO2 81 mmHg (85-104); ABG TCO2 41 mEq/L (20-26)
[2020-07-27] MEDS: *HR* LORazepam 2 MG/ML VIAL IVP PRN ×2 (04:05→18:05)
[2020-07-27] MEDS: *HR* Heparin 5,000 UNIT/ML VIAL SQ SCH ×3 (05:21→20:53)
[2020-07-27] MEDS: cefTRIAXone 2,000 MG in Water for inj. (sterile) 20 ML IVP SCH (05:21)
[2020-07-27 06:45] LABS: Basophils % 0.2 %; Eosinophils % 0.1 %; Hematocrit 33.9 % (37.5-50.1); Hemoglobin 10.7 g/dL (12.9-16.9); Immature Granulocytes % 0.8 % (0-4); Lymphocytes # 0.8 K/mcL (0.6-4.6); Lymphocytes % 5.8 %; Mean Corpuscular HGB Conc 31.6 g/dL (31.6-35.5); Mean Corpuscular Hemoglobin 29.8 pg (28.0-33.3); Mean Corpuscular Volume 94.4 fL (83.0-100.0); Mean Platelet Volume 9.1 fL (9.4-12.4); Monocytes # 0.9 K/mcL (0.0-1.3); Monocytes % 6.6 %; Neutrophils # 11.3 K/mcL (1.6-8.9); Platelet Count 336 K/mcL (140-400); Red Blood Count 3.59 M/mcL (4.19-5.50); Red Cell Distribution Width 16.2 % (11.5-14.5); Segmented Neutrophils % 86.5 %
[2020-07-27 06:48] LABS: VBG Ionized Calcium 1.08 mmol/L (1.15-1.35)
[2020-07-27] MEDS: MethylPREDNISolone 40 MG/ML VIAL IVP SCH (07:50)
[2020-07-27] MEDS: Methadone Oral Concentrate 50 MG/5 ML UDC PO SCH (07:50)
[2020-07-27] MEDS: Gabapentin 400 MG CAPSULE PO SCH ×4 (07:50→20:53)
[2020-07-27] MEDS: D5% in 0.45% NACL w KCl 20 MEQ/1,000 ML MLS IVC SCH ×2 (07:51→18:41)
[2020-07-27 08:58] LABS: Alanine Aminotransferase 16 Units/L (7-52); Albumin 2.9 g/dL (3.5-5.7); Alkaline Phosphatase 66 Units/L (34-104); Amylase 89 Units/L (29-103); Aspartate Amino Transferase 27 Units/L (13-39); BUN/Creatinine Ratio 18 (6-26); Bilirubin,Total 0.3 mg/dL (0.3-1.0); Blood Urea Nitrogen 9 mg/dL (6-20); Calcium 8.2 mg/dL (8.6-10.3); Carbon Dioxide 37 mEq/L (23-29); Chloride 94 mEq/L (98-107); Glucose 151 mg/dL (70-105); Lipase 143 Units/L (11-82); Magnesium 1.8 mg/dL (1.6-2.6); Osmolality,Calculated 284 (280-300); Phosphorous 2.9 mg/dL (2.7-4.5); Potassium 4.5 mEq/L (3.5-5.1); Sodium 136 mEq/L (136-145); Total Protein 5.9 g/dL (6.4-8.9); eGFR For African Americans > 60 (> 60); eGFR For Non-African Americans > 60 (> 60)
[2020-07-27] MEDS: Budesonide/Formoterol 160/4.5 1 PUFF INH IH SCH ×2 (09:15→21:16)
[2020-07-27] MEDS ORDERED: *HR* LORazepam 2 MG/ML VIAL IVP ONE (14:26)
[2020-07-27] MEDS ORDERED: Mirtazapine 15 MG TABLET PO SCH (21:00)
[2020-07-28] MEDS: Levalbuterol Neb 1.25 MG/3 ML IH SCH ×3 (03:39→15:34)
[2020-07-28] MEDS: Ipratropium Neb 0.5 MG NEBULIZER IH SCH ×3 (03:39→15:33)
[2020-07-28] MEDS ORDERED: Acetaminophen 325 MG TABLET PO PRN (04:05)
[2020-07-28 04:15] LABS: Basophils % 0.2 %; Eosinophils # 0.2 K/mcL (0.0-0.6); Hematocrit 37.8 % (37.5-50.1); Hemoglobin 12.2 g/dL (12.9-16.9); Immature Granulocytes % 0.9 % (0-4); Lymphocytes # 2.6 K/mcL (0.6-4.6); Lymphocytes % 16.9 %; Mean Corpuscular HGB Conc 32.3 g/dL (31.6-35.5); Mean Corpuscular Hemoglobin 30.4 pg (28.0-33.3); Mean Corpuscular Volume 94.3 fL (83.0-100.0); Mean Platelet Volume 9.1 fL (9.4-12.4); Monocytes # 1.3 K/mcL (0.0-1.3); Monocytes % 8.8 %; Platelet Count 384 K/mcL (140-400); Red Blood Count 4.01 M/mcL (4.19-5.50); Red Cell Distribution Width 16.2 % (11.5-14.5); Segmented Neutrophils % 72.2 %; White Blood Count 15.2 K/mcL (4.3-11.1)
[2020-07-28 04:32] LABS: BUN/Creatinine Ratio 17 (6-26); Blood Urea Nitrogen 9 mg/dL (6-20); Carbon Dioxide 36 mEq/L (23-29); Chloride 94 mEq/L (98-107); Glucose 91 mg/dL (70-105); Magnesium 1.7 mg/dL (1.6-2.6); Osmolality,Calculated 278 (280-300); Phosphorous 2.2 mg/dL (2.7-4.5); Potassium 4.2 mEq/L (3.5-5.1); Sodium 135 mEq/L (136-145); eGFR For African Americans > 60 (> 60); eGFR For Non-African Americans > 60 (> 60)
[2020-07-28] MEDS: *HR* Heparin 5,000 UNIT/ML VIAL SQ SCH ×2 (04:57→14:42)
[2020-07-28] MEDS: cefTRIAXone 2,000 MG in Water for inj. (sterile) 20 ML IVP SCH (04:58)
[2020-07-28] MEDS ORDERED: Potassium Phosphate 44 MEQ in 0.9 % Sodium Chloride 250 ML IVPB ONE (08:06)
[2020-07-28] MEDS: Gabapentin 400 MG CAPSULE PO SCH ×2 (09:07→12:48)
[2020-07-28] MEDS: Methadone Oral Concentrate 50 MG/5 ML UDC PO SCH (09:08)
[2020-07-28] MEDS: MethylPREDNISolone 40 MG/ML VIAL IVP SCH (09:08)
[2020-07-28] MEDS: Budesonide/Formoterol 160/4.5 1 PUFF INH IH SCH (09:47)
[2020-07-28 15:26] VITALS: BP 121/79
== END 2020-07-28 17:06 | disposition home or self-care (01) | DRG 773 ==
LOC: CDU → SUATTDRO 22:13 → 2NNU 07-24 00:36 → ICNU 07-24 09:57 → SUATTDRO 07-24 10:15 → 2ANU 07-26 19:02
PROVIDERS: ADMIT Internal Medicine; ATTEND Internal Medicine

== ENCOUNTER 2020-09-30 10:38 | Inpatient (IN) ==
[2020-09-30] MEDS ORDERED: Naloxone 0.4 MG/ML INJ IVP PRN (12:47)
[2020-09-30] MEDS ORDERED: Ondansetron ODT 4 MG TAB.RAPDIS SL PRN (12:47)
[2020-09-30] MEDS ORDERED: *HR* LORazepam 2 MG/ML VIAL IVP PRN (12:58)
[2020-09-30] MEDS: *HR* LORazepam 2 MG/ML VIAL IVP PRN ×3 (13:19→21:24)
[2020-09-30] MEDS ORDERED: Ondansetron 4 MG/2 ML VIAL ONE (13:28)
[2020-09-30] MEDS: Ondansetron 4 MG/2 ML VIAL IVP PRN ×2 (13:29→20:01)
[2020-09-30] MEDS ORDERED: Albuterol 2.5 MG/3 ML NEBULIZER IH PRN (14:13)
[2020-09-30] MEDS: *HR* OxyCODONE Immed Rel 5 MG TABLET PO PRN ×2 (14:18→22:07)
[2020-09-30] MEDS: Ipratropium/Albuterol Neb 3 ML IH SCH ×2 (14:51→19:44)
[2020-09-30] MEDS: *HR* Heparin 5,000 UNIT/ML VIAL SQ SCH (16:56)
[2020-09-30] MEDS: Thiamine (B-1) 100 MG, Folic Acid 1 MG, MVI, adult with vitamin K 10 ML in 0.9 % Sodi... IVPB SCH (17:02)
[2020-09-30] MEDS ORDERED: Potassium Phosphate 44 MEQ in 0.9 % Sodium Chloride 250 ML IVPB ONE (18:38)
[2020-09-30] MEDS: Lactulose Oral Soln 20 GM/30 ML UDC PO SCH (20:03)
[2020-10-01] MEDS: Ipratropium/Albuterol Neb 3 ML IH SCH ×7 (00:02→23:44)
[2020-10-01] MEDS: *HR* LORazepam 2 MG/ML VIAL IVP PRN ×4 (01:51→13:52)
[2020-10-01] MEDS: Ondansetron 4 MG/2 ML VIAL IVP PRN (01:52)
[2020-10-01] MEDS: *HR* Heparin 5,000 UNIT/ML VIAL SQ SCH ×2 (05:36→17:29)
[2020-10-01 07:13] LABS: Hematocrit 39.9 % (37.5-50.1); Hemoglobin 13.7 g/dL (12.9-16.9); Mean Corpuscular HGB Conc 34.3 g/dL (31.6-35.5); Mean Corpuscular Hemoglobin 32.2 pg (28.0-33.3); Mean Corpuscular Volume 93.7 fL (83.0-100.0); Mean Platelet Volume 10.2 fL (9.4-12.4); Platelet Count 250 K/mcL (140-400); Red Blood Count 4.26 M/mcL (4.19-5.50); Red Cell Distribution Width 13.7 % (11.5-14.5); White Blood Count 12.8 K/mcL (4.3-11.1)
[2020-10-01 07:39] LABS: BUN/Creatinine Ratio 14 (6-26); Blood Urea Nitrogen 6 mg/dL (6-20); Calcium 9.2 mg/dL (8.6-10.3); Carbon Dioxide 33 mEq/L (23-29); Chloride 79 mEq/L (98-107); Glucose 115 mg/dL (70-105); Osmolality,Calculated 259 (280-300); Sodium 125 mEq/L (136-145); eGFR For African Americans > 60 (> 60); eGFR For Non-African Americans > 60 (> 60)
[2020-10-01] MEDS: Lactulose Oral Soln 20 GM/30 ML UDC PO SCH ×2 (07:53→20:04)
[2020-10-01] MEDS: predniSONE 20 MG TABLET PO SCH (07:54)
[2020-10-01] MEDS: *HR* OxyCODONE Immed Rel 5 MG TABLET PO PRN (07:54)
[2020-10-01] MEDS ORDERED: 0.9 % Sodium Chloride 1,000 ML IVC SCH (09:45)
[2020-10-01] MEDS: Metoprolol XL (24 HR) Succ 25 MG TAB.ER.24H PO SCH (10:47)
[2020-10-01 14:13] LABS: BUN/Creatinine Ratio 14 (6-26); Blood Urea Nitrogen 7 mg/dL (6-20); Calcium 9.2 mg/dL (8.6-10.3); Carbon Dioxide 34 mEq/L (23-29); Chloride 80 mEq/L (98-107); Glucose 122 mg/dL (70-105); Osmolality,Calculated 261 (280-300); Potassium 2.8 mEq/L (3.5-5.1); Sodium 126 mEq/L (136-145); eGFR For African Americans > 60 (> 60); eGFR For Non-African Americans > 60 (> 60)
[2020-10-01] MEDS: Thiamine (B-1) 100 MG, Folic Acid 1 MG, MVI, adult with vitamin K 10 ML in 0.9 % Sodi... IVPB SCH (17:30)
[2020-10-01] MEDS: Doxycycline 100 MG CAPSULE PO SCH (20:04)
[2020-10-02] MEDS ORDERED: Ipratropium/Albuterol Neb 3 ML IH PRN (04:00)
[2020-10-02] MEDS: *HR* OxyCODONE Immed Rel 5 MG TABLET PO PRN ×2 (04:16→12:27)
[2020-10-02] MEDS: *HR* Heparin 5,000 UNIT/ML VIAL SQ SCH ×2 (04:17→16:25)
[2020-10-02] MEDS: predniSONE 20 MG TABLET PO SCH (08:26)
[2020-10-02] MEDS: Lactulose Oral Soln 20 GM/30 ML UDC PO SCH ×2 (08:27→20:31)
[2020-10-02] MEDS: Metoprolol XL (24 HR) Succ 25 MG TAB.ER.24H PO SCH (08:27)
[2020-10-02] MEDS: *HR* LORazepam 2 MG/ML VIAL IVP PRN ×2 (08:27→16:42)
[2020-10-02] MEDS: Doxycycline 100 MG CAPSULE PO SCH ×2 (08:27→20:31)
[2020-10-02] MEDS: amLODIPine 5 MG TABLET PO SCH (12:26)
[2020-10-02 12:48] LABS: Basophils % 0.1 %; Hematocrit 43.3 % (37.5-50.1); Hemoglobin 14.8 g/dL (12.9-16.9); Immature Granulocytes % 0.8 % (0-4); Lymphocytes # 0.6 K/mcL (0.6-4.6); Lymphocytes % 4.8 %; Mean Corpuscular HGB Conc 34.2 g/dL (31.6-35.5); Mean Corpuscular Volume 93.7 fL (83.0-100.0); Mean Platelet Volume 10.1 fL (9.4-12.4); Monocytes # 1.1 K/mcL (0.0-1.3); Monocytes % 8.9 %; Neutrophils # 10.3 K/mcL (1.6-8.9); Platelet Count 242 K/mcL (140-400); Red Blood Count 4.62 M/mcL (4.19-5.50); Red Cell Distribution Width 13.4 % (11.5-14.5); Segmented Neutrophils % 85.4 %
[2020-10-02 13:01] LABS: BUN/Creatinine Ratio 24 (6-26); Blood Urea Nitrogen 12 mg/dL (6-20); Calcium 9.2 mg/dL (8.6-10.3); Carbon Dioxide 33 mEq/L (23-29); Chloride 86 mEq/L (98-107); Glucose 122 mg/dL (70-105); Magnesium 1.9 mg/dL (1.6-2.6); Osmolality,Calculated 267 (280-300); Phosphorous 1.2 mg/dL (2.7-4.5); Potassium 2.9 mEq/L (3.5-5.1); Sodium 128 mEq/L (136-145); eGFR For African Americans > 60 (> 60); eGFR For Non-African Americans > 60 (> 60)
[2020-10-02] MEDS ORDERED: 0.9 % Sodium Chloride w KCl 40 MEQ/1,000 ML MLS IVC SCH (13:15)
[2020-10-02] MEDS: Thiamine (B-1) 100 MG, Folic Acid 1 MG, MVI, adult with vitamin K 10 ML in 0.9 % Sodi... IVPB SCH (16:22)
[2020-10-02] MEDS: Budesonide/Formoterol 160/4.5 1 PUFF INH IH SCH (19:51)
[2020-10-02] MEDS: Mirtazapine 15 MG TABLET PO SCH (20:31)
[2020-10-02] MEDS: hydrOXYzine pamoate 25 MG CAPSULE PO SCH (20:31)
[2020-10-03 00:39] LABS: BUN/Creatinine Ratio 27 (6-26); Blood Urea Nitrogen 13 mg/dL (6-20); Calcium 8.6 mg/dL (8.6-10.3); Carbon Dioxide 29 mEq/L (23-29); Chloride 92 mEq/L (98-107); Glucose 86 mg/dL (70-105); Osmolality,Calculated 273 (280-300); Potassium 3.2 mEq/L (3.5-5.1); Sodium 132 mEq/L (136-145); eGFR For African Americans > 60 (> 60); eGFR For Non-African Americans > 60 (> 60)
[2020-10-03] MEDS: *HR* Heparin 5,000 UNIT/ML VIAL SQ SCH ×2 (04:51→18:09)
[2020-10-03 06:54] LABS: Alanine Aminotransferase 19 Units/L (7-52); Albumin 3.6 g/dL (3.5-5.7); Alkaline Phosphatase 93 Units/L (34-104); Aspartate Amino Transferase 40 Units/L (13-39); BUN/Creatinine Ratio 24 (6-26); Bilirubin,Total 1.2 mg/dL (0.3-1.0); Blood Urea Nitrogen 13 mg/dL (6-20); Carbon Dioxide 29 mEq/L (23-29); Chloride 94 mEq/L (98-107); Globulin 3.6 g/dL (2.4-3.5); Glucose 94 mg/dL (70-105); Magnesium 1.9 mg/dL (1.6-2.6); Osmolality,Calculated 278 (280-300); Phosphorous 2.1 mg/dL (2.7-4.5); Sodium 134 mEq/L (136-145); Total Protein 7.2 g/dL (6.4-8.9); eGFR For African Americans > 60 (> 60); eGFR For Non-African Americans > 60 (> 60)
[2020-10-03] MEDS: Budesonide/Formoterol 160/4.5 1 PUFF INH IH SCH ×2 (07:47→22:24)
[2020-10-03] MEDS: Lactulose Oral Soln 20 GM/30 ML UDC PO SCH ×2 (08:13→20:15)
[2020-10-03] MEDS: predniSONE 20 MG TABLET PO SCH (08:14)
[2020-10-03] MEDS: amLODIPine 5 MG TABLET PO SCH (08:14)
[2020-10-03] MEDS: hydrALAZINE 25 MG TABLET PO SCH ×2 (08:14→18:09)
[2020-10-03] MEDS: Doxycycline 100 MG CAPSULE PO SCH ×2 (08:14→20:15)
[2020-10-03] MEDS: hydrOXYzine pamoate 25 MG CAPSULE PO SCH ×3 (08:14→20:15)
[2020-10-03] MEDS: Metoprolol XL (24 HR) Succ 25 MG TAB.ER.24H PO SCH (08:15)
[2020-10-03] MEDS: Methadone Oral Concentrate 50 MG/5 ML UDC PO SCH (08:15)
[2020-10-03] MEDS: Mirtazapine 15 MG TABLET PO SCH (20:15)
[2020-10-04] MEDS: hydrALAZINE 25 MG TABLET PO SCH ×2 (00:36→07:38)
[2020-10-04] MEDS: *HR* OxyCODONE Immed Rel 5 MG TABLET PO PRN (03:25)
[2020-10-04] MEDS: *HR* Heparin 5,000 UNIT/ML VIAL SQ SCH (04:42)
[2020-10-04 07:02] LABS: Basophils % 0.2 %; Eosinophils # 0.1 K/mcL (0.0-0.6); Eosinophils % 0.5 %; Hematocrit 41.4 % (37.5-50.1); Hemoglobin 13.7 g/dL (12.9-16.9); Immature Granulocytes % 0.6 % (0-4); Lymphocytes # 1.8 K/mcL (0.6-4.6); Lymphocytes % 12.9 %; Mean Corpuscular HGB Conc 33.1 g/dL (31.6-35.5); Mean Corpuscular Volume 96.7 fL (83.0-100.0); Mean Platelet Volume 10.7 fL (9.4-12.4); Monocytes # 1.6 K/mcL (0.0-1.3); Monocytes % 11.6 %; Neutrophils # 10.4 K/mcL (1.6-8.9); Platelet Count 303 K/mcL (140-400); Red Blood Count 4.28 M/mcL (4.19-5.50); Red Cell Distribution Width 14.1 % (11.5-14.5); Segmented Neutrophils % 74.2 %; White Blood Count 14.1 K/mcL (4.3-11.1)
[2020-10-04 07:26] LABS: BUN/Creatinine Ratio 30 (6-26); Blood Urea Nitrogen 22 mg/dL (6-20); Calcium 9.4 mg/dL (8.6-10.3); Carbon Dioxide 27 mEq/L (23-29); Chloride 98 mEq/L (98-107); Glucose 109 mg/dL (70-105); Magnesium 1.9 mg/dL (1.6-2.6); Osmolality,Calculated 286 (280-300); Phosphorous 2.3 mg/dL (2.7-4.5); Potassium 3.1 mEq/L (3.5-5.1); Sodium 136 mEq/L (136-145); eGFR For African Americans > 60 (> 60); eGFR For Non-African Americans > 60 (> 60)
[2020-10-04] MEDS: Metoprolol XL (24 HR) Succ 25 MG TAB.ER.24H PO SCH (07:38)
[2020-10-04] MEDS: amLODIPine 5 MG TABLET PO SCH (07:39)
[2020-10-04] MEDS: hydrOXYzine pamoate 25 MG CAPSULE PO SCH (07:39)
[2020-10-04] MEDS: Doxycycline 100 MG CAPSULE PO SCH (07:39)
[2020-10-04] MEDS: Lactulose Oral Soln 20 GM/30 ML UDC PO SCH (07:40)
[2020-10-04] MEDS: Methadone Oral Concentrate 50 MG/5 ML UDC PO SCH (07:40)
[2020-10-04] MEDS: Budesonide/Formoterol 160/4.5 1 PUFF INH IH SCH (08:15)
[2020-10-04] MEDS ORDERED: predniSONE 20 MG TABLET PO SCH (09:00)
[2020-10-04] MEDS ORDERED: Potassium Phosphate 44 MEQ in 0.9 % Sodium Chloride 250 ML IVPB ONE (10:09)
[2020-10-04 11:13] VITALS: BP 108/81
== END 2020-10-04 14:31 | disposition home or self-care (01) | DRG 775 ==
LOC: ICNU → SUATTDRO 12:48 → 2NNU 18:31
PROVIDERS: ADMIT Family Medicine; ATTEND Internal Medicine

== ENCOUNTER 2020-11-02 20:41 | Inpatient (IN) ==
[2020-11-02] MEDS ORDERED: Naloxone 0.4 MG/ML INJ IVP PRN (22:41)
[2020-11-02] MEDS ORDERED: Perflutren Lipid Microsphere 1.3 ML in 0.9 % Sodium Chloride 8.7 ML IVP PRN (23:20)
[2020-11-02] MEDS ORDERED: cefTRIAXone 2,000 MG in Water for inj. (sterile) 20 ML IVP SCH (23:45)
[2020-11-02] MEDS ORDERED: Azithromycin 500 MG in 0.9 % Sodium Chloride 250 ML IVPB SCH (23:45)
[2020-11-02] MEDS ORDERED: *HR* LORazepam 2 MG/ML VIAL IVP PRN (23:52)
[2020-11-02] MEDS: Ondansetron ODT 4 MG TAB.RAPDIS SL PRN (23:59)
[2020-11-02] MEDS: Metoprolol XL (24 HR) Succ 50 MG TAB.ER.24H PO SCH (23:59)
[2020-11-03] MEDS ORDERED: Ipratropium/Albuterol Neb 3 ML IH SCH
[2020-11-03] MEDS: Ipratropium 1 PUFF INHALER IH SCH ×7 (00:15→23:37)
[2020-11-03] MEDS: *HR* LORazepam 2 MG/ML VIAL IVP PRN ×3 (00:27→21:42)
[2020-11-03] MEDS: Gabapentin 400 MG CAPSULE PO SCH ×5 (00:31→22:24)
[2020-11-03] MEDS: predniSONE 20 MG TABLET PO SCH ×2 (00:40→07:49)
[2020-11-03 00:42] LABS: Prothrombin Time 11.9 Seconds (9.4-12.1)
[2020-11-03 00:45] LABS: Hematocrit 36.6 % (37.5-50.1); Hemoglobin 11.9 g/dL (12.9-16.9); Mean Corpuscular HGB Conc 32.5 g/dL (31.6-35.5); Mean Corpuscular Hemoglobin 31.2 pg (28.0-33.3); Mean Corpuscular Volume 95.8 fL (83.0-100.0); Mean Platelet Volume 9.8 fL (9.4-12.4); Platelet Count 191 K/mcL (140-400); Red Blood Count 3.82 M/mcL (4.19-5.50); Red Cell Distribution Width 13.5 % (11.5-14.5); White Blood Count 4.7 K/mcL (4.3-11.1)
[2020-11-03 00:53] LABS: BUN/Creatinine Ratio 9 (6-26); Blood Urea Nitrogen 4 mg/dL (6-20); Calcium 8.5 mg/dL (8.6-10.3); Carbon Dioxide 35 mEq/L (23-29); Chloride 89 mEq/L (98-107); Glucose 82 mg/dL (70-105); Osmolality,Calculated 278 (280-300); Potassium 3.3 mEq/L (3.5-5.1); Sodium 136 mEq/L (136-145); eGFR For African Americans > 60 (> 60); eGFR For Non-African Americans > 60 (> 60)
[2020-11-03 01:53] LABS: Adenovirus Not Detected (Not Detect); Bordetella Pertussis Not Detected (Not Detect); Chlamydophila pneumoniae Not Detected (Not Detect); Coronavirus 229E Not Detected (Not Detect); Coronavirus HKU1 Not Detected (Not Detect); Coronavirus NL63 Not Detected (Not Detect); Coronavirus OC43 Not Detected (Not Detect); Human Metapneumovirus Not Detected (Not Detect); Human Rhinovirus/Enterovirus Not Detected (Not Detect); Influenza A Subtype 2009 H1 Not Detected (Not Detect); Influenza B Not Detected (Not Detect); Mycoplasma pneumoniae Not Detected (Not Detect); Parainfluenza Virus 1 Not Detected (Not Detect); Parainfluenza Virus 2 Not Detected (Not Detect); Parainfluenza Virus 3 Not Detected (Not Detect); Parainfluenza Virus 4 Not Detected (Not Detect); Respiratory Syncytial Virus Not Detected (Not Detect); SARS-CoV-2 Not Detected (Not Detect)
[2020-11-03 02:50] LABS: Bilirubin,Urine Negative (Negative); Blood,Urine Negative (Negative); Clarity,Urine Clear (Clear); Color,Urine Colorless (Yellow); Glucose,Urine (UA) Normal (Normal); Ketones,Urine Negative (Negative); Leukocyte Esterase,Urine Negative (Negative); Nitrite,Urine Negative (Negative); PH,Urine 6.5 pH Units (5.0-8.0); Protein,Urine Negative (Neg-Trace); Specific Gravity,Urine 1.006 (1.010-1.025); Urobilinogen,Urine Normal (Normal)
[2020-11-03] MEDS: *HR* Enoxaparin 40 MG/0.4 ML SYRINGE SQ SCH (05:30)
[2020-11-03] MEDS: Metoprolol XL (24 HR) Succ 50 MG TAB.ER.24H PO SCH (07:48)
[2020-11-03] MEDS: Furosemide 40 MG/4 ML VIAL IVP SCH ×2 (07:48)
[2020-11-03] MEDS: amLODIPine 5 MG TABLET PO SCH ×2 (07:49)
[2020-11-03] MEDS: Methadone Oral Concentrate 50 MG/5 ML UDC PO SCH (07:50)
[2020-11-03] MEDS ORDERED: Potassium Chloride Elixir 20 MEQ/15 ML UDC PO ONE (11:14)
[2020-11-03] MEDS: Ondansetron ODT 4 MG TAB.RAPDIS SL PRN (22:37)
[2020-11-04] MEDS: Ipratropium 1 PUFF INHALER IH SCH ×5 (03:26→20:20)
[2020-11-04] MEDS: *HR* Enoxaparin 40 MG/0.4 ML SYRINGE SQ SCH (06:18)
[2020-11-04 07:44] LABS: Basophils % 0.3 %; Eosinophils % 0.3 %; Hematocrit 37.7 % (37.5-50.1); Hemoglobin 12.4 g/dL (12.9-16.9); Immature Granulocytes % 0.3 % (0-4); Lymphocytes # 1.8 K/mcL (0.6-4.6); Lymphocytes % 23.1 %; Mean Corpuscular HGB Conc 32.9 g/dL (31.6-35.5); Mean Corpuscular Hemoglobin 31.4 pg (28.0-33.3); Mean Corpuscular Volume 95.4 fL (83.0-100.0); Mean Platelet Volume 10.2 fL (9.4-12.4); Monocytes # 0.9 K/mcL (0.0-1.3); Monocytes % 12.4 %; Neutrophils # 4.8 K/mcL (1.6-8.9); Platelet Count 243 K/mcL (140-400); Red Blood Count 3.95 M/mcL (4.19-5.50); Red Cell Distribution Width 13.2 % (11.5-14.5); Segmented Neutrophils % 63.6 %
[2020-11-04 07:58] LABS: White Blood Count 7.6 K/mcL (4.3-11.1)
[2020-11-04 08:15] LABS: Alanine Aminotransferase 35 Units/L (7-52); Albumin 3.8 g/dL (3.5-5.7); Albumin/Globulin Ratio 1.2 (1.1-2.2); Alkaline Phosphatase 104 Units/L (34-104); Aspartate Amino Transferase 63 Units/L (13-39); BUN/Creatinine Ratio 19 (6-26); Bilirubin,Total 0.8 mg/dL (0.3-1.0); Blood Urea Nitrogen 10 mg/dL (6-20); Calcium 9.6 mg/dL (8.6-10.3); Carbon Dioxide 42 mEq/L (23-29); Chloride 84 mEq/L (98-107); Globulin 3.3 g/dL (2.4-3.5); Glucose 110 mg/dL (70-105); Osmolality,Calculated 274 (280-300); Potassium 3.4 mEq/L (3.5-5.1); Sodium 132 mEq/L (136-145); Total Protein 7.1 g/dL (6.4-8.9); eGFR For African Americans > 60 (> 60); eGFR For Non-African Americans > 60 (> 60)
[2020-11-04] MEDS: Gabapentin 400 MG CAPSULE PO SCH ×4 (08:35→21:07)
[2020-11-04] MEDS: predniSONE 20 MG TABLET PO SCH (08:36)
[2020-11-04] MEDS: amLODIPine 5 MG TABLET PO SCH (08:36)
[2020-11-04] MEDS: Metoprolol XL (24 HR) Succ 50 MG TAB.ER.24H PO SCH (08:36)
[2020-11-04] MEDS: Methadone Oral Concentrate 50 MG/5 ML UDC PO SCH (08:37)
[2020-11-04] MEDS: Furosemide 40 MG/4 ML VIAL IVP SCH (08:38)
[2020-11-04] MEDS ORDERED: hydrOXYzine pamoate 25 MG CAPSULE PO PRN (09:05)
[2020-11-04] MEDS: hydrALAZINE 25 MG TABLET PO SCH ×3 (10:27→23:49)
[2020-11-04 10:41] LABS: ABG Base Excess 14 mEq/L (-2 to 3); ABG HCO3 42 mEq/L (21-27); ABG Oxygen Saturation 62 % (95-98); ABG PCO2 64 mmHg (35-45); ABG PH 7.43 pH Units (7.32-7.45); ABG PO2 33 mmHg (85-104); ABG TCO2 44 mEq/L (20-26)
[2020-11-04] MEDS: *HR* LORazepam 2 MG/ML VIAL IVP PRN ×6 (11:13→23:48)
[2020-11-04] MEDS ORDERED: *HR* LORazepam 2 MG/ML VIAL IVP ONE ×2 (12:37→14:35)
[2020-11-04] MEDS: Folic Acid 1 MG TABLET PO SCH (14:45)
[2020-11-04] MEDS: Thiamine (B-1) 100 MG TABLET PO SCH (14:49)
[2020-11-04] MEDS: Dexmedetomidine HCl 400 MCG/100 ML MLS IVC SCH ×2 (15:29→23:36)
[2020-11-04] MEDS: Lactulose Oral Soln 20 GM/30 ML UDC PO SCH (21:07)
[2020-11-04] MEDS: Mirtazapine 15 MG TABLET PO SCH (21:07)
[2020-11-05] MEDS: Ipratropium 1 PUFF INHALER IH SCH ×7 (00:31→23:57)
[2020-11-05] MEDS: *HR* LORazepam 2 MG/ML VIAL IVP PRN ×7 (01:41→23:23)
[2020-11-05 04:57] LABS: Basophils % 0.2 %; Eosinophils % 0.4 %; Hematocrit 38.7 % (37.5-50.1); Hemoglobin 12.9 g/dL (12.9-16.9); Immature Granulocytes % 0.4 % (0-4); Lymphocytes % 36.7 %; Mean Corpuscular HGB Conc 33.3 g/dL (31.6-35.5); Mean Platelet Volume 10.1 fL (9.4-12.4); Monocytes # 0.8 K/mcL (0.0-1.3); Monocytes % 13.9 %; Neutrophils # 2.6 K/mcL (1.6-8.9); Platelet Count 224 K/mcL (140-400); Red Blood Count 4.16 M/mcL (4.19-5.50); Red Cell Distribution Width 13.2 % (11.5-14.5); Segmented Neutrophils % 48.4 %; White Blood Count 5.5 K/mcL (4.3-11.1)
[2020-11-05 05:07] LABS: BUN/Creatinine Ratio 18 (6-26); Blood Urea Nitrogen 11 mg/dL (6-20); Calcium 9.2 mg/dL (8.6-10.3); Carbon Dioxide 40 mEq/L (23-29); Chloride 87 mEq/L (98-107); Glucose 110 mg/dL (70-105); Magnesium 1.7 mg/dL (1.6-2.6); Osmolality,Calculated 278 (280-300); Phosphorous 2.2 mg/dL (2.7-4.5); Potassium 3.2 mEq/L (3.5-5.1); Sodium 134 mEq/L (136-145); eGFR For African Americans > 60 (> 60); eGFR For Non-African Americans > 60 (> 60)
[2020-11-05] MEDS: Dexmedetomidine HCl 400 MCG/100 ML MLS IVC SCH ×3 (05:09→18:14)
[2020-11-05] MEDS: *HR* Enoxaparin 40 MG/0.4 ML SYRINGE SQ SCH (05:47)
[2020-11-05] MEDS: hydrALAZINE 25 MG TABLET PO SCH ×3 (08:04→23:16)
[2020-11-05] MEDS: Folic Acid 1 MG TABLET PO SCH (08:06)
[2020-11-05] MEDS: Lactulose Oral Soln 20 GM/30 ML UDC PO SCH ×3 (08:06→20:28)
[2020-11-05] MEDS: Furosemide 40 MG TABLET PO SCH (08:07)
[2020-11-05] MEDS: Methadone Oral Concentrate 50 MG/5 ML UDC PO SCH (08:07)
[2020-11-05] MEDS: Thiamine (B-1) 100 MG TABLET PO SCH (08:08)
[2020-11-05] MEDS: amLODIPine 5 MG TABLET PO SCH (08:08)
[2020-11-05] MEDS: predniSONE 20 MG TABLET PO SCH (08:08)
[2020-11-05] MEDS: Metoprolol XL (24 HR) Succ 50 MG TAB.ER.24H PO SCH (08:08)
[2020-11-05] MEDS: Gabapentin 400 MG CAPSULE PO SCH ×4 (08:08→20:22)
[2020-11-05 14:54] LABS: ABG Base Excess 10 mEq/L (-2 to 3); ABG HCO3 36 mEq/L (21-27); ABG Oxygen Saturation 94 % (95-98); ABG PCO2 52 mmHg (35-45); ABG PH 7.45 pH Units (7.32-7.45); ABG PO2 69 mmHg (85-104); ABG TCO2 37 mEq/L (20-26)
[2020-11-05] MEDS: Clindamycin 600 MG/50 ML 600 MG/50 ML IV.SOLN IVPB SCH ×2 (17:50→23:16)
[2020-11-05 18:00] LABS: Alanine Aminotransferase 30 Units/L (7-52); Albumin 3.6 g/dL (3.5-5.7); Albumin/Globulin Ratio 1.1 (1.1-2.2); Alkaline Phosphatase 98 Units/L (34-104); Aspartate Amino Transferase 56 Units/L (13-39); Bilirubin,Direct 0.2 mg/dL (0.0-0.2); Bilirubin,Indirect 0.6 mg/dL (0.0-1.0); Bilirubin,Total 0.8 mg/dL (0.3-1.0); Globulin 3.2 g/dL (2.4-3.5); Total Protein 6.8 g/dL (6.4-8.9)
[2020-11-05] MEDS ORDERED: Doxycycline 100 MG in 0.9 % Sodium Chloride Mini Bag 100 ML IVPB SCH (18:00)
[2020-11-05] MEDS: Mirtazapine 15 MG TABLET PO SCH (20:22)
[2020-11-06] MEDS: Ondansetron ODT 4 MG TAB.RAPDIS SL PRN (03:19)
[2020-11-06] MEDS: Ipratropium 1 PUFF INHALER IH SCH ×5 (03:37→19:42)
[2020-11-06] MEDS: Dexmedetomidine HCl 400 MCG/100 ML MLS IVC SCH (04:04)
[2020-11-06 04:46] LABS: Basophils % 0.2 %; Eosinophils % 0.3 %; Hematocrit 43.4 % (37.5-50.1); Hemoglobin 14.3 g/dL (12.9-16.9); Immature Granulocytes % 0.4 % (0-4); Lymphocytes # 1.8 K/mcL (0.6-4.6); Lymphocytes % 18.7 %; Mean Corpuscular HGB Conc 32.9 g/dL (31.6-35.5); Mean Corpuscular Hemoglobin 30.4 pg (28.0-33.3); Mean Corpuscular Volume 92.3 fL (83.0-100.0); Mean Platelet Volume 9.8 fL (9.4-12.4); Monocytes % 10.1 %; Neutrophils # 6.8 K/mcL (1.6-8.9); Platelet Count 264 K/mcL (140-400); Red Cell Distribution Width 13.2 % (11.5-14.5); Segmented Neutrophils % 70.3 %
[2020-11-06 04:47] LABS: White Blood Count 9.7 K/mcL (4.3-11.1)
[2020-11-06 05:10] LABS: BUN/Creatinine Ratio 22 (6-26); Blood Urea Nitrogen 14 mg/dL (6-20); Calcium 8.8 mg/dL (8.6-10.3); Carbon Dioxide 36 mEq/L (23-29); Chloride 89 mEq/L (98-107); Glucose 102 mg/dL (70-105); Magnesium 1.7 mg/dL (1.6-2.6); Osmolality,Calculated 281 (280-300); Phosphorous 3.5 mg/dL (2.7-4.5); Potassium 3.1 mEq/L (3.5-5.1); Sodium 135 mEq/L (136-145); eGFR For African Americans > 60 (> 60); eGFR For Non-African Americans > 60 (> 60)
[2020-11-06] MEDS: *HR* Enoxaparin 40 MG/0.4 ML SYRINGE SQ SCH (06:09)
[2020-11-06] MEDS: *HR* LORazepam 2 MG/ML VIAL IVP PRN ×4 (06:38→22:18)
[2020-11-06] MEDS: Clindamycin 600 MG/50 ML 600 MG/50 ML IV.SOLN IVPB SCH ×2 (07:35→16:00)
[2020-11-06] MEDS: Thiamine (B-1) 100 MG TABLET PO SCH (07:37)
[2020-11-06] MEDS: Folic Acid 1 MG TABLET PO SCH (07:37)
[2020-11-06] MEDS: Lactulose Oral Soln 20 GM/30 ML UDC PO SCH ×2 (07:37→22:11)
[2020-11-06] MEDS: amLODIPine 5 MG TABLET PO SCH (07:37)
[2020-11-06] MEDS: Gabapentin 400 MG CAPSULE PO SCH ×4 (07:37→22:10)
[2020-11-06] MEDS: hydrALAZINE 25 MG TABLET PO SCH ×2 (07:37→16:01)
[2020-11-06] MEDS: predniSONE 20 MG TABLET PO SCH (07:38)
[2020-11-06] MEDS: Metoprolol XL (24 HR) Succ 50 MG TAB.ER.24H PO SCH (07:38)
[2020-11-06] MEDS: Furosemide 40 MG TABLET PO SCH (07:38)
[2020-11-06] MEDS: Methadone Oral Concentrate 50 MG/5 ML UDC PO SCH (07:39)
[2020-11-06 11:59] LABS: Alanine Aminotransferase 28 Units/L (7-52); Albumin 3.6 g/dL (3.5-5.7); Albumin/Globulin Ratio 1.1 (1.1-2.2); Alkaline Phosphatase 102 Units/L (34-104); Aspartate Amino Transferase 49 Units/L (13-39); Bilirubin,Direct 0.1 mg/dL (0.0-0.2); Bilirubin,Indirect 0.7 mg/dL (0.0-1.0); Bilirubin,Total 0.8 mg/dL (0.3-1.0); Globulin 3.4 g/dL (2.4-3.5)
[2020-11-06] MEDS ORDERED: Potassium Chloride 40 MEQ, Lidocaine 1% 2 ML in 0.9 % Sodium Chloride 500 ML IVPB ONE (14:40)
[2020-11-06] MEDS: Mirtazapine 15 MG TABLET PO SCH (22:11)
[2020-11-07] MEDS: Ipratropium 1 PUFF INHALER IH SCH ×4 (00:04→11:35)
[2020-11-07] MEDS: Clindamycin 600 MG/50 ML 600 MG/50 ML IV.SOLN IVPB SCH ×2 (00:53→08:46)
[2020-11-07] MEDS: hydrALAZINE 25 MG TABLET PO SCH ×2 (00:53→08:47)
[2020-11-07 04:07] LABS: Basophils % 0.2 %; Eosinophils # 0.1 K/mcL (0.0-0.6); Eosinophils % 0.5 %; Hematocrit 43.2 % (37.5-50.1); Hemoglobin 14.4 g/dL (12.9-16.9); Immature Granulocytes % 0.7 % (0-4); Lymphocytes # 2.2 K/mcL (0.6-4.6); Lymphocytes % 18.7 %; Mean Corpuscular HGB Conc 33.3 g/dL (31.6-35.5); Mean Corpuscular Hemoglobin 31.2 pg (28.0-33.3); Mean Corpuscular Volume 93.5 fL (83.0-100.0); Monocytes # 1.4 K/mcL (0.0-1.3); Monocytes % 11.7 %; Neutrophils # 8.1 K/mcL (1.6-8.9); Platelet Count 286 K/mcL (140-400); Red Blood Count 4.62 M/mcL (4.19-5.50); Red Cell Distribution Width 13.7 % (11.5-14.5); Segmented Neutrophils % 68.2 %; White Blood Count 11.8 K/mcL (4.3-11.1)
[2020-11-07 04:15] LABS: Alanine Aminotransferase 28 Units/L (7-52); Albumin 3.8 g/dL (3.5-5.7); Alkaline Phosphatase 96 Units/L (34-104); Aspartate Amino Transferase 47 Units/L (13-39); BUN/Creatinine Ratio 16 (6-26); Blood Urea Nitrogen 15 mg/dL (6-20); Calcium 9.3 mg/dL (8.6-10.3); Carbon Dioxide 35 mEq/L (23-29); Chloride 93 mEq/L (98-107); Globulin 3.7 g/dL (2.4-3.5); Glucose 92 mg/dL (70-105); Osmolality,Calculated 282 (280-300); Potassium 3.5 mEq/L (3.5-5.1); Sodium 136 mEq/L (136-145); Total Protein 7.5 g/dL (6.4-8.9); eGFR For African Americans > 60 (> 60); eGFR For Non-African Americans > 60 (> 60)
[2020-11-07] MEDS: *HR* Enoxaparin 40 MG/0.4 ML SYRINGE SQ SCH (06:52)
[2020-11-07] MEDS: *HR* LORazepam 2 MG/ML VIAL IVP PRN (08:45)
[2020-11-07] MEDS: Folic Acid 1 MG TABLET PO SCH (08:47)
[2020-11-07] MEDS: Gabapentin 400 MG CAPSULE PO SCH ×2 (08:47→12:16)
[2020-11-07] MEDS: Furosemide 40 MG TABLET PO SCH (08:47)
[2020-11-07] MEDS: Lactulose Oral Soln 20 GM/30 ML UDC PO SCH (08:47)
[2020-11-07] MEDS: predniSONE 20 MG TABLET PO SCH (08:48)
[2020-11-07] MEDS: Methadone Oral Concentrate 50 MG/5 ML UDC PO SCH (08:48)
[2020-11-07] MEDS: Thiamine (B-1) 100 MG TABLET PO SCH (08:49)
[2020-11-07] MEDS: Metoprolol XL (24 HR) Succ 50 MG TAB.ER.24H PO SCH (08:49)
[2020-11-07 10:58] VITALS: BP 122/91
[2020-11-07] MEDS ORDERED: FLU Vac QV 20-21 (6Month+)/PF 0.5 ML SYRINGE IM ONE (13:27)
== END 2020-11-07 14:05 | disposition home or self-care (01) | DRG 280 ==
LOC: CDU → SUATTDRO 22:34 → 3BNU 11-03 04:57 → ICNU 11-04 15:13 → SUATTDRO 11-04 15:25
PROVIDERS: ADMIT Family Medicine; ATTEND Family Medicine